=== PATIENT | female | born 1985 | race Caucasian/White ===

== ENCOUNTER 2019-09-16 19:32 | Emergency (ER) | payer OTHER, SELFPAY ==
--- NOTE | ~2019-09-16 | XR_ITS ---
EXAMINATION: XR finger 2nd LT min 2V INDICATION: Left second finger pain TECHNIQUE: Two views of the left second finger are obtained. COMPARISON: None available FINDINGS: There is mild soft tissue swelling of the finger. No fracture, dislocation, or subluxation is identified. The joint spaces are normal. IMPRESSION: 1. No acute osseous abnormality. Reviewed, dictated and finalized at location A.
[2019-09-16 19:48] VITALS: BP 114/73; PULSE 70; RESP 17; TEMP 37.3; O2SAT 98
--- NOTE | 2019-09-16 20:19 | ED.UPPEXIN ---
HPI - Extremity Injury (Upper) General Chief Complaint: Extremity Injury, Upper Stated Complaint: finger pain Source: patient Mode of arrival: ambulatory Limitations: no limitations History of Present Illness HPI narrative: this is a 34-year-old female that presents with injury to her left index finger after she inadvertently slammed the car door on her finger causing pain and swelling and along with the swelling some numbness to the distal end of her left index finger has good range of motion although painful with movement and with palpation. No other injuries. Patient did not take any medication prior to arrival she just came directly to the emergency department for ev MD complaint: injury to: left and finger Onset (ago): hour(s) Other Extremity Injury: Left: fingers (index) Other injuries: none Handedness: right Place: outdoors Severity: mild Relieving factors: cold therapy Exacerbating factors: movement of extremity Context: direct blow and other ( Slam car door on finger) Associated symptoms: numbness Related Data Home Medications Medication Instructions Recorded Confirmed No Home Medications 09/16/19 09/16/19 Allergies Allergy/AdvReac Type Severity Reaction Status Date / Time No Known Allergies Allergy Verified 09/16/19 19:46 Review of Systems Review of Systems: All systems reviewed & are unremarkable except as noted in HPI and below [facility] Past Medical History Medical History Patient denies medical problems Exam Const: General: no acute distress and alert Orientation/consciousness: patient oriented x3 HENMT: Head: normal to inspection Eyes: Conjunctivae: conjunctivae normal Pupils: Equal, round and reactive pupils present Neck: Neck: normal visual inspection and no lymphadenopathy Chest: Chest palpation & inspection: normal inspection of the chest Resp: Effort & Inspection: normal respiratory effort Cardio: Rate: regular rate Rhythm: regular rhythm GI: GI Palp: Yes Soft to palpation Skin: Wounds: wounds noted ( swollen tender distal left index finger) Neuro: General: patient oriented x3 and moves all extremities Extrem: General: normal to inspection Psych: Mental Status: mental status grossly normal Course Course Emergency Course: patient was offered pain medication but felt that she wanted to make sure there was no fractures and pain was well tolerated without medication. Vital Signs Vital signs: Vital Signs Temperature 37.3 C 09/16/19 19:48 Pulse Rate 70 09/16/19 19:48 Respiratory Rate 17 09/16/19 19:48 Blood Pressure 114/73 09/16/19 19:48 Pulse Oximetry 98 09/16/19 19:48 Temperature 37.3 C 09/16/19 19:48 Pulse Rate 70 09/16/19 19:48 Respiratory Rate 17 09/16/19 19:48 Blood Pressure 114/73 09/16/19 19:48 Pulse Oximetry 98 09/16/19 19:48 Critical Care Time Critical Care Time Critical Care Time: No Discharge Plan Discharge Clinical Impression: Finger sprain Patient Disposition: Home, Self-Care Condition: Stable Instructions: Antibiotic Form, Finger Sprain (ED) Additional Instructions: Can continue to use ice to affected finger, can use Motrin 400 mg twice daily x5 days for swelling and pain, follow-up with primary care physician if symptoms persist or worsen. Prescriptions: No Action No Home Medications RF: 0 Follow-up/Referrals: Homero,Miko Marcos MD [Primary Care Provider] - Time of Disposition: 20:23
== END 2019-09-16 20:30 | disposition home or self-care (01) ==
PROVIDERS: Emergency Provider Emergency Medicine; PCP Family Medicine
DX: S63.611A Unspecified sprain of left index finger, initial encounter (principal); W22.8XXA Striking against or struck by other objects, initial encounter
CPT/HCPCS: 73140; 99282; 99283

== ENCOUNTER 2020-04-12 10:43 | Emergency (ER) | payer OTHER, SELFPAY ==
--- NOTE | ~2020-04-12 | US_ITS ---
EXAMINATION: US pelvic complete w TV DATE: 04/12/2020 14:01 INDICATION: Right lower quadrant pain Comparison:No prior studies for comparison. TECHNIQUE: Multiple transabdominal and endovaginal sonographic images of the pelvis performed. FINDINGS: The uterus measures 10.2 x 4.5 x 4.6 cm. The endometrial complex measures 11 mm. The right ovary measures 2.8 x 1.1 x 1.5 cm and the left ovary measures 2.3 x 1.4 x 2.2 cm. There ar e small follicles in each ovary. There is trace free fluid in the pelvis. There are no abnormal masses seen on either side. IMPRESSION: 1. Unremarkable pelvic ultrasound. Reviewed, dictated and finalized at location A. [employer]
--- NOTE | ~2020-04-12 | CT_ITS ---
EXAMINATION: CT abdomen pelvis w con DATE: 04/12/2020 12:43 INDICATION: Right lower quadrant abdominal pain for one day. Dry heaves. Abdominal tenderness. TECHNIQUE: Computed tomography (CT) of the abdomen and pelvis was performed with 100 cc Omnipaque 350 intravenous contrast. Automated exposure control and iterative reconstruction technique were employe d. Exam dose: 428.75 mGy-cm total exam DLP. COMPARISON: None. FINDINGS: The lung bases are clear. Normal heart size. No pericardial or pleural effusion. The lung bases are clear. No hepatic, splenic, pancreatic, adrenal or renal space occupying mass lesion is detected. The gallbl adder is unremarkable. No gallbladder wall thickening. No pericholecystic fluid or stranding. No bile duct or pancreatic duct dilatation. No ureteral calculus or hydroureteronephrosis is detected. Normal caliber of the abdominal aorta. No intraperitoneal or retroperitoneal or pelvic mass lesion or adenopathy or ascites. The uterus measures up to 10 cm height and 4 cm AP dimension; the uterus adnexal areas and urinary bl adder are otherwise unremarkable. Normal appendix. No bowel obstruction or intraperitoneal free air. Included skeletal structures are unremarkable. IMPRESSION: Normal appendix. No significant abnormal finding Reviewed, dictated and finalized at [facility]. Reviewed, dictated and finalized at location B. T TESTER
--- NOTE | 2020-04-12 11:05 | ED.GENADULT ---
HPI - General Adult General Chief complaint: Abdominal Pain Stated complaint: R Side pain Source: patient Mode of arrival: ambulatory Limitations: no limitations History of Present Illness HPI narrative: Samanta is a 35F with a PMH of ovarian cysts that presented to the ED from her PCP office with RLQ pain. It came on insidiously last night and has become worse. It is associated with nausea but no vomiting, anorexia and chills. Pain is worse with movement and better with lying still. She did have a BM this morning. Related Data Allergies Allergy/AdvReac Type Severity Reaction Status Date / Time No Known Allergies Allergy Verified 09/16/19 19:46 Review of Systems Constitutional: Constitutional: Reports chills, Denies fever(s) and Denies weakness Eyes: Eyes: Reports no additional eye complaints ENT: Reports system reviewed and no additional complaints, except as documented Cardiovascular: Cardiovascular: Reports no additional cardiovascular complaints Respiratory: Respiratory: Reports no additional respiratory complaints Gastrointestinal: Gastrointestinal: Reports as per HPI Genitourinary: Genitourinary: Denies hematuria and Denies dysuria Musculoskeletal: Musculoskeletal: Reports no additional musculoskeletal complaints Integumentary/Breasts: Skin/Breast: Reports system reviewed and no additional complaints, except as docu Neurologic: Reports system reviewed and no additional complaints, except as documented Psychiatric: Psychiatric: Reports no additional psychiatric complaints Endocrine: Endocrine: Reports no additional endocrine complaints Hematologic/Lymphatic: Hematologic/Lymphatic: Reports no additional hematologic/lymphatic complaints Allergic/Immunologic: Allergic/Immunologic: Reports no additional allergic/immunologic complaints [facility] [place] Past Medical History Medical History (Updated 04/12/20 @ 14:23 by Victor Manuel Vazquez DO) Patient denies medical problems Exam Const: General: alert Orientation/consciousness: patient oriented x3 Limitations: No altered mental status Other: Mild distress HENMT: Other: normocephalic, atraumatic. moist mucous membranes Eyes: Conjunctivae: conjunctivae normal Pupils: Equal, round and reactive pupils present Neck: Neck: normal visual inspection Chest: Chest palpation & inspection: normal inspection of the chest Resp: Effort & Inspection: normal respiratory effort Auscultation: clear to auscultation bilaterally Cardio: Rate: regular rate Rhythm: regular rhythm GI: Other: Most TTP in the RLQ, but also the LLQ. Rebound tenderness present, +obturator sign, +psoas sign : General: Yes no CVA tenderness Skin: General skin exam: normal color Rashes: no rashes Neuro: General: patient oriented x3 and moves all extremities Extrem: General: normal to inspection Psych: Mental Status: mental status grossly normal Course Course Emergency Course: Samanta was evaluated. Ordered labs, UA, U Hcg. 4mg of morphine ordered for pain. Labs were largely unremarkable. However, given her symptoms a CT was ordered. EXAMINATION: CT abdomen pelvis w con DATE: 04/12/2020 12:43 INDICATION: Right lower quadrant abdominal pain for one day. Dry heaves. Abdominal tenderness. TECHNIQUE: Computed tomography (CT) of the abdomen and pelvis was performed with 100 cc Omnipaque 350 intravenous contrast. Automated exposure control and iterative reconstruction technique were employed. Exam dose: 428.75 mGy-cm total exam DLP. COMPARISON: None. FINDINGS: The lung bases are clear. Normal heart size. No pericardial or pleural effusion. The lung bases are clear. No hepatic, splenic, pancreatic, adrenal or renal space occupying mass lesion is detected. The gallbladder is unremarkable. No gallbladder wall thickening. No pericholecystic fluid or stranding. No bile duct or pancreatic duct dilatation. No ureteral calculus or hydroureteronephrosis is detected. Normal caliber of the abdominal a
[2020-04-12 11:13] VITALS: BP 123/71; PULSE 64; RESP 18; TEMP 37.2; O2SAT 100
[2020-04-12 11:18] LABS: Basophils Absolute Auto 0.02 K/mm3 (0.00-0.10); Basophils Percent Auto 0.3 % (0.0-1.0); Eosinophils Absolute Auto 0.08 K/mm3 (0.02-0.50); Eosinophils Percent Auto 1.1 % (1.0-6.0); Hemoglobin 13.3 g/dL (12.0-15.0); Immature Granulocyte Absolute 0.02 K/mm3 (0.00-0.00); Immature Granulocyte Percent A 0.3 % (0.0-0.0); Lymphocytes Absolute Auto 1.88 K/mm3 (1.10-4.50); Lymphocytes Percent Auto 25.6 % (18.0-42.0); Mean Corpuscular HGB Conc 32.4 g/dL (32.0-36.0); Mean Corpuscular Hemoglobin 30.5 pg (27.0-31.0); Mean Platelet Volume 10.8 fl (9.2-11.8); Monocytes Absolute Auto 0.47 K/mm3 (0.10-0.90); Monocytes Percent Auto 6.4 % (2.0-11.0); Neutrophils Absolute Auto 4.9 K/mm3 (1.7-7.2); Neutrophils Percent Auto 66.3 % (50.0-70.0); Platelet Count Result 213 K/mm3 (150-420); Red Blood Count 4.36 M/mm3 (4.20-5.40); Red Cell Distribution Width 13.1 % (11.6-14.4); White Blood Count 7.4 K/mm3 (4.8-10.8)
[2020-04-12 11:32] LABS: Prothrombin Time 10.7 Seconds (9.50-12.10)
[2020-04-12 11:33] LABS: Alanine Aminotransferase 22 U/L (14-59); Albumin Level 3.8 g/dL (3.4-5.0); Alkaline Phosphatase 77 U/L (46-116); Anion Gap 6 mmol/L (8-16); Aspartate Amino Transferase 29 U/L (15-37); Bilirubin,Total 0.5 mg/dL (0.00-1.00); Blood Urea Nitrogen 9 mg/dL (7-18); Calcium 9.2 mg/dL (8.5-10.1); Carbon Dioxide 29 mmol/L (21-32); Chloride 102 mmol/L (98-108); Estimated CRCL calculation 70 ml/min; Estimated Glomerular Filt Rate > 60; Glucose 94 mg/dL (70-99); Osmolality Calculated 282 mOsm/kg (285-295); Potassium 4.3 mmol/L (3.5-5.1); Sodium 137 mmol/L (136-145)
[2020-04-12 11:34] LABS: Lipase 73 U/L (73-393)
[2020-04-12 11:35] LABS: CRP 0.4 mg/dL (0.0-0.9)
[2020-04-12] MEDS: MORPHINE SULFATE (*CRX) 4 MG/ML INJ IV PUSH (11:47)
[2020-04-12 12:06] LABS: Appearance Urine Clear (Clear); Color Urine Yellow (Yellow)
[2020-04-12 12:07] LABS: Add Urine Microscopic? YES; Bilirubin Urine Negative (Negative); Blood Urine Trace-Intact (Negative); Glucose Urine UA Negative (Negative); Ketones Urine Negative (Negative); Leukocyte Esterase Ur Negative (Negative); Nitrate Urine Negative (Negative); Protein Urine Negative (Negative); Specific Grav Ur < 1.005 (1.010-1.020); Urobilinogen Urine 0.2 mg/dL (0.2-1.0)
[2020-04-12 12:08] LABS: Bacteria Urine Trace /hpf; RBC Urine 0-2 /hpf (0-2); Squamous Epithelial Cell Urine Few /hpf (Few); WBC Urine 0-3 /hpf (0-3)
[2020-04-12 12:09] LABS: Pregnancy On Board Control Positive; Urine Pregnancy Test Negative
--- NOTE | 2020-04-12 12:10 | PC.NURSE ---
Pt complaining of nausea, no vomiting at this time. MD made aware and orders to be placed, see MAR for tx.
[2020-04-12] MEDS: ONDANSETRON INJ 4 MG/2 ML VIAL IV PUSH (12:13)
[2020-04-12] MEDS: SODIUM CHLORIDE 0.9% IV 1,000 ML 999 ML IV CONT (12:55)
[2020-04-12 14:53] VITALS: BP 124/77; PULSE 64; RESP 18; TEMP 36.8; O2SAT 99
== END 2020-04-12 14:54 | disposition home or self-care (01) ==
PROVIDERS: Emergency Provider Family Medicine; PCP Family Medicine
DX: R10.9 Unspecified abdominal pain (principal)
CPT/HCPCS: 36415; 74177; 76830; 76856; 80053; 81001; 81025; 83690; 85025; 85610; 86140; 96361; 96374; 96375; 99283; 99284; J2270; J2405; J7030; Q9965; Q9967

== ENCOUNTER 2021-01-31 17:31 | Emergency (ER) | payer OTHER, SELFPAY ==
[2021-01-31 17:48] VITALS: BP 119/92; PULSE 80; RESP 20; TEMP 37.1; O2SAT 99
[2021-01-31 18:15] LABS: SARS-CoV-2 Ag Negative (Negative)
--- NOTE | 2021-01-31 18:28 | ED.URI ---
HPI - URI/Sore Throat General Chief Complaint: Upper Respiratory Infection Stated Complaint: congestion Source: patient Mode of arrival: ambulatory Limitations: no limitations History of Present Illness HPI Narrative: pt states for 2 days she has been having sinus congestion and cough and drainage MD elicited complaint: cough, rhinorrhea, nasal congestion and sinus pain Onset (ago): day(s) Consistency: constant Severity: moderate Description of mucous: purulent Able to tolerate fluids by mouth: No Exacerbating factors: nothing Relieving factors: nothing Associated symptoms: diaphoresis, headache, rhinorrhea, nasal congestion, sore throat and cough Related Data Home Medications Medication Instructions Recorded Confirmed No Home Medications 01/31/21 01/31/21 Allergies Allergy/AdvReac Type Severity Reaction Status Date / Time No Known Allergies Allergy Verified 01/31/21 18:32 Review of Systems Review of Systems: All systems reviewed & are unremarkable except as noted in HPI and below ENT: Reports nasal congestion Respiratory: Respiratory: Reports cough Musculoskeletal: Musculoskeletal: Reports myalgias PMFSH Past Medical History Medical History Patient denies medical problems Social History Social History (Updated 01/31/21 @ 18:31 by Anyi Yip MD) Smoking status: Never smoker Alcohol intake: never Substance use: never Exam Const: General: no acute distress and alert Nutritional Appearance: well nourished Orientation/consciousness: patient oriented x3 HENMT: Head: normal to inspection Eyes: Conjunctivae: conjunctivae normal Pupils: Equal, round and reactive pupils present Neck: Neck: normal visual inspection Chest: Chest palpation & inspection: normal inspection of the chest Resp: Effort & Inspection: normal respiratory effort Auscultation: clear to auscultation bilaterally Cardio: Rate: regular rate Rhythm: regular rhythm GI: GI Palp: Yes Soft to palpation, No Tenderness to palpation present (GI) and No Guarding due to palpation present (GI) : General: Yes no CVA tenderness Back/Spine/Pelvis: Back: no CVA tenderness Skin: General skin exam: normal color Rashes: no rashes Neuro: General: patient oriented x3 and moves all extremities Extrem: General: normal to inspection Psych: Mental Status: mental status grossly normal Course Vital Signs Vital signs: Vital Signs Temperature 37.1 C 01/31/21 17:48 Pulse Rate 80 01/31/21 17:48 Respiratory Rate 20 01/31/21 17:48 Blood Pressure 119/92 H 01/31/21 17:48 Pulse Oximetry 99 01/31/21 17:48 Temperature 37.1 C 01/31/21 17:48 Pulse Rate 80 01/31/21 17:48 Respiratory Rate 20 01/31/21 17:48 Blood Pressure 119/92 H 01/31/21 17:48 Pulse Oximetry 99 01/31/21 17:48 MDM - URI/Sore Throat Lab Data Labs: Lab Results 01/31/21 Range/Units 17:53 SARS-CoV-2 Ag (Rapid) Negative (Negative) Discharge Plan Discharge Clinical Impression: Upper respiratory infection Patient Disposition: Home, Self-Care Condition: Stable Instructions: Antibiotic Form, Viral Syndrome (ED) Follow-up/Referrals: Zuly,ZAC Beal [Primary Care Provider] - Time of Disposition: 18:28
[2021-01-31 18:40] VITALS: PULSE 80; RESP 20; O2SAT 99
== END 2021-01-31 18:41 | disposition home or self-care (01) ==
PROVIDERS: Emergency Provider Emergency Medicine; PCP Physician Assistant
DX: J06.9 Acute upper respiratory infection, unspecified (principal); Z20.822 Contact with and (suspected) exposure to COVID-19
CPT/HCPCS: 87426; 99281; 99282; C9803

== ENCOUNTER 2021-05-09 08:52 | Emergency (ER) | payer OTHER, SELFPAY ==
--- NOTE | ~2021-05-09 | CT_ITS ---
EXAMINATION: CT abdomen pelvis wo con DATE: 05/09/2021 10:24 INDICATION: Right lower quadrant abdominal pain. Nausea. TECHNIQUE: Computed tomography (CT) of the abdomen and pelvis was performed without intravenous contr ast. Automated exposure control and iterative reconstruction technique were employed. The dose-length product was 500.53 mGy-cm. COMPARISON: CT abdomen and pelvis 04/12/2020 FINDINGS: The visualized portions of the lung bases demonstrate minimal atelectasis. No pleural effus ion. The heart size is normal. No pericardial effusion. The liver, gallbladder, spleen, pancreas, adr enal glands, and kidneys are normal. There is no urolithiasis. There are no dilated loops of bowel. T he appendix is normal. There are no pathologically enlarged lymph nodes. There is no free intraperito alicia fluid. There is mild thoracolumbar spondylosis. IMPRESSION: 1. No etiology for the patient's symptoms. Reviewed, dictated and finalized at location B. NURSE
[2021-05-09 09:07] VITALS: BP 107/76; PULSE 75; RESP 18; TEMP 36.4; O2SAT 98
--- NOTE | 2021-05-09 09:54 | ED.ABDPAIN ---
HPI - Abdominal Pain General Chief Complaint: Abdominal Pain Stated Complaint: SHARP PAIN ON RIGHT SIDE Source: patient and RN notes reviewed Mode of arrival: ambulatory Limitations: no limitations History of Present Illness HPI narrative: Patient had sudden onset of right lower quadrant abdominal pain this morning. She had nausea no vomiting no diarrhea. No fever no chills. No urinary symptoms. MD elicited complaint: abdominal pain Pertinent past history: none Onset (ago): hour(s) (3) Pain Consistency: constant Location: RLQ Severity: severe Quality: stabbing and sharp Radiation: none Migration to: no migration Exacerbating factors: nothing Relieving factors: nothing Associated symptoms: nausea Related Data Home Medications Medication Instructions Recorded Confirmed No Home Medications 01/31/21 05/09/21 Allergies Allergy/AdvReac Type Severity Reaction Status Date / Time No Known Allergies Allergy Verified 05/09/21 09:12 Review of Systems Review of Systems: All systems reviewed & are unremarkable except as noted in HPI and below Constitutional: Constitutional: Denies chills and Denies fever(s) Gastrointestinal: Gastrointestinal: Denies diarrhea and Denies vomiting Genitourinary: Genitourinary: Denies hematuria, Denies nocturia, Denies dysuria and Denies urinary incontinence PMFSH Past Medical History Medical History (Updated 05/09/21 @ 10:54 by Chris Zambrano MD) Patient denies medical problems Surgical History Surgical History (Updated 05/09/21 @ 09:58 by Chris Zambrano MD) H/O myringotomy Social History Social History (Updated 01/31/21 @ 18:31 by Anyi Yip MD) Smoking status: Never smoker Alcohol intake: never Substance use: never Exam Const: General: no acute distress, alert and ill appearing acutely Nutritional Appearance: well nourished Orientation/consciousness: patient oriented x3 Other: Nurse in room during examination. HENMT: Head: normal to inspection Ears: external ears normal Eyes: Conjunctivae: conjunctivae normal Pupils: Equal, round and reactive pupils present EOM: EOMs intact bilaterally Neck: Neck: normal visual inspection Resp: Effort & Inspection: normal respiratory effort Auscultation: clear to auscultation bilaterally Cardio: Rate: regular rate Rhythm: regular rhythm GI: GI Palp: Yes Soft to palpation, Yes Tenderness to palpation present (GI) and Yes Guarding due to palpation present (GI) Auscultation: normal bowel sounds Back/Spine/Pelvis: Back: no CVA tenderness Skin: General skin exam: normal color Rashes: no rashes Neuro: General: patient oriented x3, moves all extremities, no meningeal signs, no focal motor deficits and CN's II-XI intact bilaterally Speech: normal speech Gait exam (Neuro): Normal gait present Extrem: General: normal to inspection and no clubbing, cyanosis or edema Psych: Appearance: grossly normal and well kempt Mental Status: mental status grossly normal Affect: normal affect Attitude: cooperative Thought content: Yes Normal thought content present Course Course Emergency Course: After discussion of results and negative CT scan normal labs I suggested diagnosis of ovarian cyst. Patient then states that she had those before and thought it might be an ovarian cyst. She is significantly improved after 30 mg Toradol. Vital Signs Vital signs: Vital Signs Temperature 36.4 C 05/09/21 09:07 Pulse Rate 75 05/09/21 09:07 Respiratory Rate 18 05/09/21 09:07 Blood Pressure 107/76 05/09/21 09:07 Pulse Oximetry 98 05/09/21 09:07 Temperature 36.4 C 05/09/21 09:07 Pulse Rate 75 05/09/21 09:07 Respiratory Rate 18 05/09/21 09:07 Blood Pressure 107/76 05/09/21 09:07 Pulse Oximetry 98 05/09/21 09:07 MDM - Abdominal Pain Differential Diagnosis Differential diagnosis: Likely acute appendicitis, calculus of kidney, diverticulitis and gastroenteritis Lab Data Attestati
[2021-05-09] MEDS: KETOROLAC 30 MG/ML VIAL (*BKC) IV PUSH (10:07)
[2021-05-09 10:10] LABS: Pregnancy On Board Control Positive; Urine Pregnancy Test Negative
[2021-05-09 10:10] LABS: Basophils Absolute Auto 0.02 K/mm3 (0.00-0.10); Basophils Percent Auto 0.2 % (0.0-1.0); Eosinophils Absolute Auto 0.14 K/mm3 (0.02-0.50); Eosinophils Percent Auto 1.6 % (1.0-6.0); Hematocrit 45.6 % (35.0-49.0); Hemoglobin 14.8 g/dL (12.0-15.0); Immature Granulocyte Absolute 0.03 K/mm3 (0.00-0.00); Immature Granulocyte Percent A 0.4 % (0.0-0.0); Lymphocytes Percent Auto 26.8 % (18.0-42.0); Mean Corpuscular HGB Conc 32.5 g/dL (32.0-36.0); Mean Corpuscular Hemoglobin 30.4 pg (27.0-31.0); Mean Corpuscular Volume 93.6 fL (78.0-102.0); Mean Platelet Volume 10.9 fl (9.2-11.8); Monocytes Percent Auto 8.2 % (2.0-11.0); Neutrophils Absolute Auto 5.4 K/mm3 (1.7-7.2); Neutrophils Percent Auto 62.8 % (50.0-70.0); Platelet Count Result 220 K/mm3 (150-420); Red Blood Count 4.87 M/mm3 (4.20-5.40); White Blood Count 8.6 K/mm3 (4.8-10.8)
[2021-05-09 10:13] LABS: Add Urine Microscopic? NO; Appearance Urine Clear (Clear); Bilirubin Urine Negative (Negative); Blood Urine Negative (Negative); Color Urine Light Yellow (Yellow); Glucose Urine UA Negative (Negative); Ketones Urine Negative (Negative); Leukocyte Esterase Ur Negative LEU/UL (Negative); Nitrate Urine Negative (Negative); Protein Urine Negative (Negative); Specific Grav Ur <= 1.005 (1.010-1.020); Urobilinogen Urine 0.2 mg/dL (0.2-1.0); pH Urine 6.5 (5.0-8.0)
[2021-05-09 10:28] LABS: Alanine Aminotransferase 23 U/L (14-59); Albumin Level 3.8 g/dL (3.4-5.0); Alkaline Phosphatase 87 U/L (46-116); Anion Gap 9 mmol/L (8-16); Aspartate Amino Transferase 17 U/L (15-37); Bilirubin,Total 0.4 mg/dL (0.00-1.00); Blood Urea Nitrogen 12 mg/dL (7-18); Calcium 9.2 mg/dL (8.5-10.1); Carbon Dioxide 28 mmol/L (21-32); Chloride 101 mmol/L (98-108); Estimated CRCL calculation 65 ml/min; Estimated Glomerular Filt Rate > 60; Glucose 90 mg/dL (70-99); Lipase 73 U/L (73-393); Osmolality Calculated 285 mOsm/kg (285-295); Potassium 4.1 mmol/L (3.5-5.1); Sodium 138 mmol/L (136-145); Total Protein 7.1 g/dL (6.4-8.2)
[2021-05-09 10:29] LABS: CRP < 0.2 mg/dL (0.0-0.9)
== END 2021-05-09 11:07 | disposition home or self-care (01) ==
PROVIDERS: Emergency Provider Emergency Medicine; PCP Family Medicine
DX: N83.201 Unspecified ovarian cyst, right side (principal)
CPT/HCPCS: 36415; 74176; 80053; 81003; 81025; 83690; 85025; 86140; 96374; 99283; 99284; J1885

== ENCOUNTER 2021-05-13 22:36 | Emergency (ER) | payer OTHER, SELFPAY ==
--- NOTE | 2021-05-13 23:19 | ED.URI ---
HPI - URI/Sore Throat General Chief Complaint: Upper Respiratory Infection Stated Complaint: COVID SYMPTOMS Source: patient and RN notes reviewed Mode of arrival: ambulatory Limitations: no limitations History of Present Illness MD elicited complaint: cough, sore throat and nasal congestion Context: sick contacts ( daughter diagnosed with COVID 7 days ago) Associated symptoms: myalgias, headache, rhinorrhea, cough and other ( lost sense of taste and smell) Treatments prior to arrival: none Related Data Home Medications Medication Instructions Recorded Confirmed No Home Medications 01/31/21 05/09/21 Allergies Allergy/AdvReac Type Severity Reaction Status Date / Time No Known Allergies Allergy Verified 05/09/21 09:12 Review of Systems Review of Systems: All systems reviewed & are unremarkable except as noted in HPI and below Constitutional: Constitutional: Denies chills and Denies fever(s) PMFSH Past Medical History Medical History (Updated 05/14/21 @ 00:08 by Chris Zambrano MD) History of ovarian cyst Surgical History Surgical History H/O myringotomy Social History Social History Smoking status: Never smoker Alcohol intake: never Substance use: never Exam Const: General: healthy appearing, no acute distress and alert Nutritional Appearance: well nourished Orientation/consciousness: patient oriented x3 Other: female nurse in room during examination. HENMT: Head: normal to inspection Ears: external ears normal Eyes: Conjunctivae: conjunctivae normal Pupils: Equal, round and reactive pupils present EOM: EOMs intact bilaterally Neck: Neck: normal visual inspection Resp: Effort & Inspection: normal respiratory effort Auscultation: clear to auscultation bilaterally Cardio: Rate: regular rate Rhythm: regular rhythm GI: GI Palp: Yes Soft to palpation and No Tenderness to palpation present (GI) Auscultation: normal bowel sounds Back/Spine/Pelvis: Cervical Spine: cervical ROM normal Thoracic/Lumbar Spine: thoraco-lumbar ROM normal Skin: General skin exam: normal color Rashes: no rashes Neuro: General: patient oriented x3, moves all extremities, no meningeal signs, no focal motor deficits and CN's II-XI intact bilaterally Speech: normal speech Gait exam (Neuro): Normal gait present Extrem: General: normal to inspection and no clubbing, cyanosis or edema Psych: Appearance: grossly normal and well kempt Mental Status: mental status grossly normal Affect: normal affect Attitude: cooperative Thought content: Yes Normal thought content present Discharge Plan Discharge Clinical Impression: COVID-19 Patient Disposition: Home, Self-Care Condition: Stable Instructions: COVID-19 (Coronavirus Disease 2019) (ED) Additional Instructions: Self quarantine until your without symptoms and then +5 days or a maximum of 10 days from date of diagnosis. Use Tylenol and or Motrin as needed. Stay hydrated. Notify all your contacts that you are positive for COVID Prescriptions: No Action No Home Medications RF: 0 Follow-up/Referrals: Adwoa,MD Garrett [Primary Care Provider] - Stand Alone Forms: Work/School Release IP Time of Disposition: 00:08
[2021-05-13 23:30] VITALS: BP 123/74; PULSE 64; RESP 18; TEMP 36.9; O2SAT 100
[2021-05-14] LABS: SARS-CoV-2 RNA PCR Positive (Negative)
[2021-05-14 00:13] VITALS: BP 130/84; PULSE 78; RESP 18; TEMP 36.6; O2SAT 98
== END 2021-05-14 00:14 | disposition home or self-care (01) ==
PROVIDERS: Emergency Provider Emergency Medicine; PCP Family Medicine
DX: U07.1 COVID-19 (principal)
CPT/HCPCS: 99282; 99283; C9803; U0003; U0005

== ENCOUNTER 2021-09-28 17:20 | Emergency (ER) | payer OTHER, SELFPAY ==
[2021-09-28 17:30] VITALS: BP 130/84; PULSE 76; RESP 20; TEMP 36.3; O2SAT 97
[2021-09-28 17:53] LABS: Add Urine Microscopic? YES; Appearance Urine Clear (Clear); Bilirubin Urine Negative (Negative); Blood Urine 2+ (Negative); Color Urine Light Yellow (Yellow); Glucose Urine UA Negative (Negative); Ketones Urine Negative (Negative); Leukocyte Esterase Ur 1+ LEU/UL (Negative); Nitrate Urine Negative (Negative); Protein Urine Negative (Negative); Specific Grav Ur >= 1.030 (1.010-1.020); Urobilinogen Urine 0.2 mg/dL (0.2-1.0); pH Urine 5.5 (5.0-8.0)
[2021-09-28 17:57] LABS: Bacteria Urine Trace /hpf; RBC Urine 0-2 /hpf (0-2); Squamous Epithelial Cell Urine Few /hpf (Few)
[2021-09-28 17:59] LABS: Pregnancy On Board Control Positive; Urine Pregnancy Test Negative
[2021-09-28] MEDS: ACETAMINOPHEN 325 MG TABLET 650 MG PO (18:34)
--- NOTE | 2021-09-28 18:34 | ED.FEMALEGU ---
HPI - Female Genitourinary General Chief complaint: Urogenital-Female Stated complaint: irritation/raw in vagina, blood in urine Time Seen by Provider: 09/28/21 17:24 Source: patient and RN notes reviewed Mode of arrival: ambulatory Limitations: no limitations History of Present Illness MD elicited complaint: dysuria and possible STD (denied) Onset (ago): day(s) (3) Location of symptoms: external genitalia Severity: mild Severity scale (1-10): 3 Quality of pain: burning Consistency: constant Vaginal discharge: none Vaginal bleeding: none Urinary symptoms: Dysuria Exacerbating factors: intercourse Relieving factors: none Treatment prior to arrival: none Sexual activity: Yes Patient : No Possible : other (no) Related Data Allergies Allergy/AdvReac Type Severity Reaction Status Date / Time No Known Allergies Allergy Verified 05/09/21 09:12 Review of Systems Review of Systems: All systems reviewed & are unremarkable except as noted in HPI and below Constitutional: Constitutional: Reports no additional constitutional complaints Eyes: Eyes: Reports no additional eye complaints ENT: Reports system reviewed and no additional complaints, except as documented Cardiovascular: Cardiovascular: Reports no additional cardiovascular complaints Respiratory: Respiratory: Reports no additional respiratory complaints Gastrointestinal: Gastrointestinal: Reports no additional gastrointestinal complaints Genitourinary: Genitourinary: Reports no additional female genitourinary complaints Musculoskeletal: Musculoskeletal: Reports no additional musculoskeletal complaints Integumentary/Breasts: Skin/Breast: Reports system reviewed and no additional complaints, except as docu Neurologic: Reports system reviewed and no additional complaints, except as documented Psychiatric: Psychiatric: Reports no additional psychiatric complaints Endocrine: Endocrine: Reports no additional endocrine complaints Hematologic/Lymphatic: Hematologic/Lymphatic: Reports no additional hematologic/lymphatic complaints Allergic/Immunologic: Allergic/Immunologic: Reports no additional allergic/immunologic complaints PMFSH Past Medical History Medical History History of ovarian cyst Urinary tract infection Surgical History Surgical History H/O myringotomy Social History Social History Smoking status: Never smoker Alcohol intake: never Substance use: never Exam Const: General: healthy appearing and no acute distress Nutritional Appearance: well nourished Orientation/consciousness: patient oriented x3 Limitations: no limitations HENMT: Head: normal to inspection Ears: external ears normal, TM's normal bilaterally and EAC's normal General nose exam: Normal external nose present and Normal nares present Face and sinus: normal facial exam and sinuses nontender Mouth: Yes Normal oral and palatal mucosa present and Yes moist mucous membranes Teeth and gingiva: dentition normal Throat: posterior oropharynx normal Eyes: Conjunctivae: conjunctivae normal Pupils: Equal, round and reactive pupils present EOM: EOMs intact bilaterally Neck: Neck: normal visual inspection, no lymphadenopathy and no meningeal signs Chest: Chest palpation & inspection: normal inspection of the chest Resp: Effort & Inspection: normal respiratory effort Auscultation: clear to auscultation bilaterally Cardio: Rate: regular rate Rhythm: regular rhythm GI: GI Palp: Yes Soft to palpation and No Tenderness to palpation present (GI) Auscultation: normal bowel sounds : General: Yes bladder normal to palpation and Yes no CVA tenderness Bimanual exam- vagina & uterus: bladder normal to palpation Back/Spine/Pelvis: Back: no CVA tenderness Skin: General skin exam: normal color Eric
[2021-09-28] MEDS: cefTRIAXone 1 GM, LIDOCAINE HCL 1% LOCAL INJ 2.1 ML IM (18:35)
[2021-09-28 18:43] VITALS: BP 127/84; PULSE 73; RESP 20; TEMP 37.1; O2SAT 97
== END 2021-09-28 18:48 | disposition home or self-care (01) ==
PROVIDERS: Emergency Provider Emergency Medicine; PCP Family Medicine
DX: N39.0 Urinary tract infection, site not specified (principal)
CPT/HCPCS: 81001; 81025; 87086; 87088; 87491; 87591; 96372; 99283; A9270; J0696

== ENCOUNTER 2021-10-07 21:02 | Emergency (ER) | payer OTHER, SELFPAY ==
[2021-10-07 21:24] VITALS: BP 106/71; PULSE 90; RESP 19; TEMP 36.9; O2SAT 98
--- NOTE | 2021-10-07 21:29 | ED.URI ---
HPI - URI/Sore Throat General Chief Complaint: Upper Respiratory Infection Stated Complaint: cold symptoms Time Seen by Provider: 10/07/21 21:29 Source: patient History of Present Illness HPI Narrative: 36-year-old female presents to the ER with a 2 day history of -- sore throat -- nonproductive cough -- nasal congestion -- loss of taste sensation since today patient is COVID vaccinated. She tested positive for COVID in April of this year. MD elicited complaint: cough, sore throat and nasal congestion Onset (ago): day(s) ( symptoms started 2 days ago) Consistency: constant Severity: moderate Able to tolerate fluids by mouth: Yes Exacerbating factors: nothing Relieving factors: nothing Associated symptoms: denies other symptoms, myalgias, rhinorrhea, nasal congestion, sore throat and cough Treatments prior to arrival: none Related Data Allergies Allergy/AdvReac Type Severity Reaction Status Date / Time No Known Allergies Allergy Verified 10/07/21 21:24 Review of Systems Review of Systems: All systems reviewed & are unremarkable except as noted in HPI and below Constitutional: Constitutional: Reports as per HPI and Reports no additional constitutional complaints Eyes: Eyes: Reports as per HPI and Reports no additional eye complaints ENT: Reports system reviewed and no additional complaints, except as documented, Reports as per HPI and Reports nasal congestion Cardiovascular: Cardiovascular: Reports as per HPI and Reports no additional cardiovascular complaints Respiratory: Respiratory: Reports as per HPI, Reports no additional respiratory complaints and Reports chest congestion Gastrointestinal: Gastrointestinal: Reports as per HPI and Reports no additional gastrointestinal complaints Genitourinary: Genitourinary: Reports no additional female genitourinary complaints Musculoskeletal: Musculoskeletal: Reports no additional musculoskeletal complaints and Reports as per HPI Integumentary/Breasts: Skin/Breast: Reports system reviewed and no additional complaints, except as docu and Reports as per HPI Neurologic: Reports system reviewed and no additional complaints, except as documented and Reports as per HPI Psychiatric: Psychiatric: Reports no additional psychiatric complaints and Reports as per HPI Endocrine: Endocrine: Reports no additional endocrine complaints and Reports as per HPI Hematologic/Lymphatic: Hematologic/Lymphatic: Reports no additional hematologic/lymphatic complaints and Reports as per HPI Allergic/Immunologic: Allergic/Immunologic: Reports no additional allergic/immunologic complaints and Reports as per HPI [facility] Past Medical History Medical History History of ovarian cyst Urinary tract infection Surgical History Surgical History H/O myringotomy Social History Social History Smoking status: Never smoker Alcohol intake: never Substance use: never Exam Const: General: healthy appearing and no acute distress Nutritional Appearance: well nourished Orientation/consciousness: patient oriented x3 Limitations: no limitations HENMT: Head: normal to inspection Ears: external ears normal General nose exam: Normal external nose present Face and sinus: normal facial exam Mouth: Yes Normal oral and palatal mucosa present Throat: posterior oropharynx normal Eyes: Conjunctivae: conjunctivae normal Pupils: Equal, round and reactive pupils present EOM: EOMs intact bilaterally Direct Ophthalmoscopy: no photophobia Neck: Neck: normal visual inspection Chest: Chest palpation & inspection: normal inspection of the chest Resp: Effort & Inspection: normal respiratory effort Auscultation: clear to auscultation bilaterally Cardio: Rate: regular rate Rhythm: regular rhythm GI: GI Palp: Yes Soft to palpation Other: no
--- NOTE | 2021-10-07 21:46 | PC.NURSE ---
covid swab sent to lab
--- NOTE | 2021-10-07 22:19 | PC.NURSE ---
clement in er for pt transfer
[2021-10-07] MEDS: IBUPROFEN 400 MG TABLET PO (22:25)
[2021-10-07] MEDS: guaiFENesin/DEXTROMETHORPHAN 5 ML UDC PO (22:26)
[2021-10-07 22:33] LABS: SARS-CoV-2 RNA PCR Positive (Negative)
[2021-10-07 22:41] LABS: Influenza Control Valid (Valid)
[2021-10-07 23:22] VITALS: BP 107/73; PULSE 71; RESP 18; TEMP 36.4; O2SAT 96
== END 2021-10-07 23:29 | disposition home or self-care (01) ==
PROVIDERS: Emergency Provider Internal Medicine Critical Care Medicine; PCP Family Medicine
DX: U07.1 COVID-19 (principal); J06.9 Acute upper respiratory infection, unspecified
CPT/HCPCS: 87804; 99283; A9270; C9803; U0003; U0005

== ENCOUNTER 2022-01-23 08:52 | Emergency (ER) | payer OTHER, SELFPAY ==
--- NOTE | ~2022-01-23 | CT_ITS ---
EXAMINATION: CT BRAIN W/O DATE: 01/23/2022 09:34 INDICATION: Right-sided facial numbness and headache. TECHNIQUE: Computed tomography (CT) of the head was performed without intravenous contrast. The dose- length product was 529.67 mGy-cm. Automated exposure control and iterative reconstruction technique w ere employed. COMPARISON: No prior studies for comparison. FINDINGS: Normal brain parenchymal volume for age. Normal alvarado-white differentiation. No acute intrac ranial hemorrhage, infarction, mass or mass effect. No ventriculomegaly or midline shift. Midline sagittal images demonstrate a normal corpus callosum, c raniovertebral junction and sella turcica. Basilar cisterns are patent. Paranasal sinuses and mastoids are pneumatized. No depressed skull fractures. IMPRESSION: 1. No acute intracranial abnormality. Reviewed, dictated and finalized at location B.
[2022-01-23 08:55] VITALS: BP 136/90; PULSE 63; RESP 16; TEMP 36.2; O2SAT 100
--- NOTE | 2022-01-23 09:12 | ED.GENADULT ---
HPI - General Adult General Chief complaint: Unspecified Stated complaint: R SIDE OF FACE FEELS NUMB Time Seen by Provider: 01/23/22 09:12 Source: patient Mode of arrival: ambulatory Limitations: no limitations History of Present Illness HPI narrative: Patient is a 37-year-old white female complains of right ear pain and right facial numbness for 2 days associated with right frontal intermittent headaches. She saw physician assistant corporate controller yesterday was diagnosed with external otitis and given Polysporin drops and amoxicillin. She says her pain is better but she still has the numbness on the right side of her face without any weakness. Or other neuro symptoms. She is walking talking hearing and seeing well. She denies fever cough runny nose sore throat neck pain or other pains. Patient says her right ear pain is better than yesterday. MD complaint: C/O R FACIAL NUMBNESS Onset (ago): day(s) (2) Location: face Radiation: non-radiation Quality: other (HAS SPASM OF PAIN RIGHT FRONTAL SCALP) Pain Consistency: intermittent Relieving factors: other (NSAIDS) Exacerbating factors: none Treatments prior to arrival: NSAID Related Data Home Medications Medication Instructions Recorded Confirmed amoxicillin 500 mg capsule 500 mg PO TID 01/23/22 01/23/22 Allergies Allergy/AdvReac Type Severity Reaction Status Date / Time No Known Allergies Allergy Verified 01/23/22 09:04 Review of Systems Review of Systems: All systems reviewed & are unremarkable except as noted in HPI and below Constitutional: Comments: Denies any fatigue fever fatigue decreased appetite weakness. Eyes: Eyes: Reports no additional eye complaints ENT: Reports system reviewed and no additional complaints, except as documented, Reports otalgia and Reports headache(s) Comments: Per HPI Cardiovascular: Cardiovascular: Reports no additional cardiovascular complaints Respiratory: Respiratory: Reports no additional respiratory complaints Gastrointestinal: Gastrointestinal: Reports no additional gastrointestinal complaints Genitourinary: Genitourinary: Reports no additional female genitourinary complaints Comments: periods are normal Musculoskeletal: Musculoskeletal: Reports no additional musculoskeletal complaints Neurologic: Reports Normal hearing present, Denies Neuro-related abnormal movements, Denies Abnormal speech present, Denies abnormal gait, Denies behavioral changes, Denies burning sensations, Denies confusion, Denies vertigo, Denies dizziness, Denies syncope, Denies frequent falls, Reports headache(s), Denies lack of coordination, Denies focal weakness, Denies loss of vision, Denies memory loss, Reports numbness, Denies seizure-like activity and Reports Sensory deficit (Neuro) Comments: per HPI Psychiatric: Psychiatric: Reports no additional psychiatric complaints PMFSH Past Medical History Medical History History of ovarian cyst Urinary tract infection Surgical History Surgical History H/O myringotomy Social History Social History Smoking status: Never smoker Alcohol intake: never Substance use: never Exam Narrative: patient is a white female she appears in no apparent distress cooperative healthy comfortable years right ear tragus is tender canal is mildly swollen tympanic membranes obscured by wax. Left ear normal oropharynx is clear. Face decreased sensation on the right side both of the forehead and the cheeks and jaw. There is no facial weakness. Left side is normal patient is alert and oriented x4 head normal cephalic atraumatic neck supple no lymphadenopathy lungs are clear to auscultation heart is regular rate and rhythm without murmurs gallops or rubs abdomen is soft and nontender extremities no cyanosis clubbing or edema neuro right
[2022-01-23 09:28] LABS: Pregnancy On Board Control Positive; Urine Pregnancy Test Negative
[2022-01-23] MEDS: KETOROLAC 30 MG/ML VIAL (*BKC) IM (09:49)
[2022-01-23 10:22] VITALS: BP 115/79; PULSE 65; RESP 16; O2SAT 100
== END 2022-01-23 10:35 | disposition home or self-care (01) ==
PROVIDERS: Emergency Provider Emergency Medicine; PCP Family Medicine
DX: H60.91 Unspecified otitis externa, right ear (principal); R20.0 Anesthesia of skin
CPT/HCPCS: 70450; 81025; 96372; 99284; J1885

== ENCOUNTER 2022-02-12 20:41 | Emergency (ER) | payer OTHER, SELFPAY ==
--- NOTE | 2022-02-12 20:44 | ED.SKABFB ---
HPI - Skin/Abscess/Foreign Bdy General Chief complaint: Skin/Abscess/Foreign Body Stated complaint: bug bite on stomach Time Seen by Provider: 02/12/22 20:43 Source: patient and RN notes reviewed Mode of arrival: ambulatory Limitations: no limitations History of Present Illness complaint: abscess/boil Onset (ago): day(s) (1) Severity: mild Quality: burning, aching, dull and constant Pain Consistency: constant Relieving factors: none Exacerbating factors: palpation Context: none Associated symptoms: denies other symptoms Treatments prior to arrival: none Related Data Allergies Allergy/AdvReac Type Severity Reaction Status Date / Time No Known Allergies Allergy Verified 01/23/22 09:04 Review of Systems Review of Systems: All systems reviewed & are unremarkable except as noted in HPI and below PMFSH Past Medical History Medical History History of ovarian cyst Urinary tract infection Surgical History Surgical History H/O myringotomy Social History Social History Smoking status: Never smoker Alcohol intake: never Substance use: never Exam Const: General: healthy appearing, no acute distress and alert Nutritional Appearance: well nourished Orientation/consciousness: patient oriented x3 Limitations: no limitations Other: Female tech in room during examination. HENMT: Head: normal to inspection Ears: external ears normal Eyes: Conjunctivae: conjunctivae normal Pupils: Equal, round and reactive pupils present EOM: EOMs intact bilaterally Neck: Neck: normal visual inspection Resp: Effort & Inspection: normal respiratory effort Auscultation: clear to auscultation bilaterally Cardio: Rate: regular rate Rhythm: regular rhythm GI: Auscultation: normal bowel sounds Back/Spine/Pelvis: Cervical Spine: cervical ROM normal Thoracic/Lumbar Spine: thoraco-lumbar ROM normal Skin: General skin exam: normal color and fluctuance (lower ant abd 2 cm in diameter tender, warm, red) Neuro: General: patient oriented x3, moves all extremities, no focal motor deficits and CN's II-XI intact bilaterally Speech: normal speech Gait exam (Neuro): Normal gait present Extrem: General: normal to inspection and no clubbing, cyanosis or edema Psych: Mental Status: mental status grossly normal Affect: normal affect Attitude: cooperative Course Course Emergency Course: Abscess is just newly forming. There is no evidence of any consolidation where there would be something to incise and drain. Patient advised that if it becomes more organized and needs to be drained she can follow up with her primary care physician or return to the emergency room. Vital Signs Vital signs: Vital Signs Temperature 36.8 C 02/12/22 20:45 Pulse Rate 64 02/12/22 20:45 Respiratory Rate 20 02/12/22 20:45 Blood Pressure 104/64 02/12/22 20:45 Pulse Oximetry 100 02/12/22 20:45 Oxygen Delivery Room Air 02/12/22 20:45 Temperature 36.8 C 02/12/22 20:45 Pulse Rate 78 02/12/22 21:10 Respiratory Rate 18 02/12/22 21:10 Blood Pressure 112/71 02/12/22 21:10 Pulse Oximetry 99 02/12/22 21:10 Oxygen Delivery Autopap 02/12/22 21:10 Discharge Plan Discharge Clinical Impression: Abscess of skin or subcutaneous tissue Qualifiers: Site of cutaneous abscess: trunk Site of cutaneous abscess of trunk: abdominal wall Qualified Code(s): L02.211 - Cutaneous abscess of abdominal wall Patient Disposition: Home, Self-Care Condition: Stable Instructions: Antibiotic Form, Abscess (ED) Additional Instructions: Warm compresses 3-4 times per day. Tylenol and or Motrin as needed for pain. If not better in 3-5 days follow-up with your primary care physician for possible incision and drainage. Prescriptions: New cephalexin 500 mg capsule
[2022-02-12 20:45] VITALS: BP 104/64; PULSE 64; RESP 20; TEMP 36.8; O2SAT 100
--- NOTE | 2022-02-12 20:54 | PC.NURSE ---
Went in an accompanied Dr Zambrano with his examination.
[2022-02-12] MEDS: CEPHALEXIN 500 MG CAPSULE PO (20:58)
[2022-02-12 21:10] VITALS: BP 112/71; PULSE 78; RESP 18; O2SAT 99
== END 2022-02-12 21:14 | disposition home or self-care (01) ==
LOC: CHSED 20:59
PROVIDERS: Emergency Provider Emergency Medicine; PCP Family Medicine
DX: L02.211 Cutaneous abscess of abdominal wall (principal)
CPT/HCPCS: 99283; A9270

== ENCOUNTER 2022-02-15 20:37 | Emergency (ER) | payer OTHER, SELFPAY ==
[2022-02-15 20:40] VITALS: BP 117/78; PULSE 80; RESP 16; TEMP 36.6; O2SAT 98
--- NOTE | 2022-02-15 20:56 | PC.NURSE ---
ERP ordered for a dry sterile gauze dressing to be applied to the area that will be changed BID. RN applies the dressing and educates pt cleaning the area, applying the dressing, and signs and symptoms of infection. Pt verbalized understanding.
--- NOTE | 2022-02-15 21:09 | ED.SKABFB ---
HPI - Skin/Abscess/Foreign Bdy General Chief complaint: Skin/Abscess/Foreign Body Stated complaint: painful bump on stomach Time Seen by Provider: 02/15/22 20:41 Source: patient and RN notes reviewed Mode of arrival: ambulatory Limitations: no limitations History of Present Illness complaint: other (12 cm diameter red, raised mildly painful area below umbilicus) Onset (ago): day(s) (4) Tetanus up to date: unsure Severity: mild Severity scale (1-10): 2 Quality: aching and dull Pain Consistency: constant Relieving factors: medication Exacerbating factors: none Context: recent antibiotic Associated symptoms: denies other symptoms Related Data Home Medications Medication Instructions Recorded Confirmed sulfamethoxazole 400 1 tablet PO DIRECTED 02/15/22 02/15/22 mg-trimethoprim 80 mg tablet (Bactrim) Allergies Allergy/AdvReac Type Severity Reaction Status Date / Time No Known Allergies Allergy Verified 02/15/22 20:47 Review of Systems Review of Systems: All systems reviewed & are unremarkable except as noted in HPI and below Constitutional: Constitutional: Reports no additional constitutional complaints Eyes: Eyes: Reports no additional eye complaints ENT: Reports system reviewed and no additional complaints, except as documented Cardiovascular: Cardiovascular: Reports no additional cardiovascular complaints Respiratory: Respiratory: Reports no additional respiratory complaints Gastrointestinal: Gastrointestinal: Reports no additional gastrointestinal complaints Genitourinary: Genitourinary: Reports no additional female genitourinary complaints Musculoskeletal: Musculoskeletal: Reports no additional musculoskeletal complaints Integumentary/Breasts: Skin/Breast: Reports system reviewed and no additional complaints, except as docu and Reports erythema (of abdominal wall) Neurologic: Reports system reviewed and no additional complaints, except as documented Psychiatric: Psychiatric: Reports no additional psychiatric complaints Endocrine: Endocrine: Reports no additional endocrine complaints Hematologic/Lymphatic: Hematologic/Lymphatic: Reports no additional hematologic/lymphatic complaints Allergic/Immunologic: Allergic/Immunologic: Reports no additional allergic/immunologic complaints [facility] Past Medical History Medical History (Updated 02/15/22 @ 21:31 by Eliazar Santizo MD) Abdominal wall cellulitis History of ovarian cyst Urinary tract infection Surgical History Surgical History H/O myringotomy Social History Social History Smoking status: Never smoker Alcohol intake: never Substance use: never Exam Const: General: healthy appearing, no acute distress and well nourished Nutritional Appearance: well nourished Orientation/consciousness: patient oriented x3 Limitations: no limitations HENMT: Head: normal to inspection Ears: external ears normal, TM's normal bilaterally and EAC's normal Face/Nose/Sinus: Normal external nose present, Normal nares present, normal facial exam and sinuses nontender Face and sinus: normal facial exam and sinuses nontender Mouth: Yes Normal oral and palatal mucosa present and Yes moist mucous membranes Teeth and gingiva: dentition normal Throat: posterior oropharynx normal Eyes: Conjunctivae: conjunctivae normal Pupils: Equal, round and reactive pupils present EOM: EOMs intact bilaterally Neck: Neck: normal visual inspection, no lymphadenopathy and no meningeal signs Chest: Chest palpation & inspection: normal inspection of the chest Resp: Effort & Inspection: normal respiratory effort Auscultation: clear to auscultation bilaterally Cardio: Rate: regular rate Rhythm: regular rhythm GI: GI Palp: Yes Soft to palpation and No Tenderness to palpation present (GI) Auscultation: normal bowel sounds Other: 12 cm diameter supriya
[2022-02-15] MEDS: ACETAMINOPHEN 325 MG TABLET 650 MG PO (21:16)
[2022-02-15] MEDS: cefTRIAXone 1 GM, LIDOCAINE HCL 1% LOCAL INJ 2.1 ML IM (21:17)
== END 2022-02-15 21:29 | disposition home or self-care (01) ==
PROVIDERS: Emergency Provider Emergency Medicine; PCP Family Medicine
DX: L03.311 Cellulitis of abdominal wall (principal)
CPT/HCPCS: 96372; 99283; A9270; J0696

== ENCOUNTER 2022-04-22 15:03 | Emergency (ER) | payer OTHER, SELFPAY ==
--- NOTE | ~2022-04-22 | XR_ITS ---
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 RESULT: Lines, tubes, and devices: None. Lungs and pleura: Mid and lower bilateral reticulonodular opacities. Cardiomediastinal silhouette: Stable. Other: No acute osseous or upper abdominal finding. IMPRESSION: Pulmonary opacities may represent bronchiolitis, as can be seen with atypical infection, asthma, aspi ration, and small airways disease. Reviewed, dictated and finalized at location K. ERN PHILOSOPHY PROFESSOR IMPRESSION: Pulmonary opacities may represent bronchiolitis, as can be seen with atypical i nfection, asthma, aspiration, and small airways disease.
[2022-04-22 15:05] VITALS: BP 110/60; PULSE 73; RESP 16; TEMP 37.1; O2SAT 99
[2022-04-22] MEDS: ACETAMINOPHEN 500 MG TABLET 1000 MG PO (15:30)
[2022-04-22 15:42] LABS: Hemoglobin 13.5 g/dL (12.0-15.0); Mean Corpuscular HGB Conc 32.9 g/dL (32.0-36.0); Mean Corpuscular Hemoglobin 30.4 pg (27.0-31.0); Mean Corpuscular Volume 92.3 fL (78.0-102.0); Platelet Count Result 183 K/mm3 (150-420); Red Blood Count 4.44 M/mm3 (4.20-5.40); Red Cell Distribution Width 13.2 % (11.6-14.4); White Blood Count 9.8 K/mm3 (4.8-10.8)
[2022-04-22 15:52] LABS: Influenza A QL RT-PCR Negative (Negative); Influenza B QL RT-PCR Negative (Negative); RSV RNA, RT-PCR Negative (Negative); SARS-CoV-2 RNA PCR Positive (Negative)
[2022-04-22 15:57] LABS: D Dimer 0.25 mg/L (0.19-0.50); Partial Thromboplastin Time 26.3 SEC (23.90-30.70); Prothrombin Time 11.1 Seconds (9.50-12.10)
--- NOTE | 2022-04-22 15:59 | ECG_ITS ---
Measurements Intervals [place] Rate: 81 P: 59 AL: 195 QRS: 54 QRSD: 102 T: 33 QT: 363 QTc: 423 Interpretive Statements SINUS RHYTHM NONSPECIFIC ST ABNORMALITY BORDERLINE ECG NO PREVIOUS ECG AVAILABLE FOR COMPARISON Electronically Signed On 04-22-2022 16:39:35 [employer]ILDING MAINTENA[employer]CE MECH[employer]IC by Alex Santos M.D.
[2022-04-22 16:03] LABS: Alanine Aminotransferase 23 U/L (14-59); Albumin Level 3.8 g/dL (3.4-5.0); Alkaline Phosphatase 75 U/L (46-116); Anion Gap 6 mmol/L (8-16); Aspartate Amino Transferase 17 U/L (15-37); Bilirubin,Total 0.5 mg/dL (0.00-1.00); Blood Urea Nitrogen 11 mg/dL (7-18); Calcium 8.6 mg/dL (8.5-10.1); Carbon Dioxide 29 mmol/L (21-32); Chloride 102 mmol/L (98-108); Estimated CRCL calculation 63 ml/min; Estimated Glomerular Filt Rate > 60; Glucose 121 mg/dL (70-99); Osmolality Calculated 284 mOsm/kg (285-295); Potassium 3.4 mmol/L (3.5-5.1); Sodium 137 mmol/L (136-145); Total Protein 6.8 g/dL (6.4-8.2)
[2022-04-22 16:18] LABS: Troponin I < 4.0 ng/L (0.00-60.4)
--- NOTE | 2022-04-22 16:34 | PC.NURSE ---
PT IS SITTING ON STRETCHER AWAITING ERP DECISION. HE WAS AT BEDSIDE REVIEWING RESULTS WITH PT. WILL CONTINUE TO MONITOR. DRY INTERMITTENT COUGH IS NOTED.
--- NOTE | 2022-04-22 17:28 | ED.GENADULT ---
HPI - General Adult General Chief complaint: Upper Respiratory Infection Stated complaint: no taste, stuffy, fever, cough Time Seen by Provider: 04/22/22 15:05 Source: patient Mode of arrival: ambulatory Limitations: no limitations History of Present Illness HPI narrative: patient is a 37-year-old white female complained of cough muscle aches sinus drainage and decreased taste for the past 2 days. Her sister has COVID she has had COVID twice this year in April and September of this year. She denies any shortness of breath he has had a little chest discomfort. Related Data Home Medications Medication Instructions Recorded Confirmed No Home Medications 04/22/22 04/22/22 Allergies Allergy/AdvReac Type Severity Reaction Status Date / Time No Known Allergies Allergy Verified 04/22/22 15:13 Review of Systems Review of Systems: All systems reviewed & are unremarkable except as noted in HPI and below Constitutional: Constitutional: Reports no additional constitutional complaints Eyes: Eyes: Reports no additional eye complaints ENT: Reports system reviewed and no additional complaints, except as documented and Reports as per HPI Cardiovascular: Cardiovascular: Reports as per HPI, Reports no additional cardiovascular complaints and Reports chest pain Respiratory: Respiratory: Reports as per HPI and Reports no additional respiratory complaints Gastrointestinal: Gastrointestinal: Reports no additional gastrointestinal complaints, Denies diarrhea, Denies nausea and Denies vomiting Genitourinary: Genitourinary: Denies hematuria and Denies dysuria Musculoskeletal: Musculoskeletal: Reports no additional musculoskeletal complaints and Reports myalgias Neurologic: Denies weakness PMFSH Past Medical History Medical History Abdominal wall cellulitis History of ovarian cyst Urinary tract infection Surgical History Surgical History H/O myringotomy Social History Social History Smoking status: Never smoker Alcohol intake: never Substance use: never Exam Narrative: Patient is a white female she appears in no apparent distress head is normocephalic atraumatic eyes conjunctiva pink sclera nonicteric. Oropharynx is clear. Neck is supple no lymphadenopathy. Lungs are clear without murmurs gallops or rubs. back is nontender. Chest wall is nontender. Abdomen soft and nontender no hepatosplenomegaly or masses. He has no cyanosis clubbing or edema. Neurological she is alert and oriented x4 motor and sensory grossly Course Vital Signs Vital signs: Vital Signs Temperature 37.1 C 04/22/22 15:05 Pulse Rate 73 04/22/22 15:05 Respiratory Rate 16 04/22/22 15:05 Blood Pressure 110/60 04/22/22 15:05 Pulse Oximetry 99 04/22/22 15:05 Oxygen Delivery Room Air 04/22/22 15:05 Temperature 36.9 C 04/22/22 17:42 Pulse Rate 82 04/22/22 17:42 Respiratory Rate 16 04/22/22 17:42 Blood Pressure 109/69 04/22/22 17:42 Pulse Oximetry 99 04/22/22 17:42 Oxygen Delivery Room Air 04/22/22 17:42 Medical Decision Making MDM Narrative Medical decision making narrative: CBC was normal. CMP showed a potassium 3.4 otherwise was unremarkable. She was positive for COVID. Was negative for RSV influenza a and influenza B. chest x-ray read by radiologist was consistent with bronchiolitis and viral syndrome. Evaluation and workup and plan was discussed with the patient in detail all questions were asked and answered and patient was discharged with COVID precautions. troponin was normal . I personally interpreted the EKG. EKG shows sinus rhyhm. at a rate 81 normal intervals normal axis no acute ST T wave abnormalities. Coding statement: Patient has self limited stable acute illness, COVID 19 respiratory infection. Consi
[2022-04-22 17:42] VITALS: BP 109/69; PULSE 82; RESP 16; TEMP 36.9; O2SAT 99
== END 2022-04-22 17:41 | disposition home or self-care (01) ==
PROVIDERS: Emergency Provider Emergency Medicine; PCP Family Medicine
DX: U07.1 COVID-19 (principal)
CPT/HCPCS: 36415; 71045; 80053; 84484; 85027; 85380; 85610; 85730; 87637; 93005; 99284

== ENCOUNTER 2022-05-01 16:23 | Outpatient (CLI) | payer OTHER, SELFPAY ==
[2022-05-01 17:21] LABS: SARS-CoV-2 Ag Negative (Negative); SARS-CoV-2 RNA PCR Negative (Negative)
== END 2022-05-01 16:24 | disposition home or self-care (01) ==
LOC: CHSLAB 16:32
PROVIDERS: PCP Family Medicine; Visit Provider Family Medicine
DX: Z20.822 Contact with and (suspected) exposure to COVID-19 (principal)
CPT/HCPCS: 87426; C9803; U0003; U0005

== ENCOUNTER 2022-06-22 18:43 | Emergency (ER) | payer OTHER, SELFPAY ==
[2022-06-22 18:45] VITALS: BP 114/43; PULSE 64; RESP 16; TEMP 36.9; O2SAT 100
--- NOTE | 2022-06-22 19:01 | ED.GENADULT ---
HPI - General Adult General Chief complaint: Skin/Abscess/Foreign Body Stated complaint: rash on R arm Time Seen by Provider: 06/22/22 19:00 Source: patient Mode of arrival: ambulatory Limitations: no limitations History of Present Illness HPI narrative: Complains of a rash on her right antecubital fossa mildly pruritic star there the day she had surgery last Friday 4 days this is mildly worse status or for. Said she had no ID that arm at the side to get her carpal tunnel. Denies any other symptoms she is eating drinking stooling voiding well no bleeding or bruising blood in her stool melena cough fever sore throat runny nose any pain anywhere. Denies any other rash or any other complaints. Related Data Allergies Allergy/AdvReac Type Severity Reaction Status Date / Time No Known Allergies Allergy Verified 04/22/22 15:13 Review of Systems Constitutional: Constitutional: Reports no additional constitutional complaints Eyes: Eyes: Reports no additional eye complaints ENT: Reports system reviewed and no additional complaints, except as documented Cardiovascular: Cardiovascular: Reports no additional cardiovascular complaints Respiratory: Respiratory: Reports no additional respiratory complaints Gastrointestinal: Gastrointestinal: Reports no additional gastrointestinal complaints Genitourinary: Genitourinary: Reports no additional female genitourinary complaints Musculoskeletal: Musculoskeletal: Reports no additional musculoskeletal complaints Integumentary/Breasts: Skin/Breast: Reports system reviewed and no additional complaints, except as docu and Reports as per HPI Neurologic: Reports system reviewed and no additional complaints, except as documented PMFSH Past Medical History Medical History Abdominal wall cellulitis History of ovarian cyst Urinary tract infection Surgical History Surgical History H/O myringotomy Social History Social History Smoking status: Never smoker Alcohol intake: never Substance use: never Exam Const: General: healthy appearing Nutritional Appearance: well nourished Orientation/consciousness: patient oriented x3 Limitations: no limitations Other: White female no apparent distress right antecubital fossa has a mild macular rash her proximal forearm on the volar surface. It is very faint. Right hand is in surgical image to she is alert and orient x4 speech is normal motor and sensory are normal. Course Vital Signs Vital signs: Vital Signs Temperature 36.9 C 06/22/22 18:45 Pulse Rate 64 06/22/22 18:45 Respiratory Rate 16 06/22/22 18:45 Blood Pressure 114/43 L 06/22/22 18:45 Pulse Oximetry 100 06/22/22 18:45 Oxygen Delivery Room Air 06/22/22 18:45 Temperature 36.9 C 06/22/22 18:45 Pulse Rate 64 06/22/22 18:45 Respiratory Rate 16 06/22/22 18:45 Blood Pressure 114/43 L 06/22/22 18:45 Pulse Oximetry 100 06/22/22 18:45 Oxygen Delivery Room Air 06/22/22 18:45 Medical Decision Making MDM Narrative Medical decision making narrative: Patient has a mild rash on the side of her surgery that she said been there since her surgery may have been some allergy to medication that she had surgery. Her symptoms certainly are not systemic. Will treat her with prednisone 40 mg a day for 5 days she can use 1% hydrocortisone locally and follow up with her primary care doctor as needed. Vital Signs Vital Signs: Vital Signs Temperature 36.9 C 06/22/22 18:45 Pulse Rate 64 06/22/22 18:45 Respiratory Rate 16 06/22/22 18:45 Blood Pressure 114/43 L 06/22/22 18:45 Pulse Oximetry 100 06/22/22 18:45 Oxygen Delivery Room Air 06/22/22 18:45 Temperature 36.9 C 06/22/22 18:45 Pulse Rate 64 06/22/22 18:45 Respiratory Rate 16 06/22/22 18:45
[2022-06-22] MEDS: predniSONE 20 MG TABLET 40 MG PO (19:20)
[2022-06-22 19:29] VITALS: BP 133/74; PULSE 87; RESP 20; TEMP 36.6; O2SAT 99
== END 2022-06-22 19:32 | disposition home or self-care (01) ==
PROVIDERS: Emergency Provider Emergency Medicine; PCP Family Medicine
DX: L30.9 Dermatitis, unspecified (principal)
CPT/HCPCS: 99283; J7512

== ENCOUNTER 2022-11-10 19:04 | Emergency (ER) | payer OTHER, SELFPAY ==
--- NOTE | ~2022-11-10 | CT_ITS ---
EXAMINATION: CT abdomen pelvis wo con DATE: 11/10/2022 20:55 INDICATION: Right lower quadrant abdominal pain. TECHNIQUE: Computed tomography (CT) of the abdomen and pelvis was performed without intravenous contr ast. Automated exposure control and iterative reconstruction technique were employed. The dose-length product was 399.16 mGy-cm. COMPARISON: CT abdomen and pelvis 05/09/2021 FINDINGS: The visualized portions of the lung bases demonstrate minimal atelectasis. No pleural effus ion. The heart size is normal. No pericardial effusion. The liver is normal. The gallbladder is contr acted. The spleen, pancreas, adrenal glands, and kidneys are normal. There are no dilated loops of gustavo wel. The appendix is normal. There are no pathologically enlarged lymph nodes. There is no free intra peritoneal fluid. There is mild chronic anterior wedging of T12 vertebral body. IMPRESSION: 1. No etiology for the patient's symptoms. Reviewed, dictated and finalized at location E.
[2022-11-10 19:12] VITALS: BP 116/72; PULSE 70; RESP 18; TEMP 37.3; O2SAT 98
[2022-11-10 19:28] LABS: Appearance Urine Clear (Clear); Bilirubin Urine Negative (Negative); Blood Urine Negative (Negative); Color Urine Light Yellow (Yellow); Glucose Urine UA Negative (Negative); Ketones Urine Negative (Negative); Leukocyte Esterase Ur Negative (Negative); Nitrate Urine Negative (Negative); Protein Urine Negative (Negative)
[2022-11-10 19:31] LABS: Add Urine Microscopic? NO
[2022-11-10 19:32] LABS: Pregnancy On Board Control Positive; Urine Pregnancy Test Negative
--- NOTE | 2022-11-10 19:39 | ED.ABDPAIN ---
HPI - Abdominal Pain General Chief Complaint: Abdominal Pain Stated Complaint: R-sided abd pain Time Seen by Provider: 11/10/22 19:38 Source: patient Mode of arrival: ambulatory Limitations: no limitations History of Present Illness HPI narrative: 37-year-old white female complains of right lower quadrant pain it started yesterday around 11:00 a.m. The pain has been coming and going and has been sharp. Denies any nausea vomiting or diarrhea or urinary symptoms. Worse when she walks or bends over or takes a deep breath 9/10 in pain it helped with Tylenol and ibuprofen for about 2 hours but then the pain came back. He did not help at 1st she thought it was her cramps denies any vaginal bleeding or discharge she has eaten breakfast lunch and dinner today food does not seem to change the pain at all. her last menstrual period was last month. Denies any cough shortness of breath fever sore throat runny nose problems walking talking seeing or hearing her last bowel movement was yesterday which was normal. Denies any lumps or bumps or swelling rash or itching dizziness or lightheadedness bleeding or bruising. Denies any other complaints. Past surgical history carpal tunnel syndrome allergies no known drug allergies Social history works as a [employer] Related Data Home Medications Medication Instructions Recorded Confirmed No Home Medications 11/10/22 11/10/22 Allergies Allergy/AdvReac Type Severity Reaction Status Date / Time No Known Allergies Allergy Verified 11/10/22 19:10 Review of Systems Review of Systems: All systems reviewed & are unremarkable except as noted in HPI and below PMFSH Past Medical History Medical History Abdominal wall cellulitis History of ovarian cyst Urinary tract infection Surgical History Surgical History H/O myringotomy Social History Social History Smoking status: Never smoker Alcohol intake: never Substance use: never Exam Narrative: White Female patient moderate distress complaining of right lower quadrant pain..? Head normocephalic, atraumatic.? Eyes conjunctiva pink sclera nonicteric.? Extraocular movements are intact.? Ears externally normal.? Oropharynx is clear with moist mucous membranes without exudates.? Neck is supple nontender no lymphadenopathy.? Back is nontender , no CVA tenderness.? Lungs are clear.? Heart is regular rate and rhythm without murmurs gallops or rubs.? Chest wall is nontender.? Abdomen is soft with tenderness in the right lower quadrant with rebound in the right lower quadrant and positive Rovsing's sign referred rebound tenderness to the right lower quadrant. no hepatosplenomegaly or masses no CVA tenderness no abdominal bruits.? Extremities no cyanosis clubbing or edema.? Skin is warm and dry without rashes or lesions.? Neurological patient is alert and oriented x4.? Motor and sensory grossly intact.? Gait is normal. Course Vital Signs Vital signs: Vital Signs Temperature 37.3 C 11/10/22 19:12 Pulse Rate 70 11/10/22 19:12 Respiratory Rate 18 11/10/22 19:12 Blood Pressure 116/72 11/10/22 19:12 Pulse Oximetry 98 11/10/22 19:12 Oxygen Delivery Room Air 11/10/22 19:12 Temperature 37.3 C 11/10/22 19:12 Pulse Rate 85 11/10/22 22:55 Respiratory Rate 16 11/10/22 22:55 Blood Pressure 122/84 11/10/22 22:55 Pulse Oximetry 99 11/10/22 22:55 Oxygen Delivery Room Air 11/10/22 22:55 MDM - Abdominal Pain MDM Narrative Medical decision making narrative: patient was placed in room 3. History and physical were performed. Urinalysis was obtained and test was done with both of which were negative. patient was given fentanyl she got relief with this after her workup all came back negative she said her pain was a 4
[2022-11-10 20:53] LABS: Hematocrit 40.3 % (35.0-49.0); Hemoglobin 13.6 g/dL (12.0-15.0); Mean Corpuscular HGB Conc 33.7 g/dL (32.0-36.0); Mean Corpuscular Hemoglobin 31.1 pg (27.0-31.0); Mean Platelet Volume 11.1 fl (9.2-11.8); Platelet Count Result 219 K/mm3 (150-420); Red Blood Count 4.38 M/mm3 (4.20-5.40); Red Cell Distribution Width 12.9 % (11.6-14.4)
[2022-11-10] MEDS: ONDANSETRON INJ 4 MG/2 ML VIAL IV PUSH (20:54)
[2022-11-10] MEDS: fentaNYL CITRATE INJ (*CRX) 100 MCG/2 ML VIAL 50 MCG IV PUSH (20:55)
[2022-11-10 20:59] VITALS: BP 129/98; PULSE 75; RESP 18; O2SAT 95
[2022-11-10 21:08] LABS: Alanine Aminotransferase 27 U/L (14-59); Albumin Level 3.4 g/dL (3.4-5.0); Alkaline Phosphatase 89 U/L (46-116); Anion Gap 7 mmol/L (8-16); Aspartate Amino Transferase 32 U/L (15-37); Bilirubin,Total 0.3 mg/dL (0.00-1.00); Blood Urea Nitrogen 13 mg/dL (7-18); Calcium 8.7 mg/dL (8.5-10.1); Carbon Dioxide 28 mmol/L (21-32); Chloride 104 mmol/L (98-108); Estimated CRCL calculation 64 ml/min; Estimated Glomerular Filt Rate > 60; Glucose 89 mg/dL (70-99); Lipase 35 U/L (16-77); Osmolality Calculated 287 mOsm/kg (285-295); Potassium 4.5 mmol/L (3.5-5.1); Sodium 139 mmol/L (136-145)
[2022-11-10 21:11] LABS: Lactic Acid Reflex 0.8 mmol/L (0.4-2.0)
--- NOTE | 2022-11-10 22:00 | PC.NURSE ---
Pt reports pain is returning and would like something to drink.
[2022-11-10 22:01] LABS: Amphetamine Screen Urine Negative (Negative); Barbiturate Screen Urine Negative (Negative); Benzodiazepines Screen Urine Negative (Negative); Cannabinoid Screen Urine Negative (Negative); Cocaine Screen Urine Negative (Negative); Methadone Screen Urine Negative (Negative); Opiate Screen Urine Negative (Negative); Phencyclidine Screen Urine Negative (Negative)
--- NOTE | 2022-11-10 22:15 | PC.NURSE ---
ERP aware of pt pain returning and desire to drink something. ERP to review labs and work-up and will reassess pt.
[2022-11-10 22:55] VITALS: BP 122/84; PULSE 85; RESP 16; O2SAT 99
== END 2022-11-10 23:08 | disposition home or self-care (01) ==
PROVIDERS: Emergency Provider Emergency Medicine; PCP Family Medicine
DX: R10.11 Right upper quadrant pain (principal)
CPT/HCPCS: 36415; 74176; 80053; 80307; 81003; 81025; 83605; 83690; 85027; 96374; 96375; 99284; J2405; J3010

== ENCOUNTER 2022-11-25 16:55 | Emergency (ER) | payer OTHER, SELFPAY ==
--- NOTE | ~2022-11-25 | XR_ITS ---
EXAMINATION: XR chest 1V portable Exam Date/Time: 11/25/2022 17:30 CDT HISTORY: cough X 3 DAYS Comparison: 04/22/2022. RESULT: Lines, tubes, and devices: None. Lungs and pleura: Clear. Cardiomediastinal silhouette: Stable. Other: No acute osseous or upper abdominal finding. IMPRESSION: No acute cardiopulmonary process. Reviewed, dictated and finalized at location K.
[2022-11-25 17:05] VITALS: BP 128/66; PULSE 85; RESP 20; TEMP 37.6; O2SAT 98
[2022-11-25 17:12] VITALS: O2SAT 98
--- NOTE | 2022-11-25 17:22 | ED.GENADULT ---
HPI - General Adult General Chief complaint: Upper Respiratory Infection Stated complaint: cough/sore throat Time Seen by Provider: 11/25/22 17:01 History of Present Illness HPI narrative: The patient is a 37-year-old woman otherwise healthy non-smoker, who started with a dry cough yesterday, which continued today and is accompanied with a hoarse voice, sore throat, fever maximum 100.1?, as well as occasional rhinorrhea myalgias and not feeling well. No nasal congestion. No abdominal pain. No nausea or vomiting. No urinary symptoms. No sick contacts. No ear ache. Related Data Allergies Allergy/AdvReac Type Severity Reaction Status Date / Time No Known Allergies Allergy Verified 11/10/22 19:10 Review of Systems Review of Systems: All systems reviewed & are unremarkable except as noted in HPI and below Constitutional: Constitutional: Denies chills, Denies excessive sweating, Reports fatigue (mild), Reports fever(s) (100.1 ), Denies headache(s) and Denies weakness Eyes: Eyes: Denies change in vision and Denies photophobia ENT: Denies dysphagia, Denies dizziness, Denies headache(s), Denies lip swelling, Denies nasal congestion, Reports sore throat (and hoarse voice) and Denies tongue swelling Cardiovascular: Cardiovascular: Denies chest pain, Denies syncope, Denies rapid heart rate and Denies dyspnea Respiratory: Respiratory: Reports cough (dry, nonproductive), Denies dyspnea and Denies wheezing Gastrointestinal: Gastrointestinal: Denies abdominal pain, Denies constipation, Denies dysphagia, Denies diarrhea, Denies nausea and Denies vomiting Genitourinary: Genitourinary: Denies hematuria, Denies urinary frequency, Denies dysuria and Denies urinary urgency Musculoskeletal: Musculoskeletal: Denies back pain, Denies myalgias, Denies arthralgias, Denies joint swelling and Denies numbness Integumentary/Breasts: Skin/Breast: Denies pruritus, Denies erythema and Denies rash Neurologic: Denies confusion, Denies dizziness, Denies syncope, Denies headache(s), Denies focal weakness, Denies numbness and Denies weakness Psychiatric: Psychiatric: Denies anxiety and Denies confusion Endocrine: Endocrine: Denies excessive sweating Hematologic/Lymphatic: Hematologic/Lymphatic: Denies easy bleeding and Denies easy bruising Allergic/Immunologic: Allergic/Immunologic: Denies lip swelling, Denies tongue swelling and Denies wheezing PMFSH Past Medical History Medical History Abdominal wall cellulitis History of ovarian cyst Urinary tract infection Surgical History Surgical History H/O myringotomy Social History Social History Smoking status: Never smoker Alcohol intake: never Substance use: never Exam Const: General: healthy appearing, no acute distress, alert and well nourished Nutritional Appearance: well nourished Orientation/consciousness: patient oriented x3 Limitations: no limitations HENMT: Head: normal to inspection Ears: external ears normal Face/Nose/Sinus: normal facial exam Face and sinus: normal facial exam Mouth: Yes moist mucous membranes Throat: posterior oropharynx normal Eyes: Conjunctivae: conjunctivae normal Pupils: Equal, round and reactive pupils present EOM: EOMs intact bilaterally Neck: Neck: normal visual inspection and no meningeal signs Chest: Chest palpation & inspection: normal inspection of the chest and no tenderness Resp: Effort & Inspection: normal respiratory effort and not labored Auscultation: clear to auscultation bilaterally, no crackles, no rhonchi and no wheezes Cardio: Rate: regular rate Rhythm: regular rhythm Heart sounds: no murmurs GI: Inspection: non-distended GI Palp: Yes Soft to palpation, No Tenderness to palpation present (GI), No Guarding due to palpation present (GI) and No Rebound tenderness prese
[2022-11-25] MEDS: guaiFENesin/DEXTROMETHORPHAN 5 ML UDC 10 ML PO (17:27)
[2022-11-25] MEDS: BENZONATATE 100 MG CAPSULE PO (17:28)
[2022-11-25 17:33] LABS: Appearance Urine Clear (Clear); Bilirubin Urine Negative (Negative); Blood Urine Negative (Negative); Color Urine Light Yellow (Yellow); Glucose Urine UA Negative (Negative); Ketones Urine Negative (Negative); Leukocyte Esterase Ur Negative LEU/UL (Negative); Nitrate Urine Negative (Negative); Protein Urine Negative (Negative); Specific Grav Ur <= 1.005 (1.010-1.020)
[2022-11-25 17:35] LABS: Add Urine Microscopic? NO
[2022-11-25 17:36] LABS: Pregnancy On Board Control Positive; Urine Pregnancy Test Negative
[2022-11-25 17:42] LABS: Strep Group A RT-PCR NOT DETECTED (Negative)
[2022-11-25 17:45] LABS: Influenza A QL RT-PCR Negative (Negative); Influenza B QL RT-PCR Negative (Negative); SARS-CoV-2 RNA PCR Negative (Negative)
[2022-11-25 18:03] LABS: RSV RNA, RT-PCR Negative (Negative)
[2022-11-25 18:18] VITALS: BP 129/68; PULSE 88; RESP 20; TEMP 37; O2SAT 98
== END 2022-11-25 18:20 | disposition home or self-care (01) ==
PROVIDERS: Emergency Provider Emergency Medicine; PCP Family Medicine
DX: J04.0 Acute laryngitis (principal); Z20.822 Contact with and (suspected) exposure to COVID-19
CPT/HCPCS: 71045; 81003; 81025; 87637; 87651; 99283; A9270

== ENCOUNTER 2023-02-23 17:44 | Emergency (ER) | payer MEDICAID, SELFPAY ==
--- NOTE | ~2023-02-23 | XR_ITS ---
EXAM: XR elbow LT min 3V DATE: 02/23/2023 18:15 HISTORY: popping injury yesterday,pain increased today,posterior pain . COMPARISON: None available. FINDINGS: Normal mineralization. No fracture or dislocation. No lytic or blastic lesion. Joint space s are maintained. No erosion or periosteal change. Mild soft tissue swelling of the distal triceps te ndon and posterior olecranon. IMPRESSION: No acute osseous finding in the left elbow. Possible triceps tendinopathy/partial tendon tear. Reviewed, dictated and finalized at location K.
[2023-02-23 17:45] VITALS: BP 118/81; PULSE 78; RESP 20; TEMP 36.7; O2SAT 98
[2023-02-23 17:50] VITALS: BP 118/82; PULSE 78; RESP 18; TEMP 36.7; O2SAT 99
--- NOTE | 2023-02-23 17:58 | ED.UPPEXIN ---
HPI - Extremity Injury (Upper) General Chief Complaint: Extremity Injury, Upper Stated Complaint: L elbow pain Time Seen by Provider: 02/23/23 17:47 Source: patient Mode of arrival: ambulatory Limitations: no limitations History of Present Illness HPI narrative: patient is a 38-year-old female with left elbow and left forearm pain after getting up from the ground yesterday. She was playing with her niece and the left elbow region made a pop sound and has had pain since that event yesterday. complaint: injury to: left Onset (ago): day(s) (1) Other Extremity Injury: Left: elbow and forearm Other injuries: none Place: home Severity: moderate Severity scale (1-10): 6 Relieving factors: immobilization Exacerbating factors: movement of extremity Context: direct blow Associated symptoms: denies other symptoms Related Data Allergies Allergy/AdvReac Type Severity Reaction Status Date / Time No Known Allergies Allergy Verified 11/10/22 19:10 Review of Systems Review of Systems: All systems reviewed & are unremarkable except as noted in HPI and below Constitutional: Constitutional: Reports no additional constitutional complaints Eyes: Eyes: Reports no additional eye complaints ENT: Reports system reviewed and no additional complaints, except as documented Cardiovascular: Cardiovascular: Reports no additional cardiovascular complaints Respiratory: Respiratory: Reports no additional respiratory complaints Gastrointestinal: Gastrointestinal: Reports no additional gastrointestinal complaints Genitourinary: Genitourinary: Reports no additional female genitourinary complaints Musculoskeletal: Musculoskeletal: Reports no additional musculoskeletal complaints Integumentary/Breasts: Skin/Breast: Reports system reviewed and no additional complaints, except as docu Neurologic: Reports system reviewed and no additional complaints, except as documented Psychiatric: Psychiatric: Reports no additional psychiatric complaints Endocrine: Endocrine: Reports no additional endocrine complaints Hematologic/Lymphatic: Hematologic/Lymphatic: Reports no additional hematologic/lymphatic complaints Allergic/Immunologic: Allergic/Immunologic: Reports no additional allergic/immunologic complaints PMFSH Past Medical History Medical History Abdominal wall cellulitis History of ovarian cyst Urinary tract infection Surgical History Surgical History H/O myringotomy Social History Social History Smoking status: Never smoker Alcohol intake: never Substance use: never Exam Const: General: healthy appearing Nutritional Appearance: well nourished Orientation/consciousness: patient oriented x3 HENMT: Head: normal to inspection Ears: external ears normal Face/Nose/Sinus: Normal external nose present Eyes: Conjunctivae: conjunctivae normal Pupils: Equal, round and reactive pupils present EOM: EOMs intact bilaterally Neck: Neck: normal visual inspection Chest: Chest palpation & inspection: normal inspection of the chest Resp: Effort & Inspection: normal respiratory effort Auscultation: clear to auscultation bilaterally Cardio: Rate: regular rate Rhythm: regular rhythm Heart sounds: no murmurs GI: Inspection: non-distended GI Palp: Yes Soft to palpation, No Tenderness to palpation present (GI) and No Guarding due to palpation present (GI) Auscultation: normal bowel sounds : General: Yes bladder normal to palpation Back/Spine/Pelvis: Back: no CVA tenderness Skin: General skin exam: normal color Rashes: no rashes Wounds: no wounds Neuro: General: patient oriented x3 Cranial nerves: Yes Nystagmus not present Speech: normal speech Extrem: General: abnormal to inspection ( Tender left medial and lateral elbow with proximal forearm pain), no clubbing,
[2023-02-23] MEDS: HYDROcodone/acetaminophen (*CRX) 5-325 MG TABLET 1 TAB PO (18:43)
== END 2023-02-23 18:44 | disposition home or self-care (01) ==
PROVIDERS: Emergency Provider Emergency Medicine; PCP Family Medicine
DX: S46.302A Unspecified injury of muscle, fascia and tendon of triceps, left arm, initial encounter (principal); X58.XXXA Exposure to other specified factors, initial encounter; Y92.009 Unspecified place in unspecified non-institutional (private) residence as the place of occurrence of the external cause
CPT/HCPCS: 73080; 99283; A4565; A9270

== ENCOUNTER 2023-03-08 10:31 | Outpatient (CLI) | payer OTHER, SELFPAY ==
--- NOTE | ~2023-03-08 | MR_ITS ---
EXAMINATION: MR elbow LT wo con DATE: 03/08/2023 11:32 INDICATION: Left elbow injury. TECHNIQUE: Magnetic resonance imaging (MRI) of the left elbow was performed without intravenous contr ast. Sequences included coronal, axial, and sagittal PD-weighted FS FSE and coronal, axial, and sagit deniz PD-weighted FSE. COMPARISON: Abdomen radiographs 02/23/2023 FINDINGS: Osseous/other: Bone alignment is normal. No fracture. The elbow joint cartilage is normal. Tendons: Brachialis tendon, biceps tendon, and triceps tendon are normal. There is mild tendinopathy of the co mmon extensor tendon at lateral humeral condyle. There is tendinopathy and partial tear of the common flexor tendon at medial humeral epicondyle. Ligaments: Radial collateral ligament and lateral ulnar collateral ligament are intact. Ulnar collateral ligamen t is normal. Cubital tunnel: The ulnar nerve is normal. Fluid: There is no elbow joint effusion. There is mild olecranon bursitis. IMPRESSION: 1. Tendinopathy and partial tear of common flexor tendon at medial femoral condyle. Reviewed, dictated and finalized at location A. ECT DIRECTOR IMPRESSION: 1. Tendinopathy and partial tear of common flexor tendon at medial femoral cond yle.
== END 2023-03-08 10:32 | disposition home or self-care (01) ==
LOC: CHSIMG 10:32
PROVIDERS: PCP Nurse Practitioner Family; Visit Provider Nurse Practitioner Family
DX: S56.212A Strain of other flexor muscle, fascia and tendon at forearm level, left arm, initial encounter (principal)
CPT/HCPCS: 73221

== ENCOUNTER 2023-03-24 15:32 | Outpatient (RCR) | payer MEDICAID, OTHER, SELFPAY ==
--- NOTE | 2023-03-24 16:58 | OTOPEVAL1 ---
Assessment and note entered by Nadja June, OT Evaluation Information Assessment Status Evaluation Diagnosis Lateral epicondylitis of L elbow Onset 11/2022 Subjective Information The patient reports 10/10 during activity and 0/10 pain at rest. The patient reports that the pain can be achey as well. The patient reports minimal tingling in L forearm and hand into all digits. The patient reports that she is dropping things, has a hard time holding her niece and lifting her purse. The patient's main concern at this time is pain and weakness. Reported Pain Level Pain Score 0: Self Report Assessment OT Clinical Summary The patient is a 38 year old female who was referred to outpatient OT due to L elbow pain. The patient demonstrates maximal pain, moderately limited strength of hand and feeder catcher tobacco/pinch strength which affect her ability to perform work tasks and ADLs. The patient demonstrates 27% on QuickDASH questionaire at the time of evaluation with minimal dysfunction of L UE. The patient previously had no pain and demonstrated WNL UE strength and feeder catcher tobacco/pinch strength. The patient requires skilled OT to address deficits and return to PLOF. Plan of Care Interventions Therapeutic Exercise,Manual Therapy,Neuro Re- education,Therapeutic Activities,Hot Pack/Cold Pack,Electrical Stimulation,Self-Care/Home Management,Prosthetic Training,Ultrasound OT Services Indicated Yes Treatment Frequency and 2x/week for 10 visits. Duration These treatments will address the objective and functional deficits as defined above. The patient will be advanced safely and appropriately in order for the patient to progress towards his/her prior level of function. Additional exercises will be introduced and as well as a comprehensive home exercise program upon discharge, if needed, ?to ensure carryover of functional gains achieved in the clinic. This treatment plan has been reviewed and agreement upon by the patient.
== END 2023-04-02 20:00 | disposition home or self-care (01) ==
LOC: CHSOT 15:32
PROVIDERS: Visit Provider Nurse Practitioner Family
DX: M77.12 Lateral epicondylitis, left elbow (principal)
CPT/HCPCS: 97110; 97140; 97165

== ENCOUNTER 2023-06-10 05:27 | Emergency (ER) | payer MEDICAID, SELFPAY ==
--- NOTE | ~2023-06-10 | US_ITS ---
Limited Abdominal Sonogram: Real-time sonographic imaging of the right upper quadrant was performed. Clinical History: Epigastric pain Findings: The liver appears normal with no evidence of mass lesion or bile duct dilatation. Main por deniz vein demonstrates normal direction of flow. The gallbladder is well distended, and demonstrate 6 mm stone near the gallbladder neck. No gallbladder wall thickening. The common bile duct measures 3 m m. The visualized pancreas, aorta, and IVC are unremarkable. Impression: Cholelithiasis. Reviewed, dictated and finalized at location M. NDER SANDER OPERATOR Impression: Cholelithiasis.
--- NOTE | ~2023-06-10 | CT_ITS ---
CT of the Abdomen and Pelvis: Indication: Abdominal pain Technique: 2.5 mm axial scans were obtained through the abdomen and pelvis following intravenous adm inistration of 100 cc of Omnipaque 350. Dose reduction technique was used on this scan by utilizing a utomated exposure control and iterative reconstruction technique. The dose-length product (DLP) was 3 90.96 mGy-cm. COMPARISON: 11/10/2022 Findings: Scans through the lung bases are unremarkable. The liver, spleen, pancreas, gallbladder, adrenals and kidneys are within normal limits. No evidence of aortic aneurysm. No lymphadenopathy. No bowel obstruction or bowel wall thickening. There is no evidence to suggest acute appendicitis. Images through the pelvis were performed. Urinary bladder unremarkable. No adnexal mass seen. No asci ar. Impression: No significant abnormalities seen. Reviewed, dictated and finalized at [facility]. RICT MANAGER Impression: No significant abnormalities seen.
[2023-06-10 05:31] VITALS: BP 117/76; PULSE 84; RESP 20; TEMP 36.4; O2SAT 96
[2023-06-10 05:50] LABS: Basophils Absolute Auto 0.02 K/mm3 (0.00-0.10); Basophils Percent Auto 0.2 % (0.0-1.0); Eosinophils Percent Auto 0.9 % (1.0-6.0); Hematocrit 40.9 % (35.0-49.0); Hemoglobin 13.5 g/dL (12.0-15.0); Immature Granulocyte Absolute 0.04 K/mm3 (0.00-0.00); Immature Granulocyte Percent A 0.4 % (0.0-0.0); Lymphocytes Absolute Auto 0.79 K/mm3 (1.10-4.50); Lymphocytes Percent Auto 7.4 % (18.0-42.0); Mean Corpuscular Hemoglobin 29.7 pg (27.0-31.0); Mean Corpuscular Volume 89.9 fL (78.0-102.0); Mean Platelet Volume 10.8 fl (9.2-11.8); Monocytes Absolute Auto 0.63 K/mm3 (0.10-0.90); Monocytes Percent Auto 5.9 % (2.0-11.0); Neutrophils Absolute Auto 9.1 K/mm3 (1.7-7.2); Neutrophils Percent Auto 85.2 % (50.0-70.0); Platelet Count Result 203 K/mm3 (150-420); Red Blood Count 4.55 M/mm3 (4.20-5.40); Red Cell Distribution Width 13.5 % (11.6-14.4); White Blood Count 10.7 K/mm3 (4.8-10.8)
[2023-06-10] MEDS: KETOROLAC 30 MG/ML VIAL (*BKC) IV PUSH (05:57)
[2023-06-10] MEDS: METOCLOPRAMIDE HCL INJ 10 MG/2 ML VIAL IV PUSH (05:58)
[2023-06-10] MEDS: diphenhydrAMINE HCl INJ 50 MG/ML VIAL IV PUSH (05:58)
[2023-06-10 06:05] LABS: Alanine Aminotransferase 25 U/L (14-59); Albumin Level 3.3 g/dL (3.4-5.0); Alkaline Phosphatase 82 U/L (46-116); Anion Gap 9 mmol/L (8-16); Aspartate Amino Transferase 14 U/L (15-37); Bilirubin,Total 0.7 mg/dL (0.00-1.00); Blood Urea Nitrogen 11 mg/dL (7-18); Calcium 8.4 mg/dL (8.5-10.1); Carbon Dioxide 26 mmol/L (21-32); Chloride 102 mmol/L (98-108); Estimated CRCL calculation 73 ml/min; Estimated Glomerular Filt Rate > 60; Glucose 116 mg/dL (70-99); Lipase 20 U/L (16-77); Magnesium 1.6 mg/dL (1.8-2.4); Osmolality Calculated 284 mOsm/kg (285-295); Sodium 137 mmol/L (136-145); Total Protein 6.4 g/dL (6.4-8.2)
[2023-06-10 06:11] LABS: Lactic Acid Reflex 0.7 mmol/L (0.4-2.0)
[2023-06-10 06:16] LABS: Appearance Urine Clear (Clear); Bilirubin Urine Negative (Negative); Blood Urine Negative (Negative); Color Urine Yellow (Yellow); Glucose Urine UA Negative (Negative); Ketones Urine Negative (Negative); Leukocyte Esterase Ur Negative LEU/UL (Negative); Nitrate Urine Negative (Negative); Protein Urine Negative (Negative); Specific Grav Ur 1.025 (1.010-1.020)
[2023-06-10 06:17] LABS: Add Urine Microscopic? NO
[2023-06-10 06:17] LABS: Pregnancy On Board Control Positive; Urine Pregnancy Test Negative
[2023-06-10 06:18] LABS: Influenza A QL RT-PCR Negative (Negative); Influenza B QL RT-PCR Negative (Negative); RSV RNA, RT-PCR Negative (Negative); SARS-CoV-2 RNA PCR Negative (Negative)
--- NOTE | 2023-06-10 06:54 | ED.GENADULT ---
HPI - General Adult General Chief complaint: Nausea/Vomiting/Diarrhea <Carlos Farias MD - Last Filed: 06/10/23 07:01> Stated complaint: abdominal pain <Carlos Farias MD - Last Filed: 06/10/23 07:01> Time Seen by Provider: 06/10/23 07:08 <Carlos Farias MD - Last Filed: 06/10/23 07:01> History of Present Illness HPI narrative: 38yo woman presents withs epigastric pain, right upper quad pain, vomiting, since 0100 today. No fevers, chills, diarrhea, black or bloody stools. <Carlos Farias MD - Last Filed: 06/10/23 07:01> Related Data Allergies/adverse reactions: Allergies Allergy/AdvReac Type Severity Reaction Status Date / Time chocolate flavor Allergy Intermediate Hives Verified 04/25/23 14:59 <Carlos Farias MD - Last Filed: 06/10/23 07:01> Review of Systems Review of Systems: All systems reviewed & are unremarkable except as noted in HPI and below <Carlos Farias MD - Last Filed: 06/10/23 07:01> Constitutional: Constitutional: Denies fever(s) <Carlos Farias MD - Last Filed: 06/10/23 07:01> ENT: Denies dysphagia <Carlos Farias MD - Last Filed: 06/10/23 07:01> Cardiovascular: Cardiovascular: Denies chest pain <Carlos Farias MD - Last Filed: 06/10/23 07:01> Respiratory: Respiratory: Denies dyspnea <Carlos Farias MD - Last Filed: 06/10/23 07:01> [facility] Past Medical History Medical History: Medical History Abdominal wall cellulitis History of ovarian cyst Trigger finger, right Urinary tract infection <Carlos Farias MD - Last Filed: 06/10/23 07:01> Surgical History Surgical History: Surgical History H/O myringotomy <Carlos Farias MD - Last Filed: 06/10/23 07:01> Social History Social History: Social History Smoking status: Never smoker Alcohol intake: never Substance use: never Lack of Transportation: No Lack of Food: Sometimes True Current Housing: I Have Housing Concerned About Future Housing: No Difficulty Paying Gas/Electric Bills: No Difficulty Paying for Meds: No Currently Unemployed: No Education: High School Diploma/GED Difficulty w/ Childcare or Family Care: No Living arrangements: with family Occupation/Education: occupation 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 <Carlos Farias MD - Last Filed: 06/10/23 07:01> Exam Const: General: healthy appearing and no acute distress <Carlos Farias MD - Last Filed: 06/10/23 07:01> Nutritional Appearance: well nourished <Carlos Farias MD - Last Filed: 06/10/23 07:01> HENMT: Head: normal to inspection <Carlos Farias MD - Last Filed: 06/10/23 07:01> Eyes: Conjunctivae: conjunctivae normal <Carlos Farias MD - Last Filed: 06/10/23 07:01> Resp: Effort & Inspection: normal respiratory effort and not labored <Carlos Farias MD - Last Filed: 06/10/23 07:01> Auscultation: clear to auscultation bilaterally <Carlos Farias MD - Last Filed: 06/10/23 07:01> Cardio: Rate: regular rate <Carlos Farias MD - Last Filed: 06/10/23 07:01> Rhythm: regular rhythm <Carlos Farias MD - Last Filed: 06/10/23 07:01> Heart sounds: no murmurs <Carlos Farias MD - Last Filed: 06/10/23 07:01> GI: Inspection: non-distended <Carlos Farias MD - Last Filed: 06/10/23 07:01> GI Palp: Yes Soft to palpation and Yes Tenderness to palpation present (GI) <Carlos Farias MD - Last Filed: 06/10/23 07:01> Other: right upper quad tender <Carlos Farias MD - Last Filed: 06/10/23 07:01> Extrem: General: no clubbing, cyanosis or edema <Carlos Farias MD - Last Filed: 06/10/23 07:01> Course Course Emergency Course: 7:00 AM Received signout from Dr. Farias. Lab work and imaging reviewed. No leukocytosis, Majority of electrolytes ryne
--- NOTE | 2023-06-10 07:54 | PC.NURSE ---
pt is lying on stretcher in exam room at this time awaiting ultrasound results. medication to be administered after ultrasound results per erp. pt denies any needs or complaints. will continue to monitor.
[2023-06-10] MEDS: MAGNESIUM OXIDE 400 MG TABLET PO (08:08)
[2023-06-10 08:15] VITALS: BP 132/78; PULSE 78; RESP 18; O2SAT 99
== END 2023-06-10 08:15 | disposition home or self-care (01) ==
PROVIDERS: Emergency Medicine; Emergency Provider Student in an Organized Health Care Education/Training Program; PCP Nurse Practitioner Family
DX: K80.20 Calculus of gallbladder without cholecystitis without obstruction (principal); E83.42 Hypomagnesemia; Z20.822 Contact with and (suspected) exposure to COVID-19
CPT/HCPCS: 36415; 74177; 76705; 80053; 81003; 81025; 83605; 83690; 83735; 85025; 87637; 96374; 96375; 99284; A9270; J1200; J1885; J2765; Q9967

== ENCOUNTER 2023-06-10 11:01 | Emergency (ER) | payer SELFPAY ==
[2023-06-10 11:08] VITALS: BP 114/78; PULSE 93; RESP 20; TEMP 36.4; O2SAT 100
[2023-06-10 11:38] VITALS: BP 113/76; PULSE 83; RESP 13; TEMP 36.4; O2SAT 99
[2023-06-10 12:54] VITALS: BP 96/52; PULSE 75; RESP 12; O2SAT 99
[2023-06-10 13:36] VITALS: BP 108/71; PULSE 77; RESP 16; O2SAT 99
[2023-06-10 14:17] VITALS: BP 100/68; PULSE 82; RESP 12; O2SAT 100
== END 2023-06-10 15:09 | disposition left against medical advice (07) ==
LOC: ANHED 14:28
PROVIDERS: PCP Nurse Practitioner Family
DX: R10.9 Unspecified abdominal pain (principal)
CPT/HCPCS: 99199

== ENCOUNTER 2023-07-21 11:11 | Outpatient (CLI) | payer MEDICAID, SELFPAY ==
[2023-07-21 11:57] LABS: Basophils Percent Auto 0.4 % (0.2-1.2); Eosinophils Absolute Auto 0.1 K/mm3 (0-0.3); Eosinophils Percent Auto 1.3 % (0-4.4); Hematocrit 42.2 % (37.0-47.0); Hemoglobin 13.6 g/dL (12.0-15.0); Immature Granulocyte Absolute 0.01 K/mm3 (0.00-0.031); Immature Granulocyte Percent A 0.1 % (0-0.5); Lymphocytes Absolute Auto 2.55 K/mm3 (0.9-3.2); Lymphocytes Percent Auto 30.4 % (18.3-44.2); Mean Corpuscular HGB Conc 32.2 g/dl (32-36); Mean Corpuscular Hemoglobin 29.9 pg (26-34); Mean Corpuscular Volume 92.7 fl (80-100); Mean Platelet Volume 11.5 fl (7.4-10.4); Monocytes Absolute Auto 0.6 K/mm3 (0.1-0.6); Monocytes Percent Auto 7.6 % (2.6-8.5); Neutrophils Absolute Auto 5.1 K/mm3 (1.3-6.7); Neutrophils Percent Auto 60.2 % (45.5-73.1); Platelet Count Result 232 k/mm3 (150-375); Red Blood Count 4.55 M/mm3 (4.2-5.4); Red Cell Distribution Width 13.3 % (11.5-14.5); White Blood Count 8.4 K/mm3 (4.5-10.0)
[2023-07-21 12:04] LABS: Alanine Aminotransferase 18 U/L (6-35); Albumin Level 4.2 g/dL (3.5-5.1); Alkaline Phosphatase 73 U/L (38-126); Anion Gap 6 mmol/L (8-16); Aspartate Amino Transferase 23 U/L (14-36); Bilirubin,Total 0.7 mg/dL (0.2-1.3); Blood Urea Nitrogen 13 mg/dL (7-17); Calcium 9.3 mg/dL (8.4-10.2); Carbon Dioxide 25 mmol/L (22-30); Chloride 105 mmol/L (98-107); Estimated Glomerular Filt Rate > 60; Glucose 91 mg/dL (65-110); Lipase 64 U/L (23-300); Potassium 3.7 mmol/L (3.4-5.0); Sodium 136 mmol/L (137-145)
[2023-07-21 13:12] LABS: Amylase 76 U/L (30-110)
== END 2023-07-21 11:12 | disposition home or self-care (01) ==
LOC: ANHLAB 11:12
PROVIDERS: PCP Nurse Practitioner Family; Visit Provider Surgery
DX: R10.11 Right upper quadrant pain (principal); K80.20 Calculus of gallbladder without cholecystitis without obstruction
CPT/HCPCS: 36415; 80053; 82150; 83690; 85025

== ENCOUNTER 2023-07-24 14:36 | Outpatient (CLI) | payer MEDICAID, SELFPAY ==
--- NOTE | ~2023-07-24 | XR_ITS ---
EXAM: XR knee RT 3V DATE: 07/24/2023 14:59 HISTORY: SWELLING, no known injury . COMPARISON: None available. FINDINGS: Normal mineralization. No fracture or dislocation. No lytic or blastic lesion. Mild medial joint space narrowing. Mild medial and patellofemoral osteophytosis. Moderate volume joint fluid. No erosion or periosteal change. Soft tissues within normal limits. IMPRESSION: Mild bicompartmental osteoarthritis. Moderate knee joint effusion. Reviewed, dictated and finalized at location K.
== END 2023-07-24 14:37 | disposition home or self-care (01) ==
LOC: CHSIMG 14:39
PROVIDERS: PCP Family Medicine; Visit Provider Nurse Practitioner Family
DX: M25.561 Pain in right knee (principal); M17.11 Unilateral primary osteoarthritis, right knee; M25.461 Effusion, right knee
CPT/HCPCS: 73562

== ENCOUNTER 2023-07-28 00:35 | Day surgery (SDC) | payer MEDICAID, SELFPAY ==
[2023-07-21 14:12] VITALS: BMI 29.7
--- NOTE | 2023-07-21 14:15 | PC.NURSE ---
Report to the Outpatient Waiting Room, entrance under the green pavilion located off [facility], at time 1000 on date 07/28/23. Planned Procedure Time: 1200. Time changes happen often and if your time is changed the preop area will call you the afternoon before. - You and your visitor will be asked to self-screen and do not enter if you have any COVID symptoms. - A mask is optional within the hospital at this time. Patients may have clear liquids (water, carbonated beverages, clear teas, apple juice) until 3 hours prior to surgery with a maximum of 20 ounces. - No food from midnight until time of surgery Take the following medications with a SIP of water the morning of surgery: N/A DO NOT STOP ANY OF YOUR OTHER PRESCRIPTION MEDICATIONS PRIOR TO SURGERY ?EXCEPT THE FOLLOWING Medications to discontinue per physician: N/A Date to take last dose: N/A Please no make-up, nail albanian, hairspray, perfume, deodorant, or body powder the day of surgery. No jewelry (including any body piercings) or valuables the day of surgery, leave them at home. Please take a shower or bath the night before, or the morning of, surgery with an antibacterial soap. Wear comfortable, loose fitting clothing. - Jewelry must be removed prior to entering the operating room. Rings and piercings that are not removed may be cut off. - The hospital will not accept responsibility for valuables. - Please leave all valuables, including medications, at home the day of surgery. If you are going home after surgery, a licensed experienced truck driver must drive you home. - NO public transportation without another adult if you receive anesthesia. - We recommend that an adult stay with you for 24 hours following discharge. - We also recommend that you do not drive, make important decision, drink alcoholic beverages, or take any drugs that were not prescribed by your health care provider for at least 24 hours after your discharge time. Follow any additional instructions given to you from your surgeon. If you or anyone in your household have experienced Covid symptoms in the past week, please notify your surgeon or the nurse liaison at the phone number below for possible testing. Telephone instructions given to PT - CRYSTAL and asked if any additional questions and then verbalized understanding. Patient advised to call surgeon office or pre surgery nurse liaison [phone] if any additional questions.
[2023-07-28] VITALS (9 sets, daily range): BP systolic 100–125; BP diastolic 61–79; PULSE 53–102; RESP 12–14; TEMP 36.2; O2SAT 97–100; BMI 29.1
[2023-07-28] MEDS: ACETAMINOPHEN 500 MG TABLET 1000 MG PO (10:24)
[2023-07-28] MEDS: KETOROLAC 15 MG/ML VIAL (*BKC) IV PUSH (10:24)
--- NOTE | 2023-07-28 11:50 | WPDANESEPPF ---
Anes - Initial Pre Proc Eval Procedure: Operation Date: 07/28/23 12:00 Proposed Procedures p Laparoscopic Cholecystectomy - Madi De La Cruz MD Date/Time: 07/28/23 11:50 Surgeon: Madi De La Cruz MD Pre Op Diagnosis: chronic cholecystitis with stones Patient Data Age: 38 Gender: F Height: 1.55 m Weight: 70 kg Allergies Allergy/AdvReac Type Severity Reaction Status Date / Time cocoa Allergy Hives Verified 07/28/23 10:32 Home Medications Medication Instructions Recorded Confirmed Type No Home Medications 06/18/23 07/28/23 History Patient hx anesthesia problems: none Family hx anesthesia problems: none Results Review: All pre-operative results and documents have been reviewed as part of the pre-operative evaluation. [facility] Past Medical History Medical History Abdominal wall cellulitis History of ovarian cyst Trigger finger, right Urinary tract infection Surgical History Surgical History H/O myringotomy History of carpal tunnel release Trigger finger repair. 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 Informed Consent: The patient's anesthetic plan and its attendant risks and benefits were discussed with the patient/family/POA. Questions were solicited and answers provided to the satisfaction of the patient/family/POA.
--- NOTE | 2023-07-28 12:03 | WPDHPUPDATE1 ---
History and Physical Update Update Date/Time: 07/28/23 12:03 History and Physical has been reviewed, including an updated exam of the patient. There are NO changes in the patient's condition. Risks, benefits, and alternatives have been discussed and questions answered. Patient agrees to proceed with procedure.
[2023-07-28] MEDS: LACTATED RINGERS 1,000 ML 30 ML IV CONT ×2 (12:07→13:23)
[2023-07-28] MEDS: ceFAZolin 2 GM/D5W 50 ML 2 GM/50 ML BAG IVPB (12:16)
[2023-07-28] MEDS: BUPIVACAINE/EPINEPHRINE 0.5% 30 ML VIAL INFILTRATE (12:48)
--- NOTE | 2023-07-28 13:24 | P.OP_ITS ---
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 Imaging showed gallstones. She is now having pain every day. After evaluation in the office, she is taken to surgery now for laparoscopic cholecystectomy Findings Chronic inflammation, no large stones evident, no biliary ductal dilatation, fatty liver Description of Procedure Patient was taken to surgery and induced into general anesthesia. The abdomen is prepped and draped. Trocars were placed in the usual fashion using [employer] optical trocars and a 5 mm camera. The gallbladder was decompressed with a laparoscopic aspirator. The cholecystotomy was closed with a Vicryl endoloop. The gallbladder was then retracted anterosuperiorly. Dissection was carried out in the cholecystohepatic triangle. The cystic duct and cystic artery were seen very clearly. They were dissected thoroughly. The gallbladder was also dissected off the liver at its lower 3rd. Critical view was achieved. I securely clipped and divided both the cystic duct and cystic artery. We then dissected carefully the remaining attachments of the gallbladder to the liver. Once the gallbladder was completely freed from the liver, it was placed in Endo catch bag and extricated through the 10 11 epigastric trocar site. Replaced the epigastric trocar and then reviewed the gallbladder fossa. We irrigated the area and suctioned away the irrigant. There was no sign of bleeding or bile leakage. We then evacuated CO2 and removed the trocar sleeves. Skin wounds were closed with subcuticular 4-0 Monocryl skin suture. The wounds were dressed with Exofin surgical adhesive. Patient was awakened and taken to recovery in good condition. Sponge needle counts were correct x2. Estimated Blood Loss -5 Drains No Packing No Pathology Yes (Gallbladder) Complications No immediate complications Condition Stable Disposition PACU [facility] Billing Surgery - Charge Forward: Surgery Billing (Laparoscopic cholecystectomy)
[2023-07-28] MEDS: fentaNYL CITRATE INJ (*CRX) 100 MCG/2 ML VIAL 25 MCG IV PUSH (13:40)
[2023-07-28] MEDS: ONDANSETRON INJ 4 MG/2 ML VIAL IV PUSH (13:41)
[2023-07-28] MEDS: diphenhydrAMINE HCl INJ 50 MG/ML VIAL 25 MG IV PUSH (13:51)
[2023-07-28] MEDS: SCOPOLAMINE 1 MG PATCH 1 PATCH TRANSDERM (13:51)
== END 2023-07-28 15:40 | disposition home or self-care (01) ==
PROVIDERS: PCP Family Medicine; Visit Provider Surgery
PROC: 0FT44ZZ Resection of Gallbladder, Percutaneous Endoscopic Approach (ICD-10-PCS; CPT 47562; principal; 2023-07-28 12:00)
DX: K81.1 Chronic cholecystitis (principal); E66.9 Obesity, unspecified; Z68.29 Body mass index [BMI] 29.0-29.9, adult; Z98.890 Other specified postprocedural states
CPT/HCPCS: 47562; 88304; A9270; J0690; J1100; J1170; J1200; J1885; J2250; J2405; J2704; J3010; J7120

== ENCOUNTER 2023-07-31 20:44 | Emergency (ER) | payer MEDICAID, SELFPAY ==
[2023-07-31 20:44] VITALS: BP 135/82; PULSE 83; RESP 18; TEMP 36; O2SAT 100
[2023-07-31 20:54] VITALS: BP 135/82; PULSE 81; RESP 18; TEMP 36.3; O2SAT 99
--- NOTE | 2023-07-31 20:54 | ED.WOUNDLAC ---
HPI - Wound/Laceration General Chief Complaint: Skin/Abscess/Foreign Body Stated Complaint: bleeding from incision site Time Seen by Provider: 07/31/23 20:45 Source: patient Mode of arrival: ambulatory Limitations: no limitations History of Present Illness HPI narrative: This is 38-year-old female that I recently had a laparoscopic cholecystectomy and had an area on her abdomen in the incision site that was oozing blood, currently during my examination there was no oozing there was an area that appeared that the Dermabond had dissolved. Otherwise there is no abdominal pain no fever chills and otherwise no drainage from the incision sites. Onset (ago): hour(s) Location: abdomen Place: home Related Data Allergies Allergy/AdvReac Type Severity Reaction Status Date / Time cocoa Allergy Hives Verified 07/31/23 20:53 Review of Systems Review of Systems: All systems reviewed & are unremarkable except as noted in HPI and below PMFSH Past Medical History Medical History Abdominal wall cellulitis History of ovarian cyst Trigger finger, right Urinary tract infection Surgical History Surgical History H/O myringotomy History of carpal tunnel release Trigger finger repair. 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 Spiritual care concerns: No Exam Const: General: healthy appearing Nutritional Appearance: well nourished Orientation/consciousness: patient oriented x3 Limitations: no limitations Neck: Neck: normal visual inspection, no lymphadenopathy and no meningeal signs Chest: Chest palpation & inspection: normal inspection of the chest Resp: Effort & Inspection: normal respiratory effort Auscultation: clear to auscultation bilaterally Cardio: Rate: regular rate Rhythm: regular rhythm GI: GI Palp: Yes Soft to palpation and Yes Tenderness to palpation present (GI) ( At incision sites) Skin: Wounds: wounds noted Neuro: General: patient oriented x3 Extrem: General: normal to inspection Psych: Mental Status: mental status grossly normal Course Course Emergency Course: Dermabond was placed on the of the incision sites for an area that appeared to be mildly oozing of blood patient tolerated procedure well. Procedures Laceration Laceration 1: Date: 07/31/23 Time: 20:57 Site: other ( Abdomen from surgical incision site) Description: linear ====== Skin Level ====== Skin layer closed with: dermabond ====== Subcutaneous Layer ====== ====== Muscle Layer ====== ====== Tendon Layer ====== Critical Care Time Critical Care Time Critical Care Time: No Discharge Plan Discharge Clinical Impression: Wound dehiscence, surgical Patient Disposition: Home, Self-Care Condition: Stable Instructions: Antibiotic Form, Acute Wounds (ED) Additional Instructions: advised to follow with surgery within the next 2 to 3 days for further evaluation and treatment. Prescriptions: No Action ketorolac 10 mg tablet 10 mg PO Q6H 4 Days Qty: 16 0RF oxycodone-acetaminophen 5-325 mg tablet 0.5 - 1 tablet PO Q6H PRN (Reason: pain) Qty: 10 0RF Follow-up/Referrals: Flakito Ford APRN [
== END 2023-07-31 21:20 | disposition home or self-care (01) ==
PROVIDERS: Emergency Provider Emergency Medicine; PCP Nurse Practitioner Family
DX: T81.31XA Disruption of external operation (surgical) wound, not elsewhere classified, initial encounter (principal); Y83.8 Other surgical procedures as the cause of abnormal reaction of the patient, or of later complication, without mention of misadventure at the time of the procedure; Z90.49 Acquired absence of other specified parts of digestive tract
CPT/HCPCS: 12001; 99282

== ENCOUNTER 2023-08-09 09:43 | Outpatient (CLI) | payer MEDICAID, SELFPAY ==
--- NOTE | ~2023-08-09 | MR_ITS ---
EXAMINATION: MR knee RT wo con DATE: 08/09/2023 10:47 INDICATION: Right knee pain TECHNIQUE: Magnetic resonance imaging (MRI) of the right knee was performed without intravenous contr ast. Sequences included coronal PD-weighted FSE, coronal PD-weighted FS FSE, sagittal T2-weighted FS E, sagittal PD-weighted FS FSE and axial PD weighted fat saturated FSE. COMPARISON: None. FINDINGS: Medial compartment: Medial meniscus is normal. Articular cartilage is normal. Lateral compartment: Lateral meniscus is normal. Partial-thickness chondral fissuring without degenerative subchondral girish nges at the posterior aspect of the weightbearing lateral femoral condyle. Patellofemoral compartment: Articular cartilage is normal. Ligaments and tendons: Anterior and posterior cruciate ligaments are normal. The medial collateral ligament and fibular alva ateral ligament complex are normal. The extensor mechanism is normal. The visualized medial and later al hamstring tendons as well as the iliotibial band are normal. Fluid: Physiologic amount of fluid in the joint space. No loose osteochondral bodies identified. Osseous/other: Normal marrow signal. No fracture or pathologic marrow replacing process. IMPRESSION: 1. Partial-thickness chondral fissuring at the posterior aspect of the lateral tibial plateau. 2. Otherwise unremarkable right knee MRI with with normal menisci and stabilizing ligaments. Reviewed, dictated and finalized at location A. IMPRESSION: 1. Partial-thickness chondral fissuring at the posterior aspect of the lateral tibial plateau. 2. Otherwise unremarkable right knee MRI with with normal menisci and stabilizi ng ligaments.
== END 2023-08-09 09:44 | disposition home or self-care (01) ==
LOC: CHSIMG 09:44
PROVIDERS: PCP Nurse Practitioner Family; Visit Provider Nurse Practitioner Family
DX: R93.6 Abnormal findings on diagnostic imaging of limbs (principal); M25.561 Pain in right knee
CPT/HCPCS: 73721

== ENCOUNTER 2023-11-19 08:14 | Emergency (ER) | payer OTHER, SELFPAY ==
[2023-11-19] VITALS (10 sets, daily range): BP systolic 105–122; BP diastolic 71–83; PULSE 54–80; RESP 18–20; TEMP 36.6; O2SAT 97–100
--- NOTE | 2023-11-19 08:20 | ED.HA ---
HPI - Headache General Chief Complaint: Headache Stated Complaint: migraine Time Seen by Provider: 11/19/23 08:19 Source: patient Mode of arrival: ambulatory Limitations: no limitations History of Present Illness HPI Narrative: 38-year-old female with a history of migraine presents to the ED with headache since 1:30 a.m.. The patient has -- bifrontal headache. This is disabling. -- Nausea with multiple episodes of vomiting -- photophobia this is similar to her usual headaches. Her headaches usually responds with the warm bath or ibuprofen but has not done so this time. The patient took sumatriptan without any relief. No fever or chills. No focal neuro deficits. MD elicited complaint: headache Onset (ago): hour(s) ( 7 hours) Severity: severe Quality & Timing: aching and throbbing Exacerbating factors: movement of head/neck and light Relieving factors: nothing Context: occurred at rest Associated symptoms: none, nausea, vomiting and photophobia Treatments prior to arrival: migraine medication Related Data Allergies Allergy/AdvReac Type Severity Reaction Status Date / Time cocoa Allergy Hives Verified 10/06/23 12:52 Review of Systems Review of Systems: All systems reviewed & are unremarkable except as noted in HPI and below Constitutional: Constitutional: Reports as per HPI and Reports no additional constitutional complaints Eyes: Eyes: Reports as per HPI and Reports photophobia ENT: Reports system reviewed and no additional complaints, except as documented and Reports as per HPI Cardiovascular: Cardiovascular: Reports as per HPI and Reports no additional cardiovascular complaints Respiratory: Respiratory: Reports as per HPI and Reports no additional respiratory complaints Gastrointestinal: Gastrointestinal: Reports as per HPI, Reports no additional gastrointestinal complaints, Reports nausea and Reports vomiting Genitourinary: Genitourinary: Reports no additional female genitourinary complaints Musculoskeletal: Musculoskeletal: Reports no additional musculoskeletal complaints Integumentary/Breasts: Skin/Breast: Reports system reviewed and no additional complaints, except as docu and Reports as per HPI Neurologic: Reports system reviewed and no additional complaints, except as documented and Reports as per HPI Psychiatric: Psychiatric: Reports no additional psychiatric complaints and Reports as per HPI Endocrine: Endocrine: Reports no additional endocrine complaints and Reports as per HPI Hematologic/Lymphatic: Hematologic/Lymphatic: Reports no additional hematologic/lymphatic complaints and Reports as per HPI Allergic/Immunologic: Allergic/Immunologic: Reports no additional allergic/immunologic complaints and Reports as per HPI PMFSH Past Medical History Medical History Abdominal wall cellulitis History of ovarian cyst Trigger finger, right Urinary tract infection Surgical History Surgical History H/O myringotomy History of carpal tunnel release Hx laparoscopic cholecystectomy 07/28/23 Trigger finger repair. 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
[2023-11-19] MEDS: PROCHLORPERAZINE EDISYLATE 10 MG/2 ML VIAL IM (09:02)
[2023-11-19] MEDS: KETOROLAC 30 MG/ML VIAL (*BKC) IM (09:02)
== END 2023-11-19 09:40 | disposition home or self-care (01) ==
PROVIDERS: Emergency Provider Internal Medicine Critical Care Medicine; PCP Nurse Practitioner Family
DX: G43.909 Migraine, unspecified, not intractable, without status migrainosus (principal)
CPT/HCPCS: 96372; 99284; J0780; J1885

== ENCOUNTER 2023-12-13 13:33 | Emergency (ER) | payer OTHER, SELFPAY ==
[2023-12-13] VITALS (17 sets, daily range): BP systolic 107–134; BP diastolic 51–92; PULSE 82–104; RESP 16–18; TEMP 36.2–36.6; O2SAT 95–100
--- NOTE | ~2023-12-13 | CT_ITS ---
EXAMINATION: CT abdomen pelvis w con DATE: 12/13/2023 15:19 INDICATION: Periumbilical abdominal pain. Nausea and vomiting for one day TECHNIQUE: Computed tomography (CT) of the abdomen and pelvis was performed with 100 CC Omnipaque 350 intravenous contrast. Automated exposure control and iterative reconstruction technique were employe d. Exam dose: 403.47 mGy-cm total exam DLP. COMPARISON: 06/10/2023 right upper quadrant abdominal ultrasound; cholelithiasis with reported 06/10/2023 CT abdomen pelvis FINDINGS: The lung bases are clear. Normal heart size. No pericardial or pleural effusion. Small sliding hiatal hernia. Status post cholecystectomy. The liver, spleen, pancreas, bile ducts, pancreatic duct, and adrenal gl ands and kidneys are unremarkable. Normal caliber of the abdominal aorta. No intraperitoneal or retroperitoneal or pelvic mass lesion or adenopathy or ascites. The uterus, adnexal areas and urinary bladder are unremarkable. No bowel obstruction or intraperitoneal free air. Normal appendix. Small fat-containing umbilical hernia. No suspicious osteolytic or osteoblastic lesions. IMPRESSION: Small sliding hiatal hernia Status post cholecystectomy Normal appendix Reviewed, dictated and finalized at [facility]. Reviewed, dictated and finalized at location J.
[2023-12-13] MEDS: SODIUM CHLORIDE 0.9% IV 1,000 ML 999 ML IV CONT (14:03)
[2023-12-13] MEDS: PROCHLORPERAZINE EDISYLATE 10 MG/2 ML VIAL IV PUSH (14:05)
[2023-12-13 14:39] LABS: Add Urine Microscopic? NO; Appearance Urine Clear (Clear); Basophils Absolute Auto 0.01 K/mm3 (0.00-0.10); Basophils Percent Auto 0.1 % (0.0-1.0); Bilirubin Urine Negative (Negative); Blood Urine Negative (Negative); Color Urine Yellow (Yellow); Eosinophils Absolute Auto 0.01 K/mm3 (0.02-0.50); Eosinophils Percent Auto 0.1 % (1.0-6.0); Glucose Urine UA Negative (Negative); Hematocrit 40.4 % (35.0-49.0); Hemoglobin 13.3 g/dL (12.0-15.0); Immature Granulocyte Absolute 0.04 K/mm3 (0.00-0.00); Immature Granulocyte Percent A 0.4 % (0.0-0.0); Ketones Urine Negative (Negative); Leukocyte Esterase Ur Negative LEU/UL (Negative); Lymphocytes Absolute Auto 0.53 K/mm3 (1.10-4.50); Lymphocytes Percent Auto 5.5 % (18.0-42.0); Mean Corpuscular HGB Conc 32.9 g/dL (32-36); Mean Corpuscular Volume 91.2 fL (78.0-102.0); Mean Platelet Volume 10.4 fl (9.2-11.8); Monocytes Percent Auto 5.1 % (2.0-11.0); Neutrophils Absolute Auto 8.62 K/mm3 (1.70-7.20); Neutrophils Percent Auto 88.8 % (50.0-70.0); Nitrate Urine Negative (Negative); Platelet Count Result 189 K/mm3 (150-420); Protein Urine Negative (Negative); Red Blood Count 4.43 M/mm3 (4.20-5.40); Red Cell Distribution Width 13.1 % (11.6-14.4); Specific Grav Ur >= 1.030 (1.010-1.020); White Blood Count 9.7 K/mm3 (4.8-10.8)
[2023-12-13 14:45] LABS: Pregnancy On Board Control Positive; Urine Pregnancy Test Negative
[2023-12-13 14:56] LABS: Alanine Aminotransferase 26 U/L (14-59); Albumin Level 3.3 g/dL (3.4-5.0); Alkaline Phosphatase 87 U/L (46-116); Anion Gap 7 mmol/L (4-12); Aspartate Amino Transferase 18 U/L (15-37); Bilirubin,Total 0.6 mg/dL (0.00-1.00); Blood Urea Nitrogen 14 mg/dL (7-18); Calcium 8.3 mg/dL (8.5-10.1); Carbon Dioxide 29 mmol/L (21-32); Chloride 103 mmol/L (98-108); Estimated CRCL calculation 61 ml/min; Estimated Glomerular Filt Rate > 60; Glucose 103 mg/dL (70-99); Lipase 19 U/L (16-77); Osmolality Calculated 288 mOsm/kg (285-295); Potassium 3.6 mmol/L (3.5-5.1); Sodium 139 mmol/L (136-145); Total Protein 6.2 g/dL (6.4-8.2)
--- NOTE | 2023-12-13 15:04 | ED.ABDPAIN ---
HPI - Abdominal Pain General Chief Complaint: Nausea/Vomiting/Diarrhea Stated Complaint: vomitting Time Seen by Provider: 12/13/23 13:38 History of Present Illness HPI narrative: 38-year-old female with a history of cholecystitis status post cholecystectomy in July of 2023 presents to the emergency department with an acute onset of diffuse abdominal pain starting at approximately 1:30 a.m. on today's date. Patient describes diffuse abdominal pain but she localizes it to around her umbilicus. She describes it as cramping and sharp. She has been vomiting normal stomach contents and bile for the past 12 hours. She denies any associated fever, chills, shortness of breath, chest. The patient still has her appendix. Related Data Allergies Allergy/AdvReac Type Severity Reaction Status Date / Time cocoa Allergy Hives Verified 12/13/23 13:39 [facility] Past Medical History Medical History Abdominal wall cellulitis History of ovarian cyst Trigger finger, right Urinary tract infection Surgical History Surgical History H/O myringotomy History of carpal tunnel release Hx laparoscopic cholecystectomy 07/28/23 Trigger finger repair. 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 Appears uncomfortable but generally nontoxic. HEENT: No rhinorrhea noted, mucous membranes moist. No scleral icterus or conjunctival injection. CV: Normal rate, regular rhythm, S1S2 no M/G/R. 2+ distal pulses all extremities. No peripheral edema noted. PULM: Non-labored respiration. Clear to auscultation bilaterally. No wheezes, rales, rhonchi. GI: Abdomen soft, mild diffuse tenderness around the umbilicus specifically. No pronounced epigastric tenderness. No rigidity, distention or guarding.? Negative bed bump. NEURO: Normal speech. No lateralizing or focal deficits noted. Course Vital Signs Vital signs: Vital Signs Temperature 36.2 C L 12/13/23 13:35 Pulse Rate 104 H 12/13/23 13:35 Respiratory Rate 16 12/13/23 13:35 Blood Pressure 134/92 H 12/13/23 13:35 Pulse Oximetry 95 12/13/23 13:35 Oxygen Delivery Room Air 12/13/23 13:35 Temperature 36.2 C L 12/13/23 13:35 Pulse Rate 85 12/13/23 15:45 Respiratory Rate 17 12/13/23 15:45 Blood Pressure 114/62 12/13/23 15:45 Pulse Oximetry 98 12/13/23 15:45 Oxygen Delivery Room Air 12/13/23 13:35 MDM - Abdominal Pain MDM Narrative Medical decision making narrative: Patient was placed in Room #:? 3 Independent Historian: none External Source Review: medical record Differential diagnosis includes but not limited to:? viral gastroenteritis, acute appendicitis, biliary tree stone Medications were Reviewed: home medications Independently Interpreted by me: labs Medications, treatment, ED course: patient received Compazine for nausea. 1 L IV fluid bolus. Labs are reassuring. CT scan does not show acute appendicitis or other acute intra-abdominal process. Patient feeling better and tolerating p.o. fluids at time of reassessment. Reassurance provided. Social situation impacting patients care: Lives
== END 2023-12-13 17:05 | disposition home or self-care (01) ==
PROVIDERS: Emergency Provider Family Medicine; PCP Nurse Practitioner Family
DX: A08.4 Viral intestinal infection, unspecified (principal); Z90.49 Acquired absence of other specified parts of digestive tract
CPT/HCPCS: 36415; 74177; 80053; 81003; 81025; 83690; 85025; 96361; 96374; 99284; J0780; J7030; Q9967

== ENCOUNTER 2024-02-09 11:13 | Emergency (ER) | payer OTHER, SELFPAY ==
[2024-02-09] VITALS (7 sets, daily range): BP systolic 113–133; BP diastolic 61–93; PULSE 70–80; RESP 16; TEMP 36.3; O2SAT 96–100
--- NOTE | ~2024-02-09 | CT_ITS ---
CT abdomen pelvis w con Ordering provider: Mis Martínez MD History: 39 years Female with . right lower quadrant pain . Comparison: December 13, 2023 Technique: CT abdomen and pelvis with IV and without oral contrast. Automated exposure control and it erative reconstruction technique were employed. The dose-length product was 450.17 mGy-cm. 100 mL Omn ipaque 350 was given IV. Findings: VISUALIZED LOWER CHEST: Normal. UPPER ABDOMINAL ORGANS: Liver: Normal. Gallbladder: Status post cholecystectomy. Spleen: Normal. Stomach/duodenum: Small sliding hiatus hernia. Pancreas: Normal. Adrenals: Normal. Kidneys: Normal. PELVIC ORGANS: The bladder is normal. BOWEL AND MESENTERY: Colon: No evidence of diverticulitis. Fecal material loaded in the colon. Normal appendix. Small Bowel: Normal. No obstruction. Peritoneum/mesentery: No free air or free fluid. No mesenteric lymphadenopathy. RETROPERITONEUM: Normal aorta. No retroperitoneal lymphadenopathy. MUSCULOSKELETAL: Superficial soft tissues: The superficial soft tissues are normal. Bones: Normal spine. Bilateral sacroiliacs. IMPRESSION: 1. No evidence of appendicitis, the largest of intestinal obstruction. 2. Constipation. 3. Small sliding hiatus hernia. Reviewed, dictated and finalized at location A.
--- NOTE | 2024-02-09 11:41 | ED.ABDPAIN ---
HPI - Abdominal Pain General Chief Complaint: Abdominal Pain Stated Complaint: right sided abdominal pain Time Seen by Provider: 02/09/24 11:39 Source: patient Mode of arrival: ambulatory Limitations: no limitations Related Data Allergies Allergy/AdvReac Type Severity Reaction Status Date / Time cocoa Allergy Hives Verified 02/09/24 11:33 [facility] Past Medical History Medical History Abdominal wall cellulitis History of ovarian cyst Trigger finger, right Urinary tract infection Surgical History Surgical History H/O myringotomy History of carpal tunnel release Hx laparoscopic cholecystectomy 07/28/23 Trigger finger repair. 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 Spiritual care concerns: No Course Vital Signs Vital signs: Vital Signs Temperature 36.3 C L 02/09/24 11:13 Pulse Rate 70 02/09/24 11:13 Respiratory Rate 16 02/09/24 11:13 Blood Pressure 127/76 02/09/24 11:13 Pulse Oximetry 96 02/09/24 11:13 Oxygen Delivery Room Air 02/09/24 11:13 Temperature 36.3 C L 02/09/24 11:13 Pulse Rate 70 02/09/24 11:13 Respiratory Rate 16 02/09/24 11:13 Blood Pressure 127/76 02/09/24 11:13 Pulse Oximetry 96 02/09/24 11:13 Oxygen Delivery Room Air 02/09/24 11:20 MDM - Abdominal Pain MDM Narrative Medical decision making narrative: patient drove herself to the emergency room with right lower quadrant pain started prior to arrival. Vital signs are stable Physical examination showed mild to moderate tenderness right lower quadrant without guarding or rebound. Patient declined to take any pain medication in the emergency room. 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 Differential diagnosis appendicitis, urinary tract infection, kidney stone, constipation, diverticulitis, colitis, abdominal wall muscle pain, anxiety like symptoms. Blood workup today showed potassium of 3.3 Urinalysis showed no evidence of infection CT abdomen and pelvis with IV contrast showed constipation Discharged on MiraLax The pt was discharged to home.the pt,s condition upon discharge was fair,education was provided to the pt in reference to the final impression,discharge study results,treatment,prognosis and need for follow up . Lab Data 02/09/24 11:49 02/09/24 11:49 Labs: Lab Results 02/09/24 02/09/24 Range/Units 11:49 11:57 WBC 7.0 (4.8-10.8) K/mm3 RBC 4.66 (4.20-5.40) M/mm3 Hgb 13.7 (12.0-15.0) g/dL Hct 42.0 (35.0-49.0) % MCV 90.1 (78.0-102.0) fL MCH 29.4 (27.0-31.0) pg MCHC 32.6 (32-36) g/dL RDW 13.1 (11.6-14.4) % Plt Count 207 (150-420) K/mm3 MPV 10.4 (9.2-11.8) fl Immature Gran % (Auto) 0.1 H (0.0-0.0) % Neut % (Auto) 62.3 (50.0-70.0) % Lymph % (Auto) 29.6 (18.0-42.0) % [place] % (Auto) 6.0 (2.0-11.0) % Eos % (Auto) 1.7 (1.0-6.0) % Baso % (Auto) 0.3 (0.0-1.0) % Lymph # (Auto) 2.08 (1.10-4.50) K/mm3 [place] # (Auto) 0.42 (0.10-0.90) K/mm3 Eos # (Auto) 0.12 (0.02-0.50) K/mm3 Baso # (Auto) 0.02 (0.00-0.10) K/mm3 Abs Immat Gran (auto) 0.01 H (0.00-0.00) K/mm3 Absolute Neuts (auto) 4.37 (1.70-7.20) K/mm3 Absolute Nucleated RB
[2024-02-09 11:53] LABS: Basophils Absolute Auto 0.02 K/mm3 (0.00-0.10); Basophils Percent Auto 0.3 % (0.0-1.0); Eosinophils Absolute Auto 0.12 K/mm3 (0.02-0.50); Eosinophils Percent Auto 1.7 % (1.0-6.0); Hemoglobin 13.7 g/dL (12.0-15.0); Immature Granulocyte Absolute 0.01 K/mm3 (0.00-0.00); Immature Granulocyte Percent A 0.1 % (0.0-0.0); Lymphocytes Absolute Auto 2.08 K/mm3 (1.10-4.50); Lymphocytes Percent Auto 29.6 % (18.0-42.0); Mean Corpuscular HGB Conc 32.6 g/dL (32-36); Mean Corpuscular Hemoglobin 29.4 pg (27.0-31.0); Mean Corpuscular Volume 90.1 fL (78.0-102.0); Mean Platelet Volume 10.4 fl (9.2-11.8); Monocytes Absolute Auto 0.42 K/mm3 (0.10-0.90); Neutrophils Absolute Auto 4.37 K/mm3 (1.70-7.20); Neutrophils Percent Auto 62.3 % (50.0-70.0); Platelet Count Result 207 K/mm3 (150-420); Red Blood Count 4.66 M/mm3 (4.20-5.40); Red Cell Distribution Width 13.1 % (11.6-14.4)
[2024-02-09 12:03] LABS: Add Urine Microscopic? NO; Appearance Urine Clear (Clear); Bilirubin Urine Negative (Negative); Blood Urine Negative (Negative); Color Urine Light Yellow (Yellow); Glucose Urine UA Negative (Negative); Ketones Urine Negative (Negative); Leukocyte Esterase Ur Negative LEU/UL (Negative); Nitrate Urine Negative (Negative); Protein Urine Negative (Negative); Specific Grav Ur 1.025 (1.010-1.020); Urobilinogen Urine 0.2 mg/dL (0.2-1.0)
[2024-02-09] MEDS: SODIUM CHLORIDE 0.9% IV 1,000 ML 999 ML IV CONT (12:03)
[2024-02-09] MEDS: ONDANSETRON INJ 4 MG/2 ML VIAL IV PUSH (12:04)
[2024-02-09 12:07] LABS: Alanine Aminotransferase 18 U/L (14-59); Albumin Level 3.5 g/dL (3.4-5.0); Alkaline Phosphatase 84 U/L (46-116); Anion Gap 4 mmol/L (4-12); Aspartate Amino Transferase 15 U/L (15-37); Bilirubin,Total 0.6 mg/dL (0.00-1.00); Blood Urea Nitrogen 8 mg/dL (7-18); Calcium 8.5 mg/dL (8.5-10.1); Carbon Dioxide 31 mmol/L (21-32); Chloride 103 mmol/L (98-108); Estimated CRCL calculation 67 ml/min; Estimated Glomerular Filt Rate > 60; Glucose 102 mg/dL (70-99); Osmolality Calculated 284 mOsm/kg (285-295); Potassium 3.3 mmol/L (3.5-5.1); Sodium 138 mmol/L (136-145); Total Protein 6.3 g/dL (6.4-8.2)
[2024-02-09 12:13] LABS: Lactic Acid Reflex 1.1 mmol/L (0.4-2.0)
--- NOTE | 2024-02-09 12:20 | PC.NURSE ---
pt had declined the morphine due to transportation, erp is aware. pt is lying on stretcher with ivf infusing without difficulty. pt is awaiting results. will continue to monitor.
[2024-02-09 12:52] LABS: Pregnancy On Board Control Positive; Urine Pregnancy Test Negative
--- NOTE | 2024-02-09 13:16 | PC.NURSE ---
PT HAS RETURNED FROM CT AND RR AT THIS TIME. PT CONTINUES TO REPORT PAIN. PT IS AWAITING RESULTS AT THIS TIME. WILL CONTINUE TO MONITOR.
--- NOTE | 2024-02-09 13:48 | PC.NURSE ---
pt reports no change in symptoms, is lying on stretcher watching tv without difficulty. erp is at bedside. will continue to monitor.
== END 2024-02-09 14:02 | disposition home or self-care (01) ==
PROVIDERS: Emergency Provider Emergency Medicine; PCP Nurse Practitioner Family
DX: E87.6 Hypokalemia (principal); K59.00 Constipation, unspecified
CPT/HCPCS: 36415; 74177; 80053; 81003; 81025; 83605; 85025; 96361; 96374; 99284; J2405; J7030; Q9967

== ENCOUNTER 2024-04-11 17:52 | Emergency (ER) | payer OTHER, SELFPAY ==
--- NOTE | ~2024-04-11 | XR_ITS ---
EXAM: XR ankle LT min 3V DATE: 04/11/2024 18:11 HISTORY: Injury/Twisted ankle, Lateral Lt. ankle pain . COMPARISON: None available. FINDINGS: Normal mineralization. No fracture or dislocation. No lytic or blastic lesion. Joint space s are maintained. Achilles enthesopathy. Mild hallux valgus. No erosion or periosteal change. Soft ti ssues within normal limits. IMPRESSION: No acute osseous finding in the left ankle or foot. Reviewed, dictated and finalized at location K. ANCE LEARNING ADMINISTRATOR IMPRESSION: No acute osseous finding in the left ankle or foot.
[2024-04-11 17:54] VITALS: BP 131/85; PULSE 88; RESP 19; TEMP 37.4; O2SAT 97
--- NOTE | 2024-04-11 18:20 | ED_ITS ---
HPI - Extremity Injury (Lower) General Chief Complaint: Extremity Injury, Lower Stated Complaint: fell on foot Time Seen by Provider: 04/11/24 17:58 Source: patient Mode of arrival: ambulatory Limitations: no limitations History of Present Illness HPI Narrative: 39 years old white female twisted left ankle on wet ground. No other injuries. Related Data Allergies Allergy/AdvReac Type Severity Reaction Status Date / Time cocoa Allergy Hives Verified 04/11/24 18:06 Review of Systems Review of Systems: All systems reviewed & are unremarkable except as noted in HPI and below PMFSH Past Medical History Medical History Trigger finger, right Abdominal wall cellulitis Urinary tract infection History of ovarian cyst Surgical History Surgical History Hx laparoscopic cholecystectomy 07/28/23 Trigger finger repair. 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 Musculoskeletal: Left ankle/ foot exam showed diffuse tenderness lateral malleolus and lateral foot, no swelling, no bruises, no deformity Neurologic: Alert and oriented ?3, Course Vital Signs Vital signs: Vital Signs Temperature 37.4 C 04/11/24 17:54 Pulse Rate 88 04/11/24 17:54 Respiratory Rate 19 04/11/24 17:54 Blood Pressure 131/85 04/11/24 17:54 Pulse Oximetry 97 04/11/24 17:54 Oxygen Delivery Room Air 04/11/24 17:54 Temperature 37.4 C 12/15/24 17:54 Pulse Rate 88 04/11/24 17:54 Respiratory Rate 19 04/11/24 17:54 Blood Pressure 131/85 04/11/24 17:54 Pulse Oximetry 97 04/11/24 17:54 Oxygen Delivery Room Air 04/11/24 17:54 MDM - Extremity Injury (Lower) MDM Narrative Medical decision making narrative: sprain, strain versus fracture left foot/ ankle X-ray of the left ankle and left foot showed no acute osseous abnormality. Imaging Data Radiologist's impression: Impressions Ankle X-Ray 04/11/24 18:18 IMPRESSION: No acute osseous finding in the left ankle or foot. Foot X-Ray 04/11/24 18:18 IMPRESSION: No acute osseous finding in the left ankle or foot. Critical Care Time Critical Care Time Critical Care Time: No Discharge Plan Discharge Clinical Impression: Ankle sprain Patient Disposition: Home, Self-Care Condition: Stable Instructions: Ankle Sprain (DC) Additional Instructions: Return if symptoms are worsening , call your family physician for appointment, take Tylenol , ibuprofen as as needed for aches and pain, continue home medications. Ice pack 20 minutes/hour for the next 24 hours Keep your weight of your left foot Crutches Pineda wrap Patient Language: Martiniquais Prescriptions: No Action polyethylene glycol 3350 [ClearLax] 17 gram/dose powder 17 g PO BID Qty: 119 0RF fluticasone propionate [Allergy Relief (fluticasone)] 50 mcg/actuation spray,suspension 1 spray intranasal DAILY Qty: 16 0RF Rx Instructions: administer into each nostril Follow-up/Referrals: Flakito Ford APRN [Primary Care Provider] - Stand Alone Forms: Work/School Release IP
--- OUTSIDE RECORDS SUMMARY | 2024-04-16 19:08 | XMS_ITS | Clinical Summary ---
Author Organization [facility] Address [facility] [facility]. [place], [place] [id number] [place] [id number] Care Team Providers Care Strand Forming Machine Operator Name Role Phone Garrett Orona MD Primary Care Provider Allergies No known active allergies Medications HYDROcodone-acet aminophen (NORCO) 5-325 MG tablet Take 1 tablet by mouth every 8 (eight) hours as needed. 02/24/2023 Active Active Problems Problem Noted Date Diagnosed Date Lateral epicondylitis of left elbow 03/23/2023 Trigger middle finger of left hand 05/17/2020 Adhesive capsulitis of right shoulder 02/22/2020 Adhesive capsulitis of right shoulder 02/18/2020 Numbness and tingling of right arm 02/18/2020 Effusion of right shoulder joint 02/03/2020 Degenerative tear of glenoid labrum of right mike ulder 02/03/2020 Impingement syndrome of right shoulder 9 Family History Medical History Relation Comments No Known Problems Brother 1 No Known Problems Brother 2 No Known Problems Father No Known Problems Mother No Known Problems Sister Relation Status Comments Brother 1 Alive Brother 2 Alive Father Alive Mother Alive Sister Alive Social History Tobacco Use Types Packs/Day Years Used Date Smoking Tobacco: Never Smokeless Tobacco: Never Alcohol Use Standard Drinks/Week Comments No 0 (1 standard drink = 0.6 oz pur e alcohol) AUDIT-C Answer Date Recorded Frequency of Alcohol Consumption Never 04/08/2019 Average Number of Drinks Not on file 019 Frequency of Binge Drinking Not on file 03/28 Comments No Sex and Gender Information Value Date Recorded Sex Assigned at Female 11/14/2022 8:06 AM CDT Legal 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 Gender Identity Female 11/14/2022 8:06 AM CDT Sexual Orientation Not on file Last Filed Vital Signs Vital Sign Reading Time Taken Comments Blood Pressure 117/79 11/13/2022 5:47 PM CDT Pulse 61 11/13/2022 5:47 PM CDT Temperature 36.9 ??C (98.4 ??F) 11/13/2022 5:47 PM CD T Respiratory Rate 16 11/13/2022 5:47 PM CDT Oxygen Saturation 100% 11/13/2022 5:47 PM CDT Inhaled Oxygen Concentration - - Weight 71.7 kg (158 lb) 03/11/2023 10:39 AM HOG COOLER Height 154.9 cm (5' 1 ) 03/11/2023 10:39 AM HOG COOLER Body Mass Index 29.85 03/11/2023 10:39 AM HOG COOLER Plan of Treatment Health Maintenance Due Date Last Done Comments Cervical Cancer Screening Pap Smear (Age 30 to 64) Every 3 Years 1985 Annual Physical 01/24/1988 Hepatitis C 2003 DTaP, Tdap and Td Vaccines (1 - Tdap) 01/24/2004 12/31/1990, 10/21/1988, 1985, Additional history exists Hepatitis B Vaccines (1 of 3 - 19+ 3-dose series) 01/24/2004 Cervical Cancer Screening Pap with HPV Testing (Age 30 to 64) Every 5 Years 2015 Cervical Cancer Screening with HPV 2015 COVID-19 Vaccine ( season) 2023 Influenza Adult (#1) 2024 HPV Vaccines Aged Out No longer eligi ble based on patient's age to complete this topic Meningococcal Vaccine Aged Out No demond morgan eligible based on patient's age to complete this topic Pneumococcal Vaccine: Pediatrics (0 to 5 Years) and At-Risk Patients (6 to 64 Years) Aged Out No longer eligible based on patient's age to complete this topic RSV Immunizations Under 20 Months Aged Out No longer eligible based on patient's age to complete this topic Advance Directives Documents on File Type Date Recorded Patient Cargo Trimmer Expl anation Legal Documents 07/06/2011 12:00 AM RETIRE MENT OF RECORD Care Teams Strand Forming Machine Operator Relationship Specialty Start Date End Date Garrett Orona MD [address] [place] [phone] PCP - General FAMILY PRACTICE 06/10/21
--- OUTSIDE RECORDS SUMMARY | 2024-04-16 19:09 | XMS_ITS | Encounter Summary ---
Author Organization [facility] Address [address] [place] [address]. 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
--- OUTSIDE RECORDS SUMMARY | 2024-04-16 19:09 | XMS_ITS | Encounter Summary ---
Author Organization [facility] - [facility] Address [address] [place] [address]. 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
--- OUTSIDE RECORDS SUMMARY | 2024-04-16 19:09 | XMS_ITS | Encounter Summary ---
Author Organization [facility] Address [address] [place] [address]. [place], [place] [address] [place] [address] Care Team Providers Care Reception Manager Name Role Phone Garrett Orona MD Primary Care Provider +- [phone] Reason for Referral * Occupational Therapy (Routine) - Closed Specialty Diagnoses / Procedures Referred By Tin wells Referred To Contact Occupational Therapy Diagnoses Lateral epicondylitis of left elbow Procedures OFFICE/OUTPATIENT NEW LOW MDM 30-44 MINUTES OFFICE/OUTPT VISIT,NEW,LEVL IV OFFICE/OUTPT VISIT,NEW,LEVL V OFFICE/OUTPT VISIT,EST,LEVL III OFFICE/OUTPT VISIT,EST,LEVL IV OFFICE/OUTPT VISIT,EST,LEVL V Alayna Singh FNP-BC [address] [place] [address] Phone: tel: fax: [facility] [address] [place] [address] Phone: tel: fax: Referral ID Status Reason Start Date Expiration Date V isits Requested Visits Authorized [id number] Closed Specialty Services 03/11/2023 04/10/2024 1 1 UETTE MAKER Reason for Visit * Reason Comments Elbow Pain LEFT - DOI: 02/23/20 23 Encounter Details Date Type Department Care Team (Late st Contact Info) Description 03/11/2023 10:30 AM BRIQUETTE MAKER Office Visit [facility] [address] [facility] [address] [place] [address] Alayna Singh, [facility]- [address] [place] [address] Elbow Pain (LEFT - DOI: 02/22/2023) Social History Tobacco Use Types Packs/Day Years [...] AM CDT Legal Sex Female 10:12 PM BRIQUETTE MAKER Gender Identity Female 11/14/2022 8:06 AM CDT Sexual Orientation Not on file documented as of this encounter Last Filed Vital Signs Vital Sign Reading Time Taken Comments Blood Pressure - - Pulse - - Temperature - - Respiratory Rate - - Oxygen Saturation - - Inhaled Oxygen Concentration - - Weight 71.7 kg (158 lb) 03/11/2023 10:39 AM BRIQUETTE MAKER Height 154.9 cm (5' 1 ) 03/11/2023 10:39 AM BRIQUETTE MAKER Body Mass Index 29.85 03/11/2023 10:39 AM BRIQUETTE MAKER documented in this encounter Progress Notes * Jessie Crabtree LPN - 03/11/2023 10:30 AM CST Samanta is a 38-year-old female who presents for Elbow Pain (LEFT - DOI: 02/22/2023) Patient here for LEFT elbow pain. She reports an injury while playing with her daughter on the floor. She states she went to push herself up from the floor, she felt her elbow lock and pop . She locates her pain mostly in the ulnar side of the forearm with radiation to the 3rd finger. She deniesany bruising, states she has swelling to the fingers at times. Pain increases with movement or lifting. She was seen at [facility] and placed in a sling which she has been wearing since the injury. She was given Grinnell, but states she has not taken this, has been taking Tylenol with fair relief. She is RIGHT hand dominate. 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 No additional nursing task documentation needed. Vitals: 03/11/23 1039 Weight: 71.7 kg (158 lb) Height: 1.549 m (5' 1 ) Current Outpatient Medications Medication Sig HYDROcodone-acetaminophen (NORCO) 5-325 MG tablet Take 1 tablet by mouth every 8 (eight) hours as needed. (Patient not taking: Reported on 03/11/2023) Past Surgical History: Procedure Laterality Date HC TRIGGER FINGER RELEASE Right 3rd digit TYMPANOSTOMY TUBE PLACEMENT Bilateral Allergies Patient has no known allergies. [x] Total Dwvd-bw-Uvia Assessment Time: 0-15 minutes Additional Contributory Factors NONE UETTE MAKER * MANDY Kamara-SABINE - 03/11/2023 10:30 AM CST Chief Complaint: Elbow Pain (LEFT - DOI: 02/22/2023) History of Present Illness: Samanta Pleitez is a 38-year-old female who presents to the office for Elbow Pain (LEFT - DOI: 02/22/2023) Patient here for LEFT elbow pain. She reports an injury while playing with her daughter on the floor. She states she went to push herself up from the floor, she felt her elbow lock and pop . She locates her pain mostly in the ulnar side of the forearm with radiation to the 3rd finger. She deniesany bruising, states she has swelling to the fingers at times. Pain increases with movement or lifting. She was seen at [facility] and placed in a sling which she has been wearing since the injury. She was given Grinnell, but states she has not taken this, has been taking Tylenol with fair relief. She is RIGHT hand dominate. 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 Adhesive capsulitis of right shoulder Numbness and tingling of right arm Adhesive capsulitis of right shoulder Trigger middle finger of left hand Lateral epicondylitis of left elbow History: Past Medical History: Diagnosis Date Patient denies medical problems Past Surgical History: Procedure Laterality Date HC TRIGGER FINGER RELEASE Right 3rd digit TYMPANOSTOMY TUBE PLACEMENT Bilateral Family History Problem Relation Name Age of Onset No Known Problems Mother No Known Problems Father No Known Problems Sister No Known Problems Brother No Known Problems Brother Family Status Relation Name Status Mother Alive Father Alive Sister Alive Brother Alive Brother Alive Social History Socioeconomic History Marital status: Single Tobacco Use Smoking status: Never Smokeless tobacco: Never Vaping Use Vaping Use: Never used Substance and Sexual Activity Alcohol use: No Drug use: Never Medications: Current Outpatient Medications: HYDROcodone-acetaminophen (NORCO) 5-325 MG tablet, Take 1 tablet by mouth every 8 (eight) hours as needed. (Patient not taking: Reported on 03/11/2023), Disp: , Rfl: Review of patient's allergies indicates: No Known Allergies Objective: Body mass index is 29.85 kg/m??. Last Recorded Weight 03/11/23 1039 Weight: 71.7 kg (158 lb) Physical exam: Constitutional: Alert and in no acute distress. Neurological: The patient was oriented to person, place, and time. Eyes: The sclera and conjunctiva were normal ENT: Hearing was normal. Neck: The appearance of the neck was normal. Cardiovascular: Normal pulses. Pulmonary: No respiratory distress. Skin: No injuries or skin lesion. Musculoskeletal: Exam of left elbow today demonstrates tenderness over lateral epicondyle with palpation, minimal swelling without ecchymosis, pain with resisted supination, range of motion lacking 10 degrees full extension with flexion to 100, pain with extension and flexion, able to make a fist, no increased pain with valgus or varus stress, palpable radial pulse. Results: X-ray of left elbow today demonstrates minimal degenerative changes with no acute or healing bony injury or dislocation. MRI of left elbow from 03-08-2023 reviewed and revealed signaling at the lateral epicondyle consistent with tendinopathy and a partial tear of the lateral epicondyles tendon. Procedure: Procedure: Injection of the Lateral Epicondyle on the left. Indications for the procedure include Inflammation and Diagnostic. The procedure's were discussed with the patient. Verbal consent was obtained prior to the procedure. Procedure Note: Crystal was prepped and draped in the usual sterile fashion using alcohol and usingbetadine. Anesthesia: Ethyl chloride spray was used as a topical anesthetic. A 25 gauge and 1.5 Inch needle was used to inject 0.5 mL lidocaine 1% and 1 mL methylprednisolone 40 mg/mL. Dressing: A bandage was applied. Post-Procedure: the patient tolerated the procedure well. Complications: there were no complications. Follow-up in the office 4 weeks. Assessment: Encounter Diagnose(s) ICD-10-CM SNOMED CT(R) 1. Lateral epicondylitis of left elbow M77.12 LATERAL EPICONDYLITIS OF LEFT HUMERUS methylPREDNISolone acetate (DEPO-Medrol) injection 40 mg lidocaine (XYLOCAINE) 1 % injection SOLN 0.5 mL Ambulatory referral to Occupational Therapy Plan: Reviewed imaging with patient in the office today. I have also reviewed imaging with Dr. Painter tam given MRI report stating medial epicondyle common flexor tendon partial tears are present but after reviewing imaging signaling is located over the lateral epicondyle. I have recommended a cortisone injection that was given in the office today which patient did tolerate well. I have also recommended getting her started in physical therapy to increase her strength and range of motion as well as assist with her pain. I have provided patient a note for work. She will follow-up in 4 weeks for reevaluation. Follow up: Return in about 4 weeks (around 04/08/2023). COURTNEY KAMARA UETTE MAKER documented in this encounter Plan of Treatment Scheduled Referrals Name Type Priority Associated Diagnoses Orde r Schedule Ambulatory referral to Occupational Therapy Referral Routine Lateral epicondylitis of left elbow Ordered: 03/11/2023 documented as of this encounter Visit Diagnoses Diagnosis Lateral epicondylitis of left elbow- Primary Lateral epicondylitis of elbow documented in this encounter Administered Medications Inactive Administered Medications - up to 3 most recent administrations Medication Order MAR Action Action Date Dose Rate Site lidocaine (XYLOCAINE) 1 % injection SOLN 0.5 mL 0.5 mL, Other, Once, 1 dose, On Fri03/11/23 at 1245Indications:Lateral epicondylitis of left elbow Given 03/11/2023 12:32 PM BRIQUETTE MAKER 0.5 mLs methylPREDNISolone acetate (DEPO-Medrol) injection 40 mg 40 mg, Intramuscular, Once, 1 dose, On 03/11/23 at 1245, Eduard WellIndications:Lateral epicondylitis of left elbow Given 03/11/2023 12:33 PM BRIQUETTE MAKER 40 mg Other documented in this encounter Care Teams Reception Manager Relationship Specialty Start Date End Date Garrett Orona MD [address] [place] [phone] PCP - General FAMILY PRACTICE 06/10/21 documented as of this encounter
--- OUTSIDE RECORDS SUMMARY | 2024-04-16 19:09 | XMS_ITS | Encounter Summary ---
Author Organization [facility] Address [address] [place] [address]. [place], [place] [address] [place] [address] Care Team Providers Care Tree Puller Name Role Phone Garrett Orona MD Primary Care Provider [phone] Encounter Details Date Type Department Care Team (Late st Contact Info) Description 03/11/2023 Orders Only [facility] [address] [place] [phone] Justin Singh, [facility] [place] [address] Social History Tobacco Use Types Packs/Day Years [...] AM CDT Legal Sex Female 10:12 PM OCCUPATIONAL THERAPY TECHNICIAN Gender Identity Female 11/14/2022 8:06 AM CDT Sexual Orientation Not on file documented as of this encounter Plan of Treatment Not on file documented as of this encounter Results * XR ELBOW LT M3V (03/11/2023 10:39 AM OCCUPATIONAL THERAPY TECHNICIAN) Anatomical Region Laterality Modality Elbow Radiographic Maya ging 03/12/2023 4:01 PM OCCUPATIONAL THERAPY TECHNICIAN Impressions 03/12/2023 4:02 PM OCCUPATIONAL THERAPY TECHNICIAN IMPRESSION: Stable, unremarkable exam. Ordered By: JUSTIN SINGH Interpreted By: Nestor Lopez MD, 03/12/2023 4:01 PM Narrative 03/12/2023 4:02 PM OCCUPATIONAL THERAPY TECHNICIAN Examination: Left elbow. Exam time: 0944 hours. Clinical history: Pain. Comparison: 11/26/2016. Technique: Three views. Findings: No fracture, dislocation or other acute bony abnormality is identified. No other significant bone or joint abnormality is noted. The soft tissues are unremarkable. Procedure Note Nestor Lopez MD - 03/12/2023 Examination: Left elbow. Exam time: 0944 hours. Clinical history: Pain. Comparison: 11/26/2016. Technique: Three views. Findings: No fracture, dislocation or other acute bony abnormality isidentified. No other significant bone or joint abnormality is noted. Thesoft tissues are unremarkable. IMPRESSION: Stable, unremarkable exam. Ordered By: JUSTIN SINGH Interpreted By: Nestor Lopez MD, 03/12/2023 4:01 PM us Justin Singh HHA-BC GENERAL IMAGING Final Resu lt documented in this encounter Visit Diagnoses Diagnosis Left elbow pain- Primary Pain in joint, upper arm Left elbow pain Pain in joint, upper arm documented in this encounter Care Teams Tree Puller Relationship Specialty Start Date End Date Garrett Orona MD [address] [place] [phone] PCP - General FAMILY PRACTICE 06/10/21 documented as of this encounter
--- OUTSIDE RECORDS SUMMARY | 2024-04-16 19:09 | XMS_ITS | Encounter Summary ---
Author Organization [facility] Address [address] [place] [address]. [place], [place] [address] [place] [address] Care Team Providers Care Sign Builder Supervisor Name Role Phone Garrett Orona MD Primary Care Provider Encounter Details Date Type Department Care Team (Late st Contact Info) Description 03/11/2023 10:27 AM MARKETING FINANCE SPECIALIST - 03/11/2023 11:59 PM [facility] Hospital Encounter [facility] Diagnostic Imaging [address] [place] [address] Justin Singh, [facility]- [address] [facility] [place] [id number] Discharge Disposition: Home or Self Care (Routine Discharge) Social History Tobacco Use Types Packs/Day Years Used Date Smoking Tobacco: Never Smokeless Tobacco: Never Alcohol Use Standard Drinks/Week Comments No 0 (1 standard drink = 0.6 oz pur e alcohol) AUDIT-C Answer Date Recorded Frequency of Alcohol Consumption Never 04/08/2019 Average Number of Drinks Not on file Frequency of Binge Drinking Not on file 03/28 Comments No Sex and Gender Information Value Date Recorded Sex Assigned at Female 11/14/2022 8:06 AM CDT Legal Sex Female 10:12 PM MARKETING FINANCE SPECIALIST Gender Identity Female 11/14/2022 8:06 AM CDT Sexual Orientation Not on file documented as of this encounter Medications at Time of Discharge HYDROcodone-aceta minophen (NORCO) 5-325 MG tablet Take 1 tablet by mouth every 8 (eight) hours as needed. 02/24/2023 documented as of this encounter Plan of Treatment Not on file documented as of this encounter Procedures Procedure Name Priority Date/Time Associated Diagnosis Comments XR ELBOW LT M3V Routine 03/11/2023 10:39 AM MARKETING FINANCE SPECIALIST Left elbow pain documented in this encounter Results * XR ELBOW LT M3V (03/11/2023 10:39 AM MARKETING FINANCE SPECIALIST) Anatomical Region Laterality Modality Elbow Radiographic Maya ging 03/12/2023 4:01 PM MARKETING FINANCE SPECIALIST Impressions 03/12/2023 4:02 PM MARKETING FINANCE SPECIALIST IMPRESSION: Stable, unremarkable exam. Ordered By: JUSTIN SINGH Interpreted By: Nestor Lopez MD, 03/12/2023 4:01 PM Narrative 03/12/2023 4:02 PM MARKETING FINANCE SPECIALIST Examination: Left elbow. Exam time: 0944 hours. [...] MD, 03/12/2023 4:01 PM us Justin Singh CAPITAL PROJECT ENGINEER-BC GENERAL IMAGING Final Resu lt documented in this encounter Visit Diagnoses Diagnosis Left elbow pain Pain in joint, upper arm documented in this encounter Care Teams Sign Builder Supervisor Relationship Specialty Start Date End Date Garrett Orona MD [address] [place] [phone] PCP - General FAMILY PRACTICE 06/10/21 documented as of this encounter
--- OUTSIDE RECORDS SUMMARY | 2024-04-16 19:10 | XMS_ITS | Encounter Summary ---
Author Organization [facility] Address [address] [place] [address]. [place], [place] [address] [place] [address] Care Team Providers Care Professor Of Geography Name Role Phone Miko Valentin MD Primary Care Provider [phone] Reason for Visit * Reason Comments Joint Pain/Shoulder region * Physical Medicine (Routine) - Closed Specialty Diagnoses / Procedures Referred By Contac t Referred To Contact PHYSICAL THERAPY Diagnoses Adhesive capsulitis of right shoulder Numbness and tingling of right arm Alayna Singh FNP-SABINE [address] [place] [address] Phone: tel: fax: Referral ID Status Reason Start Date Expiration Date V isits Requested Visits Authorized [id number] Closed Physical Therapy 02/18/2020 03/20/2021 60 60 Encounter Details Date Type Department Care Team (Late st Contact Info) Description 02/22/2020 8:30 AM CDT - 02/22/2020 11:59 PM CDT Hospital Encounter [facility] [address] [place] [address] Alayna Singh FNP-BC [address] [place] [address] Kenia Frankel, PT Joint Pain/Shoulder region Discharge Disposition: Home or Self Care (Routine [...] Binge Drinking Not on file 03/28 Comments Unknown Sex and Gender Information Value Date Recorded Sex Assigned at Female 11/14/2022 8:06 AM CDT Legal Sex Female 10:12 PM INSIDE STEWARD/STEWARDESS Gender Identity Female 11/14/2022 8:06 AM CDT Sexual Orientation Not on file COVID-19 Exposure Response Date Recorded In the last month, have you been in contact with someone who was confirmed or suspected to have Coronavirus / COVID-19? No / Unsure 02/22/2020 8:30 AM CDT documented as of this encounter Medications at Time of Discharge HYDROcodone-aceta minophen 5-325 MG tabletIndications :Acute Pain < 7 Day Supply Take 1 tablet by mouth every 8 (eight) hours as needed for Pain. Indications: Acute Pain < 7 Day Supply 20 tablet 02/18/2020 05/17/2020 documented as of this encounter Progress Notes * Kenia Frankel, PT - 02/22/2020 8:[address] [facility] PH[facility]ICAL THERAP[facility] OUTPATIENT INITIAL EVALUATION Time In: 834 Time Out: 914 Total Time: 40 Date: 02/22/20 Name: Samanta Atkinson : 1985 Past Medical History: Diagnosis Date ??? Patient denies medical problems Past Surgical History: Procedure Laterality Date ??? HC TRIGGER FINGER RELEASE Right 3rd digit ??? TYMPANOSTOMY TUBE PLACEMENT Bilateral Subjective: Diagnosis: R adhesive capsulitis Referring Physician: KOKO Singh Onset Date: 01/23/20 Pt started having troubles with R shoulder last March. She was given shots, and everything got better. About a month ago pt started experiencing pain in the shoulder again. She would drop things because of pain and numbing feeling in the hand. Tingling is now noted in the whole R arm. Pt states usually this is noted just when holding something. Pt denies neck pain. Pt is R hand dominant. 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 -AROM: Shoulder Flex: R: 80??, L: 162?? Abduction: R: 87??, L: 178?? ER: R: ear, L T1?? IR : R: glut, L T3?? -PROM: Shoulder Flex: R: 100??, Abduction: R: 90??, ER: R: 90??, IR : R: 60?? -Cervical ROM: Flex: 45 Extension: 55 Side bending: R: 45, L: 45 Rotation: R: 75, L: 80 -STRENGTH: Shoulder: Flex: R: 2/5, L: 4/5 Abduction: R: 2/5, L 4/5 ER: R: 4-/5, L: 4/5 IR: R: 4/5, L: 4+/5 Elbow Flex; B : 5/5 Elbow Ext: B: 5/5 Wrist flex/ext: B: 5/5 -FLEXIBLITY: Tightness of pec as noted B rounded shoulder posturing -SPECIAL TESTS: Cervical compression and distraction (-) Retana Cole L (+) Empty Can L (+) Tinel's ulnar and median L (+) -TREATMENT: MHP with IF estim applied to the L shoulder x15 minutes for pain control. IASTM then performed to the L cervical and shoulder musculature. Education Performed: how posture affects the shoulder joint Assessment Assessment/Impressions: Samanta Atkinson is a 35-year-old female who presents with a primary complaint of L adhesive capsulitis. Patient is demonstrating deficits in Strength, ROM and Posture, leading to impingement syndrome. Skilled therapy is appropriate at this time to address these impairments and to move the patient towards their goal of being able to perform all job tasks without increasein pain. Rehab Potential: GOOD Personal Factors/Co-Morbidities Affecting Care: None Examination of Body Systems: Low (1-2) Clinical Presentation of Patient: Stable Uncomplicated Eval Complexity: Low PLAN: PT Plan for next visit: postural exercises, modalities prn Treatment/Interventions: Therapeutic Exercise - 10348, Therapeutic Activity - 19092, Neuromuscular Re-education - 49954, Manual Therapy - 56083, Electrical Stimulation Unattended - 09482 and Ultrasound - 95620 Frequency: 3x/week Duration: 4 weeks GOALS: 1. I with HEP in 1 week 2. Report 75% decrease in pain in 4 weeks to improve sleeping abilities 3. AROM L shoulder flexion and abd 165 in 4 weeks to improve ability to reach top shelves 4. 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 Provider Signature: Date: In signing this document, provider certifies that prescribed rehabilitation is a medical necessity. Date: 02/22/20 Patient Name: Samanta Atkinson Patient : 1985 Patient [facility] [address] [facility] [address] Dept: [phone] Dept documented in this encounter Plan of Treatment Not on file documented as of this encounter Visit Diagnoses Diagnosis Adhesive capsulitis of right shoulder- Primary Adhesive capsulitis of shoulder documented in this encounter Care Teams Professor Of Geography Relationship Specialty Start Date End Date Miko Valentin MD [address] [place] [phone] PCP - General FAMILY PRACTICE 03/29/19 06/09/21 documented as of this encounter
--- OUTSIDE RECORDS SUMMARY | 2024-04-16 19:10 | XMS_ITS | Encounter Summary ---
Author Organization [facility] Address [address] [place] [address]. [place], [place] [id number] [place] [address] Care Team Providers Care [employer] Tutor Name Role Phone Miko Valentin MD Primary Care Provider [phone] Encounter Details Date Type Department Care Team (Late st Contact Info) Description 05/17/2020 10:36 AM CONTROL SYSTEM MANAGER - 05/17/2020 11:59 PM CONTROL SYSTEM MANAGER Hospital Encounter [facility] [address] [place] [address] Alayna Singh, [facility] [address] [facility] [place] [id number] Discharge Disposition: Home or Self Care (Routine [...] AM CDT Legal Sex Female 10:12 PM CONTROL SYSTEM MANAGER Gender Identity Female 11/14/2022 8:06 AM CDT Sexual Orientation Not on file COVID-19 Exposure Response Date Recorded In the last month, have you been in contact with someone who was confirmed or suspected to have Coronavirus / COVID-19? No / Unsure 05/17/2020 10:35 AM CONTROL SYSTEM MANAGER documented as of this encounter Medications at Time of Discharge ibuprofen 200 MG tablet Take 200 mg by mouth every 6 (six) hours as needed for Pain. 05/05/2021 documented as of this encounter Plan of Treatment Not on file documented as of this encounter Procedures Procedure Name Priority Date/Time Associated Diagnosis Comments XR HAND LT 3V Routine 05/17/2020 10:42 AM CONTROL SYSTEM MANAGER Left hand pain documented in this encounter Results * XR HAND LT 3V (05/17/2020 10:42 AM CONTROL SYSTEM MANAGER) Anatomical Region Laterality Modality Hand Radiographic Maya ging 05/17/2020 10:4 5 AM CONTROL SYSTEM MANAGER Impressions 05/17/2020 10:46 AM CONTROL SYSTEM MANAGER IMPRESSION: No significant radiographic abnormality identified. Interpreted By: Ramon Alfonso MD, 05/17/2020 10:45 AM Narrative 05/17/2020 10:46 AM CONTROL SYSTEM MANAGER Examination: XR HAND LT 3V Exam time: 05/17/2020 10:42 AM Clinical history: Pain. Left third trigger finger. Comparison: No prior exam Technique: PA, oblique, and lateral views left hand Findings: Left distal radius and ulna appear unremarkable. Carpal bone relationships and appearances appear normal. No evidence of fracture, subluxation, or dislocation left hand. No evidence of abnormal periosteal reactions. No evidence of abnormal soft tissue densities. Procedure Note Ramon Alfonso MD - 05/17/2020 Examination: XR HAND LT 3V Exam time: 05/17/2020 10:42 AM Clinical history: Pain. Left third trigger finger. Comparison: No prior exam Technique: PA, oblique, and lateral views left hand Findings: Left distal radius and ulna appear unremarkable. Carpal bone relationships and appearances appear normal. No evidence of fracture, subluxation, or dislocation left hand. No evidence of abnormalperiosteal reactions. No evidence of abnormal soft tissue densities. IMPRESSION: No significant radiographic abnormality identified. Interpreted By: Ramon Alfonso MD, 05/17/2020 10:45 AM us Alayna Singh PRIVATE BANKER-BC GENERAL IMAGING Final Resu lt documented in this encounter Visit Diagnoses Diagnosis Left hand pain Pain in limb documented in this encounter Care Teams Elementary [employer] Tutor Relationship Specialty Start Date End Date Miko Valentin MD [address] [place] [phone] PCP - General FAMILY PRACTICE 03/29/19 06/09/21 documented as of this encounter
--- OUTSIDE RECORDS SUMMARY | 2024-04-16 19:10 | XMS_ITS | Encounter Summary ---
Author Organization [facility] Address [address] [place] [address]. [place], [place] [id number] [place] [id number] Care Team Providers Care Manager Surgical Name Role Phone Garrett Orona MD Primary Care Provider Reason for Visit * Reason Comments Hand Pain Encounter Details Date Type Department Care Team (Late st Contact Info) Description 02/04/2022 4:21 PM CDT - 02/04/2022 5:45 PM CDT Emergency [facility] [place] [id number] Edwar Hamilton, DO [address] [place] [address] Hand Pain Discharge Disposition: Home or Self Care (Routine [...] AM CDT Legal Sex Female 10:12 PM STEEPING PRESS OPERATOR Gender Identity Female 11/14/2022 8:06 AM CDT Sexual Orientation Not on file COVID-19 Exposure Response Date Recorded In the last 10 days, have blanco benson been in contact with someone who was confirmed or suspected to have Coronavirus/COVID-19? No / Unsure 02/04/2022 4:23 PM CDT documented as of this encounter Last Filed Vital Signs Vital Sign Reading Time Taken Comments Blood Pressure 114/81 02/04/2022 4:36 PM CDT Pulse 60 02/04/2022 4:36 PM CDT Temperature 36.6 ??C (97.9 ??F) 02/04/2022 4:36 PM CD T Respiratory Rate 20 02/04/2022 4:36 PM CDT Oxygen Saturation 100% 02/04/2022 4:36 PM CDT Inhaled Oxygen Concentration - - Weight 72.6 kg (160 lb) 02/04/2022 4:36 PM CDT Height 154.9 cm (5' 1 ) 02/04/2022 4:36 PM CDT Body Mass Index 30.23 02/04/2022 4:36 PM CDT documented in this encounter Medications at Time of Discharge ibuprofen (MOTRIN) 800 MG tablet Take 1 tablet (800 mg total) by mouth every 8 (eight) hours as needed for Pain. Thirty 30 tablet 02/04/2022 02/14/2022 documented as of this encounter ED Notes * Edwar Hamilton DO - 02/04/2022 5:01 PM CDT Chief Complaint Chief Complaint Patient presents with ??? Hand Pain History of Present Illness 37-year-old white female presents with a chief complaint of having pain in her hand. Patient statesroosevelte was in the garage and playing around with her boyfriend who swung her and she struck her hand on the garage door. Patient is having pain to movement of her hand. Medical History ALLERGIES: No Known Allergies MEDICATIONS: Prior to Admission medications Medication Sig Start Date End Date Taking? Authorizing Provider ibuprofen (MOTRIN) 800 MG tablet Take 1 tablet (800 mg total) by mouth every 8 (eight) hours as needed for Pain. Thirty 02/04/22 02/14/22 Yes Edwar Hamilton DO PAST MEDICAL HISTORY: Past Medical History: Diagnosis Date ??? Patient denies medical problems PAST SURGICAL HISTORY: Past Surgical History: Procedure Laterality Date ??? HC TRIGGER FINGER RELEASE Right 3rd digit ??? TYMPANOSTOMY TUBE PLACEMENT Bilateral FAMILY HISTORY: Family History Problem Relation Name Age of Onset ??? No Known Problems Mother ??? No Known Problems Father ??? No Known Problems Sister ??? No Known Problems Brother ??? No Known Problems Brother SOCIAL HISTORY: Social History Tobacco Use ??? Smoking status: Never Smoker ??? Smokeless tobacco: Never Used Vaping Use ??? Vaping Use: Never used Substance Use Topics ??? Alcohol use: No ??? Drug use: Never Review of Systems Review of Systems Constitutional: Negative. HENT: Negative. Eyes: Negative. Respiratory: Negative. Cardiovascular: Negative. Gastrointestinal: Negative. Endocrine: Negative. Genitourinary: Negative. Musculoskeletal: Negative. Allergic/Immunologic: Negative. Neurological: Negative. Hematological: Negative. Psychiatric/Behavioral: Negative. All other systems reviewed and are negative. Physical Exam Filed Vitals: 02/04/22 1636 BP: 114/81 Pulse: 60 Resp: 20 Temp: 97.9 ??F (36.6 ??C) TempSrc: Temporal SpO2: 100% Weight: 72.6 kg (160 lb) Height: 5' 1 (1.549 m) Physical Exam Vitals and nursing note reviewed. Constitutional: Appearance: Normal appearance. Eyes: Extraocular Movements: Extraocular movements intact. Pupils: Pupils are equal, round, and reactive to light. Cardiovascular: Rate and Rhythm: Normal rate and regular rhythm. Pulmonary: Effort: Pulmonary effort is normal. Breath sounds: Normal breath sounds. Abdominal: General: Abdomen is flat. Palpations: Abdomen is soft. Musculoskeletal: General: Swelling, tenderness and signs of injury present. Comments: Pt has pain and swelling to left hand , 2nd -3rd distal mcps Skin: General: Skin is warm. Neurological: General: No focal deficit present. Mental Status: She is alert and oriented to person, place, and time. Diagnostic Studies / Procedures ELECTROCARDIOGRAMS: No results found for this visit on 02/04/22. LABORATORY STUDIES: No results found for this visit on 02/04/22. IMAGING STUDIES XR HAND LT 3V Final Result by User, [id number] (02/04 170) Examination: Left hand. Exam time: 1627 hours. Clinical history: Pain after injury. Comparison: 05/17/2020. Technique: Three views. Findings: No fracture, dislocation or other acute bony abnormality is identified. No other significant bone or joint abnormality is noted. The soft tissues are unremarkable. IMPRESSION: No acute findings. Ordered By: EDWAR HAMILTON Interpreted By: Nestor Lopez MD, 02/04/2022 4:56 PM ED Course / Medical Decision Making Clinical Impression Contusion of left hand, initial encounter (Primary) Disposition: Discharge Edwar Hamilton DO 02/04/22 1716 * Mrayann Moura RN - 02/04/2022 4:25 PM CDT Patient states that she was on her 's shoulder's playing around when she got her left hand slammed against the garage door. Small scratch to the area. Unsure on last tetanus. 02/04 on pain. documented in this encounter Plan of Treatment Not on file documented as of this encounter Procedures Procedure Name Priority Date/Time Associated Diagnosis Comments XR HAND LT 3V STAT 02/04/2022 4:32 PM CDT documented in this encounter Results * XR HAND LT 3V (02/04/2022 4:32 PM CDT) Anatomical Region Laterality Modality Hand Radiographic Maya ging 02/04/2022 4:56 PM CDT Impressions 02/04/2022 4:57 PM CDT IMPRESSION: No acute findings. Ordered By: EDWAR HAMILTON Interpreted By: Nestor Lopez MD, 02/04/2022 4:56 PM Narrative 02/04/2022 4:57 PM CDT Examination: Left hand. Exam time: 1627 hours. Clinical history: Pain after injury. Comparison: 05/17/2020. Technique: Three views. Findings: No fracture, dislocation or other acute bony abnormality is identified. No other significant bone or joint abnormality is noted. The soft tissues are unremarkable. Procedure Note Nestor Lopez MD - 02/04/2022 Examination: Left hand. Exam time: 1627 hours. Clinical history: Pain after injury. Comparison: 05/17/2020. Technique: Three views. Findings: No fracture, dislocation or other acute bony abnormality isidentified. No other significant bone or joint abnormality is noted. Thesoft tissues are unremarkable. IMPRESSION: No acute findings. Ordered By: EDWAR HAMILTON Interpreted By: Nestor Lopez MD, 02/04/2022 4:56 PM us Edwar Hamilton DO GENERAL IMAGING Final Result documented in this encounter Visit Diagnoses Diagnosis Contusion of left hand, initial encounter- Primary documented in this encounter Care Teams Manager Surgical Relationship Specialty Start Date End Date Garrett Orona MD [address] [place] [phone] PCP - General FAMILY PRACTICE 06/10/21 documented as of this encounter
--- OUTSIDE RECORDS SUMMARY | 2024-04-16 19:10 | XMS_ITS | Encounter Summary ---
Author Organization [facility] Address [address] [place] [address]. [place], [place] [id number] [place] [address] Care Team Providers Care Environmental Control Administrator Name Role Phone Garrett Orona MD Primary Care Provider [phone] Encounter Details Date Type Department Care Team (Latest Contact Info) Description 06/10/2021 Travel Social History Tobacco Use Types Packs/Day [...] AM CDT Legal Sex Female 10:12 PM PROFESSOR OF ENVIRONMENTAL STUDIES Gender Identity Female 11/14/2022 8:06 AM CDT Sexual Orientation Not on file COVID-19 Exposure Response Date Recorded In the last 10 days, have yo u been in contact with someone who was confirmed or suspected to have Coronavirus/COVID-19? No / Unsure 06/10/2021 9:02 PM PROFESSOR OF ENVIRONMENTAL STUDIES documented as of this encounter Plan of Treatment Not on file documented as of this encounter Visit Diagnoses Not on filedocumented in this encounter Additional Health Concerns Infection Onset Date Last Indicated Resolved Time COVID-19 Rule Out 06/10/2021 06/10/2021 06/10/2021 9:29 PM PROFESSOR OF ENVIRONMENTAL STUDIES documented as of this encounter Care Teams Environmental Control Administrator Relationship Specialty Start Date End Date Garrett Orona MD [address] [place] [phone] PCP - General FAMILY PRACTICE 06/10/21 documented as of this encounter
--- OUTSIDE RECORDS SUMMARY | 2024-04-16 19:10 | XMS_ITS | Encounter Summary ---
Author Organization [facility] Address [address] [place] [address]. [place], [place] [id number] [place] [address] Care Team Providers Care Calculator Operator Name Role Phone Miko Valentin MD Primary Care Provider [phone] Reason for Visit * Reason Comments Hand Pain LEFT 3rd finger Encounter Details Date Type Department Care Team (Late st Contact Info) Description 05/17/2020 10:45 AM MAPLE PRODUCTS SUPERVISOR Office Visit [facility] [place] [address] Alayna Singh, [facility] [address] [facility] [place] [address] Hand Pain (LEFT 3rd finger) Social History Tobacco Use Types Packs/Day Years [...] AM CDT Legal Sex Female 10:12 PM MAPLE PRODUCTS SUPERVISOR Gender Identity Female 11/14/2022 8:06 AM CDT Sexual Orientation Not on file COVID-19 Exposure Response Date Recorded In the last month, have you been in contact with someone who was confirmed or suspected to have Coronavirus / COVID-19? No / Unsure 05/17/2020 10:35 AM MAPLE PRODUCTS SUPERVISOR documented as of this encounter Last Filed Vital Signs Vital Sign Reading Time Taken Comments Blood Pressure - - Pulse - - Temperature - - Respiratory Rate - - Oxygen Saturation - - Inhaled Oxygen Concentration - - Weight 70.3 kg (155 lb) 05/17/2020 10:42 AM MAPLE PRODUCTS SUPERVISOR Height 154.9 cm (5' 1 ) 05/17/2020 10:42 AM MAPLE PRODUCTS SUPERVISOR Body Mass Index 29.29 05/17/2020 10:42 AM MAPLE PRODUCTS SUPERVISOR documented in this encounter Progress Notes * Alayna Singh, HAULAGE BOSS-BC - 05/17/2020 10:45 AM CST Chief Complaint: Hand Pain (LEFT 3rd finger) History of Present Illness: Samanta Atkinson is a 35-year-old female who presents to the office for Hand Pain (LEFT 3rd finger) Patient states that she has been having LEFT 3rd finger pain since Friday. She states that she was carrying a crate at work when she noticed the pain. She describes the pain as a constant sore pain. She locates the pain at the base of her LEFT 3rd finger. She denies any numbness and tingling. She has pain when attempting to make a fist. She has been taking Advil for pain. Patient is RIGHT hand dominant. She currently works at [employer]. ROS: See HPI for pertinent positives Problem List: Patient Active Problem List Diagnosis ??? Impingement syndrome of right shoulder ??? Effusion of right shoulder joint ??? 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 Adhesive capsulitis of right shoulder ??? Numbness and tingling of right arm ??? Adhesive capsulitis of right shoulder ??? Trigger middle finger of left hand History: Past Medical History: Diagnosis Date ??? Patient denies medical problems Past Surgical History: Procedure Laterality Date ??? HC TRIGGER FINGER RELEASE Right 3rd digit ??? TYMPANOSTOMY TUBE PLACEMENT Bilateral Family History Problem Relation Name Age of Onset ??? No Known Problems Mother ??? No Known Problems Father ??? No Known Problems Sister ??? No Known Problems Brother ??? No Known Problems Brother Family Status Relation Name Status ??? Mother Alive ??? Father Alive ??? Sister Alive ??? Brother Alive ??? Brother Alive Social History Socioeconomic History ??? Marital status: Spouse name: Not on file ??? Number of children: Not on file ??? Years of education: Not on file ??? Highest education level: Not on file Occupational History ??? Not on file Social Needs ??? Financial resource strain: Not on file ??? Food insecurity Worry: Not on file Inability: Not on file ??? Transportation needs Medical: Not on file Non-medical: Not on file Tobacco Use ??? Smoking status: Never Smoker ??? Smokeless tobacco: Never Used Substance and Sexual Activity ??? Alcohol use: No Frequency: Never ??? Drug use: Never ??? Sexual activity: Not on file Lifestyle ??? Physical activity Days per week: Not on file Minutes per session: Not on file ??? Stress: Not on file Relationships ??? Social connections Talks on phone: Not on file Gets together: Not on file Attends taoism service: Not on file Active member of club or organization: Not on file Attends meetings of clubs or organizations: Not on file Relationship status: Not on file ??? Intimate partner violence Fear of current or ex partner: Not on file Emotionally abused: Not on file Physically abused: Not on file Forced sexual activity: Not on file Other Topics Concern ??? Not on file Social History Narrative ??? Not on file Medications: Current Outpatient Medications: ??? ibuprofen 200 MG tablet, Take 200 mg by mouth every 6 (six) hours as needed for Pain., Disp: , Rfl: No Known Allergies Objective: Body mass index is 29.29 kg/m??. Last Recorded Weight 05/17/20 1042 Weight: 70.3 kg (155 lb) Physical exam: Constitutional: Alert and in no acute distress. Neurological: The patient was oriented to person, place, and time. Eyes: The sclera and conjunctiva were normal ENT: Hearing was normal. Neck: The appearance of the neck was normal. Cardiovascular: Normal pulses. Pulmonary: No respiratory distress. Skin: No injuries or skin lesion. Musculoskeletal: Exam of left hand today reveals tenderness at third A1 ronni with palpation, no swelling or ecchymosis, good capillary refill, unable to completely make a fist secondary to pain, nopalpable nodules, mild triggering reproduced in office today, good wrist range of motion, neurovascularly intact. Results: X-ray of left hand today reviewed and reveals minimal degenerative changes with no acute bony injury. Procedure: Procedure: Injection of the 3rd A1 ronni on the left. Indications for the procedure include Trigger finger. The procedure's were discussed with the patient. Verbal consent was obtained prior to the procedure. Procedure Note: Crystal was prepped and draped in the usual sterile fashion using alcohol and usingbetadine. Anesthesia: Ethyl chloride spray was used as a topical anesthetic. A 25 gauge and 1.5 Inch needle was used to inject 0.5 mL lidocaine 1% and 0.5 mL methylprednisolone 80 mg/mL. Dressing: A bandage was applied. Post-Procedure: the patient tolerated the procedure well. Complications: there were no complications. Follow-up in the office as needed. Assessment: Encounter Diagnose(s) ICD-10-CM ICD-9-CM SNOMED CT(R) 1. Trigger middle finger of left hand M65.332 727.03 TRIGGERING OF DIGIT lidocaine (XYLOCAINE) 1 % injection SOLN 0.5 mL methylPREDNISolone acetate (DEPO-Medrol) injection 40 mg Plan: Given reassurance she is structurally stable on examination today. She was given an injection priorto leaving the office today. Activity as tolerated. She will follow up as need. Follow up: Return if symptoms worsen or fail to improve. COURTNEY KAMARA E PRODUCTS SUPERVISOR documented in this encounter Plan of Treatment Not on file documented as of this encounter Visit Diagnoses Diagnosis Trigger middle finger of left hand- Primary Trigger finger (acquired) documented in this encounter Administered Medications Inactive Administered Medications - up to 3 most recent administrations Medication Order MAR Action Action Date Dose Rate Site lidocaine (XYLOCAINE) 1 % injection SOLN 0.5 mL 0.5 mL, Other, Once, 1 dose, On Fri05/17/20 at 1130Indications:Trigger middle finger of left hand Given 05/17/2020 11:05 AM MAPLE PRODUCTS SUPERVISOR 0.5 mLs methylPREDNISolone acetate (DEPO-Medrol) injection 40 mg 40 mg, Other, Once, 1 dose, On Fri05/17/20 at 1130, Eduard SalcedoIndications:Trigger middle finger of left hand Given 05/17/2020 11:06 AM MAPLE PRODUCTS SUPERVISOR 40 mg documented in this encounter Care Teams Calculator Operator Relationship Specialty Start Date End Date Miko Valnetin MD [address] [place] [phone] PCP - General FAMILY PRACTICE 03/29/19 06/09/21 documented as of this encounter
--- OUTSIDE RECORDS SUMMARY | 2024-04-16 19:10 | XMS_ITS | Encounter Summary ---
Author Organization [facility] Address [address] [place] [address]. [place], [place] [address] [place] [address] Care Team Providers Care Plant Senior Manager Name Role Phone Garrett Orona MD Primary Care Provider Reason for Visit * Reason Comments Ear Problem Encounter Details Date Type Department Care Team (Late st Contact Info) Description 11/13/2022 5:42 PM CDT - 11/13/2022 6:15 PM CDT Emergency [facility] [address] [place] [address] [place] [id number] Renato Contreras MD [address] [place] [address] Ear Problem Discharge Disposition: Home or Self Care (Routine [...] AM CDT Legal Sex Female 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 * Ear wax impaction (Martiniquais) * Outer ear infection (Martiniquais) documented in this encounter Medications at Time of Discharge neomycin-polymyxi n-hydrocortisone (CORTISPORIN) otic solutionIndicatio ns:Right otitis externa Place 3 drops into the right ear 4 (four) times daily for 10 days. 10 mL 11/13/2022 11/23/2022 traMADol (ULTRAM) 50 MG tabletIndications :Acute Pain < 7 Day Supply Indications: Acute Pain < 7 Day Supply 1-2 every 6 hours as needed for pain 20 tablet 11/13/2022 03/11/2023 documented as of this encounter ED Notes * Renato Contreras MD - 11/13/2022 5:49 PM CDT eMERGENCY dEPARTMENT eNCOUnter CHIEF COMPLAINT Chief Complaint Patient presents with Ear Problem HPI HPI Samanta Pleitez is a 37-year-old female who presents to the ER with a complaint of right ear pain and decreased hearing. Patient states for last 24 hours she had right ear pain and difficulty hearing.No recent illness or other complaints. No recent swimming. ALLERGIES Review of patient's allergies indicates: No Known Allergies CURRENT MEDICATIONS Current Outpatient Medications Medication Sig lfoeqnfl-eroxwnmue-mdioabhhedgkna (CORTISPORIN) otic solution Place 3 drops into the right ear 4 (four) times daily for 10 days. traMADol (ULTRAM) 50 MG tablet Indications: Acute Pain < 7 Day Supply 1-2 every 6 hours as needed for pain PAST MEDICAL HISTORY Past Medical History: Diagnosis Date Patient denies medical problems SURGICAL HISTORY Past Surgical History: Procedure Laterality Date HC TRIGGER FINGER RELEASE Right 3rd digit TYMPANOSTOMY TUBE PLACEMENT Bilateral SOCIAL HISTORY Social History Socioeconomic History Marital status: Single Tobacco Use Smoking status: Never Smokeless tobacco: Never Vaping Use Vaping Use: Never used Substance and Sexual Activity Alcohol use: No Drug use: Never FAMILY HISTORY Family History Problem Relation Name Age of Onset No Known Problems Mother No Known Problems Father No Known Problems Sister No Known Problems Brother No Known Problems Brother REVIEW OF SYSTEMS Review of Systems All other ROS negative unless noted above in HPI. PHYSICAL EXAM Physical Exam Filed Vitals: 11/13/22 1747 BP: 117/79 Pulse: 61 Resp: 16 Temp: 98.4 ??F (36.9 ??C) TempSrc: Temporal SpO2: 100% Weight: 74.8 kg (165 lb) Height: 5' 1 (1.549 m) The patient is a well developed and well nourished adult female in mild painful distress, alert andoriented. HEENT: PERRL, EOMI Ears show that the right external auditory canal is tender and she has a cerumen impaction. Throat without lesions, mucous membranes moist NECK: Supple without adenopathy or rigidity CHEST: Respirations are easy and unlabored NEURO: CN II-XII intact, no focal weakness SKIN: No rash or significant lesions EKG RADIOLOGY No orders to display LABS No results found for this visit on 11/13/22. ED MEDICATIONS Medications - No data to display PROCEDURES Procedures I performed warm water pressure irrigation and removed a large amount of cerumen. Patient notes that she can now hear. CONSULTS: ED COURSE & MEDICAL DECISION MAKING MDM I reexamination there is some inflammation and swelling of the external auditory canal so likely she has otitis externa as well as a cerumen impaction. We will place her on antibiotic drops pain medication recommend follow-up exam or return if worse. FINAL IMPRESSION SNOMED CT(R) 1. Hearing loss due to cerumen impaction, right HEARING LOSS OF RIGHT EAR 2. Right otitis externa OTITIS EXTERNA OF RIGHT EAR Garrett Orona MD [address] [place] [phone] As needed, If symptoms worsen New Prescriptions MEJYTRNL-CFXUQVOIL-PYJWUECPPZYSLW (CORTISPORIN) OTIC SOLUTION Place 3 drops into the right ear 4 (four) times daily for 10 days. TRAMADOL (ULTRAM) 50 MG TABLET Indications: Acute Pain < 7 Day Supply 1-2 every 6 hours as needed for pain Renato Contreras MD 11/13/221808 * Deena Kent RN - 11/13/2022 5:45 PM CDT Pt arrives via pov c/o right ear pain, that started yesterday. Pt denies fever or chills. States that its difficult to hear. Pt rates pain /10 documented in this encounter Plan of Treatment Not on file documented as of this encounter Visit Diagnoses Diagnosis Hearing loss due to cerumen impaction, right- Primary Right otitis externa Infective otitis externa, unspecified documented in this encounter Care Teams Plant Senior Manager Relationship Specialty Start Date End Date Garrett Orona MD [address] [place] [phone] PCP - General FAMILY PRACTICE 06/10/21 documented as of this encounter
--- OUTSIDE RECORDS SUMMARY | 2024-04-16 19:10 | XMS_ITS | Encounter Summary ---
Author Organization [facility] Address [address] [place] [address]. 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 No / Unsure 02/04/2022 4:23 PM CDT documented as of this encounter Plan of Treatment Not on file documented as of this encounter Visit Diagnoses Not on filedocumented in this encounter Care Teams Cookie Breaker Relationship Specialty Start Date End Date Garrett Orona MD [address] [place] [phone] PCP - General FAMILY PRACTICE 06/10/21 documented as of this encounter
--- OUTSIDE RECORDS SUMMARY | 2024-04-16 19:10 | XMS_ITS | Encounter Summary ---
Author Organization [facility] Address [address] [place] [address]. [place], [place] [address] [place] [address] Care Team Providers Care Glue Jointer Operator Name Role Phone Garrett Orona MD Primary Care Provider [phone] Reason for Referral * Imaging (Routine) - Closed Specialty Diagnoses / Procedures Referred By Contac t Referred To Contact RADIOLOGY Diagnoses Infertility, female Procedures US PELVIC NON OB COMP TA+TV Emigdio Mcghee PA [address] [place] [phone] Phone: tel: fax: Referral ID Status Reason Start Date Expiration Date Visits Re quested Visits Authorized [id number] Closed 06/06/2021 07/04/2022 1 1 NESS BROKER Reason for Visit * Imaging (Routine) - Closed Specialty Diagnoses / Procedures Referred By Contac t Referred To Contact RADIOLOGY Diagnoses Infertility, female Procedures US PELVIC NON OB COMP TA+TV Emigdio Mcghee PA [address] [place] [address] Phone: tel: fax: Referral ID Status Reason Start Date Expiration Date Visits Re quested Visits Authorized [id number] Closed 06/06/2021 07/04/2022 1 1 Encounter Details Date Type Department Care Team (Latest Contact Info) Description 06/13/2021 11:58 AM BUSINESS BROKER - 06/13/2021 11:59 PM BUSINESS BROKER Hospital Encounter [facility] [address] [place] [address] Emigdio Mcghee, PH[address] [place] [phone] Discharge Disposition: Home or Self Care (Routine [...] AM CDT Legal Sex Female 10:12 PM BUSINESS BROKER Gender Identity Female 11/14/2022 8:06 AM CDT Sexual Orientation Not on file COVID-19 Exposure Response Date Recorded In the last 10 days, have yo u been in contact with someone who was confirmed or suspected to have Coronavirus/COVID-19? No / Unsure 06/13/2021 11:57 AM BUSINESS BROKER documented as of this encounter Plan of Treatment Not on file documented as of this encounter Procedures Procedure Name Priority Date/Time Associated Diagnosis Comments US PELVIC NON OB COMP TA+TV Routine 06/13/2021 12:18 PM BUSINESS BROKER Infertility, female documented in this encounter Results * US PELVIC NON OB COMP TA+TV (06/13/2021 12:18 PM BUSINESS BROKER) Anatomical Region Laterality Modality Pelvis Ultrasound 06/14/2021 3:42 PM BUSINESS BROKER Impressions 06/14/2021 3:43 PM BUSINESS BROKER IMPRESSION: Unremarkable. Ordered By: EMIGDIO MCGHEE Interpreted By: Nestor Lopez MD, 06/14/2021 3:42 PM Narrative 06/14/2021 3:43 PM BUSINESS BROKER Examination: Transabdominal and transvaginal pelvic ultrasound. Exam time: 1203 hours. Clinical history: Infertility. Comparison: 06/30/2014. Technique: Grayscale and color Doppler images including spectral analysis. Endovaginal scanning was performed to better visualize the endometrium and the adnexa. Findings: The uterus measures 7.3 cm in length. No myometrial abnormality is identified. Endometrial stripe thickness is 8 mm. Both ovaries are identified. The right ovary measures 4.2 cm in greatest dimension. The left ovary measures 2.2 cm in greatest dimension. Flow to both ovaries is documented on color Doppler with normal appearing spectra. A few follicles are present. No adnexal mass or fluid collection is identified. Procedure Note Nestor Lopez MD - 06/14/2021 Examination: Transabdominal and transvaginal pelvic ultrasound. Exam time: 1203 hours. Clinical history: Infertility. Comparison: 06/30/2014. Technique: Grayscale and color Doppler images including spectral analysis.Endovaginal scanning was performed to better visualize the endometrium andthe adnexa. Findings: The uterus measures 7.3 cm in length. No myometrial abnormalityis identified. Endometrial stripe thickness is 8 mm. Both ovaries areidentified. The right ovary measures 4.2 cm in greatest dimension. Theleft ovary measures 2.2 cm in greatest dimension. Flow to both ovaries isdocumented on color Doppler with normal appearing spectra. A few folliclesare present. No adnexal mass or fluid collection is identified. IMPRESSION: Unremarkable. Ordered By: EMIGDIO MCGHEE Interpreted By: Nestor Lopez MD, 06/14/2021 3:42 PM us Emigdio PALACIOS ULTRASOUND Final Result documented in this encounter Visit Diagnoses Diagnosis Infertility, female Female infertility of unspecified origin documented in this encounter Care Teams Glue Jointer Operator Relationship Specialty Start Date End Date Garrett Orona MD [address] [place] [phone] PCP - General FAMILY PRACTICE 06/10/21 documented as of this encounter
--- OUTSIDE RECORDS SUMMARY | 2024-04-16 19:10 | XMS_ITS | Encounter Summary ---
Author Organization [facility] Address [address] [place] [address]. 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 No / Unsure 02/18/2020 10:55 AM CDT documented as of this encounter Progress Notes * Laureano Chinchilla MA - 02/21/2020 11:13 AM CDT Called to inform patient of appointment scheduled with Dr Hassan in [place] for 04/07/20 @ 10:30am. documented in this encounter Plan of Treatment Not on file documented as of this encounter Visit Diagnoses Not on filedocumented in this encounter Care Teams Staff Counsel Relationship Specialty Start Date End Date Miko Valentin MD [address] [place] [phone] PCP - General FAMILY PRACTICE 03/29/19 06/09/21 documented as of this encounter
--- OUTSIDE RECORDS SUMMARY | 2024-04-16 19:10 | XMS_ITS | Encounter Summary ---
Author Organization [facility] Address [address] [place] [address]. 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 Interpreted By: Ramon Alfonso MD, 05/17/2020 10:45 AM Narrative 05/17/2020 10:46 AM BUILDING SUPERVISOR Examination: XR HAND LT 3V Exam time: [...] By: Ramon Alfonso MD, 05/17/2020 10:45 AM Alayna Singh SUBWAY OPERATOR-BC GENERAL IMAGING Final Resu lt documented in this encounter Visit Diagnoses Diagnosis Left hand pain- Primary Pain in limb Left hand pain Pain in limb documented in this encounter Care Teams Assistant Signal Maintainer Relationship Specialty Start Date End Date Miko Valentin MD [address] [place] [phone] PCP - General FAMILY PRACTICE 03/29/19 06/09/21 documented as of this encounter
--- OUTSIDE RECORDS SUMMARY | 2024-04-16 19:10 | XMS_ITS | Encounter Summary ---
Author Organization [facility] Address [facility]. 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 No / Unsure 05/17/2020 10:35 AM SHOP ROUTER documented as of this encounter Plan of Treatment Not on file documented as of this encounter Visit Diagnoses Not on filedocumented in this encounter Care Teams Gynaecological Oncologist Relationship Specialty Start Date End Date Miko Valentin MD [address] [place] [phone] PCP - General FAMILY PRACTICE 03/29/19 06/09/21 documented as of this encounter
--- OUTSIDE RECORDS SUMMARY | 2024-04-16 19:10 | XMS_ITS | Encounter Summary ---
Author Organization [facility] Address [address] [place] [address]. 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 No / Unsure 11/11/2021 5:26 PM CDT documented as of this encounter Plan of Treatment Not on file documented as of this encounter Visit Diagnoses Not on filedocumented in this encounter Care Teams Manager Of Business Relationship Specialty Start Date End Date Garrett Orona MD [address] [place] [phone] PCP - General FAMILY PRACTICE 06/10/21 documented as of this encounter
--- OUTSIDE RECORDS SUMMARY | 2024-04-16 19:10 | XMS_ITS | Encounter Summary ---
Author Organization [facility] Address [facility] [facility]. 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 No / Unsure 02/22/2020 8:30 AM CDT documented as of this encounter Plan of Treatment Not on file documented as of this encounter Visit Diagnoses Not on filedocumented in this encounter Care Teams Windows Server Architect Relationship Specialty Start Date End Date Miko Valentin MD [address] [place] [phone] PCP - General FAMILY PRACTICE 03/29/19 06/09/21 documented as of this encounter
--- OUTSIDE RECORDS SUMMARY | 2024-04-16 19:10 | XMS_ITS | Encounter Summary ---
Author Organization [facility] Address [address] [facility]. [place], [place] [address] [place] [id number] Care Team Providers Care Director Motion Picture Name Role Phone Miko Valentin MD Primary Care Provider [phone] Reason for Visit * Reason Comments Ankle Injury Encounter Details Date Type Department Care Team (Late st Contact Info) Description 05/05/2021 10:46 AM BEHAVIORAL INTERVENTION SPECIALIST - 05/05/2021 12:39 PM [facility] Emergency [facility] [address] [place] [address] [place] [id number] Yasemin Rivas MD [address] [place] [id number] Ankle Injury Discharge Disposition: Home or Self Care (Routine [...] AM CDT Legal Sex Female 10:12 PM BEHAVIORAL INTERVENTION SPECIALIST Gender Identity Female 11/14/2022 8:06 AM CDT Sexual Orientation Not on file COVID-19 Exposure Response Date Recorded In the last month, have you been in contact with someone who was confirmed or suspected to have Coronavirus / COVID-19? No / Unsure 05/05/2021 10:51 AM BEHAVIORAL INTERVENTION SPECIALIST documented as of this encounter Last Filed Vital Signs Vital Sign Reading Time Taken Comments Blood Pressure 112/72 05/05/2021 10:51 AM BEHAVIORAL INTERVENTION SPECIALIST Pulse 59 05/05/2021 10:51 AM BEHAVIORAL INTERVENTION SPECIALIST Temperature 36.4 ??C (97.5 ??F) 05/05/2021 10:[address] Respiratory Rate 16 05/05/2021 10:51 AM BEHAVIORAL INTERVENTION SPECIALIST Oxygen Saturation 100% 05/05/2021 12:30 PM BEHAVIORAL INTERVENTION SPECIALIST Inhaled Oxygen Concentration - - Weight 72.1 kg (159 lb) 05/05/2021 10:51 AM BEHAVIORAL INTERVENTION SPECIALIST Height 154.9 cm (5' 1 ) 05/05/2021 10:51 AM BEHAVIORAL INTERVENTION SPECIALIST Body Mass Index 30.04 05/05/2021 10:51 AM BEHAVIORAL INTERVENTION SPECIALIST documented in this encounter Discharge Instructions * Discharge Instructions* Yasemin Rivas MD - 05/05/2021 12:01 PM BEHAVIORAL INTERVENTION SPECIALIST Rest, ice, elevate affected extremity. Use [id number] pain medication if needed. Follow-up with primary care for recheck return to the ER for any worsening symptoms or VIORAL INTERVENTION SPECIALIST VIORAL INTERVENTION SPECIALIST * Attachments The following attachments cannot be sent through Care Everywhere. * Foot Sprain Discharge Instructions ([place]) documented in this encounter ED Notes * Yasemin Rivas MD - 05/05/2021 11:57 AM CST Chief Complaint Chief Complaint Patient presents with ??? Ankle Injury History of Present Illness 36-year-old female presents with right foot pain. She states that she was walking on a trampoline yesterday in the evening and her son jumped and she states that she twisted her foot. She has pain inthe foot when she ambulates and bears weight. She denies any ankle pain. No numbness or tingling. No weakness. No chest pain or shortness of breath. She does not take any no other alleviating contributing factors. No other complaints at this time Medical History ALLERGIES: No Known Allergies MEDICATIONS: Prior to Admission medications Not on File PAST MEDICAL HISTORY: Past Medical History: Diagnosis [...] Never Review of Systems Review of Systems All other systems reviewed and are negative. Physical Exam Filed Vitals: 05/05/21 1051 BP: 112/72 Pulse: 59 Resp: 16 Temp: 97.5 ??F (36.4 ??C) TempSrc: Temporal SpO2: 100% Weight: 72.1 kg (159 lb) Height: 5' 1 (1.549 m) Physical Exam Gen: alert and oriented x 3. GCS 15. Well nourished, well hydrated in no distress. Cardiac: Nl S1/S2, RRR, no murmurs rubs gallops. Pulmonary: Clear to auscultation b/l. No wheeze, rhonchi, crackles Extremity: Pt. able to move all four extremities. No rash, Cyanosis, Edema. Focal exam of the rightlower extremity reveals tenderness in the midfoot and over the deltoid ligament. No tenderness at the medial or lateral malleolus. No tenderness at the base of the fifth metatarsal or Achilles tendoninsertion. Sensation is intact of entire extremity. Full flexion extension at the Neuro: Moves all four extremities equally Diagnostic Studies / Procedures ELECTROCARDIOGRAMS: No results found for this visit on 05/05/21. LABORATORY STUDIES: No results found for this visit on 05/05/21. IMAGING STUDIES XR FOOT RT 3V Final Result by User, [id number] (05/05 0446) Examination: XR FOOT RT 3V Exam time: 05/05/2021 11:11 AM Clinical history: Trauma. Pain at the dorsal aspect of the proximal foot. Comparison: Previous studies performed August 2017 Technique: 2 views Findings: There is no malalignment. In the forefoot no acute abnormalities are appreciated. The metatarsals are intact. The tarsal bones have normal alignment and smooth contours. Os calcis and the talus is intact. Subtle mild enthesopathy at the tendon insertion to the posterior os calcis. In the soft tissues no acute abnormalities. Please correlate clinically. If the symptoms still persist and further indicated recommend follow-up studies in 7-10 days. IMPRESSION: 1) No malalignment or acute bony abnormalities. Ordered By: YASEMIN RIVAS Interpreted By: Nirmal Santana MD, 05/05/2021 11:31 AM ED Course / Medical Decision Making X-ray of the right foot does not show any evidence for bony abnormality. Patient is given reassurance. Recommend [id number] pain medication and ice as needed. Follow-up with primary care for any worsening symptoms or concerns. Patient expressed Clinical Impression Right foot sprain (Primary) Disposition: Discharge Yasemin Rivas MD 05/05/21 1200 VIORAL INTERVENTION SPECIALIST * Yuliya Ward RN - 05/05/2021 10:53 AM CST PT ARRIVES PER POV. PT STATES WAS AT [facility] YESTERDAY AND ROLLED R FOOT/ANKLE. PT C/O PAINAND SWELLING. VIORAL INTERVENTION SPECIALIST documented in this encounter Plan of Treatment Not on file documented as of this encounter Procedures Procedure Name Priority Date/Time Associated Diagnosis Comments XR FOOT RT 3V STAT 05/05/2021 11:12 AM BEHAVIORAL INTERVENTION SPECIALIST documented in this encounter Results * XR FOOT RT 3V (05/05/2021 11:12 AM BEHAVIORAL INTERVENTION SPECIALIST) Anatomical Region Laterality Modality Foot Radiographic Maya ging 05/05/2021 11:3 1 AM BEHAVIORAL INTERVENTION SPECIALIST Impressions 05/05/2021 11:32 AM BEHAVIORAL INTERVENTION SPECIALIST IMPRESSION: 1) No malalignment or acute bony abnormalities. Ordered By: YASEMIN RIVAS Interpreted By: Nirmal Santana MD, 05/05/2021 11:31 AM Narrative 05/05/2021 11:32 AM BEHAVIORAL INTERVENTION SPECIALIST Examination: XR FOOT RT 3V Exam time: 05/05/2021 11:11 AM Clinical history: Trauma. Pain at the dorsal aspect of the proximal foot. Comparison: Previous studies performed August 2017 Technique: 2 views Findings: There is no malalignment. In the forefoot no acute abnormalities are appreciated. The metatarsals are intact. The tarsal bones have normal alignment and smooth contours. Os calcis and the talus is intact. Subtle mild enthesopathy at the tendon insertion to the posterior os calcis. In the soft tissues no acute abnormalities. Please correlate clinically. If the symptoms still persist and further indicated recommend follow-up studies in 7-10 days. Procedure Note Nirmal Santana MD - 05/05/2021 Examination: XR FOOT RT 3V Exam time: 05/05/2021 11:11 AM Clinical history: Trauma. Pain at the dorsal aspect of the proximal foot. Comparison: Previous studies performed August 2017 Technique: 2 views Findings: There is no malalignment. In the forefoot no acute abnormalitiesare appreciated. The metatarsals are intact. The tarsal bones have normalalignment and smooth contours. Os calcis and the talus is intact. Subtlemild enthesopathy at the tendon insertion to the posterior os calcis. Inthe soft tissues no acute abnormalities. Please correlate clinically. If the symptoms still persist and furtherindicated recommend follow-up studies in 7-10 days. IMPRESSION: 1) No malalignment or acute bony abnormalities. Ordered By: YASEMIN RIVAS Interpreted By: Nirmal Santana MD, 05/05/2021 11:31 AM Yasemin Rivas MD GENERAL IMAGING Final Resul t documented in this encounter Visit Diagnoses Diagnosis Right foot sprain- Primary Sprain of foot, unspecified site documented in this encounter Care Teams Director Motion Picture Relationship Specialty Start Date End Date Miko Valentin MD [address] [place] [phone] PCP - General FAMILY PRACTICE 03/29/19 06/09/21 documented as of this encounter
--- OUTSIDE RECORDS SUMMARY | 2024-04-16 19:10 | XMS_ITS | Encounter Summary ---
Author Organization [facility] Address [address] [place] [address]. [place] [address] [place] [address] Care Team Providers Care Landfill Attendant Name Role Phone Garrett Orona MD Primary Care Provider Reason for Visit * Reason Comments Foot Pain Encounter Details Date Type Department Care Team (Late st Contact Info) Description 11/11/2021 5:29 PM CDT - 11/11/2021 7:33 PM CDT Emergency [facility] [address] [facility] [place] [id number] Ryan Perry, DO [address] [place] [address] Foot Pain Discharge Disposition: Home or Self Care [...] AM CDT Legal Sex Female 10:12 PM MINERAL ENGINEER Gender Identity Female 11/14/2022 8:06 AM CDT Sexual Orientation Not on file COVID-19 Exposure Response Date Recorded In the last 10 days, have yo u been in contact with someone who was confirmed or suspected to have Coronavirus/COVID-19? No / Unsure 11/11/2021 5:26 PM CDT documented as of this encounter Last Filed Vital Signs Vital Sign Reading Time Taken Comments Blood Pressure 124/80 11/11/2021 7:25 PM CDT Pulse 62 11/11/2021 7:25 PM CDT Temperature 36.2 ??C (97.2 ??F) 11/11/2021 5:34 PM CD T Respiratory Rate 16 11/11/2021 7:25 PM CDT Oxygen Saturation 100% 11/11/2021 7:25 PM CDT Inhaled Oxygen Concentration - - Weight 72.6 kg (160 lb) 11/11/2021 5:34 PM CDT Height 152.4 cm (5') 11/11/2021 5:34 PM CDT Body Mass Index 31.25 11/11/2021 5:34 PM CDT documented in this encounter Discharge Instructions * Discharge Instructions* Ryan Perry DO - 11/11/2021 7:14 PM CDT Try to rest your foot is much as you can. Take prescribed Naprosyn. Follow-up with primary care physician to discuss possible referral to a it support specialist or more advanced imaging. * Attachments The following attachments cannot be sent through Care Everywhere. * Muscle and Bone Pain Discharge Instructions ([place] Citizen) documented in this encounter Medications at Time of Discharge naproxen EC (EC NAPROSYN) 500 MG tablet Take 1 tablet (500 mg total) by mouth 2 (two) times daily with meals for 14 days. 28 tablet 11/11/2021 11/25/2021 documented as of this encounter ED Notes * Ryan Perry DO - 11/11/2021 5:44 PM CDT Chief Complaint Chief Complaint Patient presents with ??? Foot Pain History of Present Illness 36-year-old female presents to the emergency department complaining of right midfoot pain. She denies any known injury. She states that pain has been ongoing for about 1 week. She has not seen anyone yet about the pain and has not tried any particular measures for pain relief. Patient states that pain seems to be worsening as time progresses. Patient denies any other complaints at this t ryan. History provided by: Patient operations and maintenance technican used: No Medical History ALLERGIES: No Known Allergies MEDICATIONS: Prior to Admission medications Medication Sig Start Date End Date Taking? Authorizing Provider naproxen EC (EC NAPROSYN) 500 MG tablet Take 1 tablet (500 mg total) by mouth 2 (two) times daily with meals for 14 days. 11/11/21 11/25/21 Yes Ryan Perry, DO PAST MEDICAL HISTORY: Past Medical History: [...] and are negative. Physical Exam Filed Vitals: 11/11/21 1734 BP: 124/80 Pulse: 61 Resp: 18 Temp: 97.2 ??F (36.2 ??C) TempSrc: Tympanic SpO2: 100% Weight: 72.6 kg (160 lb) Height: 5' (1.524 m) Physical Exam Vitals and nursing note reviewed. Constitutional: General: She is not in acute distress. Appearance: She is well-developed. She is not diaphoretic. HENT: Head: Normocephalic and atraumatic. Eyes: Conjunctiva/sclera: Conjunctivae normal. Pulmonary: Effort: Pulmonary effort is normal. No respiratory distress. Breath sounds: Normal breath sounds. Musculoskeletal: General: Tenderness (right midfoot) present. Neurological: Mental Status: She is alert and oriented to person, place, and time. Psychiatric: Behavior: Behavior normal. Thought Content: Thought content normal. Judgment: Judgment normal. Diagnostic Studies / Procedures ELECTROCARDIOGRAMS: No results found for this visit on 11/11/21. LABORATORY STUDIES: No results found for this visit on 11/11/21. IMAGING STUDIES XR FOOT RT 3V Final Result by User, [id number] (11/11 1820) EXAMINATION: XR FOOT RT 3V HISTORY: Pain DATE: 11/11/2021 6:15 PM COMPARISON: 05/05/2021 TECHNIQUE: AP, oblique and lateral views of the right foot. 3 images. FINDINGS: No acute fracture or dislocation. Joint spaces are unremarkable. No destructive bone lesion. IMPRESSION: Negative radiographs. Referred By: Interpreted By: Venancio Johnston MD, 11/11/2021 6:19 PM ED Course / Medical Decision Making MDM Number of Diagnoses or Management Options Right foot pain: new and requires workup Amount and/or Complexity of Data Reviewed Tests in the radiology section of CPT??: reviewed and ordered Risk of Complications, Morbidity, and/or Mortality Presenting problems: moderate Diagnostic procedures: low Management options: moderate Patient Progress Patient progress: stable ED Course as of 11/11/211915 Sun Nov 11, 20211913 X-ray negative for fracture or dislocation. Patient prescribed Naprosyn and instructed to rest. She will follow-up with her primary care physician for further evaluation if not improving. [JW] ED Course User Index [JW] Ryan Perry DO Clinical Impression Right foot pain (Primary) Disposition: Discharge Ryan Perry DO 11/11/211915 * Deena Kent RN - 11/11/2021 5:37 PM CDT Pt arrives via pov c/o right foot pain that started a week ago. Pt denies injury, just started hurting. Pt has been taking otc pain meds with no improvement. Pt took aleve this morning rate pain 6/10 documented in this encounter Plan of Treatment Not on file documented as of this encounter Procedures Procedure Name Priority Date/Time Associated Diagnosis Comments XR FOOT RT 3V STAT 11/11/2021 6:15 PM CDT documented in this encounter Results * XR FOOT RT 3V (11/11/2021 6:15 PM CDT) Anatomical Region Laterality Modality Foot Radiographic Maya ging 11/11/2021 6:19 PM CDT Impressions 11/11/2021 6:20 PM CDT IMPRESSION: Negative radiographs. Referred By: ?? Interpreted By: Venancio Johnston MD, 11/11/2021 6:19 PM Narrative 11/11/2021 6:20 PM CDT EXAMINATION: XR FOOT RT 3V HISTORY: Pain DATE: 11/11/2021 6:15 PM COMPARISON: 05/05/2021 TECHNIQUE: AP, oblique and lateral views of the right foot. ??3 images. FINDINGS: No acute fracture or dislocation. ??Joint spaces are unremarkable. ??No destructive bone lesion. Procedure Note Venancio Johnston MD - 11/11/2021 EXAMINATION: XR FOOT RT 3V HISTORY: Pain DATE: 11/11/2021 6:15 PM COMPARISON: 05/05/2021 TECHNIQUE: AP, oblique and lateral views of the right foot. 3 images. FINDINGS: No acute fracture or dislocation. Joint spaces areunremarkable. No destructive bone lesion. IMPRESSION: Negative radiographs. Referred By: Interpreted By: Venancio Johnston MD, 11/11/2021 6:19 PM us Ryan Perry DO GENERAL IMAGING Final Result documented in this encounter Visit Diagnoses Diagnosis Right foot pain- Primary Pain in limb documented in this encounter Administered Medications Inactive Administered Medications - up to 3 most recent administrations Medication Order MAR Action Action Date Dose Rate Site naproxen (NAPROSYN) tablet 500 mg 500 mg, Oral, Once, 1 dose, On 11/11/21 at 1915, Administer with food Given 11/11/2021 7:32 PM CDT 500 mg documented in this encounter Active and Recently Administered Medications Times are shown in CDT. Scheduled Medication Order 11/09/2021 11/10/2021 11/11/2021 naproxen (NAPROSYN) tablet 500 mg (COMPLETED) 500 mg, Oral, Once, 1 dose, On 11/11/21 at 1915, Administer with food 193 (Given - Provid er: Dian Mcneil RN) documented in this encounter Care Teams Landfill Attendant Relationship Specialty Start Date End Date Garrett Orona MD [address] [place] [phone] PCP - General FAMILY PRACTICE 06/10/21 documented as of this encounter
--- OUTSIDE RECORDS SUMMARY | 2024-04-16 19:10 | XMS_ITS | Encounter Summary ---
Author Organization [facility] Address [facility]. [place], [place] [address] [place] [address] Care Team Providers Care Mechanical Field Engineer Name Role Phone Miko Valentin MD Primary Care Provider [phone] Encounter Details Date Type Department Care Team (Latest Contact Info) Description 05/05/2021 Travel Social History Tobacco Use Types Packs/Day [...] AM CDT Legal Sex Female 10:12 PM TECHNICAL SUPPORT ASSISTANT Gender Identity Female 11/14/2022 8:06 AM CDT Sexual Orientation Not on file COVID-19 Exposure Response Date Recorded In the last month, have you been in contact with someone who was confirmed or suspected to have Coronavirus / COVID-19? No / Unsure 05/05/2021 10:51 AM TECHNICAL SUPPORT ASSISTANT documented as of this encounter Plan of Treatment Not on file documented as of this encounter Visit Diagnoses Not on filedocumented in this encounter Care Teams Mechanical Field Engineer Relationship Specialty Start Date End Date Miko Valentin MD [address] [place] [phone] PCP - General FAMILY PRACTICE 03/29/19 06/09/21 documented as of this encounter
--- OUTSIDE RECORDS SUMMARY | 2024-04-16 19:10 | XMS_ITS | Encounter Summary ---
Author Organization [facility] Address [address] [place] [address]. [place], [place] [address] [place] [address] Care Team Providers Care Professor Of Law Name Role Phone Miko Valentin MD Primary Care Provider [phone] Reason for Referral * Consultation (Routine) - Closed Specialty Diagnoses / Procedures Referred By [place] [facility] Referred To Contact NEUROLOGY Diagnoses Numbness and tingling of right arm Vesta Judge APRN Phone: tel: fax: Referral ID Status Reason Start Date Expiration Date V isits Requested Visits Authorized [id number] Closed Specialty Services 02/21/2020 03/23/2021 1 1 Scheduling Instructions Patient to see Dr Hassan in [place] office Encounter Details Date Type Department Care Team (Late st Contact Info) Description 02/21/2020 Orders Only [facility] [address], [facility] [address] [place] [address] Alayna Singh FNP-BC [facility] [place] [address] Social History Tobacco Use Types Packs/Day Years [...] AM CDT Legal Sex Female 10:12 PM AIRPORT 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 No / Unsure 02/18/2020 10:55 AM CDT documented as of this encounter Plan of Treatment Scheduled Referrals Name Type Priority Associated Diagnoses Orde r Schedule Ambulatory referral to Neurology Referral Routine Numbness and tingling of right arm Ordered: 02/21/2020 documented as of this encounter Visit Diagnoses Diagnosis Numbness and tingling of right arm- Primary Disturbance of skin sensation documented in this encounter Care Teams Professor Of Law Relationship Specialty Start Date End Date Miko Valentin MD [address] [place] [phone] PCP - General FAMILY PRACTICE 03/29/19 06/09/21 documented as of this encounter
--- OUTSIDE RECORDS SUMMARY | 2024-04-16 19:10 | XMS_ITS | Encounter Summary ---
Author Organization [facility] Address [address] [place] [address]. [place] [address] [place] [address] Care Team Providers Care Seismographer Name Role Phone Garrett Orona MD Primary Care Provider Reason for Visit * Reason Comments Suspected Coronavirus (Covid-19) Encounter Details Date Type Department Care Team (Late st Contact Info) Description 06/10/2021 8:57 PM CHIROPRACTOR SOLE PRACTITIONER - 06/10/2021 11:06 PM CHIROPRACTOR SOLE PRACTITIONER Emergency [facility] [address] [place] [address] [place] [address] Ryan Perry, DO [address] [place] [address] Suspected Coronavirus (Covid-19) Discharge Disposition: Home or Self Care (Routine [...] AM CDT Legal Sex Female 10:12 PM CHIROPRACTOR SOLE PRACTITIONER Gender Identity Female 11/14/2022 8:06 AM CDT Sexual Orientation Not on file COVID-19 Exposure Response Date Recorded In the last 10 days, have yo u been in contact with someone who was confirmed or suspected to have Coronavirus/COVID-19? No / Unsure 06/10/2021 9:02 PM CHIROPRACTOR SOLE PRACTITIONER documented as of this encounter Last Filed Vital Signs Vital Sign Reading Time Taken Comments Blood Pressure 95/57 06/10/2021 11:03 PM CHIROPRACTOR SOLE PRACTITIONER Pulse 71 06/10/2021 11:03 PM CHIROPRACTOR SOLE PRACTITIONER Temperature 35.6 ??C (96 ??F) 06/10/2021 9:03 PM CHIROPRACTOR SOLE PRACTITIONER Respiratory Rate 18 06/10/2021 9:03 PM CHIROPRACTOR SOLE PRACTITIONER Oxygen Saturation 100% 06/10/2021 11:03 PM CHIROPRACTOR SOLE PRACTITIONER Inhaled Oxygen Concentration - - Weight 72.6 kg (160 lb) 06/10/2021 9:03 PM CHIROPRACTOR SOLE PRACTITIONER Height 154.9 cm (5' 1 ) 06/10/2021 9:03 PM CHIROPRACTOR SOLE PRACTITIONER Body Mass Index 30.23 06/10/2021 9:03 PM CHIROPRACTOR SOLE PRACTITIONER documented in this encounter Discharge Instructions * Discharge Instructions* Ryan Perry DO - 06/10/2021 10:57 PM CHIROPRACTOR SOLE PRACTITIONER Use [id number] medications such as DayQuil and NyQuil for your cold symptoms. If symptoms or not improving in another few days, consider retesting for COVID-19. OPRACTOR SOLE PRACTITIONER * Attachments The following attachments cannot be sent through Care Everywhere. * Migraines in Adults (Malaysian) * Cough, Runny Nose, and the Common Cold (Malaysian) documented in this encounter ED Notes * Le Woodward RN - 06/10/2021 9:06 PM CST Presents to er with c/o sore throat and non-productive cough that started yesterday. Today has headache and ear pain. C/o nasal congestion. No fever. No loss of smell. Took tylenol at 5:15pm tonight.States tested positive for covid approx 1 month ago. OPRACTOR SOLE PRACTITIONER * Ryan Perry, - 06/10/2021 8:56 PM CST Chief Complaint Chief Complaint Patient presents with ??? Suspected Coronavirus (Covid-19) History of Present Illness 36-year-old female presents to emergency department complaining of sore throat, nasal congestion, nonproductive cough, and bifrontal headache starting yesterday. Patient states that she hasbeen taking ibuprofen without relief. She reports that she had COVID-19 about a month and a half ago and the symptoms completely resolved. Patient reports that she has had the COVID-19 vaccine, but was not boosted. Patient reports nausea but no vomiting or diarrhea. She states that she has a history of migraines that seem similar to her current headache. She reports photophobia. Patient is unaware of any ill contacts. Patient also reports an earache on the right. She states that she had myringotomy tubes when she was younger. 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 Physical Exam Filed Vitals: 06/10/21 2103 BP: (!) 124/90 Pulse: 70 Resp: 18 Temp: 96 ??F (35.6 ??C) TempSrc: Temporal SpO2: 100% Weight: 72.6 kg (160 lb) Height: 5' 1 (1.549 m) Physical Exam Vitals and nursing note reviewed. Constitutional: General: She is not in acute distress. Appearance: She is well-developed. She is not diaphoretic. HENT: Head: Normocephalic and atraumatic. Comments: Frontal sinus tenderness bilaterally Right Ear: Tympanic membrane, ear canal and external ear normal. Left Ear: Tympanic membrane, ear canal and external ear normal. Nose: Nose normal. No nasal deformity, septal deviation, mucosal edema or rhinorrhea. Mouth/Throat: Mouth: Mucous membranes are not dry. Pharynx: Uvula midline. No oropharyngeal exudate. Tonsils: No tonsillar exudate. Eyes: Conjunctiva/sclera: Conjunctivae normal. Cardiovascular: Rate and Rhythm: Normal rate and regular rhythm. Heart sounds: Normal heart sounds. No murmur heard. Pulmonary: Effort: Pulmonary effort is normal. No respiratory distress. Breath sounds: Normal breath sounds. No wheezing or rales. Abdominal: General: Bowel sounds are normal. There is no distension. Palpations: Abdomen is soft. Tenderness: There is no abdominal tenderness. Neurological: Mental Status: She is alert and oriented to person, place, and time. Psychiatric: Behavior: Behavior normal. Thought Content: Thought content normal. Judgment: Judgment normal. Diagnostic Studies / Procedures ELECTROCARDIOGRAMS: No results found for this visit on 06/10/21. LABORATORY STUDIES: Results for orders placed or performed during the hospital encounter of 06/10/21 CBC W/DIFF AUTOMATED Result Value Ref Range WBC 8.6 4.0 - 10.8 x10'3/uL RBC 4.44 4.10 - 5.40 x10'6/uL HGB 13.3 12.0 - 16.0 G/DL HCT 41.2 36.0 - 47.0 % MCV 92.8 78.0 - 100.0 FL MCH 30.0 27.0 - 31.0 PG MCHC 32.3 (L) 33.0 - 36.0 G/DL RDW 13.4 11.5 - 14.5 % PLT 186 150 - 350 x10'3/uL MPV 11.1 (H) 7.4 - 10.4 FL Differential Comment NORMAL REFERENCE RANGE NOT ESTABLISHED FOR THE PROPORTIONAL LEUKOCYTE DIFFERENTIAL. SEG NEUTROPHILS 60.1 % LYMPHOCYTES 24.3 % MONOCYTES 11.5 % EOSINOPHILS 3.5 % BASOPHILS 0.3 % IMMATURE GRANS 0.3 % NRBC 0.0 % ABS. NEUTROPHILS 5.19 1.60 - 8.30 x10'3/uL ABS. LYMPHOCYTES 2.10 0.80 - 4.70 x10'3/uL ABS. MONOCYTES 0.99 0.00 - 1.50 x10'3/uL ABS. EOSINOPHILS 0.30 0.00 - 0.40 x10'3/uL ABS. BASOPHILS 0.03 0.00 - 0.20 x10'3/uL ABS. IMMATURE GRANULOCYTES 0.03 0.00 - 0.03 x10'3/uL ABS. NUCLEATED RBC'S 0.00 0.00 x10'3/uL COMPREHENSIVE METABOLIC PANEL Result Value Ref Range SODIUM 142 136 - 145 MMOL/L POTASSIUM 4.0 3.5 - 5.1 MMOL/L CHLORIDE S/P/B 104 98 - 107 MMOL/L CO2 26.7 21.0 - 32.0 MMOL/L GLUCOSE 91 70 - 99 MG/DL BUN 11 6 - 24 MG/DL CREATININE S/P/B 0.87 0.55 - 1.02 MG/DL CALCIUM 8.4 8.4 - 10.5 MG/DL BILIRUBIN TOTAL S/P/B 0.2 0.2 - 1.0 MG/DL ALKALINE PHOSPHATASE S/P/B 73 37 - 98 U/L AST 17 15 - 37 U/L ALT 21 14 - 59 U/L TOTAL PROTEIN S/P/B 6.6 6.4 - 8.2 G/DL ALBUMIN S/P/B 3.5 3.4 - 5.0 G/DL ANION GAP 11.3 5.0 - 15.0 MMOL/L OSMOLALITY (CALC) 293 MOSM/KG eGFR Non-Afr. Amer. 86 (L) >89 ML/MIN/1.73 M2 eGFR Afr. Amer. >90 >89 ML/MIN/1.73 M2 GFR NOTES GFR REFERENCES: HCG QUANT (SERUM)-CHORIONIC GONADOTROPIN Result Value Ref Range HCG, QUANTITATIVE <1 0.0 - 6.0 MIU/ML CORONAVIRUS (COVID-19) ANTIGEN DIRECT OPTICAL Specimen: NASAL Result Value Ref Range CORONAVIRUS ANTIGEN IA NEGATIVE NEGATIVE Specimen Type NASAL FIRST TEST NO EMPLOYED IN HEALTHCARE NO SYMPTOMATIC DEFINED BY CDC YES DATE OF SYMPTOM ONSET 20210609 HOSPITALIZATION STATUS NO RESIDENT OF [facility] NO NOT RAPID STREP A Specimen: THROAT Result Value Ref Range SPECIMEN SOURCE THROAT RAPID STREP TEST NEGATIVE NEGATIVE IMAGING STUDIES XR CHEST PORTABLE Final Result by User, [id number] (06/10 2213) Examination: Chest Radiograph, 1 view Exam Date/Time: 06/10/2021 9:22 PM Reason For Exam: Cough Cough Comparison: None Technique: Single AP view of the chest. Findings: Size normal. Pulmonary vascularity within normal limits. No large effusion. No pneumothorax. Minimal degenerative changes in the right shoulder. No focal infiltrate or consolidation. ======== IMPRESSION: ======== 1. No acute cardiopulmonary findings within limitations of exam Referred By: Interpreted By: Madi Montgomery MD, 06/10/2021 10:13 PM ED Course / Medical Decision Making MDM Number of Diagnoses or Management Options Acute nasopharyngitis: new and requires workup Migraine: established and worsening Amount and/or Complexity of Data Reviewed Clinical lab tests: reviewed and ordered Tests in the radiology section of CPT??: reviewed and ordered Risk of Complications, Morbidity, and/or Mortality Presenting problems: moderate Diagnostic procedures: moderate Management options: low Patient Progress Patient progress: improved ED Course as of Jun 10 2257 Sun Jun 10, [id number] Patient reports significant improvement in headache following migraine cocktail. Rapid strep and rapid Covid testing are negative. Chest x-ray is clear. Other laboratory evaluation unremarkable. Patient is discharged to home with instructions regarding care for common cold. She will follow-upwith her primary care physician if symptoms are not improving. [JW] ED Course User Index [JW] Ryan Perry DO Clinical Impression Migraine (Primary) Acute nasopharyngitis Disposition: Discharge Ryan Perry DO 06/10/212257 OPRACTOR SOLE PRACTITIONER documented in this encounter Plan of Treatment Not on file documented as of this encounter Procedures Procedure Name Priority Date/Time Associated Diagnosis Comments XR CHEST PORTABLE STAT 06/10/2021 10: 14 PM CHIROPRACTOR SOLE PRACTITIONER COMPREHENSIVE METABOLIC PANEL STAT 06/10/2021 9:31 PM CHIROPRACTOR SOLE PRACTITIONER HCG QUANT (SERUM)-CHORIONIC GONADOTROPIN STAT 06/10/2021 9:31 PM CHIROPRACTOR SOLE PRACTITIONER CBC W/DIFF AUTOMATED STAT 06/10/2021 9:31 PM CHIROPRACTOR SOLE PRACTITIONER RAPID STREP A STAT 06/10/2021 9:30 PM CHIROPRACTOR SOLE PRACTITIONER CORONAVIRUS (COVID-19) ANTIGEN DIRECT OPTICAL STAT 06/10/2021 8:57 PM CHIROPRACTOR SOLE PRACTITIONER documented in this encounter Results * XR CHEST PORTABLE (06/10/2021 10:14 PM CHIROPRACTOR SOLE PRACTITIONER) Anatomical Region Laterality Modality Chest Radiographic Maya ging 06/10/2021 10:1 3 PM CHIROPRACTOR SOLE PRACTITIONER Impressions 06/10/2021 10:13 PM CHIROPRACTOR SOLE PRACTITIONER IMPRESSION: ======== ?? 1. ??No acute cardiopulmonary findings within limitations of exam Referred By: ?? Interpreted By: Madi Montgomery MD, 06/10/2021 10:13 PM Narrative 06/10/2021 10:13 PM CHIROPRACTOR SOLE PRACTITIONER Examination: Chest Radiograph, 1 view Exam Date/Time: 06/10/2021 9:22 PM Reason For Exam: ??Cough ?? Cough Comparison: None Technique: Single AP view of the chest. Findings: ??Size normal. ??Pulmonary vascularity within normal limits. ??No large effusion. ??No pneumothorax. ??Minimal degenerative changes in the right shoulder. ??No focal infiltrate or consolidation. ======== Procedure Note Madi Montgomery MD - 06/10/2021 Examination: Chest Radiograph, 1 view Exam Date/Time: 06/10/2021 9:22 PM Reason For Exam: Cough Cough Comparison: None Technique: Single AP view of the chest. Findings: Size normal. Pulmonary vascularity within normal limits. Nolarge effusion. No pneumothorax. Minimal degenerative changes in theright shoulder. No focal infiltrate or consolidation. ======== IMPRESSION: ======== 1. No acute cardiopulmonary findings within limitations of exam Referred By: Interpreted By: Madi Montgomery MD, 06/10/2021 10:13 PM Ryan Perry DO GENERAL IMAGING Final Result * HCG QUANT (SERUM)-CHORIONIC GONADOTROPIN (06/10/2021 9:31 PM CHIROPRACTOR SOLE PRACTITIONER) [facility] HCG QUANTITATIVE <1 0.0 - 6.0 MIU/ML 06/10/2021 10:03 PM CHIROPRACTOR SOLE PRACTITIONER [facility] Comment:NON- FEMALE 0-6 06/10/2021 9:31 PM CHIROPRACTOR SOLE PRACTITIONER Ryan Perry DO LABORATORY Final Result [facility] [address] [id number], * (ABNORMAL) COMPREHENSIVE METABOLIC PANEL (06/10/2021 9:31 PM CHIROPRACTOR SOLE PRACTITIONER) [facility] SODIUM S/P/B 142 136 - 145 MMOL/L 06/10/2021 10:03 PM CHIROPRACTOR SOLE PRACTITIONER [facility] POTASSIUM S/P/B 4.0 3.5 - 5.1 MMOL/L 06/10/2021 10:03 PM CHIROPRACTOR SOLE PRACTITIONER [facility] CHLORIDE S/P/B 104 98 - 107 MMOL/L 06/10/2021 10:03 PM [facility] CO2 26.7 21.0 - 32.0 MMOL/L 06/10/2021 10:03 PM [facility] GLUCOSE 91 70 - 99 MG/DL 06/10/2021 10:03 PM [facility] Comment: FASTING GLUCOSE 100 TO 125 MG/DL IS CONSISTENT WITH IMPAIRED FASTING GLUCOSE. FASTING GLUCOSE >125 MG/DL IS CONSISTENT WITH DIABETES. RANDOM GLUCOSE >200 MG/DL WITH HYPERGLYCEMIC SYMPTOMS IS CONSISTENT WITH DIABETES. PER ADA GUIDELINES BUN 11 6 - 24 MG/DL 06/10/2021 10:03 PM [facility] CREATININE S/P/B 0.87 0.55 - 1.02 MG/DL 06/10/2021 10:03 PM [facility] CALCIUM S/P/B 8.4 8.4 - 10.5 MG/DL 06/10/2021 10:03 PM [facility] BILIRUBIN TOTAL S/P/B 0.2 0.2 - 1.0 MG/DL 06/10/2021 10:03 PM [facility] Comment: THIS ASSAY IS NOT RECOMMENDED FOR PATIENTS UNDERGOING TREATMENT WITH ELTROMBOPAG DUE TO THE POTENTIAL FOR FALSELY ELEVATED RESULTS. ALKALINE PHOSPHATASE S/P/B 73 37 - 98 U/L 06/10/2021 10:03 PM [facility] AST 17 15 - 37 U/L 06/10/2021 10:03 PM [facility] ALT 21 14 - 59 U/L 06/10/2021 10:03 PM [facility] TOTAL PROTEIN S/P/B 6.6 6.4 - 8.2 G/DL 06/10/2021 10:03 PM [facility] ALBUMIN S/P/B 3.5 3.4 - 5.0 G/DL 06/10/2021 10:03 PM [facility] ANION GAP 11.3 5.0 - 15.0 MMOL/L 06/10/2021 10:03 PM [facility] OSMOLALITY (CALC) 293 MOSM/KG 022 10:03 PM [facility] Comment:REFERENCE RANGE NOT ESTABLISHED EGFR NON-AFR. AMER. 86(L) >89 ML/MIN/1. 73 M2 06/10/2021 10:03 PM [facility] EGFR AFR. AMER. >90 >89 ML/MIN/1. 73 M2 06/10/2021 10:03 PM CHIROPRACTOR SOLE PRACTITIONER [facility] GFR NOTES GFR REFERENCE S: 06/10/2021 10:03 PM CHIROPRACTOR SOLE PRACTITIONER [facility] Comment: THE ESTIMATED GFR IS CALCULATED USING THE 2009 CKD-EPI EQUATION. THE FOLLOWING CATEGORIES FOR GRADING RENAL FUNCTION ARE RECOMMENDED BY THE INTERNATIONAL SOCIETY OF NEPHROLOGY (KDIGO 2012 CLINICAL PRACTICE GUIDELINE). G1,NORMAL OR HIGH: >89 ml/min/1.73 m2 G2,MILDLY DECREASED: 60-89 ml/min/1.73 m2 G3A,MILDLY TO MODERATELY DECREASED: 45-59 ml/min/1.73 m2 G3B,MODERATELY TO SEVERELY DECREASED: 30-44 ml/min/1.73 m2 G4,SEVERELY DECREASED: 15-29 ml/min/1.73 m2 G5,KIDNEY FAILURE: <15 ml/min/1.73 m2 06/10/2021 9:31 PM CHIROPRACTOR SOLE PRACTITIONER us Ryan Perry DO LABORATORY Final Result [facility] [address] [place] [address], * (ABNORMAL) CBC W/DIFF AUTOMATED (06/10/2021 9:31 PM CHIROPRACTOR SOLE PRACTITIONER) WBC 8.6 4.0 - 10.8 x10'3/uL 06/10/2021 9:44 PM CHIROPRACTOR SOLE PRACTITIONER [facility] RBC 4.44 4.10 - 5.40 x10'6/uL 06/10/2021 9:44 PM [facility] HGB 13.3 12.0 - 16.0 G/DL 06/10/2021 9:44 PM [facility] HCT 41.2 36.0 - 47.0 % 06/10/2021 9:44 PM [facility] MCV 92.8 78.0 - 100.0 FL 06/10/2021 9:44 PM [facility] MCH 30.0 27.0 - 31.0 PG 06/10/2021 9:44 PM [facility] MCHC 32.3(L) 33.0 - 36.0 G/DL 06/10/2021 9:44 PM [facility] RDW 13.4 11.5 - 14.5 % 06/10/2021 9:44 PM [facility] PLT 186 150 - 350 x10'3/uL 06/10/2021 9:44 PM [facility] MPV 11.1(H) 7.4 - 10.4 FL 06/10/2021 9:44 PM [facility] DIFFERENTIAL COMMENT NORMAL REFERENCE RANGE NOT ESTABLISHED FOR THE PROPORTIONAL LEUKOCYTE DIFFERENTIAL. 06/10/2021 9:44 PM CHIROPRACTOR SOLE PRACTITIONER [facility] SEG NEUTROPHILS 60.1 % 9:44 PM [facility] LYMPHOCYTES 24.3 % 06/10/2021 9:44 PM [facility] MONOCYTES 11.5 % 06/10/2021 9:44 PM [facility] EOSINOPHILS 3.5 % 06/10/2021 9:44 PM [facility] BASOPHILS 0.3 % 06/10/2021 9:44 PM [facility] IMMATURE GRANS % 0.3 % 06/10/19 9:44 PM [facility] NRBC 0.0 % 06/10/2021 9:44 PM [facility] ABS. NEUTROPHILS 5.19 1.60 - 8.30 x10'3/uL 06/10/2021 9:44 PM [facility] ABS. LYMPHOCYTES 2.10 0.80 - 4.70 x10'3/uL 06/10/2021 9:44 PM [facility] ABS. MONOCYTES 0.99 0.00 - 1.50 x10'3/uL 06/10/2021 9:44 PM [facility] ABS. EOSINOPHILS 0.30 0.00 - 0.40 x10'3/uL 06/10/2021 9:44 PM [facility] ABS. BASOPHILS 0.03 0.00 - 0.20 x10'3/uL 06/10/2021 9:44 PM [facility] ABS. IMMATURE GRANULOCYTES 0.03 0.00 - 0.03 x10'3/uL 06/10/2021 9:44 PM CHIROPRACTOR SOLE PRACTITIONER [facility] ABS. NUCLEATED RBC'S 0.00 0.00 x10'3/uL 06/10/2021 9:44 PM CHIROPRACTOR SOLE PRACTITIONER [facility] 06/10/2021 9:31 PM CHIROPRACTOR SOLE PRACTITIONER us Ryan Perry DO LABORATORY Final Result Performing Organization Address [facility]/ZIP Co de Phone Number [address] [address], [place] [phone] * RAPID STREP A (06/10/2021 9:30 PM CHIROPRACTOR SOLE PRACTITIONER) SPECIMEN SOURCE THROAT 06/10/2021 9:32 PM CHIROPRACTOR SOLE PRACTITIONER [facility] RAPID STREP TEST NEGATIVE NEGATIVE 06/10/2021 9:48 PM CHIROPRACTOR SOLE PRACTITIONER [facility] STRUCTURE OF ANTERIOR PORTION OF NECK / Unknown 06/10/2021 9:30 PM CHIROPRACTOR SOLE PRACTITIONER us Ryan Perry DO MICROBIOLOGY - GENERAL ORDERABLE S Final Result Performing Organization Address [facility] Co de Phone Number [address] [address], [place] [phone] * CORONAVIRUS (COVID-19) ANTIGEN DIRECT OPTICAL (06/10/2021 8:57 PM CHIROPRACTOR SOLE PRACTITIONER) CORONAVIRUS ANTIGEN IA NEGATIVE NEGATIVE 06/10/2021 9:29 PM CHIROPRACTOR SOLE PRACTITIONER [facility] Comment: NEGATIVE RESULTS DO NOT RULE OUT SARS-COV-2 INFECTION AND SHOULD NOT BE USED THE SOLE BASIS FOR TREATMENT OR PATIENT MANAGEMENT DECISIONS, INCLUDING INFECTION CONTROL DECISIONS. NEGATIVE RESULTS SHOULD BE CONSIDERED IN THE CONTEXT OF A PATIENT'S RECENT EXPOSURES, HISTORY AND THE PRESENCE OF CLINICAL SIGNS AND SYMPTOMS CONSISTENT WITH COVID 19. THIS TEST HAS BEEN AUTHORIZED BY THE FDA UNDER AN EMERGENCY USE AUTHORIZATION (EUA) FOR USE BY AUTHORIZED LABORATORIES. SPECIMEN TYPE NASAL 06/10/2021 9:11 PM CHIROPRACTOR SOLE PRACTITIONER [facility] FIRST TEST NO 06/10/2021 9:11 PM CHIROPRACTOR SOLE PRACTITIONER [facility] EMPLOYED IN HEALTHCARE NO 06/10/2021 9:11 PM CHIROPRACTOR SOLE PRACTITIONER [facility] SYMPTOMATIC DEFINED BY CDC YES 06/10/2021 9:11 PM CHIROPRACTOR SOLE PRACTITIONER [facility] DATE OF SYMPTOM ONSET 2021060906/10/2021 9:11 PM CHIROPRACTOR SOLE PRACTITIONER [facility] HOSPITALIZATION STATUS NO 06/10/2021 9:11 PM CHIROPRACTOR SOLE PRACTITIONER [facility] RESIDENT OF [facility] NO 06/10/2021 9:11 PM CHIROPRACTOR SOLE PRACTITIONER [facility] NOT 06/10/2021 9:11 PM CHIROPRACTOR SOLE PRACTITIONER [facility] Specimen from nose (specimen) NASAL STRUCTURE / Unknown 06/10/2021 8:57 PM CHIROPRACTOR SOLE PRACTITIONER us Ryan Perry DO MICROBIOLOGY - GENERAL ORDERABLE S Final Result [facility] [address] [place] [address], documented in this encounter Visit Diagnoses Diagnosis Migraine- Primary Migraine, unspecified, without mention of intractable migraine without mention of status migrainosus Acute nasopharyngitis Acute nasopharyngitis (common cold) documented in this encounter Administered Medications Inactive Administered Medications - up to 3 most recent administrations Medication Order MAR Action Action Date Dose Rate Site diphenhydrAMINE (BENADRYL) injection 50 mg 50 mg, Intravenous, Once, 1 dose, On 06/10/21 at 2130, For IV administration, give no faster than 25 mg/min. Given 06/10/2021 9:34 PM CHIROPRACTOR SOLE PRACTITIONER 50 mg ketorolac (TORADOL) injection 30 mg 30 mg, Intravenous, Once, 1 dose, On 06/10/21 at 2130, For IV administration, give over 15 seconds. Given 06/10/2021 9:36 PM CHIROPRACTOR SOLE PRACTITIONER 30 mg metoclopramide (REGLAN) injection 10 mg 10 mg, Intravenous, Once, 1 dose, On 06/10/21 at 2130, Administer IV over 1-2 minutes Given 06/10/2021 9:33 PM CHIROPRACTOR SOLE PRACTITIONER 10 mg sodium chloride 0.9% infusion at 250 mL/hr, Intravenous, Once, 1 dose, On 06/10/21 at 2130 New Bag 06/10/2021 9:32 PM CHIROPRACTOR SOLE PRACTITIONER 1,000 mLs 250 mL/hr documented in this encounter Active and Recently Administered Medications Times are shown in CHIROPRACTOR SOLE PRACTITIONER. Scheduled Medication Order 06/08/2021 06/09/2021 06/10/2021 diphenhydrAMINE (BENADRYL) injection 50 mg (COMPLETED) 50 mg, Intravenous, Once, 1 dose, On 06/10/21 at 2130, For IV administration, give no faster than 25 mg/min. 2133 (Given - Provid er: Marleny Leija RN) ketorolac (TORADOL) injection 30 mg (COMPLETED) 30 mg, Intravenous, Once, 1 dose, On 06/10/21 at 2130, For IV administration, give over 15 seconds. 2135 (Given - Provid er: Marleny Leija RN) metoclopramide (REGLAN) injection 10 mg (COMPLETED) 10 mg, Intravenous, Once, 1 dose, On 06/10/21 at 2130, Administer IV over 1-2 minutes 2132 (Given - Provid er: Marleny Leija RN) sodium chloride 0.9% infusion (COMPLETED) at 250 mL/hr, Intravenous, Once, 1 dose, On 06/10/21 at 2130 2131 (New Bag - Prov ider: Marleny Leija RN)2229 (Infusion Stop Time - Provider: Marleny Leija RN) documented in this encounter Additional Health Concerns Infection Onset Date Last Indicated Resolved Time COVID-19 Rule Out 06/10/2021 06/10/2021 06/10/2021 9:29 PM CHIROPRACTOR SOLE PRACTITIONER documented as of this encounter Care Teams Seismographer Relationship Specialty Start Date End Date Garrett Orona MD [address] [place] [phone] PCP - General FAMILY PRACTICE 06/10/21 documented as of this encounter
--- OUTSIDE RECORDS SUMMARY | 2024-04-16 19:10 | XMS_ITS | Encounter Summary ---
Author Organization [facility] Address [address] [place] [address]. [place], [place] [id number] [place] [id number] Care Team Providers Care Tobacco Cutter Name Role Phone Garrett Orona MD Primary Care Provider [phone] Encounter Details Date Type Department Care Team (Latest Contact Info) Description 06/13/2021 Travel Social History Tobacco Use Types Packs/Day [...] AM CDT Legal Sex Female 10:12 PM MACHINE MOVER Gender Identity Female 11/14/2022 8:06 AM CDT Sexual Orientation Not on file COVID-19 Exposure Response Date Recorded In the last 10 days, have yo u been in contact with someone who was confirmed or suspected to have Coronavirus/COVID-19? No / Unsure 06/13/2021 11:57 AM MACHINE MOVER documented as of this encounter Plan of Treatment Not on file documented as of this encounter Visit Diagnoses Not on filedocumented in this encounter Care Teams Tobacco Cutter Relationship Specialty Start Date End Date Garrett Orona MD [address] [place] [phone] PCP - General FAMILY PRACTICE 06/10/21 documented as of this encounter
--- OUTSIDE RECORDS SUMMARY | 2024-04-16 19:11 | XMS_ITS | Encounter Summary ---
Author Organization [facility] Address [address] [facility]. [place], [place] [address] [place] [address] Care Team Providers Care Toolroom Machinist Name Role Phone Miko Valentin MD Primary Care Provider [phone] Reason for Referral * Imaging (Routine) - Closed Specialty Diagnoses / Procedures Referred By Tin wells Referred To Contact RADIOLOGY Diagnoses Effusion of right shoulder joint Degenerative tear of glenoid labrum of right shoulder Procedures MRI ARTHRO SHOULDER RT Alayna Singh FNP-BC [address] [place] [address] Phone: tel: fax: Referral ID Status Reason Start Date Expiration Date Visits Re quested Visits Authorized [id number] Closed 02/03/2020 03/05/2021 1 1 Reason for Visit * Imaging (Routine) - Closed Specialty Diagnoses / Procedures Referred By Contact Referred To Contact [facility] Diagnostic Imaging Diagnoses Effusion of right shoulder joint Degenerative tear of glenoid labrum of right shoulder Procedures XR ARTHROGRAM SHOULDER RT SFL FLUOR 60MIN+RAD Alayna Singh FNP-BC [address] [place] [address] Phone: tel: fax: [facility] [address] [place] [address] Phone: tel: Referral ID Status Reason Start Date Expiration Date Visits Re quested Visits Authorized [id number] Closed 02/17/2020 1 1 Encounter Details Date Type Department Care Team (Late st Contact Info) Description 02/17/2020 10:00 AM CDT - 02/17/2020 11:59 PM CDT Hospital Encounter [facility] [address] [place] [address] Alayna Singh, 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 No / Unsure 02/17/2020 10:03 AM CDT documented as of this encounter Medications at Time of Discharge diazePAM 5 MG tabletIndication s:Claustrophobia Take 1 tablet by mouth 30 min prior to procedure and must have coach tour driver for the procedure 1 tablet 02/09/2020 0 DANY Borja, (MEDROL) 4 MG tablet Follow package directions 1 each 02/03/2020 0 documented as of this encounter Plan of Treatment Not on file documented as of this encounter Procedures Procedure Name Priority Date/Time Associated Diagnosis Comments MRI ARTHRO SHOULDER RT Routine 02/17/2020 12:05 PM CDT Effusion of right shoulder joint Degenerative tear of glenoid labrum of right shoulder XR ARTHROGRAM SHOULDER RT Routine 02/17/2020 11:50 AM CDT Effusion of right shoulder joint Degenerative tear of glenoid labrum of right shoulder documented in this encounter Results * MRI ARTHRO SHOULDER RT (02/17/2020 12:05 PM CDT) Anatomical Region Laterality Modality Shoulder Magnetic Resonan ce 02/17/2020 1:00 PM CDT Impressions 02/17/2020 1:17 PM CDT Impression: 1. Linear increased signal is seen involving the superior labrum, favored to represent a focal tear. No paralabral cyst. 2. Mild degenerative changes of the AC joint with subtle marrow edema and minimal spurring. 3. The rotator cuff is intact. 4. The glenohumeral joint appears intact with no significant chondral defects. Interpreted By: Govind Xiao MD, 02/17/2020 1:00 PM Narrative 02/17/2020 1:17 PM CDT Examination: MRI ARTHRO SHOULDER RT Clinical Information: SHOULDER PAIN, PRIOR XRAY, LABRAL TEAR SUSPECTED Comparison: Right shoulder radiographs 02/03/2020. Right shoulder CT 01/26/2020. Technique: Multiplanar, multisequence MR images of the shoulder were obtained. Findings: ROTATOR CUFF: Rotator cuff: Intact. Musculature: There is no muscular tear, contusion, or atrophy. LONG BICIPITAL TENDON: The biceps tendon is normally situated within the bicipital groove. No complete or partial biceps tendon tear is present. OSSEOUS STRUCTURES/ARTICULATIONS: Bones: There are no fractures or regions of abnormal bone marrow signal intensity. No Hill-Sachs, reverse Hill-Sachs, or bony Bankart lesions are seen. Glenohumeral joint: No focal hyaline cartilage defects are noted. Acromioclavicular joint: There are mild degenerative changes of the acromioclavicular joint. A type II acromion configuration is noted. There is no anterior or lateral acromial downsloping. LABRUM: There is increased linear signal within the superior labrum extending anterior to posterior (coronal T1 series 4 image 12), possibly representing a SLAP tear. No paralabral cysts are seen. FLUID: Joint fluid: Iatrogenic contrast placed via arthrogram. Synovium/Intra-articular fragments: No synovial thickening or intra-articular fragments noted. A rounded low signal region is seen in the superior joint space (coronal T2 series 5 image 9), favored secondary to intra-articular air, iatrogenic related to arthrogram. Bursa: No bursal effusion or thickening is seen. OTHER: Support structures: No capsular or ligamentous abnormality is seen. Non-rotator cuff musculature: There is no muscular tear, contusion, or atrophy. Other: None. Procedure Note Govind Xiao MD - 02/17/2020 Examination: MRI ARTHRO SHOULDER RT Clinical Information: SHOULDER PAIN, PRIOR XRAY, LABRAL TEAR SUSPECTED Comparison: Right shoulder radiographs 02/03/2020. Right shoulder CT 01/26/2020. Technique: Multiplanar, multisequence MR images of the shoulder were obtained. Findings: ROTATOR CUFF: Rotator cuff: Intact. Musculature: There is no muscular tear, contusion, or atrophy. LONG BICIPITAL TENDON: The biceps tendon is normally situated within the bicipital groove. No complete or partial biceps tendon tear is present. OSSEOUS STRUCTURES/ARTICULATIONS: Bones: There are no fractures or regions of abnormal bone marrow signal intensity. No Hill-Sachs, reverse Hill-Sachs, or bony Bankart lesionsare seen. Glenohumeral joint: No focal hyaline cartilage defects are noted. Acromioclavicular joint: There are mild degenerative changes of the acromioclavicular joint. A type II acromion configuration is noted.There is no anterior or lateral acromial downsloping. LABRUM: There is increased linear signal within the superior labrum extending anterior to posterior (coronal T1 series 4 image 12), possibly representing a SLAP tear. No paralabral cysts are seen. FLUID: Joint fluid: Iatrogenic contrast placed via arthrogram. Synovium/Intra-articular fragments: No synovial thickening or intra-articular fragments noted. A rounded low signal region is seen inthe superior joint space (coronal T2 series 5 image 9), favored secondary to intra-articular air, iatrogenic related to arthrogram. Bursa: No bursal effusion or thickening is seen. OTHER: Support structures: No capsular or ligamentous abnormality is seen. Non-rotator cuff musculature: There is no muscular tear, contusion, or atrophy. Other: None. Impression: 1. Linear increased signal is seen involving the superior labrum,favored to represent a focal tear. No paralabral cyst. 2. Mild degenerative changes of the AC joint with subtle marrow edemaand minimal spurring. 3. The rotator cuff is intact. 4. The glenohumeral joint appears intact with no significant chondral defects. Interpreted By: Govind Xiao MD, 02/17/2020 1:00 PM us Alayna Singh FASHION COORDINATOR-BC MRI Final Resu lt * XR ARTHROGRAM SHOULDER RT (02/17/2020 11:50 AM CDT) Anatomical Region Laterality Modality Shoulder Radiographic Maya ging, Radiographic Imaging 02/17/2020 12:5 6 PM CDT Impressions 02/17/2020 1:00 PM CDT Impression: Fluoroscopic-guided right shoulder joint arthrogram. Interpreted By: Govind Xiao MD, 02/17/2020 12:56 PM Narrative 02/17/2020 1:00 PM CDT Procedure: Fluoroscopic-guided right shoulder arthrogram. Type of Injection: Diagnostic arthrogram. Clinical Indication: Pain. Glenohumeral tear. Informed Consent: The risks, benefits, and alternatives of the procedure were discussed with the patient. Verbal and written consent was obtained. Time-Out: Time-out performed to confirm the correct patient, procedure, and site. Preparation: The patient was prepped and draped in usual sterile fashion. Local Anesthesia: 1% lidocaine. Site: Skin entry site localized over the joint. Intra-articular location of needle confirmed with contrast (3 mL of Isovue-370). Needle: 25-gauge anesthesia needle. Intra-Articular Solution: 0.1 mL of MultiHance gadolinium contrast and 12 mL of normal saline. Patient Disposition: The patient experienced a vagal reaction and reported dizziness and lightheadedness. The patient was instructed to lie supine and the knees were elevated with a foam wedge. After a few minutes the patient stated she felt better and was then discharged from the fluoroscopy suite in stable condition to the MRI department via wheelchair. Fluoroscopy Time: 0.5 minutes. Reference Air Kerma: 3.54 mGy. Procedure Note Govind Xiao MD - 02/17/2020 Procedure: Fluoroscopic-guided right shoulder arthrogram. Type of Injection: Diagnostic arthrogram. Clinical Indication: Pain. Glenohumeral tear. Informed Consent: The risks, benefits, and alternatives of the procedure were discussed with the patient. Verbal and written consent wasobtained. Time-Out: Time-out performed to confirm the correct patient, procedure,and site. Preparation: The patient was prepped and draped in usual sterilefashion. Local Anesthesia: 1% lidocaine. Site: Skin entry site localized over the joint. Intra-articular locationof needle confirmed with contrast (3 mL of Isovue-370). Needle: 25-gauge anesthesia needle. Intra-Articular Solution: 0.1 mL of MultiHance gadolinium contrast and 12 mL of normal saline. Patient Disposition: The patient experienced a vagal reaction andreported dizziness and lightheadedness. The patient was instructed to lie supineand the knees were elevated with a foam wedge. After a few minutes thepatient stated she felt better and was then discharged from the fluoroscopysuite in stable condition to the MRI department via wheelchair. Fluoroscopy Time: 0.5 minutes. Reference Air Kerma: 3.54 mGy. Impression: Fluoroscopic-guided right shoulder joint arthrogram. Interpreted By: Govind Xiao MD, 02/17/2020 12:56 PM Alayna Singh FASHION COORDINATOR-BC FLUOROSCOPY Final Resu lt documented in this encounter Visit Diagnoses Diagnosis Effusion of right shoulder joint Degenerative tear of glenoid labrum of right shoulder documented in this encounter Administered Medications Inactive Administered Medications - up to 3 most recent administrations Medication Order MAR Action Action Date Dose Rate Site gadobenate dimeglumine (MULTIHANCE) 529 MG/ML injection 0.2 mL 0.2 mL, Intra-articular, IMG once as needed, Contrast, 1 dose, Starting on Domi 02/17/20 at 1205, Until Domi 02/17/20 at 1120 Given 02/17/2020 11:20 AM CDT 0.2 mLs Right Shoulder iopamidol (ISOVUE-370) 76 % injection 5 mL 5 mL, Other, IMG once as needed, Contrast, 1 dose, Starting on Domi 02/17/20 at 1152, Until Domi 02/17/20 at 1130 Given 02/17/2020 11:30 AM CDT 5 mLs documented in this encounter Care Teams Toolroom Machinist Relationship Specialty Start Date End Date Miko Valentin MD [address] [place] [phone] PCP - General FAMILY PRACTICE 03/29/19 06/09/21 documented as of this encounter
--- OUTSIDE RECORDS SUMMARY | 2024-04-16 19:11 | XMS_ITS | Encounter Summary ---
Author Organization [facility] Address [address] [place] [address]. 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 No / Unsure 01/26/2020 9:53 AM CDT documented as of this encounter Plan of Treatment Not on file documented as of this encounter Results * XR SHOULDER RT MIN 2V (02/03/2020 9:34 AM CDT) Anatomical Region Laterality Modality Shoulder Radiographic Maya ging 02/03/2020 9:47 AM CDT Impressions 02/03/2020 9:48 AM CDT IMPRESSION: 1) No significant radiographic abnormality. Interpreted By: Joaquim Ruiz MD, 02/03/2020 9:47 AM Narrative 02/03/2020 9:48 AM CDT Examination: XR SHOULDER RT MIN 2V Exam time: 02/03/2020 9:28 AM Clinical history: Right shoulder pain Comparison: 04/08/2019 Technique: Grashey, transcatheter and axillary views right shoulder Findings: No soft tissue abnormality. No fracture or dislocation. The glenohumeral joint and AC joint are normal in appearance. Procedure Note Joaquim Ruiz MD - 02/03/2020 Examination: XR SHOULDER RT MIN 2V Exam time: 02/03/2020 9:28 AM Clinical history: Right shoulder pain Comparison: 04/08/2019 Technique: Grashey, transcatheter and axillary views right shoulder Findings: No soft tissue abnormality. No fracture or dislocation. The glenohumeral joint and AC joint are normal in appearance. IMPRESSION: 1) No significant radiographic abnormality. Interpreted By: Joaquim Ruiz MD, 02/03/2020 9:47 AM us Alayna Singh [facility] GENERAL IMAGING Final Resu lt documented in this encounter Visit Diagnoses Diagnosis Acute pain of right shoulder- Primary Acute pain of right shoulder documented in this encounter Care Teams Professor Of Architecture Relationship Specialty Start Date End Date Miko Valentin MD [address] [place] [phone] PCP - General FAMILY PRACTICE 03/29/19 06/09/21 documented as of this encounter
--- OUTSIDE RECORDS SUMMARY | 2024-04-16 19:11 | XMS_ITS | Encounter Summary ---
Author Organization [facility] Address [facility] [facility]. 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
--- OUTSIDE RECORDS SUMMARY | 2024-04-16 19:11 | XMS_ITS | Encounter Summary ---
Author Organization [facility] Address [facility] [facility]. [place], [place] [address] [place] [address] Care Team Providers Care International Guest Coordinator Name Role Phone Miko Valentin MD Primary Care Provider [phone] Encounter Details Date Type Department Care Team (Latest Contact Info) Description 04/08/2019 2:09 PM SDV PILOT/NAVIGATOR/DDS OPERATOR - 04/08/2019 11:59 PM [facility] Hospital Encounter [facility] [address] [place] [address] Vesta Judge, OPERATIONS OFFICER [employer] [address] [place] [address] Discharge Disposition: Home or Self Care (Routine [...] AM CDT Legal Sex Female 10:12 PM SDV PILOT/NAVIGATOR/DDS OPERATOR Gender Identity Female 11/14/2022 8:06 AM CDT Sexual Orientation Not on file documented as of this encounter Plan of Treatment Not on file documented as of this encounter Procedures Procedure Name Priority Date/Time Associated Diagnosis Comments XR SHOULDER RT MIN 2V Routine 04/08/2019 2:14 PM SDV PILOT/NAVIGATOR/DDS OPERATOR Right shoulder pain documented in this encounter Results * XR SHOULDER RT MIN 2V (04/08/2019 2:14 PM SDV PILOT/NAVIGATOR/DDS OPERATOR) Anatomical Region Laterality Modality Shoulder Radiographic Maya ging 04/08/2019 2:16 PM SDV PILOT/NAVIGATOR/DDS OPERATOR Impressions 04/08/2019 2:17 PM SDV PILOT/NAVIGATOR/DDS OPERATOR IMPRESSION: No change. No acute findings. Interpreted By: Nestor Lopez, 04/08/2019 2:16 PM Narrative 04/08/2019 2:17 PM SDV PILOT/NAVIGATOR/DDS OPERATOR Examination: Right shoulder. Exam time: 1346 hours. Clinical history: Pain for one week. No known injury. Comparison: 03/29/2019. Technique: Three views. Findings: No fracture, dislocation or other acute bony abnormality is identified. ?No other significant bone or joint abnormality is noted. ?? The soft tissues are ? unremarkable. Procedure Note Nestor Lopez MD - 04/08/2019 Examination: Right shoulder. Exam time: 1346 hours. Clinical history: Pain for one week. No known injury. Comparison: 03/29/2019. Technique: Three views. Findings: No fracture, dislocation or other acute bony abnormality is identified. No other significant bone or joint abnormality is noted. The soft tissues are unremarkable. IMPRESSION: No change. No acute findings. Interpreted By: Nestor Lopez, 04/08/2019 2:16 PM Vesta Judge APRN GENERAL IMAGING Final Result documented in this encounter Visit Diagnoses Diagnosis Right shoulder pain Pain in joint, shoulder region documented in this encounter Care Teams International Guest Coordinator Relationship Specialty Start Date End Date Miko Valentin MD [address] [place] [phone] PCP - General FAMILY PRACTICE 03/29/19 06/09/21 documented as of this encounter
--- OUTSIDE RECORDS SUMMARY | 2024-04-16 19:11 | XMS_ITS | Encounter Summary ---
Author Organization [facility] Address [facility]. [place], [place] [address] [place] [address] Care Team Providers Care Kitchen Help Handyman Name Role Phone Miko Valentin MD Primary Care Provider [phone] Reason for Referral * Physical Medicine (Routine) - Closed Specialty Diagnoses / Procedures Referred By Tin wells Referred To Contact PHYSICAL THERAPY Diagnoses Adhesive capsulitis of right shoulder Numbness and tingling of right arm Alayna Singh FNP-BC [address] [place] [address] Phone: tel: fax: Referral ID Status Reason Start Date Expiration Date V isits Requested Visits Authorized [id number] Closed Physical Therapy 02/18/2020 03/20/2021 60 60 Reason for Visit * Reason Comments MRI Results RIGHT shoulder Encounter Details Date Type Department Care Team (Late st Contact Info) Description 02/18/2020 11:00 AM CDT Office Visit [facility] [address] [address] Alayna Singh FNP-BC [address] [place] [address] MRI Results (RIGHT shoulder) Social History Tobacco Use Types Packs/Day Years [...] AM CDT Legal Sex Female 10:12 PM [place] 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 No / Unsure 02/18/2020 10:55 AM CDT documented as of this encounter Last Filed Vital Signs Vital Sign Reading Time Taken Comments Blood Pressure - - Pulse - - Temperature - - Respiratory Rate - - Oxygen Saturation - - Inhaled Oxygen Concentration - - Weight 70.3 kg (155 lb) 02/18/2020 10:58 AM CDT Height 154.9 cm (5' 1 ) 02/18/2020 10:58 AM CDT Body Mass Index 29.29 02/18/2020 10:58 AM CDT documented in this encounter Progress Notes * Alayna Singh, YOUTH CARE SPECIALIST-BC - 02/18/2020 11:00 AM CDT Chief Complaint: MRI Results (RIGHT shoulder) History of Present Illness: Samanta Atkinson is a 35-year-old female who presents to the office for MRI Results (RIGHT shoulder) Patient returns to clinic for MRI results on her RIGHT shoulder. She denies any changes since her last visit. No injury She reports pain to her RIGHT shoulder is constant. Locates pain to the anterior aspect of her RIGHT shoulder with occasional radiation to her RIGHT hand. Numbness and tingling toall fingers. Night pain. She is taking Aleve and Advil for pain with short term improvement. No history of injections. History of physical therapy at our facility in March 2019 with no improvement. Patient is RIGHT handed. Pain increases reaching for objects, brushing her teeth, brushing her hair, driving, overhead work and lifting objects. Previous visit on 02/03/2020: Patient previously had an injection of the??Subacromial Space??on the right 04/08/19. She states relief that only lasted for a few days. She states knot returned to the front part of her shoulder and she is now unable to raise arm above head. She states severe tenderness. She locates pain in entire shoulder with radiation down arm and into neck. She states numbness and tingling into her hand and 3rd-5th fingers. She states she is frequently dropping items. She states pain is increased at bedtime. She states PCP restricted her at work and placed her in a sling but she states it increased pain. She is taking Aleve for pain with little to no relief. She is RIGHT hand dominate. ?? PREVIOUS HISTORY 04-08-19 Samanta Atkinson??is a 34-year-old??female??who presents to the office for Shoulder Pain (Right) Patient denies any injury. She reports pain for about a week. She reports she was put on prednisonewhich did not help while she was on it. She reports she has no range of motion on her arm. She reports night pain. Patient states she has a knot on her right shoulder and her pain radiates up into her neck. Patient reports numbness and tingling. She is taking Aleve and Ibuprofen which do not help. ROS: See HPI for pertinent positives Problem List: Patient Active Problem List Diagnosis ??? Impingement syndrome of right shoulder ??? Effusion of right shoulder joint ??? 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 Adhesive capsulitis of right shoulder ??? Numbness and tingling of right arm History: Past Medical History: Diagnosis Date ??? Patient denies medical problems Past Surgical History: Procedure Laterality Date ??? HC TRIGGER FINGER RELEASE Right 3rd digit ??? TYMPANOSTOMY TUBE PLACEMENT Bilateral Family History Problem Relation Name Age of Onset ??? No Known Problems Mother ??? No Known Problems Father ??? No Known Problems Sister ??? No Known Problems Brother ??? No Known Problems Brother Social History Tobacco Use ??? Smoking status: Never Smoker ??? Smokeless tobacco: Never Used Substance Use Topics ??? Alcohol use: No Frequency: Never ??? Drug use: Never Medications: Current Outpatient Medications: ??? HYDROcodone-acetaminophen 5-325 MG tablet, Take 1 tablet by mouth every 8 (eight) hours as needed for Pain. Indications: Acute Pain < 7 Day Supply, Disp: 20 tablet, Rfl: 0 No Known Allergies Objective: Filed Vitals: 02/18/20 1058 Weight: 70.3 kg (155 lb) Height: 5' 1 (1.549 m) Body mass index is 29.29 kg/m??. Physical Exam: Constitutional: Alert and in no acute distress. Neurological: The patient was oriented to person, place, and time. Eyes: The sclera and conjunctiva were normal ENT: Hearing was normal. Neck: The appearance of the neck was normal. Cardiovascular: Normal pulses. Pulmonary: No respiratory distress. Skin: No injuries or skin lesions. Musculoskeletal: Exam of Right shoulder today reveals diffuse tenderness with palpation, active range of motion forward flexion 90 (PROM 120 limited secondary to pain), abduction and external rotation limited secondary to pain, internal rotation lateral pocket, pain external rotation resistance, pain internal rotation resistance, weak cuff strength secondary to pain, Negative drop arm, pain with cuff resistance, Positive Speeds, Positive Retana, decreased sensation to all fingers, increased numbness and tingling to all fingers with forward flexion. Results: MRI of right shoulder from 02-17-2020 reviewed and reveals intact rotator cuff signs of bicep tendinitis and suspicious for a labrum tear. Assessment: Encounter Diagnose(s) ICD-10-CM ICD-9-CM SNOMED CT(R) 1. Adhesive capsulitis of right shoulder M75.01 726.0 ADHESIVE CAPSULITIS OF RIGHT SHOULDER Ambulatory referral to Physical Therapy HYDROcodone-acetaminophen 5-325 MG tablet 2. Numbness and tingling of right arm R20.0 782.0 PARESTHESIA OF UPPER LIMB Ambulatory referral to Physical Therapy R20.2 HYDROcodone-acetaminophen 5-325 MG tablet Plan: Reviewed MRI with patient in office and given her examination today it appears that her shoulder isdemonstrating adhesive capsulitis. I have recommended setting her up for physical therapy to work on her adhesive capsulitis since she is very limited on her range of motion. I have also recommended obtaining EMG studies since she has seen increased numbness along with dropping items more frequently. We will schedule her for EMG studies with Dr. Hassan in [place]. I have stressed until she gets into physical therapy that she needs to work on her range of motion since it is very limited. I did give her some pain medication to assist with her starting physical therapy only. Activity as tolera lynda and I do not have any restrictions for her.. She will follow-up in 4 weeks for reevaluation. Follow up: Return in about 4 weeks (around 03/17/2020). COURTNEY KAMARA documented in this encounter Plan of Treatment Scheduled Referrals Name Type Priority Associated Diagnoses Orde r Schedule Ambulatory referral to Physical Therapy Referral Routine Adhesive capsulitis of right shoulder Numbness and tingling of right arm Ordered: 02/18/2020 documented as of this encounter Visit Diagnoses Diagnosis Adhesive capsulitis of right shoulder- Primary Adhesive capsulitis of shoulder Numbness and tingling of right arm Disturbance of skin sensation documented in this encounter Care Teams Kitchen Help Handyman Relationship Specialty Start Date End Date Miko Valentin MD [address] [place] [phone] PCP - General FAMILY PRACTICE 03/29/19 06/09/21 documented as of this encounter
--- OUTSIDE RECORDS SUMMARY | 2024-04-16 19:11 | XMS_ITS | Encounter Summary ---
Author Organization [facility] Address [facility]. [place], [place] [address] [place] [address] Care Team Providers Care Diet Technician Registered Name Role Phone Miko Valentin MD Primary Care Provider Reason for Referral * Imaging (Routine) - Closed Specialty Diagnoses / Procedures Referred By Tin wells Referred To Contact RADIOLOGY Diagnoses Radicular pain of shoulder Procedures CT SHOULDER RT WO CON Korina Crawford [address] [address] Phone: tel: fax: Referral ID Status Reason Start Date Expiration Date Visits Re quested Visits Authorized [id number] Closed 01/18/2020 02/17/2020 1 1 Reason for Visit * Imaging (Routine) - Closed Specialty Diagnoses / Procedures Referred By Tin wells Referred To Contact RADIOLOGY Diagnoses Radicular pain of shoulder Procedures CT SHOULDER RT WO CON Korina Crawford [address] [address] Phone: tel: fax: Referral ID Status Reason Start Date Expiration Date Visits Re quested Visits Authorized [id number] Closed 01/18/2020 02/17/2020 1 1 Encounter Details Date Type Department Care Team (Latest Contact Info) Description 01/26/2020 9:54 AM CDT - 01/26/2020 11:59 PM CDT Hospital Encounter 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 No source of the patient's symptoms identified. Interpreted By: Nestor Lopez MD, 01/26/2020 4:06 PM Narrative 01/26/2020 4:10 PM CDT Examination: CT of the right shoulder. Exam time: 1013 hours. Clinical history: Persistent pain. Numbness in the fingers. No known injury. Comparison: Right shoulder radiographs, 04/08/2019. Technique: Thin section spiral axial scans were acquired through the right shoulder without contrast. Sagittal and coronal reconstructions were performed from the data set. ??A dose lowering technique was used for this procedure, which may include, but is not limited to, dose reduction techniques, automated exposure control, the use of iterative reconstruction and ALARA/Image Gently techniques. Findings: There is no acute, healed or healing fracture. No other significant bone or joint abnormality is noted. There is no demonstrable joint effusion or loose body. There is an incidental bone island in the humeral head. The attenuation of the muscles is homogeneous. There is no periarticular mass or fluid collection. The visualized right lung is clear. Procedure Note Nestor Lopez MD - 01/26/2020 Examination: CT of the right shoulder. Exam time: 1013 hours. Clinical history: Persistent pain. Numbness in the fingers. No known injury. Comparison: Right shoulder radiographs, 04/08/2019. Technique: Thin section spiral axial scans were acquired through theright shoulder without contrast. Sagittal and coronal reconstructions were performed from the data set. A dose lowering technique was used forthis procedure, which may include, but is not limited to, dose reduction techniques, automated exposure control, the use of iterativereconstruction and ALARA/Image Gently techniques. Findings: There is no acute, healed or healing fracture. No other significant bone or joint abnormality is noted. There is no demonstrable joint effusion or loose body. There is an incidental bone island in the humeral head. The attenuation of the muscles is homogeneous. There is no periarticular mass or fluid collection. The visualized right lung isclear. IMPRESSION: No significant abnormality. No source of the patient's symptomsidentified. Interpreted By: Nestor Lopez MD, 01/26/2020 4:06 PM Korina Crawford RN CLINICAL CT Final Re sult documented in this encounter Visit Diagnoses Diagnosis Radicular pain of shoulder Brachial neuritis or radiculitis nos documented in this encounter Care Teams Diet Technician Registered Relationship Specialty Start Date End Date Miko Valentin MD [address] [place] [phone] PCP - General FAMILY PRACTICE 03/29/19 06/09/21 documented as of this encounter
--- OUTSIDE RECORDS SUMMARY | 2024-04-16 19:11 | XMS_ITS | Encounter Summary ---
Author Organization [facility] Address [facility]. 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
--- OUTSIDE RECORDS SUMMARY | 2024-04-16 19:11 | XMS_ITS | Encounter Summary ---
Author Organization [facility] Address [facility]. 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
--- OUTSIDE RECORDS SUMMARY | 2024-04-16 19:11 | XMS_ITS | Encounter Summary ---
Author Organization [facility] Address [address] [place] [address]. 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 No / Unsure 02/03/2020 9:25 AM CDT documented as of this encounter Medications at Time of Discharge DANY Borja, (MEDROL) 4 MG tablet Follow package directions 1 each 02/03/2020 0 documented as of this encounter Plan of Treatment Not on file documented as of this encounter Procedures Procedure Name Priority Date/Time Associated Diagnosis Comments XR SHOULDER RT MIN 2V Routine 02/03/2020 9:34 AM CDT Acute pain of right shoulder documented in this encounter Results * XR [...] No significant radiographic abnormality. Interpreted By: Joaquim uRiz MD, 02/03/2020 9:47 AM us Alayna Granados Samantha ALTERATION SPECIALIST-BC GENERAL IMAGING Final Resu lt documented in this encounter Visit Diagnoses Diagnosis Acute pain of right shoulder documented in this encounter Care Teams Elevator Erector Helper Relationship Specialty Start Date End Date Miko Valentin MD [address] [place] [phone] PCP - General FAMILY PRACTICE 03/29/19 06/09/21 documented as of this encounter
--- OUTSIDE RECORDS SUMMARY | 2024-04-16 19:11 | XMS_ITS | Encounter Summary ---
Author Organization [facility] Address [address] [place] [address]. [place], [place] [address] [place] [address] Care Team Providers Care Resolution Specialist Name Role Phone Miko Valentin MD Primary Care Provider [phone] Reason for Visit * Reason Onset Date Comments Medication Request 02/09/2020 Encounter Details Date Type Department Care Team (Late st Contact Info) Description 02/09/2020 Telephone [facility] [place] [address] Alayna Singh, [facility]- [address] [facility] [place] [address] Medication Request Social History Tobacco Use Types Packs/Day Years [...] AM CDT Legal Sex Female 10:[address] 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 No / Unsure 02/03/2020 9:25 AM CDT documented as of this encounter Progress Notes * JOSIANE Anaya - 02/09/2020 1:40 PM CDT RN reviewed with patient and she states that she is not currently and also has a ride for her MRI. No further questions, patient does have a follow up appointment scheduled at this time. * COURTNEY Kamara - 02/09/2020 12:22 PM CDT Medication has been sent but please call patient to ensure that she is not . * JOSIANE Anaya - 02/09/2020 11:47 AM CDT Patient called and states that she is claustrophobic and would like something called in prior to her procedure. She uses [facility] in [place] documented in this encounter Plan of Treatment Not on file documented as of this encounter Visit Diagnoses Diagnosis Claustrophobia- Primary Other isolated or specific phobias documented in this encounter Care Teams Resolution Specialist Relationship Specialty Start Date End Date Miko Valentin MD [address] [place] [phone] PCP - General FAMILY PRACTICE 03/29/19 06/09/21 documented as of this encounter
--- OUTSIDE RECORDS SUMMARY | 2024-04-16 19:11 | XMS_ITS | Encounter Summary ---
Author Organization [facility] Address [facility]. 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
--- OUTSIDE RECORDS SUMMARY | 2024-04-16 19:11 | XMS_ITS | Encounter Summary ---
Author Organization [facility] Address [address] [facility]. [place], [place] [id number] [place] [id number] Care Team Providers Care Materials And Corrosion Engineer Name Role Phone Miko Valentin MD Primary Care Provider [phone] Reason for Referral * Imaging (Routine) - Closed Specialty Diagnoses / Procedures Referred By Tin wells Referred To Contact RADIOLOGY Diagnoses Effusion of right shoulder joint Degenerative tear of glenoid labrum of right shoulder Procedures MRI ARTHRO SHOULDER RT Alayna Singh FNP-BC [address] [place] [address] Phone: tel: fax: Referral ID Status Reason Start Date Expiration Date Visits Re quested Visits Authorized [id number] Closed 02/03/2020 03/05/2021 1 1 Reason for Visit * Reason Comments Shoulder Pain RIGHT Encounter Details Date Type Department Care Team (Late st Contact Info) Description 02/03/2020 9:15 AM CDT Office Visit [facility] [address] [address] Alayna Singh FNP-BC [address] [place] [address] Shoulder Pain (RIGHT) Social History Tobacco Use Types Packs/Day Years [...] AM CDT 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 She states relief that only lasted for a few days. She states knot returned to the front part of her shoulder andshe is now unable to raise arm above head. She states severe tenderness. She locates pain in entireshoulder with radiation down arm and into neck. She states numbness and tingling into her hand and 3rd-5th fingers. She states she is frequently dropping items. She states pain is increased at bedtime. She states PCP restricted her at work and placed her in a sling but she states it increased pain.She is taking Aleve for pain with little to no relief. She is RIGHT hand dominate. PREVIOUS HISTORY 04-08-19 Samanta Atkinson is a 34-year-old female who presents to the office [facility] Pain (Right) Patient denies any injury. She [...] tear of glenoid labrum of right shoulder History: Past Medical History: Diagnosis Date ??? Patient denies medical problems Past Surgical History: Procedure Laterality Date ??? HC TRIGGER FINGER RELEASE Right 3rd digit ??? TYMPANOSTOMY TUBE PLACEMENT Bilateral No family history on file. Family Status Relation Name Status ??? Mother Alive ??? Father Alive Social History Socioeconomic History ??? Marital status: Spouse name: Not on file ??? Number of children: Not on file ??? Years of education: Not on file ??? Highest education level: Not on file Occupational History ??? Not on file Social Needs ??? Financial resource strain: Not on file ??? Food insecurity: Worry: Not on file Inability: Not on file ??? Transportation needs: Medical: Not on file Non-medical: Not on file Tobacco Use ??? Smoking status: Never Smoker ??? Smokeless tobacco: Never Used Substance and Sexual Activity ??? Alcohol use: No Frequency: Never ??? Drug use: Not on file ??? Sexual activity: Not on file Lifestyle ??? Physical activity: Days per week: Not on file Minutes per session: Not on file ??? Stress: Not on file Relationships ??? Social connections: Talks on phone: Not on file Gets together: Not on file Attends mandaen service: Not on file Active member of club or organization: Not on file Attends meetings of clubs or organizations: Not on file Relationship status: Not on file ??? Intimate partner violence: Fear of current or ex partner: Not on file Emotionally abused: Not on file Physically abused: Not on file Forced sexual activity: Not on file Other Topics Concern ??? Not on file Social History Narrative ??? Not on file Medications: Current Outpatient Medications: ??? methylPREDNISolone, DANY, (MEDROL) 4 MG tablet, Follow package directions, Disp: 1 each, Rfl: 0 No Known Allergies Objective: Body mass index is 29.29 kg/m??. Last Recorded Weight 02/03/20 0940 Weight: 70.3 kg (155 lb) Physical exam: Constitutional: Alert and in no acute distress. Neurological: The patient was oriented to person, place, and time. Eyes: The sclera and conjunctiva were normal ENT: Hearing was normal. Neck: The appearance of the neck was normal. Cardiovascular: Normal pulses. Pulmonary: No respiratory distress. Skin: No injuries or skin lesion. Musculoskeletal: Exam of Right shoulder today reveals anterior and bicep tenderness with palpation,mild effusion without redness or warmth, active range of motion forward flexion 100 (PROM 110 but had to stop due to pain), abduction 80, external rotation limited secondary to pain, internal rotation lateral belt line, pain external rotation resistance, pain internal rotation resistance, mild weakcuff due to pain, Positive drop arm, Positive lift off, pain with cuff resistance, Positive Speeds,Positive Retana, decreased sensation to 4th and 5th fingers, palpable radial pulse. Results: X-ray of right shoulder today reveals minimal degenerative changes subtle slight hi-riding humeral head with no acute bony injury. CT scan of right shoulder from 01-26-2020 reviewed and reveals no acute bony injury. Assessment: Encounter Diagnose(s) ICD-10-CM ICD-9-CM SNOMED CT(R) 1. Degenerative tear of glenoid labrum of right shoulder M24.111 840.7 GLENOID LABRUM TEAR XR ARTHROGRAM SHOULDER RT MRI ARTHRO SHOULDER RT 2. Effusion of right shoulder joint M25.411 719.01 EFFUSION OF JOINT OF RIGHT SHOULDER REGION XR ARTHROGRAM SHOULDER RT MRI ARTHRO SHOULDER RT Plan: She has had injections in the past with minimal relief with her symptoms. 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 She has continued to have night pain and decreased range of motion secondary to pain. I have recommended proceeding with obtaining a MRI arthrogram for further evaluation to rule out labrum tear versus rotator cuff. I did provide her a Medrol Dosepak to assist with her pain and encouraged to continue to take Aleve as needed. She has home exercises which she has been performing and I have stressed the need for her to continue to increase her range of motion. I did provide her some restrictions of no overhead and no lifting heavier than 10 pounds until we can obtain her MRI. She will follow up once her MRI has been completed. Follow up: Return for Visit after MRI arthrogram has been obtained. COURTNEY KAMARA documented in this encounter Plan of Treatment Not on file documented as of this encounter Results * MRI ARTHRO SHOULDER [...] By: Govind Xiao MD, 02/17/2020 1:00 PM Alayna Singh CREEL HAND-BC MRI Final Resu lt * XR ARTHROGRAM [...] By: Govind Xiao MD, 02/17/2020 12:56 PM us Alayna Granados Samantha CREEL HAND-BC FLUOROSCOPY Final Resu lt documented in this encounter Visit Diagnoses Diagnosis Degenerative tear of glenoid labrum of right shoulder- Primary Effusion of right shoulder joint Effusion of right shoulder joint Degenerative tear of glenoid labrum of right shoulder documented in this encounter Care Teams Materials And Corrosion Engineer Relationship Specialty Start Date End Date Miko Valentin MD [address] [place] [phone] PCP - General FAMILY PRACTICE 03/29/19 06/09/21 documented as of this encounter
--- OUTSIDE RECORDS SUMMARY | 2024-04-16 19:11 | XMS_ITS | Encounter Summary ---
Author Organization [facility] Address [facility]. [place], [place] [address] [place] [address] Care Team Providers Care Deicer Finisher Name Role Phone Miko Valentin MD Primary Care Provider [phone] Reason for Referral * Physical Medicine (Routine) - Closed Specialty Diagnoses / Procedures Referred By Tin wells Referred To Contact PHYSICAL THERAPY Diagnoses Impingement syndrome of right shoulder Vesta Vazquez APRN Phone: tel: fax: Referral ID Status Reason Start Date Expiration Date V isits Requested Visits Authorized [id number] Closed Physical Therapy 04/08/2019 05/09/2020 60 60 SERVICE DEMONSTRATOR Reason for Visit * Reason Comments Shoulder Pain Right Encounter Details Date Type Department Care Team (Latest Contact Info) Description 04/08/2019 2:30 PM HOME SERVICE DEMONSTRATOR Office Visit [facility] [place] [id number] Vseta Vazquez APRN [address] [place] [address] Shoulder Pain (Right) Social History Tobacco Use Types Packs/Day Years [...] AM CDT Legal Sex Female 10:12 PM HOME SERVICE DEMONSTRATOR Gender Identity Female 11/14/2022 8:06 AM CDT Sexual Orientation Not on file documented as of this encounter Last Filed Vital Signs Vital Sign Reading Time Taken Comments Blood Pressure - - Pulse - - Temperature - - Respiratory Rate - - Oxygen Saturation - - Inhaled Oxygen Concentration - - Weight 65.8 kg (145 lb) 04/08/2019 2:59 PM HOME SERVICE DEMONSTRATOR Height 154.9 cm (5' 1 ) 04/08/2019 2:59 PM HOME SERVICE DEMONSTRATOR Body Mass Index 27.4 04/08/2019 2:59 PM HOME SERVICE DEMONSTRATOR documented in this encounter Progress Notes * Vesta Vazquez, MOPHEAD TRIMMER AND WRAPPER - 04/08/2019 2:30 PM CST Chief Complaint: Shoulder Pain (Right) History of Present Illness: Samanta Atkinson is a 34-year-old female who presents to the office for [...] Diagnosis ??? Impingement syndrome of right shoulder History: Past Medical History: Diagnosis Date ??? Patient denies medical problems Past Surgical History: Procedure Laterality Date ??? HC TRIGGER FINGER RELEASE Right 3rd digit ??? TYMPANOSTOMY TUBE PLACEMENT Bilateral No family history on file. Social History Tobacco Use ??? Smoking status: Never Smoker ??? Smokeless tobacco: Never Used Substance Use Topics ??? Alcohol use: No Frequency: Never ??? Drug use: Not on file Medications: No current outpatient medications on file. No Known Allergies Objective: Body mass index is 27.4 kg/m??. Physical Exam: Constitutional: Alert and in [...] today reveals anterior and bicep tenderness with palpation,active range of motion forward flexion 70 (PROM 110), abduction limited, external rotation limited,internal rotation lateral hip, pain external rotation resistance, pain internal rotation resistance, weak cuff strength, pain with cuff resistance, Positive Speeds, Positive Retana, neurovascularly intact. Results: X-ray of the right shoulder today reviewed and reveals no fractures, dislocations, or other acute bony abnormalities. Soft tissues are unremarkable. Assessment: Encounter Diagnose(s) ICD-10-CM ICD-9-CM SNOMED CT(R) 1. Impingement syndrome of right shoulder M75.41 726.2 IMPINGEMENT SYNDROME OF RIGHT SHOULDER REGION AMB REFERRAL TO PHYSICAL THERAPY 2. Acute pain of right shoulder M25.511 719.41 SHOULDER PAIN XR SHOULDER RT MIN 2V Procedure: Procedure: Injection of the Subacromial Space on the right. Indications for the procedure include Inflammation and diagnostic. The procedure's were discussed with the patient. Verbal consent was obtained prior to the procedure. Procedure Note: Crystal was prepped and draped in the usual sterile fashion using alcohol and usingbetadine. Anesthesia: Ethyl chloride spray was used as a topical anesthetic. A 22 gauge and 1.5 Inch needle was used to inject 4 mL lidocaine 1% and 1 mL methylprednisolone 80 mg/mL. Dressing: A bandage was applied. Post-Procedure: the patient tolerated the procedure well. Complications: there were no complications. Follow-up in the office 2 weeks. Plan: Prior to leaving the office today patient was given a acromial injection in her right shoulder. Shemay resume activities as tolerated. I recommended starting physical therapy to improve her range ofmotion. I encouraged her to use ibuprofen as needed for pain and inflammation. She will follow-up in 2 weeks for reevaluation. Follow up: Return in about 2 weeks (around 04/22/2019). VESTA VAZQUEZ APRN SERVICE DEMONSTRATOR documented in this encounter Plan of Treatment Scheduled Referrals Name Type Priority Associated Diagnoses Orde r Schedule Ambulatory referral to Physical Therapy Referral Routine Impingement syndrome of right shoulder Ordered: 04/08/2019 documented as of this encounter Results * XR SHOULDER RT MIN 2V (04/08/2019 2:14 PM HOME SERVICE DEMONSTRATOR) Anatomical Region Laterality Modality Shoulder Radiographic Maya ging 04/08/2019 2:16 PM HOME SERVICE DEMONSTRATOR Impressions 04/08/2019 2:17 PM HOME SERVICE DEMONSTRATOR IMPRESSION: No change. No acute findings. Interpreted By: Nestor Lopez, 04/08/2019 2:16 PM Narrative 04/08/2019 2:17 PM HOME SERVICE DEMONSTRATOR Examination: Right shoulder. Exam time: 1346 hours. [...] By: Nestor Lopez, 04/08/2019 2:16 PM Vesta Vazquez MOPHEAD TRIMMER AND WRAPPER GENERAL IMAGING Final Result documented in this encounter Visit Diagnoses Diagnosis Impingement syndrome of right shoulder- Primary Other affections of shoulder region, not elsewhere classified Acute pain of right shoulder Right shoulder pain Pain in joint, shoulder region documented in this encounter Administered Medications Inactive Administered Medications - up to 3 most recent administrations Medication Order MAR Action Action Date Dose Rate Site lidocaine (XYLOCAINE) 1 % injection SOLN 4 mL 4 mL, Other, Once, 1 dose, On Domi 04/08/19 at 1545 Given 04/08/2019 3:26 PM HOME SERVICE DEMONSTRATOR 4 mLs methylPREDNISolone acetate (DEPO-MEDROL) injection 80 mg 80 mg, Other, Once, 1 dose, On Domi 04/08/19 at 1545, Shake Well Given 04/08/2019 3:27 PM HOME SERVICE DEMONSTRATOR 80 mg documented in this encounter Care Teams Deicer Finisher Relationship Specialty Start Date End Date Miko Valentin MD [address] [place] [phone] PCP - General FAMILY PRACTICE 03/29/19 06/09/21 documented as of this encounter
--- OUTSIDE RECORDS SUMMARY | 2024-04-16 19:12 | XMS_ITS | Encounter Summary ---
Author Organization [facility] Address [address] [place] [address]. [place], [place] [address] [place] [address] Care Team Providers Care Informatics Physician Liaison Name Role Phone Unavailable Primary Care Provider Unavailabl e Encounter Details Date Type Department Care Team (Late st Contact Info) Description 02/09/2018 Abstract [facility] [address] [place] [phone] Justin Singh FNP-BC [address] [place] [place] [id number] Social History Tobacco Use Types Packs/Day Years Used Date Smoking Tobacco: Never Assessed Comments Unknown Sex and Gender Information Value Date Recorded Sex Assigned at Female 11/14/2022 8:06 AM CDT Legal Sex Female 10:12 PM CIAIO COUNTER MOLDER Gender Identity Female 11/14/2022 8:06 AM CDT Sexual Orientation Not on file documented as of this encounter Last Filed Vital Signs Vital Sign Reading Time Taken Comments Blood Pressure - - Pulse - - Temperature - - Respiratory Rate - - Oxygen Saturation - - Inhaled Oxygen Concentration - - Weight 68 kg (150 lb) 02/09/2018 2:02 PM CDT Height 154.9 cm (5' 1 ) 02/09/2018 2:02 PM CDT Body Mass Index 28.34 02/09/2018 2:02 PM CDT documented in this encounter Progress Notes * COURTNEY Kamara - 02/09/2018 1:30 PM CDT Reason For Visit New Patient Visit Referred By / Reason Patient was referred by Primary Care Physician Name: Dr. Valentin Reason: Chief Complaint Chief Complaint: The patient presents to the office today with RIGHT 3rd finger injury. History of Present Illness HPI: Patient presents to clinic today for injury to 3rd finger on 02-01-18. She reports that she smacked the door frame with her hand injuring her 3rd finger. She was seen in the ER, placed in a splint and referred to our office. Her pain is located throughout her RIGHT 3rd finger. She states that it is painful to move or touch. Her pain has been waking her up at night. She has numbness and tingling to her 3rd finger. She is taking Ibuprofen and Aleve for pain with no relief. She is RIGHT handed. Review of Systems See HPI for pertinent positives. Active Problems 1. Closed nondisplaced fracture of phalanx of right middle finger, unspecified phalanx, initial encounter (816.00) (S62.292A) Past Medical History 1. History of No significant past medical history Surgical History 1. History of myringotomy with tube placement Family History Mother 1. Family history of seizures (V19.8) (Z84.89) 2. Family history of thyroid disease (V18.19) (Z83.49) Social History ? Never a smoker ?? No alcohol use ?? Occupation Current Meds 1. No Reported Medications Recorded Vitals Recorded: 09Feb2018 02:02PM Height 5 ft 1 in Weight 150 lb BMI Calculated 28.34 BSA Calculated 1.67 Physical Exam Constitutional: alert and in no acute distress. Neurological:. the patient was oriented to person, place, and time. . mood and affect were appropriate.. Eyes: the sclera and conjunctiva were normal. ENT: hearing was normal. Neck: the appearance of the neck was normal. Pulmonary: no respiratory distress. Skin: no injuries or skin lesions on the right upper extremity. Right Hand: EXAM diffuse tenderness over the 3rd middle phalanx with palpation, no laxity, minimal swelling, minimal ecchymosis, stiff range of motion and very apprehensive with any movement of the 3rd finger, good wrist range of motion, good capillary refill, NVI. Fingernail Results/Data XR Finger 3rd Digit Middle Rt 09Feb2018 01:45PM Guille Melendez Test Name Result Flag Reference XR Finger 3rd Digit Middle Rt (Report) [address] Patient Name: SAMANTA URENA Date of : 1985 Med Rec #: [id number] Age/Sex: 33/F Pt. Location: ORTHO Attending Provider: JUSTIN SINGH NP Ordering Provider: JUSTIN SINGH NP Study Date Order Number Procedure 02/09/18 [id number] XR Finger 3rd Digit Middle Rt Signed 3 VIEWS OF THE RIGHT THIRD FINGER Clinical History: Injury, pain Comparison: None 3 views of the right third finger demonstrate bony elements to appear normal. There is no evidence of fracture or dislocation. The surrounding soft tissues are within normal limits IMPRESSION: No acute findings Electronically Signed By: CHLOE PHILLIPS MD 02/09/18 1346 Dictated On: 02/09/18 134 Interpreted By: CHLOE PHILLIPS MD Transcribed On: 02/09/18 1345 - INFCE Views: of the right hand. XRAY today reveals no acute bony injury appreciated on imaging today Findings: Assessment 1. Contusion of right middle finger without damage to nail, initial encounter (923.3) (S60.031A) Plan Closed nondisplaced fracture of phalanx of right middle finger, unspecified phalanx, initial encounter 1. XR Finger 3rd Digit Middle Rt; Status:Complete; Done: 09Feb2018 01:45PM Contusion of right middle finger without damage to nail, initial encounter 2. Continue with our present treatment plan.; Status:Complete; Done: 11Feb2018 09:22PM 3. Your doctor has recommended you yoly tape your injured finger.; Status:Complete; Done: 11Feb2018 09:22PM I have recommended yoly taping to allow for rest. Instructed and demonstrated prior to leaving theoffice. She will follow up in 2 weeks for reevaluation. To Do For Next Visit: xray. School / Work Excuse Samanta Urena may return to work on 02-11-18. Samanta can return with limitations.. Keep fingers yoly taped. Signatures Electronically signed by : Justin Singh APN MEDICAL STENOGRAPHER-BC; Feb 12 2018 5:31PM CIAIO COUNTER MOLDER (Author) documented in this encounter Plan of Treatment Not on file documented as of this encounter Procedures Procedure Name Priority Date/Time Associated Diagnosis Comments XR THIRD FINGER RT 3V Routine 02/23/2018 11:43 AM CDT XR THIRD FINGER RT 3V Routine 02/09/2018 1:45 PM CDT documented in this encounter Results * XR THIRD FINGER RT 3V (02/23/2018 11:43 AM CDT) Anatomical Region Laterality Modality Hand Radiographic Maya ging 02/23/2018 11:4 3 AM CDT 02/23/2018 11:43 AM CDT Narrative 02/23/2018 11:48 AM CDT [facility] [place], [place] ? Patient Name: SAMANTA URENA Date of : 1985 ?? Med Rec #: [id number] ??Age/Sex: 33/F ?Pt. Location: ORTHO ?? Attending Provider: JUSTIN SINGH NP ?? Ordering Provider: JUSTIN SINGH NP ? Study Date Order Number Procedure ?? 02/23/18 [id number] XR Finger 3rd Digit Middle Rt ? Signed ? Date: 02/23/2018 12:00 AM ? Exam: XR Finger 3rd Digit Middle Rt ? Comparison: Right third finger radiography dated 02/09/2019. ? Technique: 3 views of the right third finger. ? History: Follow-up finger fracture. ? Findings: There is no fracture nor dislocation of the right third finger phalanges. There is no arthritis. What is visualized of the distal third metacarpal appears intact. There is a small lucency involving the dorsal base middle phalanx right third finger, but this may represent a nutrient canal. There is no gross soft tissue abnormality. ? Impression: No definite fracture. No change from the prior exam. ? Electronically Signed By: EDWAR ELIZABETH MD 02/23/18 114 ? Dictated On: 02/23/18 114 ?? Interpreted By: EDWAR ELIZABETH MD ?? Transcribed On: 02/23/18 114 - INFCE ?? Procedure Note Mendoza Bird MD - 07/16/[address] Patient Name: SAMANTA URENA Date of : 1985 Med Rec #: [id number] Age/Sex: 33/F Pt. Location: ORTHO Attending Provider: JUSTIN SINGH NP Ordering Provider: JUSTIN SINGH NP Study Date Order Number Procedure 02/23/18 [id number] XR Finger 3rd Digit Middle Rt Signed Date: 02/23/2018 12:00 AM Exam: XR Finger 3rd Digit Middle Rt Comparison: Right third finger radiography dated 02/09/2019. Technique: 3 views of the right third finger. History: Follow-up finger fracture. Findings: There is no fracture nor dislocation of the right third fingerphalanges. There is no arthritis. What is visualized of the distal third metacarpal appearsintact. There is a small lucency involving the dorsal base middle phalanx right third finger, butthis may represent a nutrient canal. There is no gross soft tissue abnormality. Impression: No definite fracture. No change from the prior exam. Electronically Signed By: EDWAR ELIZABETH MD 02/23/18 114 Dictated On: 02/23/181142 Interpreted By: EDWAR ELIZABETH MD Transcribed On: 02/23/18 1143 - INFCE us Justin Singh MEDICAL STENOGRAPHER-BC GENERAL IMAGING Final Resu lt * XR THIRD FINGER RT 3V (02/09/2018 1:45 PM CDT) Anatomical Region Laterality Modality Hand Radiographic Maya ging 02/09/2018 1:45 PM CDT 02/09/2018 1:45 PM CDT Narrative 02/09/2018 1:48 PM CDT [facility] ?? [address] [facility] ?? [place], [place] ? Patient Name: SAMANTA URENA Date of : 1985 ?? Med Rec #: [id number] ??Age/Sex: 33/F ?Pt. Location: ORTHO ?? Attending Provider: JUSTIN SINGH NP ?? Ordering Provider: JUSTIN SINGH NP ? Study Date Order Number Procedure ?? 02/09/18 [id number] XR Finger 3rd Digit Middle Rt ? Signed ? 3 VIEWS OF THE RIGHT THIRD FINGER ? Clinical History: Injury, pain ? Comparison: None ? 3 views of the right third finger demonstrate bony elements to appear normal. There is no evidence of fracture or dislocation. The surrounding soft tissues are within normal limits ? IMPRESSION: ? No acute findings ? Electronically Signed By: CHLOE PHILLIPS MD 02/09/18 0586 ? Dictated On: 02/09/18 1345 ?? Interpreted By: CHLOE PHILLIPS MD ?? Transcribed On: 02/09/18 1345 - INFCE ?? Procedure Note Mendoza Bird MD - 07/16/2018 [place] [id number] [employer] [place], [place] Patient Name: SAMANTA URENA Date of : 1985 Med Rec #: [id number] Age/Sex: 33/F Pt. Location: ORTHO Attending Provider: JUSTIN SINGH NP Ordering Provider: JUSTIN SINGH NP Study Date Order Number Procedure 02/09/18 [id number] XR Finger 3rd Digit Middle Rt Signed 3 VIEWS OF THE RIGHT THIRD FINGER Clinical History: Injury, pain Comparison: None 3 views of the right third finger demonstrate bony elements to appearnormal. There is no evidence of fracture or dislocation. The surrounding soft tissues are within normallimits IMPRESSION: No acute findings Electronically Signed By: CHLOE PHILLIPS MD 02/09/18 1346 Dictated On: 02/09/181344 Interpreted By: CHLOE PHILLIPS MD Transcribed On: 02/09/18 134 - INFCE us Justin Singh MEDICAL STENOGRAPHER-BC GENERAL IMAGING Final Resu lt documented in this encounter Visit Diagnoses Not on filedocumented in this encounter
--- OUTSIDE RECORDS SUMMARY | 2024-04-16 19:12 | XMS_ITS | Encounter Summary ---
Author Organization [facility] Address [facility] [place] [place] [address] [place] [address] Care Team Providers Care Nursing Support Worker Name Role Phone Unavailable Primary Care Provider Unavailabl e Encounter Details Date Type Department Care Team (Late st Contact Info) Description 02/02/2018 Abstract [facility] [address] [facility] [place] [address] Spring Valadez MD [address] [place] [address], [address] [place] [address] Social History Tobacco Use Types Packs/Day Years Used Date Smoking Tobacco: Never Assessed Comments Unknown Sex and Gender Information Value Date Recorded Sex Assigned at Female 11/14/2022 8:06 AM CDT Legal Sex Female 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
--- OUTSIDE RECORDS SUMMARY | 2024-04-16 19:12 | XMS_ITS | Encounter Summary ---
Author Organization [facility] Address [address] [place] [address]. [place], [place] [address] [place] [address] Care Team Providers Care Computer Game Designer Name Role Phone Unavailable Primary Care Provider Unavailabl e Encounter Details Date Type Department Care Team (Late st Contact Info) Description 02/23/2018 Abstract [facility] [address] [place] [address] Alayna Singh, BUILDING SURVEYOR- [address] [facility] [place] [address] Social History Tobacco Use Types Packs/Day Years Used Date Smoking Tobacco: Never Assessed Comments Unknown Sex and Gender Information Value Date Recorded Sex Assigned at Female 11/14/2022 8:06 AM CDT Legal Sex Female 10:12 PM SUPERVISOR 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
--- OUTSIDE RECORDS SUMMARY | 2024-04-16 19:12 | XMS_ITS | Encounter Summary ---
Author Organization [facility] Address [address] [facility]. [place], [place] [address] [place] [address] Care Team Providers Care Heavy Equipment Supervisor Name Role Phone Miko Valentin MD Primary Care Provider [phone] Encounter Details Date Type Department Care Team (Latest Contact Info) Description 03/29/2019 12:10 PM LICENSED PRACTICAL NURSE INSTRUCTOR - 03/29/2019 11:59 PM LICENSED PRACTICAL NURSE INSTRUCTOR Hospital Encounter [facility] [address] [place] [address] Korina Crawford, [address] [phone] Discharge Disposition: Home or Self Care (Routine Discharge) Social History Tobacco Use Types Packs/Day Years Used Date Smoking Tobacco: Never Assessed Comments Unknown Sex and Gender Information Value Date Recorded Sex Assigned at Female 11/14/2022 8:06 AM CDT Legal Sex Female 10:12 PM LICENSED PRACTICAL NURSE INSTRUCTOR Gender Identity Female 11/14/2022 8:06 AM CDT Sexual Orientation Not on file documented as of this encounter Plan of Treatment Not on file documented as of this encounter Procedures Procedure Name Priority Date/Time Associated Diagnosis Comments XR SHOULDER RT MIN 2V Routine 03/29/2019 12:23 PM LICENSED PRACTICAL NURSE INSTRUCTOR Right shoulder pain documented in this encounter Results * XR SHOULDER RT MIN 2V (03/29/2019 12:23 PM LICENSED PRACTICAL NURSE INSTRUCTOR) Anatomical Region Laterality Modality Shoulder Radiographic Maya ging 03/29/2019 12:3 1 PM LICENSED PRACTICAL NURSE INSTRUCTOR Impressions 03/29/2019 12:34 PM LICENSED PRACTICAL NURSE INSTRUCTOR IMPRESSION: 1) No significant radiographic abnormality. Interpreted By: Joaquim Ruiz MD, 03/29/2019 12:31 PM Narrative 03/29/2019 12:34 PM LICENSED PRACTICAL NURSE INSTRUCTOR Examination: XR SHOULDER RT MIN 2V Exam time: 03/29/2019 12:15 PM Clinical history: Right shoulder pain Comparison: 08/08/2016 Technique: Grashey, transscapular and axillary views Findings: No soft tissue abnormality. No fracture or dislocation. Joint spaces are well-maintained. Procedure Note Joaquim Ruiz MD - 03/29/2019 Examination: XR SHOULDER RT MIN 2V Exam time: 03/29/2019 12:15 PM Clinical history: Right shoulder pain Comparison: 08/08/2016 Technique: Grashey, transscapular and axillary views Findings: No soft tissue abnormality. No fracture or dislocation. Joint spaces are well-maintained. IMPRESSION: 1) No significant radiographic abnormality. Interpreted By: Joaquim Ruiz MD, 03/29/2019 12:31 PM Garrett Orona MD GENERAL IMAGING Final Resul t documented in this encounter Visit Diagnoses Diagnosis Right shoulder pain Pain in joint, shoulder region documented in this encounter Care Teams Heavy Equipment Supervisor Relationship Specialty Start Date End Date Miko Valentin MD [address] [place] [phone] PCP - General FAMILY PRACTICE 03/29/19 06/09/21 documented as of this encounter
--- OUTSIDE RECORDS SUMMARY | 2024-04-16 19:12 | XMS_ITS | Encounter Summary ---
Author Organization [facility] Address [facility]. [place], [place] [address] [place] [address] Care Team Providers Care Cage/Vault Supervisor Name Role Phone Unavailable Primary Care Provider Unavailabl e Encounter Details Date Type Department Care Team (Late st Contact Info) Description 02/09/2018 Abstract [facility] Diagnostic [facility] [address] [place] [address] Alayna Singh, OBSERVATION NURSE- [address] [facility] [place] [address] Social History Tobacco Use Types Packs/Day Years Used Date Smoking Tobacco: Never Assessed Comments Unknown Sex and Gender Information Value Date Recorded Sex Assigned at Female 11/14/2022 8:06 AM CDT Legal Sex Female 10:12 PM SLATE MIXER Gender Identity Female 11/14/2022 8:06 AM CDT Sexual Orientation Not on file documented as of this encounter Plan of Treatment Not on file documented as of this encounter Visit Diagnoses Diagnosis Closed fracture of phalanx of right middle finger Closed fracture of middle or proximal phalanx or phalanges of hand documented in this encounter
--- OUTSIDE RECORDS SUMMARY | 2024-04-16 19:12 | XMS_ITS | Encounter Summary ---
Author Organization [facility] Address [facility]. [place], [place] [address] [place] [address] Care Team Providers Care Pigment Supplier Name Role Phone Unavailable Primary Care Provider Unavailabl e Encounter Details Date Type Department Care Team (Late st Contact Info) Description 09/18/2017 Abstract [facility] [address] [facility] [place] [address] Garrett Orona MD [address] [place] [phone] Social History Tobacco Use Types Packs/Day Years Used Date Smoking Tobacco: Never Assessed Comments Unknown Sex and Gender Information Value Date Recorded Sex Assigned at Female 11/14/2022 8:06 AM CDT Legal Sex Female 10: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
--- OUTSIDE RECORDS SUMMARY | 2024-04-16 19:12 | XMS_ITS | Encounter Summary ---
Author Organization [facility] Address [facility]. [place], [place] [address] [place] [address] Care Team Providers Care Director Of Knowledge Management Name Role Phone Miko Valentin MD Primary Care Provider [phone] Garrett Orona MD Primary Care Provider [phone] Encounter Details Date Type Department Care Team (Late st Contact Info) Description 10/03/2018 Abstract [facility] [address] [place] [address] , Generic Conversion, Social History Tobacco Use Types Packs/Day Years Used Date Smoking Tobacco: Never Assessed Comments Unknown Sex and Gender Information Value Date Recorded Sex Assigned at Female 11/14/2022 8:06 AM CDT Legal Sex Female 10:12 PM CALCULATING MACHINE MECHANIC Gender Identity Female 11/14/2022 8:06 AM CDT Sexual Orientation Not on file documented as of this encounter Plan of Treatment Not on file documented as of this encounter Visit Diagnoses Not on filedocumented in this encounter Additional Health Concerns Infection Onset Date Last Indicated Resolved Time COVID-19 Rule Out 06/10/2021 06/10/2021 06/10/2021 9:29 PM CALCULATING MACHINE MECHANIC documented as of this encounter Care Teams Director Of Knowledge Management Relationship Specialty Start Date End Date Miko Valentin MD [address] [place] [phone] PCP - General FAMILY PRACTICE 03/29/19 06/09/21 Garrett Orona MD [address] [place] [phone] PCP - General FAMILY PRACTICE 06/10/21 documented as of this encounter
--- OUTSIDE RECORDS SUMMARY | 2024-04-16 19:12 | XMS_ITS | Encounter Summary ---
Author Organization [facility] Address [facility]. [place], [place] [address] [place] [address] Care Team Providers Care Die Casting Supervisor Name Role Phone Unavailable Primary Care Provider Unavailabl e Encounter Details Date Type Department Care Team (Late st Contact Info) Description 10/08/2017 Abstract [facility] [address] [facility] [place] [address] Miko Valentin MD [address] [place] [phone] Social History Tobacco Use Types Packs/Day Years Used Date Smoking Tobacco: Never Assessed Comments Unknown Sex and Gender Information Value Date Recorded Sex Assigned at Female 11/14/2022 8:06 AM CDT Legal Sex Female 10:12 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
--- OUTSIDE RECORDS SUMMARY | 2024-04-16 19:12 | XMS_ITS | Encounter Summary ---
Author Organization [facility] Address [address] [facility]. [place], [place] [address] [place] [address] Care Team Providers Care Manager E Learning Name Role Phone Unavailable Primary Care Provider Unavailabl e Encounter Details Date Type Department Care Team (Late st Contact Info) Description 02/23/2018 Abstract [facility] [address] [place] [address] Alayna Singh FNP-BC [address] [facility] [place] [place] [address] Social History Tobacco Use Types Packs/Day Years Used Date Smoking Tobacco: Never Assessed Comments Unknown Sex and Gender Information Value Date Recorded Sex Assigned at Female 11/14/2022 8:06 AM CDT Legal Sex Female 10:12 PM 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 History of Present Illness HPI: Patient returns to clinic today for follow up injury to RIGHt 3rd finger. She reports that shehas been keeping her fingers yoly taped and tolerating well. She states that she is still having some pain when she tries to straighten her finger. She states that she is still having some pain but it is better than her last visit. She denies any numbness or tingling. PREVIOUS HISTORY 02-09-18 Patient presents to clinic today for injury to 3rd finger on 02-01-18. Shereports that she smacked the door frame with [...] Active Problems 1. Closed nondisplaced fracture of middle phalanx of right middle finger with routine healing, subsequent encounter (V54.19) (S62.948N) 2. Closed nondisplaced fracture of phalanx of right middle finger, unspecified phalanx, initial encounter (816.00) (S62.602A) 3. Contusion of right middle finger without damage to nail, initial encounter (923.3) (S60.031A) 4. Laceration of right middle finger w/o foreign body w/o damage to nail (883.0) (S61.212A) Past Medical History 1. History of No significant past medical history Surgical History 1. History of myringotomy with tube placement Family History Mother 1. Family history of seizures (V19.8) (Z84.89) 2. Family history of thyroid disease (V18.19) (Z83.49) Social History ? Never a smoker ?? No alcohol use ?? Occupation Current Meds 1. No Reported Medications Recorded Physical Exam Constitutional: alert and in no acute distress. Neurological:. the patient was oriented to person, place, and time. . mood and affect were appropriate.. Eyes: the sclera and conjunctiva were normal. ENT: hearing was normal. Neck: the appearance of the neck was normal. Pulmonary: no respiratory distress. Skin: no injuries or skin lesions on the right upper extremity. Right Hand: EXAM today reveals minimal tenderness with palpation to 3rd middle phalanx, able to make a fist, no swelling, no ecchymosis, no laxity, good capillary refill, NVI Fingernail Results/Data Views: of the right hand. XRAY today reveals no acute bony injury Findings: Assessment 1. Contusion of right middle finger without damage to nail, subsequent encounter (V58.89,923.3) (S60.031D) Plan Contusion of right middle finger without damage to nail, subsequent encounter 1. Continue with our present treatment plan.; Status:Complete; Done: 23Feb2018 10:56AM 2. You may continue or resume your normal level of activity.; Status:Complete; Done: 23Feb2018 10:56AM She is doing better and imaging today does not suggest any fracture. She may discontinue yoly taping. Activity as tolerated. She will follow up as needed. School / Work Excuse Samanta Atkinson may return to work on 02-25-18. Samanta can return without limitations.. Signatures Electronically signed by : ANAYELI Cobb; Feb 23 2018 10:58AM BIOMED[employer] ENGINEERING [employer]NSHIP (Author) documented in this encounter Plan of Treatment Not on file documented as of this encounter Visit Diagnoses Not on filedocumented in this encounter
--- OUTSIDE RECORDS SUMMARY | 2024-04-16 19:12 | XMS_ITS | Encounter Summary ---
Author Organization [facility] Address [facility] [facility] 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 Gender Identity Female 11/14/2022 8:06 AM CDT Sexual Orientation Not on file documented as of this encounter Plan of Treatment Not on file documented as of this encounter Procedures Procedure Name Priority Date/Time Associated Diagnosis Comments URINALYSIS STAT 09/12/2018 8:59 PM CDT COMPREHENSIVE METABOLIC PANEL STAT 09/12/2018 8:45 PM CDT CBC W/DIFF AUTOMATED STAT 09/12/2018 8:45 PM CDT LIPASE STAT 09/12/2018 8:45 PM CDT documented in this encounter Results * (ABNORMAL) URINALYSIS (09/12/2018 8:59 PM CDT) COLOR (U) YELLOW 09/12/2018 9:26 PM CDT [facility] TRANSPARENCY CLEAR 09/12/2018 9:26 PM CDT [facility] SPECIFIC GRAVITY (U) 1.005 1.000 - 1.025 09/12/2018 9:26 PM CDT [facility] Comment:LESS THAN OR EQUAL T O U PH 6.0 5.0 - 8.0 09/12/2018 9:26 PM CDT [facility] LEUKOCYTES (U) NEGATIVE NEGATIVE 09/12/2018 9:26 PM CDT [facility] NITRITES NEGATIVE NEGATIVE 09/12/2018 9:26 PM CDT [facility] PROTEIN (U) NEGATIVE NEGATIVE 09/12/2018 9:26 PM CDT [facility] URINE GLUCOSE NEGATIVE NEGATIVE 09/12/2018 9:26 PM CDT [facility] KETONES MG/DL (U) NEGATIVE NEGATIVE 09/12/2018 9:26 PM CDT [facility] UROBILINOGEN 0.2 <1.0 EU/DL 09/12/2018 9:26 PM CDT [facility] BILIRUBIN (U) NEGATIVE NEGATIVE 09/12/2018 9:26 PM CDT [facility] BLOOD (U) TRACE(A) NEGATIVE 09/12/2018 9:26 PM CDT [facility] WBC/HPF 0-5 0 - 5 /HPF 09/12/2018 9:26 PM CDT [facility] RBC/HPF 0-5 0 - 5 /HPF 09/12/2018 9:26 PM CDT [facility] EPI/HPF FEW /LPF 09/12/2018 9:26 PM CDT [facility] BACTERIA (U) TRACE /HPF 09/12/2018 9:26 PM CDT [facility] 09/12/2018 8:59 PM CDT 09/12/2018 9:14 PM CDT us Generic Conversion Md [facility]BY URINE ORDERABLES Final Result Performing Organization Address City/[facility]/ZIP Co de Phone Number [facility] [address] [place], [place] [address], [place] [phone] * LIPASE (09/12/2018 8:45 PM CDT) LIPASE 89 73 - 393 UNITS/L 09/12/2018 9:07 PM CDT [facility] SERUM OR PLASMA SPECIMEN / Unknown 09/12/2018 8:45 PM CDT 09/12/2018 8:51 PM CDT us Generic Conversion Md [facility] Final R esult Performing Organization Address [facility] Co de Phone Number [facility] [address] [place] [address], [place] [phone] * (ABNORMAL) COMPREHENSIVE METABOLIC PANEL (09/12/2018 8:45 PM CDT) SODIUM S/P/B 138 136 - 145 MMOL/L 09/12/2018 9:07 PM CDT [facility] POTASSIUM S/P/B 3.1(L) 3.5 - 5.1 MMOL/L 09/12/2018 9:07 PM CDT [facility] CHLORIDE S/P/B 102 98 - 107 MMOL/L 09/12/2018 9:07 PM CDT [facility] CO2 26.2 21.0 - 32.0 MMOL/L 09/12/2018 9:07 PM CDT [facility] GLUCOSE 95 70 - 140 MG/DL 09/12/2018 9:07 PM CDT [facility] BUN 7 6 - 24 MG/DL 09/12/2018 9:07 PM CDT [facility] CREATININE S/P/B 0.95 0.55 - 1.02 MG/DL 09/12/2018 9:07 PM CDT [facility] CALCIUM S/P/B 9.1 8.4 - 10.5 MG/DL 09/12/2018 9:07 PM [facility] BILIRUBIN TOTAL S/P/B 0.6 0.2 - 1.0 MG/DL 09/12/2018 9:07 PM [facility] ALKALINE PHOSPHATASE S/P/B 72 37 - 98 U/L 09/12/2018 9:07 PM [facility] AST 14(L) 15 - 37 U/L 09/12/2018 9:07 PM [facility] ALT 17 14 - 59 U/L 09/12/2018 9:07 PM [facility] TOTAL PROTEIN S/P/B 6.9 6.4 - 8.2 G/DL 09/12/2018 9:07 PM [facility] ALBUMIN S/P/B 3.9 3.4 - 5.0 G/DL 09/12/2018 9:07 PM [facility] ANION GAP 9.8 5.0 - 15.0 MMOL/L 09/12/2018 9:07 PM [facility] OSMOLALITY (CALC) 284 MOSM/KG 09/12/2018 9:07 PM [facility] Comment:REFERENCE RANGE NOT ESTABLISHED EGFR NON-AFR. AMER. 79(L) >89 ML/MIN/1 .73 M2 09/12/2018 9:07 PM [facility] EGFR AFR. AMER. >90 >89 ML/MIN/1 .73 M2 09/12/2018 9:07 PM [facility] GFR NOTES THE ESTIMATED GFR IS CALCULATED USING THE 2009 CKD-EPI EQUATION. THE FOLLOWING CATEGORIES FOR GRADING RENAL FUNCTION ARE RECOMMENDED BY THE INTERNATIONAL SOCIETY OF NEPHROLOGY (KDIGO 2012 CLINICAL PRACTICE GUIDELINE). 09/12/2018 9:07 PM [facility] Comment: G1,NORMAL OR HIGH: >89 ml/min/1.73 m2G2,MILDLY DECREASED: 60-89 ml/min/1.73 m2G3A,MILDLY TO MODERATELY DECREASED: 45-59 ml/min/1.73 m2G3B,MODERATELY TO SEVERELY DECREASED: 30-44 ml/min/1.73 m2G4,SEVERELY DECREASED: 15-29 ml/min/1.73 m2G5,KIDNEY FAILURE: <15 ml/min/1.73 m2 PLASMA SPECIMEN / Unknown 09/12/2018 8:45 PM CDT 09/12/2018 8:51 PM CDT us Generic Conversion Md [facility] Final R esult [facility] [address] [place] [address], * (ABNORMAL) CBC W/DIFF AUTOMATED (09/12/2018 8:45 PM CDT) WBC 7.9 4.5 - 10.8 x10'3/uL 09/12/2018 8:54 PM CDT [facility] RBC 4.34 4.10 - 5.40 x10'6/uL 09/12/2018 8:54 PM CDT [facility] HGB 13.2 12.0 - 16.0 G/DL 09/12/2018 8:54 PM CDT [facility] HCT 39.4 36.0 - 47.0 % 09/12/2018 8:54 PM CDT [facility] MCV 90.8 78.0 - 100.0 FL 09/12/2018 8:54 PM CDT [facility] MCH 30.4 27.0 - 31.0 PG 09/12/2018 8:54 PM CDT [facility] MCHC 33.5 33.0 - 36.0 G/DL 09/12/2018 8:54 PM CDT [facility] RDW 12.8 11.5 - 14.5 % 09/12/2018 8:54 PM CDT [facility] PLT 182 150 - 350 x10'3/uL 09/12/2018 8:54 PM CDT [facility] MPV 10.9(H) 7.4 - 10.4 FL 09/12/2018 8:54 PM CDT [facility] DIFFERENTIAL COMMENT NORMAL REFERENCE RANGE NOT ESTABLISHED FOR THE PROPORTIONAL LEUKOCYTE DIFFERENTIAL. 09/12/2018 8:54 PM CDT [facility] SEG NEUTROPHILS 61.8 % 9 8:54 PM CDT [facility] LYMPHOCYTES 28.7 % 09/12/2018 8:54 PM CDT [facility] MONOCYTES 7.6 % 09/12/2018 8:54 PM CDT [facility] EOSINOPHILS 1.1 % 09/12/2018 8:54 PM CDT [facility] BASOPHILS 0.4 % 09/12/2018 8:54 PM CDT [facility] IMMATURE GRANS % 0.4 % 09/13/19 19 8:54 PM CDT [facility] NRBC 0.0 % 09/12/2018 8:54 PM CDT [facility] ABS. NEUTROPHILS 4.89 1.60 - 8.30 x10'3/uL 09/12/2018 8:54 PM CDT [facility] ABS. LYMPHOCYTES 2.27 0.80 - 4.70 x10'3/uL 09/12/2018 8:54 PM CDT [facility] ABS. MONOCYTES 0.60 0.00 - 1.50 x10'3/uL 09/12/2018 8:54 PM CDT [facility] ABS. EOSINOPHILS 0.09 0.00 - 0.40 x10'3/uL 09/12/2018 8:54 PM CDT [facility] ABS. BASOPHILS 0.03 0.00 - 0.20 x10'3/uL 09/12/2018 8:54 PM CDT [facility] ABS. IMMATURE GRANULOCYTES 0.03 0.00 - 0.03 x10'3/uL 09/12/2018 8:54 PM CDT [facility] ABS. NUCLEATED RBC'S 0.00 0.00 x10'3/uL 09/12/2018 8:54 PM CDT [facility] OTHER (type in comments) 09/12/2018 8:45 PM CDT 09/12/2018 8:51 PM CDT Comment:WHOLE BLOOD SAMPLE us Generic Conversion Md [facility] Final R esult [facility] [address] [place] [address], documented in this encounter Visit Diagnoses Not on filedocumented in this encounter
--- OUTSIDE RECORDS SUMMARY | 2024-04-16 19:13 | XMS_ITS | Encounter Summary ---
Author Organization [facility] Address [address] [place] [address]. 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
--- OUTSIDE RECORDS SUMMARY | 2024-04-16 19:13 | XMS_ITS | Encounter Summary ---
Author Organization [facility] Address [address] [place] [address]. [place], [place] [address] [place] [address] Care Team Providers Care Resource Analyst Name Role Phone Unavailable Primary Care Provider Unavailabl e Encounter Details Date Type Department Care Team (Late st Contact Info) Description 08/08/2016 Abstract [facility] [address] [place] [address] Miko Valentin MD [address] [place] [phone] Social History Tobacco Use Types Packs/Day Years Used Date Smoking Tobacco: Never Assessed Comments Unknown Sex and Gender Information Value Date Recorded Sex Assigned at Female 11/14/2022 8:06 AM CDT Legal Sex Female 10:12 PM BUTCHER 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
--- OUTSIDE RECORDS SUMMARY | 2024-04-16 19:14 | XMS_ITS | Encounter Summary ---
Author Organization [facility] Address [address] [place] [address]. 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
--- OUTSIDE RECORDS SUMMARY | 2024-04-16 19:14 | XMS_ITS | Encounter Summary ---
Author Organization [facility] Address [address] [place] [address]. [place] [address] [place] [address] Care Team Providers Care Watch Crystal Grinder Name Role Phone Unavailable Primary Care Provider Unavailabl e Encounter Details Date Type Department Care Team (Late st Contact Info) Description 10/31/2015 Abstract [facility] [address] [facility] [place] [address] Renato Contreras MD [address] [place] [address] Social History Tobacco Use Types Packs/Day Years Used Date Smoking Tobacco: Never Assessed Comments Unknown Sex and Gender Information Value Date Recorded Sex Assigned at Female 11/14/2022 8:06 AM CDT Legal Sex Female 10:12 PM SPACE PLANNER Gender Identity Female 11/14/2022 8:06 AM CDT Sexual Orientation Not on file documented as of this encounter Plan of Treatment Not on file documented as of this encounter Visit Diagnoses Diagnosis Chronic sinusitis Unspecified sinusitis (chronic) documented in this encounter
--- OUTSIDE RECORDS SUMMARY | 2024-04-16 19:14 | XMS_ITS | Encounter Summary ---
Author Organization [facility] Address [facility] [facility]. 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 Location: CT Attending Provider: ASHOK BROWN MD Ordering Provider: MARIO BOO MD Study Date Order Number Procedure 07/04/14 [id number] CT Abdomen Pelvis W Signed Examination: CT of the abdomen and pelvis with contrast. Exam time: 1651 hours. Clinical history: Right lower quadrant pain and tenderness. Comparison: 06/29/2014. Technique: Following the administration of oral and intravenous contrast, spiral scanning was performed through the abdomen and pelvis. Coronal and sagittal reconstructions were performed from the data set. Findings: The lung bases are clear. No pleural effusions are seen. Incidental splenules remain evident. The liver, spleen, gallbladder, pancreas, adrenals and kidneys appear unchanged and unremarkable. The urinary bladder is nondistended. Allowing for bolus timing, the uterus appears unremarkable. Right ovarian follicle is noted. There is a minimal amount of free fluid in the pelvis, within normal limits for age and gender. A normal-appearing appendix is visible. There is no localized fluid collection, lymphadenopathy, bowel distention or sign of pericolic or perienteric inflammation. The caliber of the abdominal aorta is normal. Tiny fat-containing umbilical hernia is noted. IMPRESSION: 1. No acute intra-abdominal or intrapelvic process identified. 2. Incidental splenules. 3. Minimal amount of free fluid in the pelvis, within normal limits for age and gender. 4. Tiny fat-containing umbilical hernia. Electronically Signed By: ROWDY WIGGINS MD 07/04/141707 Dictated On: 07/04/141703 Interpreted By: ROWDY WIGGINS MD Transcribed On: 07/04/141703 - INFCE US Pelvis Non OB Comp 30Jun2014 01:34PM Mario Boo Test Name Result Flag Reference US Pelvis Non OB Comp (Report) [address] Patient Name: SAMANTA HAYES Date of : 1985 Med Rec #: [id number] Age/Sex: 29/F Pt. Location: [facility] Attending Provider: ASHOK BROWN MD Ordering Provider: MARIO BOO MD Study Date Order Number Procedure 06/30/14 [id number] US Pelvis Non OB Complete Signed Examination: Transabdominal and transvaginal pelvic ultrasound. Exam time: 1136 hours. Clinical history: Right-sided pain. Comparison: 08/06/2006. Technique: Grayscale and color Doppler images including spectral analysis. Endovaginal scanning was performed to better visualize the endometrium and the adnexa. Findings: The uterus measures 8.6 cm in length. No myometrial abnormality is identified. Endometrial stripe thickness is 8 mm. Both ovaries are identified. The right ovary measures 3.6 cm in greatest dimension. The left ovary measures 3.1 cm in greatest dimension. Flow to both ovaries is documented on color Doppler with normal appearing spectra. A few follicles are present. There is no adnexal mass. There is a tiny amount of free fluid, within normal limits. IMPRESSION: Unremarkable. Electronically Signed By: ROWDY WIGGINS MD 06/30/14 133 Dictated On: 06/30/141333 Interpreted By: ROWDY WIGGINS MD Transcribed On: 06/30/141333 - INFCE US Transvaginal Non OB 30Jun2014 01:34PM Mario Boo Test Name Result Flag Reference US Transvaginal Non OB (Report) [address] Patient Name: SAMANTA HAYES Date of : 1985 Med Rec #: [id number] Age/Sex: 29/F Pt. Location: [facility] Attending Provider: ASHOK BROWN MD Ordering Provider: MARIO BOO MD Study Date Order Number Procedure 06/30/14 [id number] US Pelvis Non OB Complete Signed Examination: Transabdominal and transvaginal pelvic ultrasound. Exam time: 1136 hours. Clinical history: Right-sided pain. Comparison: 08/06/2006. Technique: Grayscale and color Doppler images including spectral analysis. Endovaginal scanning was performed to better visualize the endometrium and the adnexa. Findings: The uterus measures 8.6 cm in length. No myometrial abnormality is identified. Endometrial stripe thickness is 8 mm. Both ovaries are identified. The right ovary measures 3.6 cm in greatest dimension. The left ovary measures 3.1 cm in greatest dimension. Flow to both ovaries is documented on color Doppler with normal appearing spectra. A few follicles are present. There is no adnexal mass. There is a tiny amount of free fluid, within normal limits. IMPRESSION: Unremarkable. Electronically Signed By: ROWDY WIGGISN MD 06/30/14 133 Dictated On: 06/30/141333 Interpreted By: ROWDY WIGGINS MD Transcribed On: 06/30/14 1334 - INFCE documented in this encounter Plan of Treatment Not on file documented as of this encounter Visit Diagnoses Not on filedocumented in this encounter
--- OUTSIDE RECORDS SUMMARY | 2024-04-16 19:14 | XMS_ITS | Encounter Summary ---
Author Organization [facility] Address [address] [place] [address]. 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 Abdominal pain (789.00) (R10.9) Family History Mother 1. Family history of seizures (V19.8) (Z84.89) 2. Family history of thyroid disease (V18.19) (Z83.49) Father 3. Family history of diabetes mellitus (V18.0) (Z83.3) Social History ?? Former smoker (V15.82) (Z87.891) Current Meds 1. No Reported Medications Recorded JACEY = N; Record; Last Updated By: Romulo Gaspar; 07/04/2014 2:23:53 PM Allergies 1. No Known Drug Allergies Recorded By: Romulo Gaspar; 07/04/2014 2:23:53 PM Assessment 1. Abdominal pain (789.00) (R10.9) Discussion/Summary Discussion Summary Free Text: CT scan reviewed with radiologist. No any acute surgical pathology at present time. Patient advisedto take Advil as needed. She need to follow up with hand packer. Signatures Electronically signed by : Narayan Castillo M.D.; Jul 06 2014 3:07PM CERTIFIED LACTATION COUNSELOR (Author) documented in this encounter Plan of Treatment Not on file documented as of this encounter Visit Diagnoses Not on filedocumented in this encounter
--- OUTSIDE RECORDS SUMMARY | 2024-04-16 19:15 | XMS_ITS | Encounter Summary ---
Author Organization [facility] Address [facility]. [place], [place] [address] [place] [address] Care Team Providers Care Floor Specialist Name Role Phone Unavailable Primary Care Provider Unavailabl e Encounter Details Date Type Department Care Team (Latest Contact Info) Description 06/30/2014 Abstract [facility] Mario Boo MD Social History Tobacco Use Types Packs/Day Years Used Date Smoking Tobacco: Never Assessed Comments Unknown Sex and Gender Information Value Date Recorded Sex Assigned at Female 11/14/2022 8:06 AM CDT Legal Sex Female 10:12 PM CONTENT DEVELOPMENT SPECIALIST Gender Identity Female 11/14/2022 8:06 AM CDT Sexual Orientation Not on file documented as of this encounter Plan of Treatment Not on file documented as of this encounter Procedures Procedure Name Priority Date/Time Associated Diagnosis Comments ULTRASOUND GENERIC (SCAN ORDER) Routine 06/30/2014 1:34 PM CONTENT DEVELOPMENT SPECIALIST documented in this encounter Results * ULTRASOUND GENERIC (06/30/2014 1:34 PM CONTENT DEVELOPMENT SPECIALIST) Anatomical Region Laterality Modality Other 06/30/2014 1:34 PM CONTENT DEVELOPMENT SPECIALIST 06/30/2014 1:34 PM CONTENT DEVELOPMENT SPECIALIST Narrative 06/30/2014 1:38 PM CONTENT DEVELOPMENT SPECIALIST [facility] [place], [place] ? Patient Name: SAMANTA HAYES Date of : 1985 ?? Med Rec #: [id number] ??Age/Sex: 29/F ?Pt. Location: 3RD ?? Attending Provider: ASHOK BROWN MD ?? Ordering Provider: MARIO BOO MD ? Study Date Order Number Procedure ?? 06/30/14 [id number] US Pelvis Non OB Complete ? Signed ? Examination: Transabdominal and transvaginal pelvic ultrasound. ? Exam time: 1136 hours. ? Clinical history: Right-sided pain. ? Comparison: 08/06/2006. ? Technique: Grayscale and color Doppler images including spectral analysis. Endovaginal ?? scanning was performed to better visualize the endometrium and the adnexa. ? Findings: The uterus measures 8.6 cm in length. No myometrial abnormality is identified. ?? Endometrial stripe thickness is 8 mm. Both ovaries are identified. The right ovary measures ?? 3.6 cm in greatest dimension. The left ovary measures 3.1 cm in greatest dimension. Flow to ?? both ovaries is documented on color Doppler with normal appearing spectra. A few follicles are ?? present. There is no adnexal mass. There is a tiny amount of free fluid, within normal limits. ? IMPRESSION: ?? Unremarkable. ? Electronically Signed By: ROWDY WIGGINS MD 06/30/14 1333 ? Dictated On: 06/30/14 1334 ?? Interpreted By: ROWDY WIGGINS MD ?? Transcribed On: 06/30/14 1334 - INFCE ?? Procedure Note Mendoza Bird MD - 02/19/[address] Patient Name: SAMANTA HAYES Date of : 1985 Med Rec #: [id number] Age/Sex: 29/F Pt. Location: 3RD Attending Provider: ASHOK BROWN MD Ordering Provider: MARIO BOO MD Study Date Order Number Procedure 06/30/14 [id number] US Pelvis Non OB Complete Signed Examination: Transabdominal and transvaginal pelvic ultrasound. Exam time: 1136 hours. Clinical history: Right-sided pain. Comparison: 08/06/2006. Technique: Grayscale and color Doppler images including spectralanalysis. Endovaginal scanning was performed to better visualize the endometrium and theadnexa. Findings: The uterus measures 8.6 cm in length. No myometrial abnormalityis identified. Endometrial stripe thickness is 8 mm. Both ovaries are identified. Theright ovary measures 3.6 cm in greatest dimension. The left ovary measures 3.1 cm in greatestdimension. Flow to both ovaries is documented on color Doppler with normal appearingspectra. A few follicles are present. There is no adnexal mass. There is a tiny amount of free fluid,within normal limits. IMPRESSION: Unremarkable. Electronically Signed By: ROWDY WIGGINS MD 06/30/14 1339 Dictated On: 06/30/14 1334 Interpreted By: ROWDY WIGGINS MD Transcribed On: 06/30/14 1334 - INFCE Mario Boo MD SCANNING Fin al Result documented in this encounter Visit Diagnoses Not on filedocumented in this encounter
--- OUTSIDE RECORDS SUMMARY | 2024-04-16 19:15 | XMS_ITS | Encounter Summary ---
Author Organization [facility] Address [address] [place] [address]. [place], [place] [address] [place] [address] Care Team Providers Care Kelp Or Seagrass Gatherer Name Role Phone Unavailable Primary Care Provider Unavailabl e Encounter Details Date Type Department Care Team (Late st Contact Info) Description 04/29/2007 Abstract [facility] [address] [place] [address] Carlos Thayer MD [address], [place] [address] Social History Tobacco Use Types Packs/Day Years Used Date Smoking Tobacco: Never Assessed Comments Unknown Sex and Gender Information Value Date Recorded Sex Assigned at Female 11/14/2022 8:06 AM CDT Legal Sex Female 10:12 PM PANTS 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
--- OUTSIDE RECORDS SUMMARY | 2024-04-16 19:15 | XMS_ITS | Encounter Summary ---
Author Organization [facility] Address [address] [place] [address]. 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 Consultation Dr. Castillo. Procedures None. Brief History and Positive Physical Findings A 29-year-old white female presented to the office with a 2-day history of right lower quadrant pain. Exam revealed tenderness in the right adnexa, it was quite painful to her, and she was subsequently admitted to the hospital for further evaluation. Hospital Course and Treatment She underwent a CBC, which was normal. CMP was normal. Urine test was negative. Urinalysis was unremarkable. CT of the abdomen was normal, and ultrasound of the abdomen was unremarkable. She had a consultation with Dr. Castillo, who agreed with conservative management, and she improved on this regimen and was discharged in improved and stable condition on the June 30, 2014, on ibuprofen. CPP/ams CPP/ams E-Signed By A Miko Valentin MD 07/02/2014 07:55 A A #[id number] cc: MD Miko Clarke MD documented in this encounter Plan of Treatment Not on file documented as of this encounter Visit Diagnoses Not on filedocumented in this encounter
--- OUTSIDE RECORDS SUMMARY | 2024-04-16 19:15 | XMS_ITS | Encounter Summary ---
Author Organization [facility] Address [facility]. 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 [facility] ?? [place], [place] ? Patient Name: SAMANTA HAYES Date of : 1985 ?? [facility] Rec #: [id number] ??Age/Sex: 29/F ?Pt. Location: CT ?? Attending Provider: ASHOK BROWN MD ?? Ordering Provider: MARIO BOO MD ? Study Date Order Number Procedure ?? 07/04/14 [id number] CT Abdomen Pelvis W ? Signed ? Examination: CT of the abdomen and pelvis with contrast. ? Exam time: 1651 hours. ? Clinical history: Right lower quadrant pain and tenderness. ? Comparison: 06/29/2014. ? Technique: Following the administration of oral and intravenous contrast, spiral scanning was ?? performed through the abdomen and pelvis. Coronal and sagittal reconstructions were performed ?? from the data set. ? Findings: The lung bases are clear. No pleural effusions are seen. Incidental splenules remain ?? evident. The liver, spleen, gallbladder, pancreas, adrenals and kidneys appear unchanged and ?? unremarkable. The urinary bladder is nondistended. Allowing for bolus timing, the uterus ?? appears unremarkable. Right ovarian follicle is noted. There is a minimal amount of free fluid ?? in the pelvis, within normal limits for age and gender. A normal-appearing appendix is ?? visible. There is no localized fluid collection, lymphadenopathy, bowel distention or sign of ?? pericolic or perienteric inflammation. The caliber of the abdominal aorta is normal. Tiny ?? fat-containing umbilical hernia is noted. ? IMPRESSION: ? 1. No acute intra-abdominal or intrapelvic process identified. ?? 2. Incidental splenules. ?? 3. Minimal amount of free fluid in the pelvis, within normal limits for age and gender. ?? 4. Tiny fat-containing umbilical hernia. ? Electronically Signed By: ROWDY WIGGINS MD 07/04/141707 ? Dictated On: 07/04/141703 ?? Interpreted By: ROWDY WIGGINS MD ?? Transcribed On: 03/09/15 1704 - INFCE ?? Procedure Note Mendoza Bird MD - 02/19/[address] Patient Name: SAMANTA HAYES Date of : 1985 Med Rec #: [id number] Age/Sex: 29/F Pt. Location: CT Attending Provider: ASHOK BROWN MD Ordering Provider: MARIO BOO MD Study Date Order Number Procedure 07/04/14 [id number] CT Abdomen Pelvis W Signed Examination: CT of the abdomen and pelvis with contrast. Exam time: 1651 hours. Clinical history: Right lower quadrant pain and tenderness. Comparison: 06/29/2014. Technique: Following the administration of oral and intravenous contrast,spiral scanning was performed through the abdomen and pelvis. Coronal and sagittalreconstructions were performed from the data set. Findings: The lung bases are clear. No pleural effusions are seen.Incidental splenules remain evident. The liver, spleen, gallbladder, pancreas, adrenals and kidneysappear unchanged and unremarkable. The urinary bladder is nondistended. Allowing for bolustiming, the uterus appears unremarkable. Right ovarian follicle is noted. There is a minimalamount of free fluid in the pelvis, within normal limits for age and gender. Anormal-appearing appendix is visible. There is no localized fluid collection, lymphadenopathy, boweldistention or sign of pericolic or perienteric inflammation. The caliber of the abdominal aortais normal. Tiny fat-containing umbilical hernia is noted. IMPRESSION: 1. No acute intra-abdominal or intrapelvic process identified. 2. Incidental splenules. 3. Minimal amount of free fluid in the pelvis, within normal limits forage and gender. 4. Tiny fat-containing umbilical hernia. Electronically Signed By: ROWDY WIGGINS MD 07/04/141707 Dictated On: 07/04/141703 Interpreted By: ROWDY WIGGINS MD Transcribed On: 07/04/141703 - INFCE us Mario Boo MD CT Fin al Result documented in this encounter Visit Diagnoses Not on filedocumented in this encounter
--- OUTSIDE RECORDS SUMMARY | 2024-04-16 19:15 | XMS_ITS | Encounter Summary ---
Author Organization [facility] Address [address] [place] [address]. [place], [place] [address] [place] [address] Care Team Providers Care Christian Science Practitioner Name Role Phone Unavailable Primary Care Provider Unavailabl e Encounter Details Date Type Department Care Team (Late st Contact Info) Description 06/22/[address] [facility] [address] [place] [address] Emigdio Caruso, PA [address] [place] [address] Social History Tobacco Use Types Packs/Day Years Used Date Smoking Tobacco: Never Assessed Comments Unknown Sex and Gender Information Value Date Recorded Sex Assigned at Female 11/14/2022 8:06 AM CDT Legal Sex Female 10:12 PM PERIODONTAL ASSISTANT Gender Identity Female 11/14/2022 8:06 AM CDT Sexual Orientation Not on file documented as of this encounter Plan of Treatment Not on file documented as of this encounter Visit Diagnoses Diagnosis Abdominal pain Abdominal pain, unspecified site documented in this encounter
--- OUTSIDE RECORDS SUMMARY | 2024-04-16 19:15 | XMS_ITS | Encounter Summary ---
Author Organization [facility] Address [address] [place] [address]. [place] [address] [place] [address] Care Team Providers Care Refractory Products Supervisor Name Role Phone Unavailable Primary Care Provider Unavailabl e Encounter Details Date Type Department Care Team (Late st Contact Info) Description 12/13/[address] 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
--- OUTSIDE RECORDS SUMMARY | 2024-04-16 19:15 | XMS_ITS | Encounter Summary ---
Author Organization [facility] Address [address] [place] [address]. [place] [address] [place] [address] Care Team Providers Care Sock Knitter Name Role Phone Unavailable Primary Care Provider Unavailabl e Encounter Details Date Type Department Care Team (Late st Contact Info) Description 07/06/2011 Abstract [facility] [facility] [address] [facility] [place] [address] Renato Singh MD [address] [address] Social History Tobacco Use Types Packs/Day Years Used Date Smoking Tobacco: Never Assessed Comments Unknown Sex and Gender Information Value Date Recorded Sex Assigned at Female 11/14/2022 8:06 AM CDT Legal Sex Female 10:12 PM PASSPORT SUPPORT ASSOCIATE Gender Identity Female 11/14/2022 8:06 AM CDT Sexual Orientation Not on file documented as of this encounter Plan of Treatment Not on file documented as of this encounter Visit Diagnoses Diagnosis Headache documented in this encounter
--- OUTSIDE RECORDS SUMMARY | 2024-04-16 19:15 | XMS_ITS | Encounter Summary ---
Author Organization [facility] Address [address] [place] [address]. [place], [place] [address] [place] [address] Care Team Providers Care Machine Folder Name Role Phone Unavailable Primary Care Provider Unavailabl e Encounter Details Date Type Department Care Team (Late st Contact Info) Description 12/31/2007 Abstract [facility] [address] [place] [address] Leandro Jerez MD [address] [place] [address] Social History Tobacco Use Types Packs/Day Years Used Date Smoking Tobacco: Never Assessed Comments Unknown Sex and Gender Information Value Date Recorded Sex Assigned at Female 11/14/2022 8:06 AM CDT Legal Sex Female 10:12 PM HAM STRINGER Gender Identity Female 11/14/2022 8:06 AM CDT Sexual Orientation Not on file documented as of this encounter Plan of Treatment Not on file documented as of this encounter Visit Diagnoses Not on filedocumented in this encounter
--- OUTSIDE RECORDS SUMMARY | 2024-04-16 19:15 | XMS_ITS | Encounter Summary ---
Author Organization [facility] Address [address] [place] [address]. [place] [address] [place] [address] Care Team Providers Care Refinery Operator Vapor Recovery Unit Name Role Phone Unavailable Primary Care Provider Unavailabl e Encounter Details Date Type Department Care Team (Late st Contact Info) Description 12/16/[address] [facility] [address] [place] [address] Maulik Merino MD [address] [place] [address] Social History Tobacco Use Types Packs/Day Years Used Date Smoking Tobacco: Never Assessed Comments Unknown Sex and Gender Information Value Date Recorded Sex Assigned at Female 11/14/2022 8:06 AM CDT Legal Sex Female 10:12 PM SOLID WASTE TECHNICIAN Gender Identity Female 11/14/2022 8:06 AM CDT Sexual Orientation Not on file documented as of this encounter Plan of Treatment Not on file documented as of this encounter Visit Diagnoses Diagnosis Other complication of , antepartum (HHS/HCC) documented in this encounter
--- OUTSIDE RECORDS SUMMARY | 2024-04-16 19:15 | XMS_ITS | Encounter Summary ---
Author Organization [facility] Address [address] [place] [address]. [place] [address] [place] [address] Care Team Providers Care Aerobics Instructor Name Role Phone Unavailable Primary Care Provider Unavailabl e Encounter Details Date Type Department Care Team (Late st Contact Info) Description 11/29/[address] [facility] [address] [place] [address] Maulik Merino MD [address] [place] [address] Social History Tobacco Use Types Packs/Day Years Used Date Smoking Tobacco: Never Assessed Comments Unknown Sex and Gender Information Value Date Recorded Sex Assigned at Female 11/14/2022 8:06 AM CDT Legal Sex Female 10:12 PM INFANT NANNY Gender Identity Female 11/14/2022 8:06 AM CDT Sexual Orientation Not on file documented as of this encounter Plan of Treatment Not on file documented as of this encounter Visit Diagnoses Diagnosis Other complication of , antepartum (HHS/HCC) documented in this encounter
--- OUTSIDE RECORDS SUMMARY | 2024-04-16 19:15 | XMS_ITS | Encounter Summary ---
Author Organization [facility] Address [address] [place] [address]. [place] [address] [place] [address] Care Team Providers Care Distribution Associate Name Role Phone Unavailable Primary Care Provider Unavailabl e Encounter Details Date Type Department Care Team (Late st Contact Info) Description 04/29/2008 Abstract [facility] [address] [place] [address] Maulik Merino MD [address] [place] [address] Social History Tobacco Use Types Packs/Day Years Used Date Smoking Tobacco: Never Assessed Comments Unknown Sex and Gender Information Value Date Recorded Sex Assigned at Female 11/14/2022 8:06 AM CDT Legal Sex Female 10:12 PM BLAST FURNACE CHECKER Gender Identity Female 11/14/2022 8:06 AM CDT Sexual Orientation Not on file documented as of this encounter Plan of Treatment Not on file documented as of this encounter Visit Diagnoses Not on filedocumented in this encounter
--- OUTSIDE RECORDS SUMMARY | 2024-04-16 19:15 | XMS_ITS | Encounter Summary ---
Author Organization [facility] Address [address] [place] [address]. [place], [place] [address] [place] [address] Care Team Providers Care Cotton Ginner Name Role Phone Unavailable Primary Care Provider Unavailabl e Encounter Details Date Type Department Care Team (Late st Contact Info) Description 06/29/2008 Abstract [facility] [address] [facility] [place] [address] Carlos Thayer MD [address], [place] [address] Social History Tobacco Use Types Packs/Day Years Used Date Smoking Tobacco: Never Assessed Comments Unknown Sex and Gender Information Value Date Recorded Sex Assigned at Female 11/14/2022 8:06 AM CDT Legal Sex Female 10:12 PM TREASURY ASSOCIATE Gender Identity Female 11/14/2022 8:06 AM CDT Sexual Orientation Not on file documented as of this encounter Plan of Treatment Not on file documented as of this encounter Visit Diagnoses Diagnosis Nausea without vomiting documented in this encounter
--- OUTSIDE RECORDS SUMMARY | 2024-04-16 19:15 | XMS_ITS | Encounter Summary ---
Author Organization [facility] Address [address] [place] [address]. [place], [place] [address] [place] [address] Care Team Providers Care Medical Biller/Coder Name Role Phone Unavailable Primary Care Provider Unavailabl e Encounter Details Date Type Department Care Team (Late st Contact Info) Description 03/22/[address] [facility] [address] [place] [address] Garrett Orona MD [address] [place] [phone] Social History Tobacco Use Types Packs/Day Years Used Date Smoking Tobacco: Never Assessed Comments Unknown Sex and Gender Information Value Date Recorded Sex Assigned at Female 11/14/2022 8:06 AM CDT Legal Sex Female 10:12 PM CLIPPER OPERATOR Gender Identity Female 11/14/2022 8:06 AM CDT Sexual Orientation Not on file documented as of this encounter Plan of Treatment Not on file documented as of this encounter Visit Diagnoses Diagnosis Pain in joint, lower leg documented in this encounter
--- OUTSIDE RECORDS SUMMARY | 2024-04-16 19:15 | XMS_ITS | Encounter Summary ---
Author Organization [facility] Address Formerly [facility]. [place], [place] [address] [place] [address] Care Team Providers Care Change House Attendant Name Role Phone Unavailable Primary Care Provider Unavailabl e Encounter Details Date Type Department Care Team (Latest Contact Info) Description 06/30/2014 Abstract [facility] Mario Boo MD Social History Tobacco Use Types Packs/Day Years Used Date Smoking Tobacco: Never Assessed Comments Unknown Sex and Gender Information Value Date Recorded Sex Assigned at Female 11/14/2022 8:06 AM CDT Legal Sex Female 10:12 PM FINANCE PROFESSIONAL Gender Identity Female 11/14/2022 8:06 AM CDT Sexual Orientation Not on file documented as of this encounter Plan of Treatment Not on file documented as of this encounter Procedures Procedure Name Priority Date/Time Associated Diagnosis Comments ULTRASOUND GENERIC (SCAN ORDER) Routine 06/30/2014 1:34 PM FINANCE PROFESSIONAL documented in this encounter Results * ULTRASOUND GENERIC (06/30/2014 1:34 PM FINANCE PROFESSIONAL) Anatomical Region Laterality Modality Other 06/30/2014 1:34 PM FINANCE PROFESSIONAL 06/30/2014 1:34 PM FINANCE PROFESSIONAL Narrative 06/30/2014 1:38 PM FINANCE PROFESSIONAL [facility] ?? [email or web address] ?? [place], [place] ? Patient Name: SAMANTA HAYES Date of : 1985 ?? Med Rec #: [id number] ??Age/Sex: 29/F ?Pt. Location: 3RD ?? Attending Provider: ASHOK BROWN MD ?? Ordering Provider: MARIO BOO MD ? Study Date Order Number Procedure ?? 06/30/14 [id number] US Pelvis Non OB Complete ? Signed [...] Signed By: ROWDY WIGGINS MD 06/30/14 1339 ? Dictated On: 06/30/14 1334 ?? Interpreted By: ROWDY WIGGINS MD ?? Transcribed On: 06/30/14 1334 - INFCE ?? Procedure Note Mendoza Bird MD - 02/19/[address] Patient Name: SAMANTA HAYES Date of : 1985 Med Rec #: [id number] Age/Sex: 29/F Pt. Location: 3RD Attending Provider: ASHOK BROWN MD Ordering Provider: MARIO BOO MD Study Date Order Number Procedure 06/30/14 [id number] US Pelvis Non OB Complete Signed Examination: [...] Electronically Signed By: ROWDY WIGGINS MD 06/30/14 1336 Dictated On: 06/30/14 1334 Interpreted By: ROWDY WIGGINS MD Transcribed On: 06/30/14 1334 - INFCE Mario Boo MD SCANNING Fin al Result documented in this encounter Visit Diagnoses Not on filedocumented in this encounter
--- OUTSIDE RECORDS SUMMARY | 2024-04-16 19:15 | XMS_ITS | Encounter Summary ---
Author Organization [facility] Address [address] [place] [address]. [place], [place] [address] [place] [address] Care Team Providers Care Correctional Probation Officer Name Role Phone Unavailable Primary Care Provider Unavailabl e Encounter Details Date Type Department Care Team (Late st Contact Info) Description 10/09/2007 Abstract [facility] [address] [facility] [place] [address] Social History Tobacco Use Types Packs/Day Years Used Date Smoking Tobacco: Never Assessed Comments Unknown Sex and Gender Information Value Date Recorded Sex Assigned at Female 11/14/2022 8:06 AM CDT Legal Sex Female 10:12 PM SHOT HOLE SHOOTER Gender Identity Female 11/14/2022 8:06 AM CDT Sexual Orientation Not on file documented as of this encounter Plan of Treatment Not on file documented as of this encounter Visit Diagnoses Not on filedocumented in this encounter
--- OUTSIDE RECORDS SUMMARY | 2024-04-16 19:15 | XMS_ITS | Encounter Summary ---
Author Organization [facility] Address [address] [place] [address]. [place], [place] [address] [place] [address] Care Team Providers Care Painter And Decorator Apprentice Name Role Phone Unavailable Primary Care Provider Unavailabl e Encounter Details Date Type Department Care Team (Late st Contact Info) Description 06/29/2014 Abstract [facility] [address] [place] [address] Miko Valentin MD [address] [place] [phone] Social History Tobacco Use Types Packs/Day Years Used Date Smoking Tobacco: Never Assessed Comments Unknown Sex and Gender Information Value Date Recorded Sex Assigned at Female 11/14/2022 8:06 AM CDT Legal Sex Female 10:12 PM COLLAR SEPARATOR Gender Identity Female 11/14/2022 8:06 AM CDT Sexual Orientation Not on file documented as of this encounter Plan of Treatment Not on file documented as of this encounter Visit Diagnoses Diagnosis Abdominal pain, right lower quadrant documented in this encounter
--- OUTSIDE RECORDS SUMMARY | 2024-04-16 19:15 | XMS_ITS | Encounter Summary ---
Author Organization [facility] Address [address] [place] [address]. [place], [place] [address] [place] [address] Care Team Providers Care Conference Translator Name Role Phone Unavailable Primary Care Provider Unavailabl e Encounter Details Date Type Department Care Team (Late st Contact Info) Description 01/05/2008 Abstract [facility] [address] [place] [address] Leandro Jerez MD [address] [place] [address] Social History Tobacco Use Types Packs/Day Years Used Date Smoking Tobacco: Never Assessed Comments Unknown Sex and Gender Information Value Date Recorded Sex Assigned at Female 11/14/2022 8:06 AM CDT Legal Sex Female 10:12 PM CO TEACHER Gender Identity Female 11/14/2022 8:06 AM CDT Sexual Orientation Not on file documented as of this encounter Plan of Treatment Not on file documented as of this encounter Visit Diagnoses Not on filedocumented in this encounter
--- OUTSIDE RECORDS SUMMARY | 2024-04-16 19:15 | XMS_ITS | Encounter Summary ---
Author Organization [facility] Address [address] [place] [address]. [place] [address] [place] [address] Care Team Providers Care Radiator Mechanic Name Role Phone Unavailable Primary Care Provider Unavailabl e Encounter Details Date Type Department Care Team (Late st Contact Info) Description 12/09/[address] [facility] [address] [place] [address] Maulik Merino MD [address] [facility] [place] [address] Social History Tobacco Use Types Packs/Day Years Used Date Smoking Tobacco: Never Assessed Comments Unknown Sex and Gender Information Value Date Recorded Sex Assigned at Female 11/14/2022 8:06 AM CDT Legal Sex Female 10:12 PM HUB CUTTER APPRENTICE Gender Identity Female 11/14/2022 8:06 AM CDT Sexual Orientation Not on file documented as of this encounter Plan of Treatment Not on file documented as of this encounter Visit Diagnoses Diagnosis Antepartum hemorrhage, antepartum (HHS/HCC) Unspecified antepartum hemorrhage, antepartum documented in this encounter
--- OUTSIDE RECORDS SUMMARY | 2024-04-16 19:15 | XMS_ITS | Encounter Summary ---
Author Organization [facility] Address [address] [place] [address]. [place] [address] [place] [address] Care Team Providers Care Shearer Screen Measurer And Trimmer Name Role Phone Unavailable Primary Care Provider Unavailabl e Encounter Details Date Type Department Care Team (Late st Contact Info) Description 12/21/[address] [facility] [address] [place] [address] Roosevelt Gomez MD [address] [place] [address] Social History Tobacco Use Types Packs/Day Years Used Date Smoking Tobacco: Never Assessed Comments Unknown Sex and Gender Information Value Date Recorded Sex Assigned at Female 11/14/2022 8:06 AM CDT Legal Sex Female 10:12 PM EPIC CADENCE SPECIALISTS Gender Identity Female 11/14/2022 8:06 AM CDT Sexual Orientation Not on file documented as of this encounter Plan of Treatment Not on file documented as of this encounter Visit Diagnoses Diagnosis Other and unspecified cord entanglement complicating labor and delivery, delivered ([facility]) documented in this encounter
--- OUTSIDE RECORDS SUMMARY | 2024-04-16 19:15 | XMS_ITS | Encounter Summary ---
Author Organization [facility] Address [address] [place] [address]. [place] [address] [place] [address] Care Team Providers Care Photographic Enlarger Operator Name Role Phone Unavailable Primary Care Provider Unavailabl e Encounter Details Date Type Department Care Team (Late st Contact Info) Description 02/09/2009 Abstract [facility] [address] [place] [address] Maulik Merino MD [address] [place] [address] Social History Tobacco Use Types Packs/Day Years Used Date Smoking Tobacco: Never Assessed Comments Unknown Sex and Gender Information Value Date Recorded Sex Assigned at Female 11/14/2022 8:06 AM CDT Legal Sex Female 10:12 PM ENVIRONMENTAL TEST TECHNICIAN Gender Identity Female 11/14/2022 8:06 AM CDT Sexual Orientation Not on file documented as of this encounter Plan of Treatment Not on file documented as of this encounter Visit Diagnoses Diagnosis Screening for malignant neoplasm of cervix Screening for malignant neoplasm of the cervix documented in this encounter
--- OUTSIDE RECORDS SUMMARY | 2024-04-16 19:15 | XMS_ITS | Encounter Summary ---
Author Organization [facility] Address [address] [place] [address]. [place] [address] [place] [address] Care Team Providers Care Hay Rake Operator Name Role Phone Unavailable Primary Care Provider Unavailabl e Encounter Details Date Type Department Care Team (Late st Contact Info) Description 07/22/[address] [facility] [address] [place] [address] Maulik Merino MD [address] [place] [address] Social History Tobacco Use Types Packs/Day Years Used Date Smoking Tobacco: Never Assessed Comments Unknown Sex and Gender Information Value Date Recorded Sex Assigned at Female 11/14/2022 8:06 AM CDT Legal Sex Female 10:12 PM ASSOCIATE FACULTY Gender Identity Female 11/14/2022 8:06 AM CDT Sexual Orientation Not on file documented as of this encounter Plan of Treatment Not on file documented as of this encounter Visit Diagnoses Not on filedocumented in this encounter
--- OUTSIDE RECORDS SUMMARY | 2024-04-16 19:15 | XMS_ITS | Encounter Summary ---
Author Organization [facility] Address [address] [place] [address]. [place] [address] [place] [address] Care Team Providers Care Tape Deck Installer Name Role Phone Unavailable Primary Care Provider Unavailabl e Encounter Details Date Type Department Care Team (Late st Contact Info) Description 12/08/[address] [facility] [address] [place] [address] Maulik Merino MD [address] [place] [address] Social History Tobacco Use Types Packs/Day Years Used Date Smoking Tobacco: Never Assessed Comments Unknown Sex and Gender Information Value Date Recorded Sex Assigned at Female 11/14/2022 8:06 AM CDT Legal Sex Female 10:12 PM SUBSTATION ENGINEER Gender Identity Female 11/14/2022 8:06 AM CDT Sexual Orientation Not on file documented as of this encounter Plan of Treatment Not on file documented as of this encounter Visit Diagnoses Diagnosis Other specified screening (HHS/HCC) documented in this encounter
--- OUTSIDE RECORDS SUMMARY | 2024-04-16 19:15 | XMS_ITS | Encounter Summary ---
Author Organization [facility] Address [facility]. [place], [place] [address] [place] [address] Care Team Providers Care Memorial Counselor Name Role Phone Unavailable Primary Care Provider Unavailabl e Encounter Details Date Type Department Care Team (Late st Contact Info) Description 06/29/2014 Abstract [facility] Medical [facility] [address] [facility] [address]nd [place] [phone] Narayan Castillo MD Social History Tobacco Use Types Packs/Day Years Used Date Smoking Tobacco: Never Assessed Comments Unknown Sex and Gender Information Value Date Recorded Sex Assigned at Female 11/14/2022 8:06 AM CDT Legal Sex Female 10:12 PM ANIMAL CARE SPECIALIST Gender Identity Female 11/14/2022 8:06 AM CDT Sexual Orientation Not on file documented as of this encounter H&P Notes * Narayan Castillo MD - 06/29/2014 5:[address] [facility] [address] [place] [address] Patient: SAMANTA BECKER Med Rec#: [id number] Birthdate: 1985 Admit/Svce Date: 06/29/2014 Disch Date: Attending Md: MIKO VALENTIN MD HISTORY AND PHYSICAL EXAMINATION PATIENT: Samanta Becker : 1985 MR #: [id number] Chart Document Chief Complaint Right lower quadrant pain. History of Present Illness A 29-year-old, white female presented to the office today with right lower quadrant pain. There was some radiation to the right inguinal area. The pain was described as sharp and crampy and began 2 days ago. There was no fever or dark urine. No vomiting, vaginal bleeding or vaginal discharge. She denies . She said the pain came and went at 1st, but was constant yesterday. Advil did not help, hurts to stand or walk. Last menstrual period was June 17 and was described as normal. Her has had a vas as a method of control. She says there is no chance of . She says the pain is a 5 to 6/10. Allergies None to drugs. She does have an allergy to chocolate which causes a rash and hives. Past Health Surgeries Tympanostomy tubes. Medical Illnesses None. Habits Drinks soda. She is a former smoker. Family History There is said to be some diabetes and heart disease in the family. Review of Systems She denies any cough, shortness of breath. She denies any chest pain or palpitations. Physical Examination General: She appears uncomfortable with right lower quadrant pain. She initially sits doubled in the chair in the exam room. ENT: TMs are normal. Nose unremarkable. Oropharynx unremarkable. Neck: Without adenopathy or thyromegaly. Lungs: Clear. CV: Normal sinus rhythm without S3, S4, or murmur. Abdomen: Tenderness in the right lower portion of the abdomen without notable mass or rebound. Genitourinary: Shows normal cervix, minimal discharge. Bimanual exam reveals some right lower quadrant. Right adnexal tenderness, but the uterus itself is nontender and seems her normal sinus. Extremities: Without edema. Assessment Right lower quadrant pain. Plan Full discussion with the patient. Labs are pending, but CBC does not show an elevated white count at this time. Will undergo CT and will get surgical consultation yet this evening as well. CPP/ams [id number] CPP/ams [id number] E-Signed By P Miko Valentin MD 06/30/2014 07:20 A P [id number] cc: Narayan Castillo MD MD Miko Clarke MD documented in this encounter Consult Notes * Narayan Castillo MD - 06/29/2014 7:51 PM CST [facility] [address] [place] [address] Patient: SAMANTA BECKER [facility] Rec#: [id number] Birthdate: 1985 Admit/Svce Date: 06/29/2014 Disch Date: 06/30/2014 Attending Md: MIKO VALENTIN MD CONSULTATION REPORT PATIENT: Samanta Becker : 1985 MR #: [id number] Chart Document Reason for Consult Right lower quadrant abdominal pain. Referring Physician Dr. Garrett Orona and Dr. Miko Valentin. Chief Complaint Abdominal pain. History of Present Illness This was a very pleasant 29 years old female who was admitted directly in the hospital with right lower quadrant abdominal pain. The patient states that her abdominal pain started 3 days ago. It started in the right lower quadrant. It is sharp, mild pain, intermittent. She stated that over 3 days intensity of pain increased and as of yesterday pain sharp and constant and severe in the right lower quadrant. Of note, she denies any radiation of pain. The pain associated with nausea. The patient denies any fever, chills, vomiting, abdominal bloating, diarrhea, constipation, GI bleed. She also denies any previous similar episodes of pain. Patient also denies any excessive vaginal bleeding or discharge. Patient denies any dysuria. Medical History Patient denies any previous medical history. Surgical History Ear tubes in childhood. Family History Diabetes. Social History Patient quit smoking 2 years ago. She denies any current alcohol or drug abuse. Medicine Patient denies taking medicine on regular basis. Allergies Patient also denies any allergies. Vital Signs Temperature 96.6, pulse 68, respirations 20, blood pressure 165/69, pulse oximetry normal at the room air. Review of Systems Patient in mild distress from right lower quadrant abdominal pain. She is lying slightly on her left side. She does have any shortness of breath. Neurologic: Head, neck unremarkable. Heart and Lungs: Unremarkable. Abdomen: Nondistended. Extremities: Unremarkable. Physical Examination Neurologic: Oriented x3. Mucous membrane moist, pink. Neck: No lymphadenopathy. Heart: Rate regular rhythmic. Lungs: Bronchial sounds bilateral clear. Abdomen: Nondistended. Bowel sounds in all 4 quadrants, soft, tender in the right lower quadrant, with guarding and rebound, but no rigidity. Extremities: Unremarkable. Lab Work Her CBC within normal limits. Common metabolic profile within normal limits. UA within normal limits. CT abdomen and pelvis, I communicated with the radiologist and online merchandiser [facility]. She reviewed the images. She stated that she saw appendix normal. Physiological changes in the pelvis. Negative for acute appendicitis or any abscess. Assessment and Plan This is a very pleasant 29 years old female with abdominal pain secondary most probably to the rupture at corpus luteum cyst. CT scan negative for acute appendicitis/abscess. At this point, I would recommend NPO until morning. IV fluids, replacement of Zofran IV p.r.n. for nausea and pain control. I also will recommend to do pelvic ultrasound in the morning. Thank you, Dr. Orona, for the referral and opportunity to participate in the treatment of this very pleasant 29 years old female. RO/ams [id number] RO/ams [id number] E-Signed By P Narayan Castillo MD 07/01/2014 01:25 P P [id number] cc: Narayan Castillo MD MD Narayan Clarke MD documented in this encounter Plan of Treatment Not on file documented as of this encounter Visit Diagnoses Not on filedocumented in this encounter
--- OUTSIDE RECORDS SUMMARY | 2024-04-16 19:15 | XMS_ITS | Encounter Summary ---
Author Organization [facility] Address [address] [place] [address]. [place], [place] [address] [place] [address] Care Team Providers Care Slot Floor Supervisor Name Role Phone Unavailable Primary Care Provider Unavailabl e Encounter Details Date Type Department Care Team (Late st Contact Info) Description 03/27/2011 Abstract [facility] [address] [facility] [place] [address] Garrett Orona MD [address] [place] [phone] Social History Tobacco Use Types Packs/Day Years Used Date Smoking Tobacco: Never Assessed Comments Unknown Sex and Gender Information Value Date Recorded Sex Assigned at Female 11/14/2022 8:06 AM CDT Legal Sex Female 10:12 PM CONCRETE GUN OPERATOR Gender Identity Female 11/14/2022 8:06 AM CDT Sexual Orientation Not on file documented as of this encounter Plan of Treatment Not on file documented as of this encounter Visit Diagnoses Diagnosis Pain in joint, lower leg documented in this encounter
--- OUTSIDE RECORDS SUMMARY | 2024-04-16 19:15 | XMS_ITS | Encounter Summary ---
Author Organization [facility] Address [address] [place] [address]. [place], [place] [address] [place] [address] Care Team Providers Care Elementary Classroom Teacher Name Role Phone Unavailable Primary Care Provider Unavailabl e Encounter Details Date Type Department Care Team (Late st Contact Info) Description 10/12/2009 Emergency [facility] [address] [place] [address] Social History Tobacco Use Types Packs/Day Years Used Date Smoking Tobacco: Never Assessed Comments Unknown Sex and Gender Information Value Date Recorded Sex Assigned at Female 11/14/2022 8:06 AM CDT Legal Sex Female 10:12 PM CLINICAL DATA SPECIALIST Gender Identity Female 11/14/2022 8:06 AM CDT Sexual Orientation Not on file documented as of this encounter Plan of Treatment Not on file documented as of this encounter Visit Diagnoses Diagnosis Superficial injury of cornea documented in this encounter
--- OUTSIDE RECORDS SUMMARY | 2024-04-16 19:15 | XMS_ITS | Encounter Summary ---
Author Organization [facility] Address [address] [place] [address]. [place] [address] [place] [address] Care Team Providers Care Warehouse Incentive Selector Name Role Phone Unavailable Primary Care Provider Unavailabl e Encounter Details Date Type Department Care Team (Late st Contact Info) Description 12/07/[address] [facility] [address] [place] [address] Maulik Merino MD [address] [place] [address] Social History Tobacco Use Types Packs/Day Years Used Date Smoking Tobacco: Never Assessed Comments Unknown Sex and Gender Information Value Date Recorded Sex Assigned at Female 11/14/2022 8:06 AM CDT Legal Sex Female 10:12 PM HAND IRONER Gender Identity Female 11/14/2022 8:06 AM CDT Sexual Orientation Not on file documented as of this encounter Plan of Treatment Not on file documented as of this encounter Visit Diagnoses Diagnosis Other specified screening (HHS/HCC) documented in this encounter
--- OUTSIDE RECORDS SUMMARY | 2024-04-16 19:15 | XMS_ITS | Encounter Summary ---
Author Organization [facility] Address [address] [place] [address]. [place], [place] [address] [place] [address] Care Team Providers Care Negative Cutter Name Role Phone Unavailable Primary Care Provider Unavailabl e Encounter Details Date Type Department Care Team (Late st Contact Info) Description 09/25/2010 Abstract [facility] [address] [facility] [place] [address] Social History Tobacco Use Types Packs/Day Years Used Date Smoking Tobacco: Never Assessed Comments Unknown Sex and Gender Information Value Date Recorded Sex Assigned at Female 11/14/2022 8:06 AM CDT Legal Sex Female 10:12 PM JOB SERVICE CONSULTANT Gender Identity Female 11/14/2022 8:06 AM CDT Sexual Orientation Not on file documented as of this encounter Plan of Treatment Not on file documented as of this encounter Visit Diagnoses Diagnosis Contusion of wrist documented in this encounter
--- OUTSIDE RECORDS SUMMARY | 2024-04-16 19:15 | XMS_ITS | Encounter Summary ---
Author Organization [facility] Address [address] [place] [address]. [place] [address] [place] [address] Care Team Providers Care Auto Glass Worker Name Role Phone Unavailable Primary Care Provider Unavailabl e Encounter Details Date Type Department Care Team (Late st Contact Info) Description 08/27/2007 Abstract [facility] [address] [place] [address] Maulik Merino MD [address] [place] [address] Social History Tobacco Use Types Packs/Day Years Used Date Smoking Tobacco: Never Assessed Comments Unknown Sex and Gender Information Value Date Recorded Sex Assigned at Female 11/14/2022 8:06 AM CDT Legal Sex Female 10:12 PM AMERICAN STUDIES PROFESSOR Gender Identity Female 11/14/2022 8:06 AM CDT Sexual Orientation Not on file documented as of this encounter Plan of Treatment Not on file documented as of this encounter Visit Diagnoses Not on filedocumented in this encounter
--- OUTSIDE RECORDS SUMMARY | 2024-04-16 19:15 | XMS_ITS | Encounter Summary ---
Author Organization [facility] Address [address] [place] [address]. [place], [place] [address] [place] [address] Care Team Providers Care Waistline Joiner Overlock Name Role Phone Unavailable Primary Care Provider Unavailabl e Encounter Details Date Type Department Care Team (Latest Contact Info) Description 06/30/2014 Abstract [facility] Group Md, Mendoza Morton MD Social History Tobacco Use Types Packs/Day Years Used Date Smoking Tobacco: Never Assessed Comments Unknown Sex and Gender Information Value Date Recorded Sex Assigned at Female 11/14/2022 8:06 AM CDT Legal Sex Female 10:12 PM MAGNETIC PROSPECTOR Gender Identity Female 11/14/2022 8:06 AM CDT Sexual Orientation Not on file documented as of this encounter Progress Notes * Narayan Castillo MD - 06/30/2014 7:29 AM CST [facility] [address] [address] Patient: SAMANTA BECKER Med Rec#: [id number] Birthdate: 1985 Admit/Svce Date: 06/29/2014 Disch Date: 06/30/2014 Attending Md: MIKO VALENTIN MD PROGRESS NOTE PATIENT: Samanta Becker : 1985 MR #: [id number] Chart Document DATE: 06/30/2014 DATE: 06/30/2014 Subjective Feeling a little better this morning. She had used some pain medicine last evening and had itching with this with the 1st dose but not the 2nd dose. She did vomit after some ice chips last night. She continues to have some pain, however. She was seen by Dr. Castillo. She said she has had pelvic pain before. Objective General: Alert, in no acute distress. Abdomen: Slightly hyperactive bowel sounds. It is nondistended. She remains quite tender in the right lower quadrant, but no rebound. Assessment Right lower quadrant pain with negative labs and CT. Plan Ultrasound this morning. Discussed her care fully with her, also with Dr. Castillo. Will manage expectantly. CPP/ams [id number] CPP/ams [id number] E-Signed By A Miko Valentin MD 07/07/2014 06:40 A A [id number] cc: Miko Valentin MD * Narayan Castillo MD - 06/30/2014 7:22 AM CST [facility] [address] [address] Patient: SAMANTA BECKER Med Rec#: [id number] Birthdate: 1985 Admit/Svce Date: 06/29/2014 Disch Date: 06/30/2014 Attending Md: MIKO VALENTIN MD PROGRESS NOTE PATIENT: Samanta Becker : 1985 MR #: [id number] Chart Document DATE: 06/30/2014 DATE: 06/30/2014 DOCUMENT ATTENTION NEEDED QA COMMENTS: Blank Subjective Patient condition stable, normal. No acute overnight event. Her abdominal pain controlled with IV meds. She did not have any nausea or vomiting. Her vital signs stable, normal. Temperature 97.4, T-max 97.4, heart rate 72, respirations 16, blood pressure 98/61, and she is saturating 98% to 100% on room air. Objective Heart and Lungs: Unremarkable. Abdomen: Nondistended, soft, tender to deep palpation in the right lower quadrant. Not any rebound. Bowel sounds in all 4 quadrants. Assessment This is a 29 years old female with abdominal pain most probably related to her gynecological problem. Plan Pelvic ultrasound pending in the morning. F/U prn. I would recommend to advance her diet as tolerated. Review of Systems Unremarkable. RO/ams [id number] RO/ams [id number] E-Signed By A Narayan Castillo MD 07/01/2014 01:25 P A [id number] cc: Narayan Castillo MD documented in this encounter Plan of Treatment Not on file documented as of this encounter Visit Diagnoses Not on filedocumented in this encounter
--- OUTSIDE RECORDS SUMMARY | 2024-04-16 19:15 | XMS_ITS | Encounter Summary ---
Author Organization [facility] Address [id number]. [place], [place] [address] [place] [address] Care Team Providers Care Crab Catcher Name Role Phone Unavailable Primary Care Provider Unavailabl e Encounter Details Date Type Department Care Team (Late st Contact Info) Description 07/04/2014 Abstract [facility] [address] [facility], 2nd [place] [phone] Narayan Castillo MD Social History Tobacco Use Types Packs/Day Years Used Date Smoking Tobacco: Never Assessed Comments Unknown Sex and Gender Information Value Date Recorded Sex Assigned at Female 11/14/2022 8:06 AM CDT Legal Sex Female 10:12 PM PLYWOOD STOCK GRADER Gender Identity Female 11/14/2022 8:06 AM CDT Sexual Orientation Not on file documented as of this encounter Last Filed Vital Signs Vital Sign Reading Time Taken Comments Blood Pressure 110/69 07/04/2014 2:36 PM CDT Pulse 72 07/04/2014 2:36 PM CDT Temperature - - Respiratory Rate - - Oxygen Saturation - - Inhaled Oxygen Concentration - - Weight 59.9 kg (132 lb) 07/04/2014 2:24 PM CDT Height 154.9 cm (5' 1 ) 07/04/2014 2:24 PM CDT Body Mass Index 24.94 07/04/2014 2:24 PM CDT documented in this encounter Progress Notes * Narayan Castillo MD - 07/04/2014 2:15 PM CDT Reason For Visit Reason For Visit: Acute Follow-Up Visit Chief Complaint Chief Complaint: My abdominal pain did not get better. History of Present Illness HPI Free Text: This was very pleasant 29 years old female who recently was admitted to the hospital for right lower quadrant abdominal pain. Workup included lab work, CT scan abdomen and pelvis without contrast, pelvic ultrasound did not show any ongoing acute surgical pathology. Patient was discharged home. She states that her pain didn't get better. She is started to have moderate right lower quadrant abdominal pain, associated with vomiting yesterday, low grade fever in am, diarrheal bowel movements. She denies any vaginal bleeding or discharge. No dysuria. Gynecology consult pending. She called her primary care physician and was recommended to follow-up with me today. Her vital signs and temperature was checked before physical exam today and was stable normal. No fever. Review of Systems Complete-Female: See HPI for pertinent positives. Active Problems 1. Abdominal pain (789.00) (R10.9) [...] Recorded By: Romulo Gaspar; 07/04/2014 2:23:53 PM Vitals Vital Signs [Data Includes: Current Encounter] Recorded: 04Jul2014 02:36PM Recorded: 04Jul2014 02:24PM Temperature 97.7 F Heart Rate 72 Systolic 110 115 Diastolic 69 92 Height 5 ft 1 in Weight 132 lb BMI Calculated 24.94 BSA Calculated 1.58 Physical Exam Constitutional - General appearance: No acute distress, well appearing and well nourished. Cardiovascular - RRR. Pulmonary - Respiratory effort: Normal. Auscultation of lungs: Normal. Abdomen - Abdomen: Abnormal. The abdomen was flat. Bowel sounds were normal. Skin findings: striae.The abdomen was soft. There was moderate tenderness in the right lower quadrant. The abdomen was not firm and not rigid. No rebound tenderness. Guarding was present. There was a negative Rovsing's sign. No masses palpated. The abdomen was normal to percussion. no CVA tenderness Liver and spleen: Nohepatomegaly or splenomegaly. Skin - Skin and subcutaneous tissue: Normal without rashes or lesions. Palpation of skin and subcutaneous tissue: Normal turgor. Psychiatric - Orientation to person, place, and time: Normal. Mood and affect: Normal. Assessment 1. Family history of seizures (V19.8) (Z84.89) : Mother 2. Family history of thyroid disease (V18.19) (Z83.49) : Mother 3. Family history of diabetes mellitus (V18.0) (Z83.3) : Father 4. Abdominal pain (789.00) (R10.9) Right lower quadrant abdominal pain. Plan 1. CT Abdomen Pelvis W; Status:Need Information - Financial Authorization; Requested for:04Jul2014; Perform:[facility]; Order Comments:IV and Oral contrast; Due:04Jul2014; Last Updated By:Romulo Gaspar; 07/04/2014 2:49:19 PM;Ordered; Stat; For:Abdominal pain; Ordered By:Narayan Castillo; CT scan abdomen and pelvis with by mouth on IV contrast. Discussion/Summary Discussion Summary Free Text: I discussed benefit to repeat CT scan with by mouth and IV contrast to evaluate current situation. Her prior CT scan was with out PO contrast. Patient verbalized understanding and like to proceed with CT scan. Signatures Electronically signed by : Narayan Castillo M.D.; Jul 04 2014 3:27PM PLYWOOD STOCK GRADER (Author) documented in this encounter Plan of Treatment Not on file documented as of this encounter Visit Diagnoses Not on filedocumented in this encounter
--- OUTSIDE RECORDS SUMMARY | 2024-04-16 19:15 | XMS_ITS | Encounter Summary ---
Author Organization [facility] Address [address] [place] [address]. [place], [place] [address] [place] [address] Care Team Providers Care Blood Bank Calendar Control Clerk Name Role Phone Unavailable Primary Care Provider Unavailabl e Encounter Details Date Type Department Care Team (Late st Contact Info) Description 04/21/2008 Abstract [facility] [address] [facility] [place] [address] , Mendoza Morton MD Social History Tobacco Use Types Packs/Day Years Used Date Smoking Tobacco: Never Assessed Comments Unknown Sex and Gender Information Value Date Recorded Sex Assigned at Female 11/14/2022 8:06 AM CDT Legal Sex Female 10:12 PM ANODISER Gender Identity Female 11/14/2022 8:06 AM CDT Sexual Orientation Not on file documented as of this encounter Plan of Treatment Not on file documented as of this encounter Visit Diagnoses Not on filedocumented in this encounter
--- OUTSIDE RECORDS SUMMARY | 2024-04-16 19:15 | XMS_ITS | Encounter Summary ---
Author Organization [facility] Address [address] [place] [address]. [place] [address] [place] [address] Care Team Providers Care Kitchen Designer Name Role Phone Unavailable Primary Care Provider Unavailabl e Encounter Details Date Type Department Care Team (Late st Contact Info) Description 11/08/[address] [facility] [address] [place] [address] Maulik Merino MD [address] [place] [address] Social History Tobacco Use Types Packs/Day Years Used Date Smoking Tobacco: Never Assessed Comments Unknown Sex and Gender Information Value Date Recorded Sex Assigned at Female 11/14/2022 8:06 AM CDT Legal Sex Female 10:12 PM OVERLAY OPERATOR Gender Identity Female 11/14/2022 8:06 AM CDT Sexual Orientation Not on file documented as of this encounter Plan of Treatment Not on file documented as of this encounter Visit Diagnoses Diagnosis Other complication of , antepartum (HHS/HCC) documented in this encounter
--- OUTSIDE RECORDS SUMMARY | 2024-04-16 19:16 | XMS_ITS | Encounter Summary ---
Author Organization [facility] Address [address] [place] [address]. [place] [address] [place] [address] Care Team Providers Care Nut Culler Name Role Phone Unavailable Primary Care Provider Unavailabl e Encounter Details Date Type Department Care Team (Late st Contact Info) Description 01/09/[address] [facility] [address] [place] [address] Maulik Merino MD [address] [place] [address] Social History Tobacco Use Types Packs/Day Years Used Date Smoking Tobacco: Never Assessed Comments Unknown Sex and Gender Information Value Date Recorded Sex Assigned at Female 11/14/2022 8:06 AM CDT Legal Sex Female 10:12 PM RIPENING ROOM OPERATOR Gender Identity Female 11/14/2022 8:06 AM CDT Sexual Orientation Not on file documented as of this encounter Plan of Treatment Not on file documented as of this encounter Visit Diagnoses Not on filedocumented in this encounter
--- OUTSIDE RECORDS SUMMARY | 2024-04-16 19:16 | XMS_ITS | Encounter Summary ---
Author Organization [facility] Address [address] [place] [address]. [place] [address] [place] [address] Care Team Providers Care Parts Chaser Name Role Phone Unavailable Primary Care Provider Unavailabl e Encounter Details Date Type Department Care Team (Late st Contact Info) Description 08/06/2006 Abstract [facility] [address] [place] [address] Maulik Merino MD [address] [place] [address] Social History Tobacco Use Types Packs/Day Years Used Date Smoking Tobacco: Never Assessed Comments Unknown Sex and Gender Information Value Date Recorded Sex Assigned at Female 11/14/2022 8:06 AM CDT Legal Sex Female 10:12 PM REGIONAL CLINICAL RESEARCH ASSOCIATE Gender Identity Female 11/14/2022 8:06 AM CDT Sexual Orientation Not on file documented as of this encounter Plan of Treatment Not on file documented as of this encounter Visit Diagnoses Not on filedocumented in this encounter
--- OUTSIDE RECORDS SUMMARY | 2024-04-16 19:16 | XMS_ITS | Encounter Summary ---
Author Organization [facility] Address [address] [place] [address]. [place] [address] [place] [address] Care Team Providers Care Field Marketing Coordinator Name Role Phone Unavailable Primary Care Provider Unavailabl e Encounter Details Date Type Department Care Team (Late st Contact Info) Description 02/06/2007 Abstract [facility] [address] [place] [address] Maulik Merino MD [address] [place] [address] Social History Tobacco Use Types Packs/Day Years Used Date Smoking Tobacco: Never Assessed Comments Unknown Sex and Gender Information Value Date Recorded Sex Assigned at Female 11/14/2022 8:06 AM CDT Legal Sex Female 10:12 PM SKIVER SOCK LININGS Gender Identity Female 11/14/2022 8:06 AM CDT Sexual Orientation Not on file documented as of this encounter Plan of Treatment Not on file documented as of this encounter Visit Diagnoses Not on filedocumented in this encounter
--- OUTSIDE RECORDS SUMMARY | 2024-04-16 19:16 | XMS_ITS | Encounter Summary ---
Author Organization [facility] Address [address] [place] [address]. [place] [address] [place] [address] Care Team Providers Care Dumper Mold Cleaner Name Role Phone Unavailable Primary Care Provider Unavailabl e Encounter Details Date Type Department Care Team (Late st Contact Info) Description 02/10/[address] [facility] [address] [place] [address] Maulik Merino MD [address] [place] [address] Social History Tobacco Use Types Packs/Day Years Used Date Smoking Tobacco: Never Assessed Comments Unknown Sex and Gender Information Value Date Recorded Sex Assigned at Female 11/14/2022 8:06 AM CDT Legal Sex Female 10:12 PM PHARMACY SERVICES REPRESENTATIVE Gender Identity Female 11/14/2022 8:06 AM CDT Sexual Orientation Not on file documented as of this encounter Plan of Treatment Not on file documented as of this encounter Visit Diagnoses Not on filedocumented in this encounter
--- OUTSIDE RECORDS SUMMARY | 2024-04-16 19:16 | XMS_ITS | Encounter Summary ---
Author Organization [facility] Address [facility] [place] [address] [place] [address] Care Team Providers Care Green Meat Grader Name Role Phone Unavailable Primary Care Provider Unavailabl e Encounter Details Date Type Department Care Team (Late st Contact Info) Description 01/08/2007 Abstract [facility] [address] [facility] [address] Fredrick Capellan MD [address] [id number] Social History Tobacco Use Types Packs/Day Years Used Date Smoking Tobacco: Never Assessed Comments Unknown Sex and Gender Information Value Date Recorded Sex Assigned at Female 11/14/2022 8:06 AM CDT Legal Sex Female 10:12 PM AIR CONDITIONING COIL ASSEMBLER Gender Identity Female 11/14/2022 8:06 AM CDT Sexual Orientation Not on file documented as of this encounter Plan of Treatment Not on file documented as of this encounter Visit Diagnoses Not on filedocumented in this encounter
--- OUTSIDE RECORDS SUMMARY | 2024-04-16 19:16 | XMS_ITS | Encounter Summary ---
Author Organization [facility] Address [address] [place] [address]. [place] [address] [place] [address] Care Team Providers Care Printing Machinist Name Role Phone Unavailable Primary Care Provider Unavailabl e Encounter Details Date Type Department Care Team (Late st Contact Info) Description 03/03/2007 Abstract [facility] [address] [place] [address] Maulik Merino MD [address] [place] [address] Social History Tobacco Use Types Packs/Day Years Used Date Smoking Tobacco: Never Assessed Comments Unknown Sex and Gender Information Value Date Recorded Sex Assigned at Female 11/14/2022 8:06 AM CDT Legal Sex Female 10:12 PM PERFECT BINDER FEEDER OFFBEARER Gender Identity Female 11/14/2022 8:06 AM CDT Sexual Orientation Not on file documented as of this encounter Plan of Treatment Not on file documented as of this encounter Visit Diagnoses Not on filedocumented in this encounter
--- OUTSIDE RECORDS SUMMARY | 2024-04-16 19:17 | XMS_ITS | Encounter Summary ---
Author Organization [facility] Address [address] [place] [address]. [place] [address] [place] [address] Care Team Providers Care Domestic Housekeeper Name Role Phone Unavailable Primary Care Provider Unavailabl e Encounter Details Date Type Department Care Team (Late st Contact Info) Description 08/06/[address] [facility] [address] [place] [address] Maulik Merino MD [address] [place] [address] Social History Tobacco Use Types Packs/Day Years Used Date Smoking Tobacco: Never Assessed Comments Unknown Sex and Gender Information Value Date Recorded Sex Assigned at Female 11/14/2022 8:06 AM CDT Legal Sex Female 10:12 PM PAYLOADER OPERATOR Gender Identity Female 11/14/2022 8:06 AM CDT Sexual Orientation Not on file documented as of this encounter Plan of Treatment Not on file documented as of this encounter Visit Diagnoses Not on filedocumented in this encounter
--- OUTSIDE RECORDS SUMMARY | 2024-04-16 19:17 | XMS_ITS | Encounter Summary ---
Author Organization [facility] Address [address] [place] [address]. [place] [address] [place] [address] Care Team Providers Care Slabbing Machine Operator Name Role Phone Unavailable Primary Care Provider Unavailabl e Encounter Details Date Type Department Care Team (Late st Contact Info) Description 06/10/[address] [facility] [address] [place] [address] Maulik Merino MD [address] [place] [address] Social History Tobacco Use Types Packs/Day Years Used Date Smoking Tobacco: Never Assessed Comments Unknown Sex and Gender Information Value Date Recorded Sex Assigned at Female 11/14/2022 8:06 AM CDT Legal Sex Female 10:12 PM SANDWICH COUNTER ATTENDANT Gender Identity Female 11/14/2022 8:06 AM CDT Sexual Orientation Not on file documented as of this encounter Plan of Treatment Not on file documented as of this encounter Visit Diagnoses Not on filedocumented in this encounter
--- OUTSIDE RECORDS SUMMARY | 2024-04-16 19:17 | XMS_ITS | Encounter Summary ---
Author Organization [facility] Address [address] [place] [address]. [place], [place] [address] [place] [address] Care Team Providers Care Internal Corrosion Specialist Name Role Phone Unavailable Primary Care Provider Unavailabl e Encounter Details Date Type Department Care Team (Late st Contact Info) Description 12/18/2005 Abstract [facility] [address] [facility] [place] [address] Carlos Thayer MD [address] [address] Social History Tobacco Use Types Packs/Day Years Used Date Smoking Tobacco: Never Assessed Comments Unknown Sex and Gender Information Value Date Recorded Sex Assigned at Female 11/14/2022 8:06 AM CDT Legal Sex Female 10:12 PM PROTOZOOLOGY TEACHER Gender Identity Female 11/14/2022 8:06 AM CDT Sexual Orientation Not on file documented as of this encounter Plan of Treatment Not on file documented as of this encounter Visit Diagnoses Not on filedocumented in this encounter
--- OUTSIDE RECORDS SUMMARY | 2024-04-16 19:17 | XMS_ITS | Encounter Summary ---
Author Organization [facility] Address [address] [place] [address]. [place] [address] [place] [address] Care Team Providers Care Oracle Fusion Developer Name Role Phone Unavailable Primary Care Provider Unavailabl e Encounter Details Date Type Department Care Team (Late st Contact Info) Description 06/05/[address] [facility] [address] [place] [address] Maulik Merino MD [address] [place] [address] Social History Tobacco Use Types Packs/Day Years Used Date Smoking Tobacco: Never Assessed Comments Unknown Sex and Gender Information Value Date Recorded Sex Assigned at Female 11/14/2022 8:06 AM CDT Legal Sex Female 10:12 PM CLINICAL GENETICS LABORATORY CHIEF Gender Identity Female 11/14/2022 8:06 AM CDT Sexual Orientation Not on file documented as of this encounter Plan of Treatment Not on file documented as of this encounter Visit Diagnoses Not on filedocumented in this encounter
--- OUTSIDE RECORDS SUMMARY | 2024-04-16 19:17 | XMS_ITS | Encounter Summary ---
Author Organization [facility] Address [address] [place] [address]. [place] [address] [place] [address] Care Team Providers Care Paragliding Instructor Name Role Phone Unavailable Primary Care Provider Unavailabl e Encounter Details Date Type Department Care Team (Late st Contact Info) Description 05/14/[address] [facility] [address] [place] [address] Maulik Merino MD [address] [place] [place] [address] Social History Tobacco Use Types Packs/Day Years Used Date Smoking Tobacco: Never Assessed Comments Unknown Sex and Gender Information Value Date Recorded Sex Assigned at Female 11/14/2022 8:06 AM CDT Legal Sex Female 10:12 PM COMMERCIAL CARPENTER Gender Identity Female 11/14/2022 8:06 AM CDT Sexual Orientation Not on file documented as of this encounter Plan of Treatment Not on file documented as of this encounter Visit Diagnoses Not on filedocumented in this encounter
--- OUTSIDE RECORDS SUMMARY | 2024-04-16 19:17 | XMS_ITS | Encounter Summary ---
Author Organization [facility] Address [address] [place] [address]. [place] [address] [place] [address] Care Team Providers Care Thimble Press Operator Name Role Phone Unavailable Primary Care Provider Unavailabl e Encounter Details Date Type Department Care Team (Late st Contact Info) Description 05/26/[address] [facility] [address] [place] [address] Maulik Merino MD [address] [place] [address] Social History Tobacco Use Types Packs/Day Years Used Date Smoking Tobacco: Never Assessed Comments Unknown Sex and Gender Information Value Date Recorded Sex Assigned at Female 11/14/2022 8:06 AM CDT Legal Sex Female 10:12 PM DESIGNER Gender Identity Female 11/14/2022 8:06 AM CDT Sexual Orientation Not on file documented as of this encounter Plan of Treatment Not on file documented as of this encounter Visit Diagnoses Not on filedocumented in this encounter
--- OUTSIDE RECORDS SUMMARY | 2024-04-16 19:17 | XMS_ITS | Encounter Summary ---
Author Organization [facility] Address [address] [place] [address]. [place] [address] [place] [address] Care Team Providers Care Chemical Engineering Teacher Name Role Phone Unavailable Primary Care Provider Unavailabl e Encounter Details Date Type Department Care Team (Late st Contact Info) Description 05/22/[address] [facility] [address] [place] [address] Maulik Merino MD [address] [place] [address] Social History Tobacco Use Types Packs/Day Years Used Date Smoking Tobacco: Never Assessed Comments Unknown Sex and Gender Information Value Date Recorded Sex Assigned at Female 11/14/2022 8:06 AM CDT Legal Sex Female 10:12 PM OBJECT ORIENTED PROGRAMMER Gender Identity Female 11/14/2022 8:06 AM CDT Sexual Orientation Not on file documented as of this encounter Plan of Treatment Not on file documented as of this encounter Visit Diagnoses Not on filedocumented in this encounter
--- OUTSIDE RECORDS SUMMARY | 2024-04-16 19:17 | XMS_ITS | Encounter Summary ---
Author Organization [facility] Address [address] [place] [address]. [place] [address] [place] [address] Care Team Providers Care Power Driven Brush Maker Name Role Phone Unavailable Primary Care Provider Unavailabl e Encounter Details Date Type Department Care Team (Late st Contact Info) Description 06/03/[address] [facility] [address] [place] [address] Maulik Merino MD [address] [place] [address] Social History Tobacco Use Types Packs/Day Years Used Date Smoking Tobacco: Never Assessed Comments Unknown Sex and Gender Information Value Date Recorded Sex Assigned at Female 11/14/2022 8:06 AM CDT Legal Sex Female 10:[address]EMAN Gender Identity Female 11/14/2022 8:06 AM CDT Sexual Orientation Not on file documented as of this encounter Plan of Treatment Not on file documented as of this encounter Visit Diagnoses Not on filedocumented in this encounter
--- OUTSIDE RECORDS SUMMARY | 2024-04-16 19:17 | XMS_ITS | Encounter Summary ---
Author Organization [facility] Address [address] [place] [address]. [place] [address] [place] [address] Care Team Providers Care Structures Mechanic Name Role Phone Unavailable Primary Care Provider Unavailabl e Encounter Details Date Type Department Care Team (Late st Contact Info) Description 08/08/2005 Abstract [facility] [address] [place] [address] Maulik Merino MD [address] [place] [address] Social History Tobacco Use Types Packs/Day Years Used Date Smoking Tobacco: Never Assessed Comments Unknown Sex and Gender Information Value Date Recorded Sex Assigned at Female 11/14/2022 8:06 AM CDT Legal Sex Female 10:12 PM COOK FROZEN DESSERT Gender Identity Female 11/14/2022 8:06 AM CDT Sexual Orientation Not on file documented as of this encounter Plan of Treatment Not on file documented as of this encounter Visit Diagnoses Not on filedocumented in this encounter
--- OUTSIDE RECORDS SUMMARY | 2024-04-16 19:17 | XMS_ITS | Encounter Summary ---
Author Organization [facility] Address [address] [place] [address]. [place] [address] [place] [address] Care Team Providers Care Corporate Recruiter Name Role Phone Unavailable Primary Care Provider Unavailabl e Encounter Details Date Type Department Care Team (Late st Contact Info) Description 04/05/[address] [facility] [address] [place] [address] Maulik Merino MD [address] [place] [address] Social History Tobacco Use Types Packs/Day Years Used Date Smoking Tobacco: Never Assessed Comments Unknown Sex and Gender Information Value Date Recorded Sex Assigned at Female 11/14/2022 8:06 AM CDT Legal Sex Female 10:12 PM DIGITAL MARKETING SPECIALIST Gender Identity Female 11/14/2022 8:06 AM CDT Sexual Orientation Not on file documented as of this encounter Plan of Treatment Not on file documented as of this encounter Visit Diagnoses Not on filedocumented in this encounter
--- OUTSIDE RECORDS SUMMARY | 2024-04-16 19:17 | XMS_ITS | Encounter Summary ---
Author Organization [facility] Address [address] [place] [address]. [place] [address] [place] [address] Care Team Providers Care Sawmill Worker Name Role Phone Unavailable Primary Care Provider Unavailabl e Encounter Details Date Type Department Care Team (Late st Contact Info) Description 05/18/[address] [facility] [address] [place] [address] Maulik Merino MD [address] [place] [address] Social History Tobacco Use Types Packs/Day Years Used Date Smoking Tobacco: Never Assessed Comments Unknown Sex and Gender Information Value Date Recorded Sex Assigned at Female 11/14/2022 8:06 AM CDT Legal Sex Female 10:12 PM OFFSHORE WIND TURBINE TECHNICIAN Gender Identity Female 11/14/2022 8:06 AM CDT Sexual Orientation Not on file documented as of this encounter Plan of Treatment Not on file documented as of this encounter Visit Diagnoses Not on filedocumented in this encounter
--- OUTSIDE RECORDS SUMMARY | 2024-04-16 19:18 | XMS_ITS | Encounter Summary ---
Author Organization [facility] Address [address] [place] [address]. [place] [address] [place] [address] Care Team Providers Care Clock And Watch Hands Painter Name Role Phone Unavailable Primary Care Provider Unavailabl e Encounter Details Date Type Department Care Team (Late st Contact Info) Description 10/12/2004 Abstract [facility] [address] [place] [address] Maulik Merino MD [address] [place] [address] Social History Tobacco Use Types Packs/Day Years Used Date Smoking Tobacco: Never Assessed Comments Unknown Sex and Gender Information Value Date Recorded Sex Assigned at Female 11/14/2022 8:06 AM CDT Legal Sex Female 10:12 PM OUTPATIENT FACILITY PHYSICAL THERAPIST Gender Identity Female 11/14/2022 8:06 AM CDT Sexual Orientation Not on file documented as of this encounter Plan of Treatment Not on file documented as of this encounter Visit Diagnoses Not on filedocumented in this encounter
--- OUTSIDE RECORDS SUMMARY | 2024-04-16 19:18 | XMS_ITS | Encounter Summary ---
Author Organization [facility] Address [address] [place] [address]. [place] [address] [place] [address] Care Team Providers Care Commercial Real Estate Manager Name Role Phone Unavailable Primary Care Provider Unavailabl e Encounter Details Date Type Department Care Team (Late st Contact Info) Description 01/17/[address] [facility] [address] [place] [address] Maulik Merino MD [address] [place] [address] Social History Tobacco Use Types Packs/Day Years Used Date Smoking Tobacco: Never Assessed Comments Unknown Sex and Gender Information Value Date Recorded Sex Assigned at Female 11/14/2022 8:06 AM CDT Legal Sex Female 10:12 PM CRANE HOOKER Gender Identity Female 11/14/2022 8:06 AM CDT Sexual Orientation Not on file documented as of this encounter Plan of Treatment Not on file documented as of this encounter Visit Diagnoses Not on filedocumented in this encounter
--- OUTSIDE RECORDS SUMMARY | 2024-04-16 19:18 | XMS_ITS | Encounter Summary ---
Author Organization [facility] Address [address] [place] [address]. [place] [address] [place] [address] Care Team Providers Care Laser Engraver Name Role Phone Unavailable Primary Care Provider Unavailabl e Encounter Details Date Type Department Care Team (Late st Contact Info) Description 02/14/[address] [facility] [address] [place] [address] Maulik Merino MD [address] [place] [address] Social History Tobacco Use Types Packs/Day Years Used Date Smoking Tobacco: Never Assessed Comments Unknown Sex and Gender Information Value Date Recorded Sex Assigned at Female 11/14/2022 8:06 AM CDT Legal Sex Female 10:12 PM RECEPTIONIST SECRETARY Gender Identity Female 11/14/2022 8:06 AM CDT Sexual Orientation Not on file documented as of this encounter Plan of Treatment Not on file documented as of this encounter Visit Diagnoses Not on filedocumented in this encounter
--- OUTSIDE RECORDS SUMMARY | 2024-04-16 19:18 | XMS_ITS | Encounter Summary ---
Author Organization [facility] Address [address] [place] [address]. [place] [address] [place] [address] Care Team Providers Care Car Hopper Name Role Phone Unavailable Primary Care Provider Unavailabl e Encounter Details Date Type Department Care Team (Late st Contact Info) Description 10/10/2004 Abstract [facility] [address] [place] [address] Alex Escalera MD [address] [place] [address] Social History Tobacco Use Types Packs/Day Years Used Date Smoking Tobacco: Never Assessed Comments Unknown Sex and Gender Information Value Date Recorded Sex Assigned at Female 11/14/2022 8:06 AM CDT Legal Sex Female 10:12 PM SHROUD LINE TIER Gender Identity Female 11/14/2022 8:06 AM CDT Sexual Orientation Not on file documented as of this encounter Plan of Treatment Not on file documented as of this encounter Visit Diagnoses Not on filedocumented in this encounter
--- OUTSIDE RECORDS SUMMARY | 2024-04-16 19:18 | XMS_ITS | Encounter Summary ---
Author Organization [facility] Address [address] [place] [address]. [place] [address] [place] [address] Care Team Providers Care Cinder Block Mason Name Role Phone Unavailable Primary Care Provider Unavailabl e Encounter Details Date Type Department Care Team (Late st Contact Info) Description 12/24/2004 Abstract [facility] [address] [facility] [place] [address] Fredrick Capellan MD [address] [id number] Social History Tobacco Use Types Packs/Day Years Used Date Smoking Tobacco: Never Assessed Comments Unknown Sex and Gender Information Value Date Recorded Sex Assigned at Female 11/14/2022 8:06 AM CDT Legal Sex Female 10:12 PM LOCUM TENENS HOSPITALIST Gender Identity Female 11/14/2022 8:06 AM CDT Sexual Orientation Not on file documented as of this encounter Plan of Treatment Not on file documented as of this encounter Visit Diagnoses Not on filedocumented in this encounter
== END 2024-04-11 18:49 | disposition home or self-care (01) ==
PROVIDERS: Emergency Provider Emergency Medicine; PCP Nurse Practitioner Family
DX: S93.402A Sprain of unspecified ligament of left ankle, initial encounter (principal); X50.0XXA Overexertion from strenuous movement or load, initial encounter
CPT/HCPCS: 73610; 73630; 99283

== ENCOUNTER 2024-08-04 18:18 | Emergency (ER) | payer OTHER, SELFPAY ==
--- NOTE | ~2024-08-04 | XR_ITS ---
XR hand RT min 3V Ordering provider: Venancio Husain MD History: . Injury to right hand middle finger PIP . Comparison: None. FINDINGS: BONES: No acute fracture or dislocation. JOINT SPACES: Normal. SOFT TISSUES: Normal. IMPRESSION: No acute osseous abnormality right hand. Reviewed, dictated and finalized at location A.
[2024-08-04 18:18] VITALS: BP 119/87; PULSE 73; RESP 16; TEMP 36.6; O2SAT 99
--- OUTSIDE RECORDS SUMMARY | 2024-08-04 18:30 | XMS_ITS | Encounter Summary ---
Author Organization [facility] Address [address] [place] [address] Care Team Providers Care Rn Hemodialysis Name Role Phone Miko Valentin MD Primary Care Provider [phone] Garrett Orona MD Primary Care Provider [phone] Encounter Details Date Type Department Care Team (Late st Contact Info) Description 10/03/2018 Abstract [facility] [address] [place] [address] , Generic Conversion, Social History Tobacco Use Types Packs/Day Years Used Date Smoking Tobacco: Never Assessed Comments Unknown Sex and Gender Information Value Date Recorded Sex Assigned at Female 11/14/2022 8:06 AM CDT Legal Sex Female 10:12 PM INSURANCE HEALTHCARE CONSULTANT Gender Identity Female 11/14/2022 8:06 AM CDT Sexual Orientation Not on file documented as of this encounter Plan of Treatment Not on file documented as of this encounter Visit Diagnoses Not on filedocumented in this encounter Additional Health Concerns Infection Onset Date Last Indicated Resolved Time COVID-19 Rule Out 06/10/2021 06/10/2021 06/10/2021 9:29 PM INSURANCE HEALTHCARE CONSULTANT documented as of this encounter Care Teams Rn Hemodialysis Relationship Specialty Start Date End Date Miko Valentin MD [address] [place] [phone] PCP - General FAMILY PRACTICE 03/29/19 06/09/21 Garrett Orona MD [address] [place] [phone] PCP - General FAMILY PRACTICE 06/10/21 documented as of this encounter
--- OUTSIDE RECORDS SUMMARY | 2024-08-04 18:30 | XMS_ITS | Clinical Summary ---
Author Organization [facility] Address [address] [place] [address] Care Team Providers Care Electron Beam Photo Mask Maker Name Role Phone Garrett Orona MD Primary [...] CDT Legal Sex Female 10:12 PM CLINICAL QUALITY MANAGER Gender Identity Female 11/14/2022 8:06 AM CDT Sexual Orientation Not on file Last Filed Vital Signs Vital Sign Reading Time Taken Comments Blood Pressure 117/79 11/13/2022 5:47 PM CDT Pulse 61 11/13/2022 5:47 PM CDT Temperature 36.9 C (98.4 F) 11/13/2022 5:47 PM CDT Respiratory Rate 16 11/13/2022 5:47 PM CDT Oxygen Saturation 100% 11/13/2022 5:47 PM CDT Inhaled Oxygen Concentration - - Weight 71.7 kg (158 lb) 03/11/2023 10:39 AM CLINICAL QUALITY MANAGER Height 154.9 cm (5' 1 ) 03/11/2023 10:39 AM CLINICAL QUALITY MANAGER Body Mass Index 29.85 03/11/2023 10:39 AM CLINICAL QUALITY MANAGER Plan of Treatment Health Maintenance Due Date [...] HPV 2015 COVID-19 Vaccine ( season) 2023 HPV Vaccines Aged Out No longer eligi ble based on patient's age to complete this topic Meningococcal B Vaccine Aged Out No l onger eligible based on patient's age to complete [...] Documents on File Type Date Recorded Patient Rock Mason Expl anation Legal Documents 07/06/2011 12:00 AM RETIRE MENT OF RECORD Care Teams Electron Beam Photo Mask Maker Relationship Specialty Start Date End Date Garrett Orona MD [address] [place] [address] PCP - General FAMILY PRACTICE 06/10/21
--- NOTE | 2024-08-04 18:33 | ED.UPPEXIN ---
HPI - Extremity Injury (Upper) General Chief Complaint: Extremity Injury, Upper Stated Complaint: Hurt knuckle Time Seen by Provider: 08/04/24 18:33 Source: patient Mode of arrival: ambulatory Limitations: no limitations History of Present Illness HPI narrative: 39-year-old female accidentally smacked the back of her hand against a cabinet. She presents with pain and swelling of the right hand middle finger of the PIP. She has decreased range of motion. No other injuries noted. complaint: injury to: right, hand and finger ( Middle finger) Onset (ago): unknown ( prior to coming to the ED) Other Extremity Injury: Right: fingers Other injuries: none Handedness: right Place: home Severity: moderate Relieving factors: immobilization Exacerbating factors: movement of extremity Context: direct blow Associated symptoms: denies other symptoms Related Data Allergies Allergy/AdvReac Type Severity Reaction Status Date / Time cocoa Allergy Hives Verified 08/04/24 18:31 Review of Systems Review of Systems: All systems reviewed & are unremarkable except as noted in HPI and below PMFSH Past Medical History Medical History Trigger finger, right Abdominal wall cellulitis Urinary tract infection History of ovarian cyst Surgical History Surgical History Hx laparoscopic cholecystectomy 07/28/23 Trigger finger repair. 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 Const: General: no acute distress Nutritional Appearance: well nourished Orientation/consciousness: patient oriented x3 Limitations: no limitations HENMT: Head: normal to inspection Ears: external ears normal Face/Nose/Sinus: Normal external nose present Face and sinus: normal facial exam Mouth: Yes Normal oral and palatal mucosa present Throat: posterior oropharynx normal Eyes: Conjunctivae: conjunctivae normal Pupils: Equal, round and reactive pupils present EOM: EOMs intact bilaterally Direct Ophthalmoscopy: no photophobia Neck: Neck: normal visual inspection, no lymphadenopathy and no meningeal signs Chest: Chest palpation & inspection: normal inspection of the chest Resp: Effort & Inspection: normal respiratory effort Auscultation: clear to auscultation bilaterally Cardio: Rate: regular rate Rhythm: regular rhythm GI: GI Palp: Yes Soft to palpation Auscultation: normal bowel sounds Other: No tenderness/ rigidity /rebound. : General: Yes no CVA tenderness Back/Spine/Pelvis: Back: no CVA tenderness Skin: General skin exam: normal color Wounds: no wounds Neuro: General: patient oriented x3, moves all extremities, no meningeal signs, no focal motor deficits and CN's II-XI intact bilaterally Cranial nerves: Yes Nystagmus not present Speech: normal speech Extrem: Other: Right hand middle finger PIP joint-- bruising over the knuckle with swelling and decreased range of motion. Psych: Mental Status: mental status grossly normal Affect: normal affect Attitude: cooperative Course Course Emergency Course: Right hand middle finger PIP joint pain-- x-ray did not show any fracture/ dislocation Vital Signs Vital signs: Vital Signs Temperature 36.6 C 08/04/24 18:18 Pulse Rate 73 08/04/24 18:18 Respiratory Rate 16 08/04/24 18:18 Blood Pressure 119/87 08/04/24 18:18 Pulse Oximetry 99 08/04/24 18:18 Oxygen Delivery Room Air 08/04/24 18:18 Temperature 36.6 C 08/04/24 18:18 Pulse Rate 73 08/04/24 18:18 Respiratory Rate 16 08/04/24 18:18 Blood Pressure 119/87 08/04/24 18:18 Pulse Oximetry 99 08/04/24 18:18 Oxygen Delivery Room Air 08/04/24 18:18 MDM - Extremity Injury (Upper) MDM Narrative Medical decision making narrative: sprain of right hand middle finger PIP Differential Diagnosis Differential diagnosis: Likely finger sprain and other ( finger fracture) Lab Data Attestation: I reviewed the patient's lab results. Discharge Plan Discharge Clinical Impression: Finger sprain Qualifiers: Encounter type: initial encounter Finger: middle finger Sprain of finger site: interphalangeal joint Laterality: right Qualified Code(s): S63.632A - Sprain of interphalangeal joint of right middle finger, initial encounter Patient Disposition: Home Condition: Stable Instructions: Antibiotic Form, Finger Sprain (ED) Patient Language: Bulgarian Prescriptions: No Action [id number] 3.5-400-10,000 wm-pooh-ojff/g ointment 1 applic EACH EYE TID Qty: 3.5 0RF Follow-up/Referrals: Flakito Ford APRN [Primary Care Provider] - Time of Disposition: 19:24
--- OUTSIDE RECORDS SUMMARY | 2024-08-04 19:00 | XMS_ITS | Encounter Summary ---
Author Organization [facility] Address [address] [place] [address] Care Team Providers Care Supervisor Newspaper Deliveries Name Role Phone Miko Valentin MD Primary Care Provider [phone] Garrett Orona MD Primary Care Provider [phone] Encounter Details Date Type Department Care Team (Late st Contact Info) Description 10/03/2018 Abstract [facility] [address] [place] [address] , Generic Conversion, Social History Tobacco Use Types Packs/Day Years Used Date Smoking Tobacco: Never Assessed Comments Unknown Sex and Gender Information Value Date Recorded Sex Assigned at Female 11/14/2022 8:06 AM CDT Legal Sex Female 10:12 PM CLINICAL ALLERGIST Gender Identity Female 11/14/2022 8:06 AM CDT Sexual Orientation Not on file documented as of this encounter Plan of Treatment Not on file documented as of this encounter Visit Diagnoses Not on filedocumented in this encounter Additional Health Concerns Infection Onset Date Last Indicated Resolved Time COVID-19 Rule Out 06/10/2021 06/10/2021 06/10/2021 9:29 PM CLINICAL ALLERGIST documented as of this encounter Care Teams Supervisor Newspaper Deliveries Relationship Specialty Start Date End Date Miko Valentin MD [address] [place] [phone] PCP - General FAMILY PRACTICE 03/29/19 06/09/21 Garrett Orona MD [address] [place] [phone] PCP - General FAMILY PRACTICE 06/10/21 documented as of this encounter
--- OUTSIDE RECORDS SUMMARY | 2024-08-04 19:00 | XMS_ITS | Clinical Summary ---
Author Organization [facility] Address [address] [place] [address] Care Team Providers Care Reinforcing Iron And Rebar Workers Name Role Phone Garrett Orona MD Primary Care Provider [phone] Allergies No known active allergies Medications HYDROcodone-acet [...] AM CDT Legal Sex Female 10:12 PM COPING MACHINE OPERATOR Gender Identity Female 11/14/2022 8:06 [...] 71.7 kg (158 lb) 03/11/2023 10:39 AM COPING MACHINE OPERATOR Height 154.9 cm (5' 1 ) 03/11/2023 10:39 AM COPING MACHINE OPERATOR Body Mass Index 29.85 03/11/2023 10:39 AM COPING MACHINE OPERATOR Plan of Treatment Health Maintenance Due Date [...] Documents on File Type Date Recorded Patient Script Coordinator Expl anation Legal Documents 07/06/2011 12:00 AM RETIRE MENT OF RECORD Care Teams Reinforcing Iron And Rebar Workers Relationship Specialty Start Date End Date Garrett Orona MD [address] [place] [address] PCP - General FAMILY PRACTICE 06/10/21
--- NOTE | 2024-08-04 19:19 | PC.NURSE ---
patient awake and alert, ambulatory to bathroom without difficulty.
[2024-08-04 19:43] VITALS: BP 124/84; PULSE 76; RESP 18; O2SAT 100
== END 2024-08-04 19:43 | disposition home or self-care (01) ==
PROVIDERS: Emergency Provider Internal Medicine Critical Care Medicine; PCP Nurse Practitioner Family
DX: S63.632A Sprain of interphalangeal joint of right middle finger, initial encounter (principal); W22.09XA Striking against other stationary object, initial encounter
CPT/HCPCS: 29130; 73130; 99283

== ENCOUNTER 2024-09-20 16:32 | Emergency (ER) | payer OTHER, SELFPAY ==
[2024-09-20 16:36] VITALS: BP 121/82; PULSE 75; RESP 16; TEMP 36.6; O2SAT 97
--- NOTE | 2024-09-20 16:42 | ED.EYEPROB ---
HPI - Eye Problem General Chief complaint: Eye Problems Stated complaint: right eye redness/swelling Time Seen by Provider: 09/20/24 16:39 Source: patient Mode of arrival: ambulatory Limitations: no limitations History of Present Illness HPI Narrative: PATIENT IS A 39-YEAR-OLD FEMALE WITH SIGNIFICANT PAST MEDICAL HISTORY THAT PRESENTS TODAY FOR PINKEYE. PATIENT HAS POSSIBLE CONJUNCTIVITIS IN THE RIGHT EYE. SHE SAYS SHE WAS HANGING OUT WITH HER NIECE OTHER TODAY THIS MORNING AND IT DID NOT TELL HER THAT HER NIECE QUITE POSSIBLY HAD PINKEYE AND HER EYE WAS RED. AND THEN HAS HAD AFTERNOON HER EYE STARTING A RED AND PAINFUL AND NOW IS TURNED IN TO CONJUNCTIVITIS. chief complaint: eye pain and eye redness Onset (ago): hour(s) Onset description: sudden Duration: constant Location: right eye Eye Symptoms: burning and redness Place: home Mechanism: none Severity: mild Severity scale (1-10): 2 Associated symptoms: none Treatments Prior to Arrival: none Related Data Allergies Allergy/AdvReac Type Severity Reaction Status Date / Time cocoa Allergy Hives Verified 09/20/24 16:35 Review of Systems Review of Systems: All systems reviewed & are unremarkable except as noted in HPI and below Constitutional: Constitutional: Reports as per HPI Eyes: Eyes: Reports as per HPI Comments: CONJUNCTIVITIS RIGHT EYE ENT: Reports system reviewed and no additional complaints, except as documented Cardiovascular: Cardiovascular: Reports no additional cardiovascular complaints Respiratory: Respiratory: Reports no additional respiratory complaints Gastrointestinal: Gastrointestinal: Reports no additional gastrointestinal complaints Genitourinary: Genitourinary: Reports no additional female genitourinary complaints Musculoskeletal: Musculoskeletal: Reports no additional musculoskeletal complaints Integumentary/Breasts: Skin/Breast: Reports system reviewed and no additional complaints, except as docu Neurologic: Reports system reviewed and no additional complaints, except as documented Psychiatric: Psychiatric: Reports no additional psychiatric complaints Endocrine: Endocrine: Reports no additional endocrine complaints Hematologic/Lymphatic: Hematologic/Lymphatic: Reports no additional hematologic/lymphatic complaints Allergic/Immunologic: Allergic/Immunologic: Reports no additional allergic/immunologic complaints [facility] Past Medical History Medical History Trigger finger, right Abdominal wall cellulitis Urinary tract infection History of ovarian cyst Surgical History Surgical History Hx laparoscopic cholecystectomy 07/28/23 Trigger finger repair. 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 Spiritual care concerns: No Exam Const: General: healthy appearing Nutritional Appearance: well nourished Orientation/consciousness: patient oriented x3 Limitations: no limitations HENMT: Head: normal to inspection Ears: external ears normal Face/Nose/Sinus: Normal external nose present Face and sinus: normal facial exam Mouth: Yes Normal oral and palatal mucosa present Teeth and gingiva: dentition normal Eyes: Conjunctivae: conjunctival abnormality Pupils: Equal, round and reactive pupils present EOM: EOMs intact bilaterally Direct Ophthalmoscopy: no photophobia Other: CONJUNCTIVITIS RIGHT EYE Neck: Neck: normal visual inspection Chest: Chest palpation & inspection: normal inspection of the chest Resp: Effort & Inspection: normal respiratory effort Auscultation: clear to auscultation bilaterally Cardio: Rate: regular rate Rhythm: regular rhythm Heart sounds: Murmur heart sound present GI: GI Palp: Yes Soft to palpation Back/Spine/Pelvis: Back: no CVA tenderness Skin: General skin exam: normal color Rashes: no rashes Wounds: no wounds Neuro: General: patient oriented x3 Cranial nerves: Yes Nystagmus not present Speech: normal speech Gait exam (Neuro): Normal gait present Extrem: General: normal to inspection Psych: Mental Status: mental status grossly normal Affect: normal affect Attitude: cooperative Course Vital Signs Vital signs: Vital Signs Temperature 97.8 F 09/20/24 16:36 Pulse Rate 75 09/20/24 16:36 Respiratory Rate 16 09/20/24 16:36 Blood Pressure 121/82 09/20/24 16:36 Pulse Oximetry 97 09/20/24 16:36 Oxygen Delivery Room Air 09/20/24 16:36 Temperature 97.8 F 09/20/24 16:36 Pulse Rate 75 09/20/24 16:36 Respiratory Rate 16 09/20/24 16:36 Blood Pressure 121/82 09/20/24 16:36 Pulse Oximetry 97 09/20/24 16:36 Oxygen Delivery Room Air 09/20/24 16:36 MDM - Eye Problem MDM Narrative Medical decision making narrative: PATIENT HAS CONJUNCTIVITIS IN HER RIGHT EYE. WILL GET HER POLYTRIM EYEDROPS HERE IS 80 TO START HER OFF WITH THAT AND WILL SEND THE REST INTO HER PHARMACY. DIRECTIONS WILL BE ON THE BOTTLE. Differential Diagnosis Differential diagnosis: Likely conjunctivitis Medical Records Attestation: I reviewed the patient's medical records. Discharge Plan Discharge Clinical Impression: Conjunctivitis Patient Disposition: Home Condition: Stable Instructions: Conjunctivitis (ED) Patient Language: Croatian Prescriptions: New polymyxin B sulf-trimethoprim 10,000 unit- 1 mg/mL drops 1 drp RIGHT EYE Q3H 7 Days Qty: 10 0RF Rx Instructions: do not exceed 6 doses in a 24 hr period polymyxin B sulf-trimethoprim 10,000 unit- 1 mg/mL drops 1 drp RIGHT EYE Q3H 7 Days Qty: 10 0RF Rx Instructions: while awake; do not exceed 6 doses in 24 hours No Action aadapjls-wjjnzoytfi-sziqjhbrw 3.5-400-10,000 bb-tqij-ftpd/g ointment 1 applic EACH EYE TID Qty: 3.5 0RF Follow-up/Referrals: Flakito Ford APRN [Primary Care Provider] - Time of Disposition: 16:55
[2024-09-20] MEDS: POLYMYXIN/TRIMETHOPRIM OPHTH 10 ML DROPS 1 DROP EACH EYE (16:49)
[2024-09-20 17:01] VITALS: BP 121/82; PULSE 75; RESP 16; TEMP 36.6; O2SAT 97
== END 2024-09-20 17:01 | disposition home or self-care (01) ==
PROVIDERS: Emergency Provider Family Medicine; PCP Nurse Practitioner Family
DX: H10.9 Unspecified conjunctivitis (principal)
CPT/HCPCS: 99283; A9270

== ENCOUNTER 2024-09-21 08:00 | Emergency (ER) | payer OTHER, SELFPAY ==
[2024-09-21 08:14] VITALS: BP 119/85; PULSE 74; RESP 20; TEMP 36.5; O2SAT 98
--- NOTE | 2024-09-21 08:14 | ED.EYEPROB ---
HPI - Eye Problem General Chief complaint: Eye Problems Stated complaint: EYE COMPLAINT Time Seen by Provider: 09/21/24 08:14 Source: patient Mode of arrival: ambulatory Limitations: no limitations History of Present Illness HPI Narrative: 39 years old white female came to our emergency room yesterday because of redness of the right eye started yesterday morning. Was diagnosed of conjunctivitis and was discharged on polymyxin sulfa -trimethoprim eyedrops Return if symptoms are worsening , call your family physician for appointment, take Tylenol as as needed for aches and pain, continue home medications. patient woke up this morning and have swelling of the right conjunctiva,. Patient is telling me that her left eyes started getting pink like the right 1. Patient report itching, stabbing with clear discharge. Related Data Allergies Allergy/AdvReac Type Severity Reaction Status Date / Time cocoa Allergy Hives Verified 09/20/24 16:35 Review of Systems Review of Systems: All systems reviewed & are unremarkable except as noted in HPI and below PMFSH Past Medical History Medical History Trigger finger, right Abdominal wall cellulitis Urinary tract infection History of ovarian cyst Surgical History Surgical History Hx laparoscopic cholecystectomy 07/28/23 Trigger finger repair. 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 Spiritual care concerns: No Exam Narrative: General appearance: Well-developed, well-nourished Skin: Normal color Head: Normocephalic, nontraumatic Eyes: Right conjunctival injection, chemosis, clear discharge ENT: Oropharynx normal, ears normal, nose normal Course Vital Signs Vital signs: Vital Signs Temperature 36.5 C 09/21/24 08:14 Pulse Rate 74 09/21/24 08:14 Respiratory Rate 20 09/21/24 08:14 Blood Pressure 119/85 09/21/24 08:14 Pulse Oximetry 98 09/21/24 08:14 Oxygen Delivery Room Air 09/21/24 08:14 Temperature 36.5 C 09/21/24 08:14 Pulse Rate 74 09/21/24 08:14 Respiratory Rate 20 09/21/24 08:14 Blood Pressure 119/85 09/21/24 08:14 Pulse Oximetry 98 09/21/24 08:14 Oxygen Delivery Room Air 09/21/24 08:14 Discharge Plan Discharge Clinical Impression: Acute allergic conjunctivitis Patient Disposition: Home Condition: Stable Instructions: Conjunctivitis (ED) Additional Instructions: Return if symptoms are worsening , call your family physician for appointment, take Tylenol as as needed for aches and pain, continue home medications. Cool compresses as needed Continue home eye drops Avoid scratching or rubbing her eyes Do not use contact lenses for at least 5 days after complete healing Patient Language: Malay Prescriptions: New olopatadine [Pataday Once Daily Relief] 0.2 % drops 1 drp EACH EYE DAILY Qty: 2.5 0RF Zyrtec 10 mg capsule 10 mg PO BID PRN (Reason: allergy symptoms) Qty: 20 0RF No Action polymyxin B sulf-trimethoprim 10,000 unit- 1 mg/mL drops 1 drp RIGHT EYE Q3H 7 Days Qty: 10 0RF Rx Instructions: do not exceed 6 doses in a 24 hr period polymyxin B sulf-trimethoprim 10,000 unit- 1 mg/mL drops 1 drp RIGHT EYE Q3H 7 Days Qty: 10 0RF Rx Instructions: while awake; do not exceed 6 doses in 24 hours sabfmpyt-sultbpnrpi-twwgchddm 3.5-400-10,000 mr-afox-eora/g ointment 1 applic EACH EYE TID Qty: 3.5 0RF Follow-up/Referrals: Flakito Ford APRN [Primary Care Provider] -
[2024-09-21] MEDS: LORATADINE 10 MG TABLET PO (08:27)
[2024-09-21] MEDS: predniSONE 20 MG TABLET 60 MG PO (08:27)
== END 2024-09-21 08:37 | disposition home or self-care (01) ==
LOC: CHSED 08:18
PROVIDERS: Emergency Provider Emergency Medicine; PCP Nurse Practitioner Family
DX: H10.11 Acute atopic conjunctivitis, right eye (principal)
CPT/HCPCS: 99283; A9270; J7512

== ENCOUNTER 2024-10-30 17:51 | Emergency (ER) | payer OTHER, SELFPAY ==
[2024-10-30 17:51] VITALS: BP 126/73; PULSE 75; RESP 17; TEMP 36.6; O2SAT 97
--- NOTE | 2024-10-30 17:54 | ED.ALLEREA ---
HPI - Allergic Reaction General Chief complaint: Allergic Reaction Stated complaint: insect sting Time Seen by Provider: 10/30/24 17:54 Source: patient Mode of arrival: ambulatory Limitations: no limitations History of Present Illness HPI narrative: 39-year-old female presents to the ED after she was stung on the left index finger by a wasp. Patient developed erythema, swelling and itching around left index finger. Patient does not have any shortness of breath / wheezing, lightheadedness, throat swelling. Patient has not had a prior history of a major allergic reaction to insect bites. no history of asthma /eczema.Mother has allergic reaction to wasp/bee stings. complaint: allergic reaction Onset (ago): hour(s) ( 1 hour ago) Symptoms: rash and itching Severity: mild Treatment prior to arrival: none Previous Allergic Reaction History: none Related Data Allergies Allergy/AdvReac Type Severity Reaction Status Date / Time cocoa Allergy Hives Verified 10/30/24 17:52 Review of Systems Review of Systems: All systems reviewed & are unremarkable except as noted in HPI and below PMFSH Past Medical History Medical History Trigger finger, right Abdominal wall cellulitis Urinary tract infection History of ovarian cyst Surgical History Surgical History Hx laparoscopic cholecystectomy 07/28/23 Trigger finger repair. 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 Const: General: healthy appearing and no acute distress Nutritional Appearance: well nourished Orientation/consciousness: patient oriented x3 Limitations: no limitations HENMT: Head: normal to inspection Ears: external ears normal Face/Nose/Sinus: Normal external nose present Face and sinus: normal facial exam Mouth: Yes Normal oral and palatal mucosa present Throat: posterior oropharynx normal Eyes: Conjunctivae: conjunctivae normal Pupils: Equal, round and reactive pupils present EOM: EOMs intact bilaterally Direct Ophthalmoscopy: no photophobia Neck: Neck: normal visual inspection, no lymphadenopathy and no meningeal signs Chest: Chest palpation & inspection: normal inspection of the chest Resp: Effort & Inspection: normal respiratory effort Auscultation: clear to auscultation bilaterally Cardio: Rate: regular rate Rhythm: regular rhythm GI: GI Palp: Yes Soft to palpation Auscultation: normal bowel sounds Other: No tenderness/ rigidity /rebound. : General: Yes no CVA tenderness Back/Spine/Pelvis: Back: no CVA tenderness Skin: General skin exam: normal color Wounds: no wounds Other: Left index finger has an erythematous swelling over the medial proximal phalanx. EG. No pain Neuro: General: patient oriented x3, moves all extremities, no meningeal signs, no focal motor deficits and CN's II-XI intact bilaterally Cranial nerves: Yes Nystagmus not present Speech: normal speech Gait exam (Neuro): Normal gait present Extrem: General: normal to inspection and no clubbing, cyanosis or edema Psych: Mental Status: mental status grossly normal Affect: normal affect Attitude: cooperative Course Course Emergency Course: allergic reaction to insect bite on the left index finger-- no prior history of any major allergic reaction. No history of asthma / eczema. Use Solu-Medrol 40 and p.o. Benadryl 25. Vital Signs Vital signs: Vital Signs Temperature 36.6 C 10/30/24 17:51 Pulse Rate 75 10/30/24 17:51 Respiratory Rate 10/30/24 17:51 Blood Pressure 126/73 10/30/24 17:51 Pulse Oximetry 97 10/30/24 17:51 Temperature 36.6 C 10/30/24 17:51 Pulse Rate 75 10/30/24 17:51 Respiratory Rate 17 10/30/24 17:51 Blood Pressure 126/73 10/30/24 17:51 Pulse Oximetry 97 10/30/24 17:51 MDM - Allergic Reaction MDM Narrative Medical decision making narrative: Allergic reaction to wasp bite Differential Diagnosis Differential diagnosis: Likely contact dermatitis Medical Records Attestation: I reviewed the patient's medical records. Discharge Plan Discharge Clinical Impression: Allergic reaction to insect bite Patient Disposition: Home Condition: Stable Instructions: Antibiotic Form, General Allergic Reaction (ED) Patient Language: Maldivian Prescriptions: No Action polymyxin B sulf-trimethoprim 10,000 unit- 1 mg/mL drops 1 drp RIGHT EYE Q3H 7 Days Qty: 10 0RF Rx Instructions: do not exceed 6 doses in a 24 hr period polymyxin B sulf-trimethoprim 10,000 unit- 1 mg/mL drops 1 drp RIGHT EYE Q3H 7 Days Qty: 10 0RF Rx Instructions: while awake; do not exceed 6 doses in 24 hours olopatadine [Pataday Once Daily Relief] 0.2 % drops 1 drp EACH EYE DAILY Qty: 2.5 0RF Zyrtec 10 mg capsule 10 mg PO BID PRN (Reason: allergy symptoms) Qty: 20 0RF hwypbsij-uslrhezqxo-isdsowyir 3.5-400-10,000 wy-mabq-nuca/g ointment 1 applic EACH EYE TID Qty: 3.5 0RF Follow-up/Referrals: Flakito Ford APRN [Primary Care Provider] - Time of Disposition: 18:22
[2024-10-30] MEDS: diphenhydrAMINE HCl CAP 25 MG CAPSULE PO (18:10)
--- OUTSIDE RECORDS SUMMARY | 2024-10-30 18:24 | XMS_ITS | Encounter Summary ---
Author Organization [facility] Address [address] [place] [id number] Care Team Providers Care Curriculum And Assessment Coordinator Name Role Phone Miko Valentin MD Primary Care Provider [phone] Garrett Orona MD Primary Care Provider [phone] Encounter Details Date Type Department Care Team (Late st Contact Info) Description 10/03/2018 Abstract [facility] CONVERSION [address] [place] [address] , Generic Conversion, Social History Tobacco Use Types Packs/Day Years Used Date Smoking Tobacco: Never Assessed Comments Unknown Sex and Gender Information Value Date Recorded Sex Assigned at Female 11/14/2022 8:06 AM CDT Legal 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 Gender Identity Female 11/14/2022 8:06 AM CDT Sexual Orientation Not on file documented as of this encounter Plan of Treatment Not on file documented as of this encounter Visit Diagnoses Not on filedocumented in this encounter Additional Health Concerns Infection Onset Date Last Indicated Resolved Time COVID-19 Rule Out 06/10/2021 06/10/2021 06/10/2021 9:29 PM TABLE GAMES DEALER documented as of this encounter Care Teams Curriculum And Assessment Coordinator Relationship Specialty Start Date End Date Miko Valentin MD [address] [place] [address] [phone] PCP - General FAMILY PRACTICE 03/29/19 06/09/21 Garrett Orona MD [address] [place] [phone] PCP - General FAMILY PRACTICE 06/10/21 documented as of this encounter
--- OUTSIDE RECORDS SUMMARY | 2024-10-30 18:24 | XMS_ITS | Clinical Summary ---
Author Organization 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 Gender Identity Female 11/14/2022 8:06 AM [...] 71.7 kg (158 lb) 03/11/2023 10:39 AM CONSTRUCTION AREA MANAGER Height 154.9 cm (5' 1) 03/11/2023 10:39 AM CONSTRUCTION AREA MANAGER Body Mass Index 29.85 03/11/2023 10:39 AM CONSTRUCTION AREA MANAGER Plan of Treatment Health Maintenance Due [...] 5 Years) and At-Risk Patients (6 to 49 Years) Aged Out No longer eligible based on patient's age to complete this topic RSV Immunizations Under 20 Months Aged Out No longer eligible based on patient's age to complete this topic Advance Directives Documents on File Type Date Recorded Patient Cane Pusher Expl anation Legal Documents 07/06/2011 12:00 AM RETIRE MENT OF RECORD Care Teams Carbon Brusher Assembler Relationship Specialty Start Date End Date Garrett Orona MD [address] [place] [phone] PCP - General FAMILY PRACTICE 06/10/21
[2024-10-30 18:35] VITALS: BP 126/73; PULSE 75; RESP 17; TEMP 36.6; O2SAT 97
== END 2024-10-30 18:35 | disposition home or self-care (01) ==
LOC: CHSED 18:22
PROVIDERS: Emergency Provider Internal Medicine Critical Care Medicine; PCP Nurse Practitioner Family
DX: T63.461A Toxic effect of venom of wasps, accidental (unintentional), initial encounter (principal); L53.0 Toxic erythema
CPT/HCPCS: 96372; 99283; A9270; J2919